=== PATIENT | male | born 1955 | race Caucasian/White ===

== ENCOUNTER 2017-05-26 16:46 | Inpatient (IN) ==
[2017-05-26] MEDS ORDERED: *HR* Morphine 2 MG/ML SYRINGE IVP PRN (21:21)
[2017-05-26] MEDS ORDERED: Naloxone 0.4 MG/ML INJ IVP PRN (21:21)
[2017-05-26] MEDS ORDERED: 0.9 % Sodium Chloride 1,000 ML IVC SCH (21:30)
--- NOTE | 2017-05-26 21:47 | Internal Med History&Physical ---
Date of Encounter: 05/26/17 Time of Encounter: 21:00 Assessment and Plan (1) Acute metabolic encephalopathy Current visit: Yes Status: Acute Will admit the pt into Tele His Acute delirium / AMS mostly due to metabolic encephalopathy with Inc BUN / Cr 82/15.[address] him on gentle IV hydration NS @ 75 cc/ Hr x 1 bag consulted and talked to Nephro Dr. Walker for possible ESRD in AM cont symptomatic and supportive care for now resumed all home meds holding diuretics for now (2) ESRD needing dialysis Current visit: Yes Status: Acute See above (3) Pneumonia Current visit: Yes Status: Acute Reviewed CXR report from [facility] - showed mild pulmonary edema, as well as bibasilar consolidations - possible pneumonia vs atelectasis his pulm edema mostly due to volume overload with ESRD however he does look intra vascular volume depleted and with his underline PNA, high risk to develop sepsis WBC- 7.8 so will give him gentle hydration his pneumonia mostly aspirational also check stat lactic acid started him on empirical abx Rocephin Qualifiers: Pneumonia type: aspiration pneumonia Laterality: bilateral Qualified Code (s): J69.0 - Pneumonitis due to inhalation of food and vomit (4) HTN (hypertension) Current visit: Yes Status: Acute stable with home medication will resume them Qualifiers: Qualified Code(s): I10 - Essential (primary) hypertension (5) Paroxysmal A-fib Current visit: Yes Status: Acute rate controlled on home med Metoprolol now in NSR cont Xarelto for anti coag (6) DM2 (diabetes mellitus, type 2) Current visit: Yes Status: Acute resume home insulin regimen Levemir + ISS + Pre meal Insulin check HbA1C in AM Qualifiers: Qualified Code(s): E11.9 - Type 2 diabetes mellitus without complications; Z79.4 - alf (current) use of insulin; Z79.4 - alf (current) use of insulin; Z79.4 - alf (current) use of insulin; Z79.4 - alf (current ) use of insulin (7) HLD (hyperlipidemia) Current visit: Yes Status: Acute on statin Qualifiers: Qualified Code(s): E78.5 - Hyperlipidemia, unspecified (8) Ileostomy care Current visit: Yes Status: Acute Cont ileostomy care by nursing staff Internal Medicine - H&P: HPI Chief complaint: AMS Admitted From: Hospital to Hospital Transfer ([facility]) Plans for Post Hospital Care: Home History of present illness: Mr. Benitez is a 61 year old male with HTN, DM2, CKD-5, Paroxysmal a fib on Xarelto for anti coag and s/p ileostomy pt was brought into [facility] ED by EMS stating that pt looks confused and lethargic, as well as pt fell off from the bed and his ileostomy bag came off. Pt also had CKD-5 and supposedly to start HD in one week. Pt was transferred to our hospital for further care. Pt is alert, awake and O x 3 now, he denied any CP / SOB. Denied any cod cough / URI symptoms. Denied any fever. He does look slightly lethargic. Past Med Surg Social Fam HX - Past Medical History Medical history: arthritis, atrial fibrillation, CHF, diabetes, hypertension, renal disease, TIA Psychiatric history: no psych history - Past Surgical History Surgical History: colostomy, coronary bypass (CABG) - Social History Smoking Status: Smoker, status unknown Drug use: none - Family History Brother Hx Family Genitourinary Disorders: Yes (ESRD) - Additional Family History Additional family history: Brother had ESRD Internal Medicine - H&P: Meds 3 Allergy/AdvReac Type Severity Reaction Status Date / Time NSAIDS (Non-Steroidal Allergy Hives Verified 05/26/17 18:49 Anti-Inflamma pravastatin Allergy Hives Verified 05/26/17 18:49 sitagliptin [From Januvia] Allergy Hives Verified 05/26/17 18:49 All Systems PM: A 10-system review of systems was performed and is negative for pertinent findings except as documented above in the HPI. Review of systems: All the systems are reviewed everything is benign except the systems and symptoms I mentioned in the history of present illness - Constitutional Vitals: Temp Pulse Resp BP Pulse Ox 97.7 F 85 16 114/65 91 05/26/17 18:29 05/26/17 18:29 05/26/17 18:29 05/26/17 18:29 05/26/17 18:29 General appearance: Present: A&O X 3 (looks lethargic and weak), no acute distress, answers questions appropriately - Head Head exam: Present: atraumatic, normal inspection - Neck Neck exam general surgery: Present: supple - Respiratory Respiratory exam: Present: decreased breath sounds, wheezes (mild). Absent: rales, respiratory distress, rhonchi - Cardiovascular Cardiovascular exam: Present: RRR, +S1, +S2. Absent: tachycardia - GI/Abdominal GI/Abdominal exam: Present: normal bowel sounds, soft. Absent: rebound, rigid, tenderness Additional comments: ileostomy - Extremities Exam Extremities exam: Present: pedal edema (1+). Absent: calf tenderness, tenderness - Back Exam Back exam: Absent: CVA tenderness (L), CVA tenderness (R) - Neurological Exam Neurological exam: Present: alert, oriented X3 - Psychiatric Psychiatric exam: Present: normal affect, normal mood - Skin Skin exam: Absent: rash
[2017-05-26] MEDS ORDERED: cefTRIAXone 1,000 MG in Water for inj. (sterile) 10 ML IVP SCH (22:00)
[2017-05-26 22:26] LABS: Albumin 2.8 g/dL (3.5-5.0); Albumin/Globulin Ratio 0.6 (1.1-2.2); Bilirubin,Total 0.3 mg/dL (0.2-1.2); Magnesium 1.6 mg/dL (1.6-2.6); Total Protein 7.8 g/dL (6.0-8.3)
[2017-05-26 22:27] LABS: Calcium 9.3 mg/dL (8.6-10.8)
[2017-05-26 22:28] LABS: Potassium 5.6 mEq/L (3.5-4.5)
[2017-05-27] MEDS ORDERED: *HR* Dextrose 50 % in Water (Syg) 50 ML SYRINGE IVP PRN (00:28)
[2017-05-27] MEDS ORDERED: D5% in Water 1,000 ML IVC PRN (00:28)
[2017-05-27] MEDS ORDERED: Dextrose Gel 15 GM/37.5 ML TUBE PO PRN ×2 (00:28)
[2017-05-27] MEDS ORDERED: Insulin LISPRO 300 UNITS/3 ML VIAL SQ SCH ×2 (00:30→07:30)
[2017-05-27 04:22] LABS: Basophils % 0.1 %; Eosinophils # 0.1 K/mcL (0.0-0.6); Eosinophils % 1.7 %; Hematocrit 27.6 % (37.5-50.1); Hemoglobin 8.7 g/dL (12.9-16.9); Immature Granulocytes % 0.7 % (0-4); Lymphocytes # 1.8 K/mcL (0.6-4.6); Lymphocytes % 22.3 %; Mean Corpuscular HGB Conc 31.5 g/dL (31.6-35.5); Mean Corpuscular Hemoglobin 28.8 pg (28.0-33.3); Mean Corpuscular Volume 91.4 fL (83.0-100.0); Mean Platelet Volume 10.2 fL (9.4-12.4); Monocytes # 0.8 K/mcL (0.0-1.3); Monocytes % 9.8 %; Neutrophils # 5.3 K/mcL (1.6-8.9); Platelet Count 117 K/mcL (140-400); Red Blood Count 3.02 M/mcL (4.19-5.50); Red Cell Distribution Width 14.1 % (11.5-14.5); Segmented Neutrophils % 65.4 %
[2017-05-27] MEDS: Insulin LISPRO 300 UNITS/3 ML VIAL SQ SCH ×5 (04:34→22:11)
[2017-05-27 04:42] LABS: Calcium 9.1 mg/dL (8.6-10.8); Chol/HDL Ratio 6.6 (0-4.9); Magnesium 1.8 mg/dL (1.6-2.6); Phosphorous 8.4 mg/dL (2.3-4.7); Potassium 5.9 mEq/L (3.5-4.5)
[2017-05-27] MEDS ORDERED: *HR* Heparin 5,000 UNIT/ML VIAL SQ SCH (06:00)
--- NOTE | 2017-05-27 08:25 | Internal Med Progress Note ---
Date of Encounter: 05/27/17 Time of Encounter: 08:23 - Assessment and plan (1) Aspiration pneumonia Current Visit: Yes Status: Acute Assessment and plan: Acute metabolic encephalopathy likely secondary to aspiration pneumonia and also uremia from acute renal failure Stop Rocephin and start Unasyn, aspiration precautions Gentle hydration Chest x-ray showed mild pulmonary edema and bibasilar consolidations possible pneumonia Qualifiers: Aspiration pneumonia type: unspecified Laterality: bilateral Lung location: lower lobe of lung Qualified Code(s): J69.0 - Pneumonitis due to inhalation of food and vomit (2) Acute metabolic encephalopathy Current Visit: Yes Status: Acute (3) ESRD needing dialysis Current Visit: Yes Status: Acute Assessment and plan: Prior history of CKD5 according to prior records Nephrology consulted, Yanez catheter, UA, will require dialysis Renal ultrasound to be ordered Hold potassium supplements Hold gabapentin, valsartan and Lasix (4) HTN (hypertension) Current Visit: Yes Status: Acute Assessment and plan: Hold valsartan and Lasix Qualifiers: Qualified Code(s): I10 - Essential (primary) hypertension (5) DM2 (diabetes mellitus, type 2) Current Visit: Yes Status: Acute Assessment and plan: Use insulin sliding scale Qualifiers: Diabetes mellitus complication status: without complication Diabetes mellitus intermediate frame tender insulin use: with intermediate frame tender use Qualified Code(s): E11.9 - Type 2 diabetes mellitus without complications; Z79.4 - custodial (current) use of insulin; Z79.4 - custodial (current) use of insulin; Z79.4 - custodial ( current) use of insulin; Z79.4 - custodial (current) use of insulin (6) HLD (hyperlipidemia) Current Visit: Yes Status: Acute Qualifiers: Qualified Code(s): E78.5 - Hyperlipidemia, unspecified (7) Paroxysmal A-fib Current Visit: Yes Status: Acute Assessment and plan: Has a history of TIAs Continue metoprolol Stop Xarelto this is not an optimal drug for patient with acute renal failure Consider using Coumadin in the long run in May start heparin drip after the dialysis catheter is placed (8) Ileostomy care Current Visit: Yes Status: Acute Assessment and plan: Unclear reason for ileostomy spirograph scheduled to be reversed in the future History of C. difficile 2 years ago - Subjective Interval history: Lethargic, oriented in person and place, unable to provide any history due to altered mental status, not able to complete review of systems - Constitutional Vitals: Temp Pulse Resp BP Pulse Ox 98.5 F 82 19 137/80 96 05/27/17 06:55 05/27/17 06:55 05/27/17 06:55 05/27/17 06:55 05/27/17 06:55 General appearance: Present: A&O X 2, no acute distress, answers questions appropriately - Head Head exam: Present: atraumatic, normocephalic - Eye Eye exam: Present: PERRL, conjuntiva pink, sclera anicteric Pupils: Present: PERRL - Neck Neck exam general surgery: Present: supple, trachea midline. Absent: lymphadenopathy - Respiratory Respiratory exam: Present: decreased breath sounds, CTAB. Absent: accessory muscle use, rales, rhonchi, wheezes - Cardiovascular Cardiovascular exam: Present: RRR, +S1, +S2. Absent: diastolic murmur, gallop, rubs, systolic murmur - GI/Abdominal GI/Abdominal exam: Present: distended (Ileostomy in place), normal bowel sounds , soft, no peritoneal signs. Absent: tenderness - Extremities Exam Extremities exam: Present: pedal edema, warm, radial pulses palpable and symmetrical. Absent: calf tenderness, cyanotic - Neurological Exam Neurological exam: Present: CN II-XII intact, no focal deficits. Absent: oriented X3, pronater drift, facial droop, speech deficit - Skin Skin exam: Present: dry, intact Internal Medicine: Result - Labs CBC & Chem 7: 05/27/17 03:50 05/27/17 03:50 Labs: Short CBC 05/27/17 Range/Units 03:50 WBC 8.1 (4.3-11.1) K/mcL Hgb 8.7 L (12.9-16.9) g/dL Hct 27.6 L (37.5-50.1) % Plt Count 117 L (140-400) K/mcL Neutrophils # 5.3 (1.6-8.9) K/mcL BMP 05/26/17 05/27/17 21:55 03:50 Sodium 133 L 133 L Potassium 5.6 H 5.9 H Chloride 106 106 Carbon Dioxide 11 L 11 L BUN 87 H 87 H Creatinine 16.13 H 16.91 H Glucose 243 H 219 H Calcium 9.3 9.1 Liver Function 05/26/17 Range/Units 21:55 Total Bilirubin 0.3 (0.2-1.2) mg/dL AST 14 (5-34) Units/L ALT 12 (0-55) Units/L Alkaline Phosphatase 95 (38-126) Units/L Albumin 2.8 L (3.5-5.0) g/dL Consult Discharge Plan - Plan Referrals: NONE,PCP [Primary Care Provider] -
[2017-05-27] MEDS ORDERED: Ampicillin/Sulbactam 1,500 MG in 0.9 % Sodium Chloride Mini Bag 100 ML IVPB SCH (09:00)
--- NOTE | 2017-05-27 09:18 | Nephrology Consult Note ---
Date of Encounter: 05/27/17 Time of Encounter: 08:15 Assessment and Plan (1) ESRD needing dialysis Current Visit: Yes Status: Acute CLAUDIA in setting of possible aspiration pneumonia, decreased oral intake, emesis superimposed on CKD 4 in setting of DM and HTN. Metabolic encephalopathy most likely due to CLAUDIA. Empiric Atb chaned to Unisyn. IR consulted for stat placement of for HD this morning. Orders given. Ordered stat Renal US to r/o obstructive uropathy, levin catheter placement and urine, urine c/s. Avoid nephrotoxins. Lasix, Losartan, K supplement on hold. Accurate I/O. Will continue to monitor. (2) Acute metabolic encephalopathy Current Visit: Yes Status: Acute (3) Pneumonia Current Visit: Yes Status: Acute Qualifiers: Pneumonia type: aspiration pneumonia Laterality: bilateral Qualified Code (s): J69.0 - Pneumonitis due to inhalation of food and vomit History of Present Illness - Reason for Consult Acute Kidney Injury - History of Present Illness Mr. Benitez is a 61 year old male known to practice with stable CKD in setting of diabetes and hypertension. Other PMH- arthritis, atrial fibrillation on xaralto, CHF, diabetes, hypertension, renal disease, TIA, iliostomy, coronary bypass (CABG). Mr. Benitez was transferred to [place] yesterday from [facility] with mental status changes and creat 16.0. K 5.9. Today at [facility], patient on BiPap. at bedside, although is not the best manager medical for patient, states patient not himself for greater than one weak. Had one episode of vomiting last weekend, has not had his usual oral intake and patient stated not urinating as usual, less amount, on diuretic. Denies NSAID use. States took patient to PCP on Monday because patient stated "he felt he needed to see doctor." patient told has depression in setting of recent of brother and started on anti depression medication. He was also seen by surgeon in [place] on Monday sherri evaluation of reversal of iliostomy. noted yesterda patient had increasing weakness and confusion, falling out of bed and had transferred via EMS to [facility]. As stated earlier creatinine noted to be elevated, CXR at [place]-mild pul edema, bibasilar consolidations-poss. PNA versus atalectasis. WBC 7.8He was placed on gentle hydration, NS @ 75cc/hr. and empirical Rocephin started. There is no documented urine output. Past Med Surg Social Fam HX - Past Medical History Medical history: arthritis, atrial fibrillation, CHF, diabetes, hypertension, renal disease, TIA Psychiatric history: no psych history - Past Surgical History Surgical History: colostomy, coronary bypass (CABG) - Social History Smoking Status: Smoker, status unknown Drug use: none - Family History Brother Hx Family Genitourinary Disorders: Yes (ESRD) Medications and Allergies Acetaminophen [Tylenol] 500 mg PO Q6HR PRN 05/27/17 [History] Bisoprolol/HCTZ 106.25 [Ziac 106.25] 1 tab PO DAILY 05/27/17 [History] Famotidine [Pepcid] 20 mg PO BID 05/27/17 [History] Flonase 50 mcg IN DAILY 05/27/17 [History] Furosemide [Lasix] 40 mg PO BID 05/27/17 [History] Gabapentin [Neurontin] 600 mg PO TID 05/27/17 [History] Hyoscyamine 0.125 mg PO Q4-6H PRN 05/27/17 [History] Insulin ASPART [Novolog Flexpen] 45 unit SQ TIDAC 05/27/17 [History] Insulin Glargine,Hum.rec.anlog [Basaglar Kwikpen U-100] 60 unit SQ BID 05/27/17 [History] Metoprolol XL (24 HR) Succ [Toprol XL] 200 mg PO DAILY 05/27/17 [History] Nitroglycerin [Nitrostat] 0.4 mg SL Q5-10MIN PRN 05/27/17 [History] Potassium Chloride [Klor-Con 10] 10 meq PO DAILY 05/27/17 [History] Rivaroxaban [Xarelto] 20 mg PO DAILY 05/27/17 [History] Simvastatin [Zocor] 40 mg PO HS 05/27/17 [History] Valsartan [Diovan] 80 mg PO DAILY 05/27/17 [History] 3 Allergy/AdvReac Type Severity Reaction Status Date / Time NSAIDS (Non-Steroidal Allergy Hives Verified 05/26/17 18:49 Anti-Inflamma pravastatin Allergy Hives Verified 05/26/17 18:49 sitagliptin [From Januvia] Allergy Hives Verified 05/26/17 18:49 Review of Systems ROS unobtainable: due to mental status All Systems: reviewed and no additional remarkable complaints except as stated Exam - Vital Signs Vital signs: Initial Vital Signs Temp Pulse Resp BP Pulse Ox 97.7 F 85 16 114/65 91 05/26/17 18:29 05/26/17 18:29 05/26/17 18:29 05/26/17 18:29 05/26/17 18:29 Vital Signs - Last 8 Hours Temp Pulse Resp BP Pulse Ox 05/27/17 06:55 98.5 F 82 19 137/80 96 05/27/17 04:01 98.4 F 94 16 151/76 90 05/27/17 04:00 20 93 Intake and Output 05/26/17 05/27/17 05/27/17 23:59 07:59 15:59 Intake Total 800 / 800 Balance 800 / 800 Intake: IV Fluids 400 / 400 0.9 % Sodium Chloride 1,000 ML 400 / 400 @ 75 mls/hr IVC .[id number] COUNTS INCLUDE 234 BEDS AT THE [facility] Rx #:[id number] Rocephin 1,000 MG In Water for inj. (sterile) 10 ML @ 300 mls/ hr IVP DAILY COUNTS INCLUDE 234 BEDS AT THE [facility] Rx#:[id number] Oral 0 / 0 400 / 400 Other: Stool Size Moderate Stool Consistency loose liquid Stool Color Brown Weight 113.398 kg 114.3 kg Blood Glucose* 194 Patient Weight 05/27/17 23:59 Weight 114.3 kg - General Appearance General appearance: well-developed, well-nourished, appears started age, obese EENT: mucous membranes moist Neck: no JVD Respiratory: clear Cardiology: edema, regular rate, regular rhythm Additional Comments: mild LE edema Gastrointestinal: hypoactive bowel sounds, no guarding Integumentary: warm and dry Results - Lab Results 05/27/17 03:50 05/27/17 03:50 Most recent lab results Calcium 9.1 mg/dL (8.6-10.8) 05/27/17 03:50 Phosphorus 8.4 mg/dL (2.3-4.7) H 05/27/17 03:50 Magnesium 1.8 mg/dL (1.6-2.6) 05/27/17 03:50 Consult Discharge Plan - Plan Referrals: NONE,PCP [Primary Care Provider] -
[2017-05-27] MEDS ORDERED: *HR* Heparin 5,000 UNIT/ML VIAL ONE (10:08)
[2017-05-27] MEDS ORDERED: *HR* Heparin 10,000 UNIT/10 ML VIAL IV PRN (10:11)
[2017-05-27] MEDS ORDERED: 0.9 % Sodium Chloride 250 ML IVC PRN (10:11)
[2017-05-27] MEDS ORDERED: 0.9 % Sodium Chloride 1,000 ML PRIME SCH (10:15)
[2017-05-27] MEDS: Metoprolol XL (24 HR) Succ 50 MG TAB.ER.24H PO SCH (10:26)
[2017-05-27] MEDS: Ampicillin/Sulbactam 1,500 MG in 0.9 % Sodium Chloride Mini Bag 100 ML IVPB SCH ×2 (10:27→18:11)
[2017-05-27 11:11] LABS: Hepatitis B Surface Antigen Nonreactive (Nonreactive)
[2017-05-27 13:31] LABS: Bilirubin,Urine Negative (Negative); Blood,Urine Large (Negative); Clarity,Urine Cloudy (Clear); Color,Urine Yellow (Yellow); Glucose,Urine (UA) 100 mg/dL (Normal); Ketones,Urine Negative (Negative); Leukocyte Esterase,Urine Negative (Negative); Nitrite,Urine Negative (Negative); Protein,Urine >=300 mg/dL (Neg-Trace); Specific Gravity,Urine 1.018 (1.010-1.025); Urobilinogen,Urine Normal (Normal)
[2017-05-27 13:34] LABS: Bacteria,Urine None Seen per hpf (None-Few); Hyaline Casts,Urine None Seen per lpf (None-Few); RBC,Urine 0-3 per hpf (0-3); Squamous Epithelial Cell,Urine Moderate per lpf (None-Few)
[2017-05-27] MEDS ORDERED: 0.9 % Sodium Chloride 2,000 ML ONE (13:51)
[2017-05-28 07:19] LABS: Hematocrit 26.3 % (37.5-50.1); Hemoglobin 8.5 g/dL (12.9-16.9); Mean Corpuscular HGB Conc 32.3 g/dL (31.6-35.5); Mean Corpuscular Hemoglobin 29.1 pg (28.0-33.3); Mean Corpuscular Volume 90.1 fL (83.0-100.0); Mean Platelet Volume 10.3 fL (9.4-12.4); Platelet Count 135 K/mcL (140-400); Red Blood Count 2.92 M/mcL (4.19-5.50); Red Cell Distribution Width 14.2 % (11.5-14.5)
[2017-05-28 07:41] LABS: Calcium 8.8 mg/dL (8.6-10.8)
[2017-05-28 07:43] LABS: Potassium 4.6 mEq/L (3.5-4.5)
[2017-05-28] MEDS ORDERED: 0.9 % Sodium Chloride 250 ML IVC PRN (08:13)
[2017-05-28] MEDS ORDERED: 0.9 % Sodium Chloride 1,000 ML PRIME SCH (08:15)
--- NOTE | 2017-05-28 08:25 | Nephrology Progress Note ---
Date of Encounter: 05/28/17 Time of Encounter: 08:10 - Assessment and Plan (1) ESRD needing dialysis Current Visit: Yes Status: Acute CLAUDIA in setting of possible aspiration pneumonia, decreased oral intake, emesis superimposed on CKD 4 in setting of DM and HTN. Metabolic encephalopathy most likely due to CLAUDIA. Empiric Atb coverage. Renal fct improving. Creat 12.19. HD again today. Orders given. Renal US no hydronephrosis, no obstructive uropathy. Documented ourine output 750cc. Avoid nephrotoxins. Lasix, Losartan, K supplement on hold. Accurate I/O. Will continue to monitor. (2) Acute metabolic encephalopathy Current Visit: Yes Status: Acute (3) Pneumonia Current Visit: Yes Status: Acute Qualifiers: Pneumonia type: aspiration pneumonia Laterality: bilateral Qualified Code (s): J69.0 - Pneumonitis due to inhalation of food and vomit Subjective Interval history: More alert, verbal. Has Cpap on. Sister in law at bedside, awaiting to feed breakfast. Objective - Vital Signs Vital signs: Vital Signs Temp Pulse Resp BP Pulse Ox 05/28/17 07:00 98.1 F 73 16 123/73 98 05/28/17 04:29 17 98 05/28/17 00:30 14 98 05/27/17 23:41 98.0 F 80 16 148/69 05/27/17 21:45 16 98 05/27/17 19:45 98.6 F 77 18 155/76 98 05/27/17 16:40 97.1 F L 15 135/72 05/27/17 16:30 124/73 05/27/17 16:15 148/83 05/27/17 16:00 145/82 05/27/17 15:45 128/90 05/27/17 15:30 150/85 05/27/17 15:15 148/85 05/27/17 15:00 153/90 05/27/17 14:45 150/88 05/27/17 14:30 145/70 05/27/17 14:15 141/86 05/27/17 14:00 97.6 F 15 130/81 05/27/17 11:45 150/88 05/27/17 11:41 98.0 F 78 15 142/47 98 Intake and Output 05/27/17 05/28/17 05/28/17 23:59 07:59 15:59 Intake Total 0 / 0 Output Total 1600 / 1600 200 / 200 Balance -1600 / -1600 -200 / -200 Intake: Oral 0 / 0 Output: Urine 0 / 0 Stool 200 / 200 Total Dialysis (HD) Output 1600 / 1600 Other: Stool Consistency liquid Stool Color Brown Blood Glucose* 203 138 Hemodialysis Net Fluid Removed 1000 (mL) - General Appearance General appearance: Present: well-developed, well-nourished, appears started age , obese EENT: Present: mucous membranes moist Neck: Present: no JVD Respiratory: Present: clear Cardiology: Present: no edema, regular rate, regular rhythm Gastrointestinal: Present: hypoactive bowel sounds, no tenderness, no guarding Integumentary: Present: warm and dry Psychiatric: Present: mood/affect appropriate, cooperative - Lab 05/28/17 06:38 05/28/17 06:38 Most recent lab results Calcium 8.8 mg/dL (8.6-10.8) 05/28/17 06:38 Phosphorus 8.4 mg/dL (2.3-4.7) H 05/27/17 03:50 Magnesium 1.8 mg/dL (1.6-2.6) 05/27/17 03:50 Consult Discharge Plan - Plan Referrals: NONE,PCP [Primary Care Provider] -
--- NOTE | 2017-05-28 08:59 | Internal Med Progress Note ---
Date of Encounter: 05/28/17 Time of Encounter: 08:57 - Assessment and plan (1) Aspiration pneumonia Current Visit: Yes Status: Acute Assessment and plan: Acute metabolic encephalopathy likely secondary to aspiration pneumonia and also uremia from acute renal failure Stopped Rocephin COntinue Unasyn day 2, aspiration precautions discontinued IVF Chest x-ray showed mild pulmonary edema and bibasilar consolidations possible pneumonia Qualifiers: Aspiration pneumonia type: unspecified Laterality: bilateral Lung location: lower lobe of lung Qualified Code(s): J69.0 - Pneumonitis due to inhalation of food and vomit (2) Acute metabolic encephalopathy Current Visit: Yes Status: Acute Assessment and plan: resolved (3) ESRD needing dialysis Current Visit: Yes Status: Acute Assessment and plan: history of CKD5 according to prior records Nephrology consulted, Yanez catheter, continue dialysis Renal ultrasound showed:1. No obstructive uropathy identified. 2. Mildly echogenic renal parenchyma compatible with medical renal disease. Hold potassium supplements Hold gabapentin, valsartan and Lasix (4) HTN (hypertension) Current Visit: Yes Status: Acute Assessment and plan: Hold valsartan and Lasix Qualifiers: Qualified Code(s): I10 - Essential (primary) hypertension (5) DM2 (diabetes mellitus, type 2) Current Visit: Yes Status: Acute Assessment and plan: Use insulin sliding scale Qualifiers: Diabetes mellitus complication status: without complication Diabetes mellitus volunteer specialist insulin use: with volunteer specialist use Qualified Code(s): E11.9 - Type 2 diabetes mellitus without complications; Z79.4 - horticultural services supervisor (current) use of insulin; Z79.4 - horticultural services supervisor (current) use of insulin; Z79.4 - horticultural services supervisor ( current) use of insulin; Z79.4 - intermediate (current) use of insulin (6) HLD (hyperlipidemia) Current Visit: Yes Status: Acute Qualifiers: Qualified Code(s): E78.5 - Hyperlipidemia, unspecified (7) Paroxysmal A-fib Current Visit: Yes Status: Acute Assessment and plan: Has a history of TIAs Continue metoprolol Stopped Xarelto, this is not an optimal drug for patients with acute renal failure/ or HD Start Coumadin . May start heparin drip until INR >2 (8) Ileostomy care Current Visit: Yes Status: Acute Assessment and plan: Unclear reason for ileostomy spirograph scheduled to be reversed in the future History of C. difficile 2 years ago - Subjective Interval history: oriented x 3 now, complains of leg pain bilaterally, and his any chest pain or shortness of breath, does not remember what happened yesterday. Denies any fevers or headaches - Constitutional Vitals: Temp Pulse Resp BP Pulse Ox 98.1 F 73 16 123/73 98 05/28/17 07:00 05/28/17 07:00 05/28/17 07:00 05/28/17 07:00 05/28/17 07:00 General appearance: Present: A&O X 3, no acute distress, answers questions appropriately - Head Head exam: Present: atraumatic, normocephalic - Eye Eye exam: Present: PERRL, conjuntiva pink, sclera anicteric Pupils: Present: PERRL - Neck Neck exam general surgery: Present: supple, trachea midline. Absent: lymphadenopathy - Respiratory Respiratory exam: Present: CTAB. Absent: accessory muscle use, rales, rhonchi, wheezes - Cardiovascular Cardiovascular exam: Present: RRR, +S1, +S2. Absent: diastolic murmur, gallop, rubs, systolic murmur - GI/Abdominal GI/Abdominal exam: Present: normal bowel sounds, soft, no peritoneal signs. Absent: distended, tenderness Additional comments: Ileostomy in place - Extremities Exam Extremities exam: Present: pedal edema, warm, radial pulses palpable and symmetrical. Absent: calf tenderness, cyanotic - Neurological Exam Neurological exam: Present: CN II-XII intact, oriented X3, no focal deficits. Absent: pronater drift, facial droop, speech deficit - Skin Skin exam: Present: dry, intact Additional comments: Yanez catheter in place Internal Medicine: Result - Labs CBC & Chem 7: 05/28/17 06:38 05/28/17 06:38 Labs: Short CBC 05/28/17 Range/Units 06:38 WBC 6.7 (4.3-11.1) K/mcL Hgb 8.5 L (12.9-16.9) g/dL Hct 26.3 L (37.5-50.1) % Plt Count 135 L (140-400) K/mcL BMP 05/28/17 06:38 Sodium 135 L Potassium 4.6 H D Chloride 102 Carbon Dioxide 17 L BUN 58 H D Creatinine 12.19 H Glucose 132 H Calcium 8.8 Urine 05/27/17 Range/Units 13:15 Urine Color Yellow (Yellow) Urine Clarity Cloudy A (Clear) Urine pH 6.0 (5.0-8.0) pH Units Ur Specific [place] 1.018 (1.010-1.025) Urine Protein >=300 H (Neg-Trace) mg/dL Urine Glucose (UA) 100 H (Normal) mg/dL - Impressions Impressions KUB X-Ray 05/27/17 10:14 IMPRESSION: Right femoral venous catheter with tip in the IVC. No bowel obstruction. D/ / Gurvinder Melton MD / Gurvinder Melton MD Interpreting Provider: Gurvinder Melton MD Retroperitoneum Ultrasound 05/27/17 13:00 IMPRESSION: 1. No obstructive uropathy identified. 2. Mildly echogenic renal parenchyma compatible with medical renal disease. D/ / David Christiansen MD / David Christiansen MD Interpreting Provider: David Christiansen MD Consult Discharge Plan - Plan Referrals: NONE,PCP [Primary Care Provider] -
[2017-05-28 09:56] LABS: INR 1.1; Prothrombin Time 11.8 Seconds (9.4-12.1)
[2017-05-28 09:59] LABS: Activated Partial Thrombo Time 23.9 Seconds (26.0-36.0)
[2017-05-28] MEDS: Insulin LISPRO 300 UNITS/3 ML VIAL SQ SCH ×4 (10:29→22:14)
[2017-05-28] MEDS: Metoprolol XL (24 HR) Succ 50 MG TAB.ER.24H PO SCH ×2 (14:25→14:55)
[2017-05-28] MEDS: Heparin 25,000 UNIT/500 ML D5W 25,000 UNIT/500 ML BAG IVC SCH (14:35)
[2017-05-28] MEDS: Ampicillin/Sulbactam 1,500 MG in 0.9 % Sodium Chloride Mini Bag 100 ML IVPB SCH (14:50)
[2017-05-28] MEDS ORDERED: *HR* Warfarin 5 MG TABLET PO SCH (18:00)
[2017-05-28] MEDS ORDERED: Warfarin perPT PO PRN (18:00)
[2017-05-28 18:34] LABS: ABG Base Excess 0 mEq/L (-2 to 3); ABG HCO3 26 mEq/L (21-27); ABG Oxygen Saturation 98 % (95-98); ABG PCO2 46 mmHg (35-45); ABG PH 7.36 pH Units (7.32-7.45); ABG PO2 110 mmHg (85-104); ABG TCO2 27 mEq/L (20-26)
[2017-05-28] MEDS: Acetaminophen 325 MG TABLET PO PRN (19:15)
[2017-05-28] MEDS: *HR* Heparin 5,000 UNIT/ML VIAL IVP PRN (22:15)
[2017-05-29 04:57] LABS: INR 1.1
[2017-05-29] MEDS: *HR* Heparin 5,000 UNIT/ML VIAL IVP PRN (05:15)
[2017-05-29] MEDS: Acetaminophen 325 MG TABLET PO PRN (05:15)
[2017-05-29 07:47] LABS: Hematocrit 23.5 % (37.5-50.1); Hemoglobin 7.6 g/dL (12.9-16.9); Mean Corpuscular HGB Conc 32.3 g/dL (31.6-35.5); Mean Corpuscular Volume 89.7 fL (83.0-100.0); Mean Platelet Volume 9.3 fL (9.4-12.4); Platelet Count 123 K/mcL (140-400); Red Blood Count 2.62 M/mcL (4.19-5.50); Red Cell Distribution Width 14.1 % (11.5-14.5)
[2017-05-29 07:59] LABS: Calcium 8.8 mg/dL (8.6-10.8); Potassium 4.2 mEq/L (3.5-4.5)
--- NOTE | 2017-05-29 08:51 | Internal Med Progress Note ---
<Darren Crowder - Last Filed: 05/29/17 09:53> Date of Encounter: 05/29/17 Time of Encounter: 08:49 - Assessment and plan (1) Acute metabolic encephalopathy Current Visit: Yes Status: Acute Assessment and plan: Resolved. AOx3 currently. (2) ESRD needing dialysis Current Visit: Yes Status: Acute Assessment and plan: Cr 10.03 < 12.19 < 16.91 BUN 45 < 58 < 87 Dialysis per nephrology recommendations Holding K supplements, gabapentin, valsartan, and lasix (3) HTN (hypertension) Current Visit: Yes Status: Chronic Assessment and plan: Elevated at 164/78 this morning Holding home medications of valsartan and lasix secondary to ESRD Continue hydralazine and metoprolol Qualifiers: Hypertension type: essential hypertension Qualified Code(s): I10 - Essential (primary) hypertension (4) DM2 (diabetes mellitus, type 2) Current Visit: Yes Status: Chronic Assessment and plan: Glucose 205 Continue sliding scale insulin Qualifiers: Diabetes mellitus complication status: without complication Diabetes mellitus correction insulin use: with correction use Qualified Code(s): E11.9 - Type 2 diabetes mellitus without complications; Z79.4 - alf (current) use of insulin; Z79.4 - alf (current) use of insulin; Z79.4 - alf ( current) use of insulin; Z79.4 - alf (current) use of insulin (5) HLD (hyperlipidemia) Current Visit: Yes Status: Chronic Assessment and plan: Continue statin Qualifiers: Hyperlipidemia type: unspecified Qualified Code(s): E78.5 - Hyperlipidemia , unspecified (6) Paroxysmal A-fib Current Visit: Yes Status: Chronic Assessment and plan: Continue metoprolol Continue coumadin. Follow INR until >2, then discontinue heparin. (7) Aspiration pneumonia Current Visit: Yes Status: Acute Assessment and plan: Continue unasyn Day 3 Aspiration precautions Qualifiers: Aspiration pneumonia type: unspecified Laterality: bilateral Lung location: lower lobe of lung Qualified Code(s): J69.0 - Pneumonitis due to inhalation of food and vomit (8) DVT prophylaxis Current Visit: Yes Status: Acute Assessment and plan: Continue heparin until coumadin is therapeutic - Subjective Interval history: Patient and complained of altered mental status yesterday after administration of morphine. This has improved and he is now back at baseline. - Constitutional Vitals: Temp Pulse Resp BP Pulse Ox 98.3 F 90 20 164/78 99 05/29/17 07:06 05/29/17 07:06 05/29/17 07:06 05/29/17 07:06 05/29/17 07:06 General appearance: Present: A&O X 3, no acute distress, obese, answers questions appropriately - Head Head exam: Present: atraumatic, normal inspection, normocephalic - ENT ENT exam: Present: mucous membranes moist - Neck Neck exam general surgery: Present: trachea midline - Respiratory Respiratory exam: Present: CTAB. Absent: accessory muscle use - Cardiovascular Cardiovascular exam: Present: RRR, +S1, +S2 - GI/Abdominal GI/Abdominal exam: Present: normal bowel sounds, soft, no peritoneal signs. Absent: tenderness - Extremities Exam Extremities exam: Present: warm. Absent: calf tenderness, pedal edema - Neurological Exam Neurological exam: Present: alert, oriented X3, no focal deficits - Psychiatric Psychiatric exam: Present: normal affect, normal mood - Skin Skin exam: Present: dry, warm Internal Medicine: Result - Labs CBC & Chem 7: 05/29/17 07:40 05/29/17 07:40 Labs: Short CBC 05/29/17 Range/Units 07:40 WBC 4.8 (4.3-11.1) K/mcL Hgb 7.6 L (12.9-16.9) g/dL Hct 23.5 L (37.5-50.1) % Plt Count 123 L (140-400) K/mcL BMP 05/29/17 07:40 Sodium 134 L Potassium 4.2 Chloride 100 Carbon Dioxide 22 BUN 45 H D Creatinine 10.03 H Glucose 205 H Calcium 8.8 - ABG Interpretation ABG results: ABG ABG pH 7.36 pH Units (7.32-7.45) 05/28/17 18:31 ABG pCO2 46 mmHg (35-45) H 05/28/17 18:31 ABG pO2 110 mmHg (85-104) H 05/28/17 18:31 ABG O2 Saturation 98 % (95-98) 05/28/17 18:31 PT/INR, D-dimer PT 12.0 Seconds (9.4-12.1) 05/29/17 04:38 Consult Discharge Plan - Plan Referrals: NONE,PCP [Primary Care Provider] - <Bin Hickman H - Last Filed: 05/29/17 10:55> Date of Encounter: 05/29/17 - Assessment and plan (1) Aspiration pneumonia Current Visit: Yes Status: Acute Qualifiers: Aspiration pneumonia type: unspecified Laterality: bilateral Lung location: lower lobe of lung Qualified Code(s): J69.0 - Pneumonitis due to inhalation of food and vomit (2) Acute metabolic encephalopathy Current Visit: Yes Status: Acute (3) ESRD needing dialysis Current Visit: Yes Status: Acute (4) HTN (hypertension) Current Visit: Yes Status: Chronic Qualifiers: Hypertension type: essential hypertension Qualified Code(s): I10 - Essential (primary) hypertension (5) DM2 (diabetes mellitus, type 2) Current Visit: Yes Status: Chronic Qualifiers: Diabetes mellitus complication status: without complication Diabetes mellitus correction insulin use: with meterman use Qualified Code(s): E11.9 - Type 2 diabetes mellitus without complications; Z79.4 - buttermaker continuous churn (current) use of insulin; Z79.4 - buttermaker continuous churn (current) use of insulin; Z79.4 - buttermaker continuous churn ( current) use of insulin; Z79.4 - buttermaker continuous churn (current) use of insulin (6) HLD (hyperlipidemia) Current Visit: Yes Status: Chronic Qualifiers: Hyperlipidemia type: unspecified Qualified Code(s): E78.5 - Hyperlipidemia , unspecified (7) Paroxysmal A-fib Current Visit: Yes Status: Chronic (8) Ileostomy care Current Visit: Yes Status: Acute - Constitutional Vitals: Temp Pulse Resp BP Pulse Ox 98.3 F 90 20 164/78 99 05/29/17 07:06 05/29/17 07:06 05/29/17 07:06 05/29/17 07:06 05/29/17 09:15 Internal Medicine: Result - Labs CBC & Chem 7: 05/29/17 07:40 05/29/17 07:40 Labs: Short CBC 05/29/17 Range/Units 07:40 WBC 4.8 (4.3-11.1) K/mcL Hgb 7.6 L (12.9-16.9) g/dL Hct 23.5 L (37.5-50.1) % Plt Count 123 L (140-400) K/mcL BMP 05/29/17 07:40 Sodium 134 L Potassium 4.2 Chloride 100 Carbon Dioxide 22 BUN 45 H D Creatinine 10.03 H Glucose 205 H Calcium 8.8 - ABG Interpretation ABG results: ABG ABG pH 7.36 pH Units (7.32-7.45) 05/28/17 18:31 ABG pCO2 46 mmHg (35-45) H 05/28/17 18:31 ABG pO2 110 mmHg (85-104) H 05/28/17 18:31 ABG O2 Saturation 98 % (95-98) 05/28/17 18:31 PT/INR, D-dimer PT 12.0 Seconds (9.4-12.1) 05/29/17 04:38 - Attending Attestation Acute metabolic encephalopathy likely secondary to aspiration pneumonia and also uremia from acute renal failure Stopped Xarelto, this is not an optimal drug for patients with acute renal failure/ or HD I examined this patient and my medical decision-making was reviewed with the Resident Physician. I agree with the documented findings, disposition and treatment plan as described except to the extent set forth below.
[2017-05-29] MEDS: Insulin LISPRO 300 UNITS/3 ML VIAL SQ SCH ×4 (09:04→21:04)
[2017-05-29] MEDS: Metoprolol XL (24 HR) Succ 50 MG TAB.ER.24H PO SCH (09:05)
[2017-05-29] MEDS ORDERED: Gabapentin 300 MG CAPSULE PO SCH (09:30)
--- NOTE | 2017-05-29 09:32 | Nephrology Progress Note ---
Date of Encounter: 05/29/17 Time of Encounter: 09:30 - Assessment and Plan (1) Type 2 diabetes mellitus with diabetic chronic kidney disease Current Visit: Yes Status: Acute Qualifiers: Diabetes mellitus termite inspector insulin use: with fci use Chronic kidney disease stage: stage 4 (severe) Qualified Code(s): E11.22 - Type 2 diabetes mellitus with diabetic chronic kidney disease; N18.4 - Chronic kidney disease, stage 4 (severe); N18.4 - Chronic kidney disease, stage 4 (severe); N18.4 - Chronic kidney disease, stage 4 (severe); N18.4 - Chronic kidney disease, stage 4 (severe); Z79.4 - [facility] (current) use of insulin; Z79.4 - regional intermodal truck driver ( current) use of insulin; Z79.4 - regional intermodal truck driver (current) use of insulin; Z79.4 - [facility] (current) use of insulin (2) Benign hypertension with CKD (chronic kidney disease) stage IV Current Visit: Yes Status: Acute (3) Anemia in CKD (chronic kidney disease) Current Visit: Yes Status: Acute Qualifiers: Chronic kidney disease stage: stage 4 (severe) Qualified Code(s): N18.4 - Chronic kidney disease, stage 4 (severe); D63.1 - Anemia in chronic kidney disease; D63.1 - Anemia in chronic kidney disease (4) Paroxysmal A-fib Current Visit: Yes Status: Chronic (5) Chronic kidney disease, stage IV (severe) Current Visit: Yes Status: Acute The patient has a clinical picture of acute kidney injury superimposed on stage IV chronic kidney disease related to diabetic nephropathy and hypertension. Patient is require dialysis over the past 2 days. Renal ultrasound was unremarkable. There is no sign of renal recovery. We will proceed with dialysis again today. If over the next several days we do not see any evidence of renal recovery we will have to have a tunnel dialysis catheter placed. I reviewed this with the patient and his . All questions were answered. He will be started on Aranesp for his anemia. We will check a phosphorus level and PTH level as well. (6) Acute kidney failure, unspecified Current Visit: Yes Status: Acute Qualifiers: Acute renal failure type: unspecified Qualified Code(s): N17.9 - Acute kidney failure, unspecified Subjective Interval history: Patient's main complaint is back pain and lower extremity pain which she blames on diabetic peripheral neuropathy. From a renal perspective he has had dialysis for the past 2 days. Urine output is not recorded for yesterday. Creatinine is 10.03. There is currently no sign of renal improvement. Back in March the patient's creatinine was 3.46 with a GFR of 17.9. Objective - Vital Signs Vital signs: Vital Signs Temp Pulse Resp BP Pulse Ox 05/29/17 07:06 98.3 F 90 20 164/78 99 05/29/17 04:18 11 99 05/29/17 03:52 98.3 F 80 18 145/70 100 05/28/17 22:59 98.6 F 86 17 118/69 96 05/28/17 20:02 98.7 F 91 17 120/75 97 05/28/17 16:42 99.5 F 88 18 148/75 100 05/28/17 13:15 99.1 F 91 18 156/74 96 05/28/17 12:20 97.7 F 16 118/67 05/28/17 12:00 106/47 05/28/17 11:45 109/68 05/28/17 11:30 110/69 05/28/17 11:15 129/69 05/28/17 11:00 125/70 05/28/17 10:45 136/69 05/28/17 10:30 124/67 05/28/17 10:15 113/67 05/28/17 10:00 115/63 05/28/17 09:45 119/70 Intake and Output 05/28/17 05/29/17 05/29/17 23:59 07:59 15:59 Intake Total 149 / 149 187 / 187 Output Total 300 / 300 150 / 150 Balance -151 / -151 37 / 37 Intake: IV Fluids 149 / 149 187 / 187 Heparin 25,000 UNIT/500 ML D5W 149 / 149 187 / 187 25,000 unit In 500 ml @ 8.7 UNIT/KG/HR 19.888 mls/hr IVC . Q24H [facility] Rx#:[id number] Output: Stool 300 / 300 150 / 150 Other: Stool Size Moderate Stool Consistency loose liquid Stool Color Brown Brown Yellow Green Weight 115.6 kg Blood Glucose* 204 218 Patient Weight 05/29/17 23:59 Weight 115.6 kg - General Appearance Exam: Patient appears alert and oriented. He is in minor distress due to his discomfort. Lungs clear to auscultation. Heart regular rate and rhythm with some ectopy. Abdomen is benign. A colostomy is present. There is no lower extremity swelling. There is a temporary dialysis catheter in the right femoral vein. - Lab 05/29/17 07:40 05/29/17 07:40 Most recent lab results ABG pH 7.36 pH Units (7.32-7.45) 05/28/17 18:31 ABG pCO2 46 mmHg (35-45) H 05/28/17 18:31 ABG pO2 110 mmHg (85-104) H 05/28/17 18:31 ABG HCO3 26 mEq/L (21-27) 05/28/17 18:31 ABG O2 Saturation 98 % (95-98) 05/28/17 18:31 Calcium 8.8 mg/dL (8.6-10.8) 05/29/17 07:40 Phosphorus 8.4 mg/dL (2.3-4.7) H 05/27/17 03:50 Magnesium 1.8 mg/dL (1.6-2.6) 05/27/17 03:50 Consult Discharge Plan - Plan Referrals: NONE,PCP [Primary Care Provider] -
[2017-05-29] MEDS ORDERED: 0.9 % Sodium Chloride 250 ML IVC PRN (09:34)
[2017-05-29] MEDS ORDERED: traMADol 50 MG TABLET PO PRN (09:41)
[2017-05-29] MEDS: Heparin 25,000 UNIT/500 ML D5W 25,000 UNIT/500 ML BAG IVC SCH (10:40)
[2017-05-29] MEDS: Darbepoetin 100 MCG/0.5 ML SYRINGE SQ SCH (10:42)
[2017-05-29 11:04] LABS: Phosphorous 7.3 mg/dL (2.3-4.7)
[2017-05-29 12:45] LABS: Hepatitis B Surface Antibody 0.45 mIU/mL
[2017-05-29] MEDS: Ampicillin/Sulbactam 1,500 MG in 0.9 % Sodium Chloride Mini Bag 100 ML IVPB SCH (13:00)
[2017-05-29] MEDS ORDERED: *HR* Heparin 10,000 UNIT/10 ML VIAL IV PRN (13:30)
[2017-05-29] MEDS ORDERED: Ampicillin/Sulbactam 3,000 MG in 0.9 % Sodium Chloride Mini Bag 100 ML IVPB SCH (14:00)
[2017-05-29] MEDS: traMADol 50 MG TABLET PO PRN ×2 (17:48→22:20)
[2017-05-29] MEDS: Ampicillin/Sulbactam 3,000 MG in 0.9 % Sodium Chloride Mini Bag 100 ML IVPB SCH (17:49)
[2017-05-29] MEDS ORDERED: *HR* Warfarin 5 MG TABLET PO SCH (18:00)
[2017-05-29] MEDS: Gabapentin 300 MG CAPSULE PO SCH (21:03)
[2017-05-30] MEDS: Heparin 25,000 UNIT/500 ML D5W 25,000 UNIT/500 ML BAG IVC SCH ×2 (00:47→16:27)
[2017-05-30 03:18] LABS: Basophils % 0.2 %; Eosinophils # 0.2 K/mcL (0.0-0.6); Eosinophils % 3.9 %; Hematocrit 22.8 % (37.5-50.1); Hemoglobin 7.3 g/dL (12.9-16.9); Immature Granulocytes % 0.9 % (0-4); Lymphocytes # 1.2 K/mcL (0.6-4.6); Lymphocytes % 21.4 %; Mean Corpuscular Volume 90.5 fL (83.0-100.0); Mean Platelet Volume 8.9 fL (9.4-12.4); Monocytes # 0.5 K/mcL (0.0-1.3); Monocytes % 7.9 %; Neutrophils # 3.7 K/mcL (1.6-8.9); Platelet Count 140 K/mcL (140-400); Red Blood Count 2.52 M/mcL (4.19-5.50); Red Cell Distribution Width 13.8 % (11.5-14.5); Segmented Neutrophils % 65.7 %
[2017-05-30 03:24] LABS: INR 1.2; Prothrombin Time 13.1 Seconds (9.4-12.1)
[2017-05-30 03:36] LABS: Albumin 2.5 g/dL (3.5-5.0); Albumin/Globulin Ratio 0.5 (1.1-2.2); Bilirubin,Total 0.3 mg/dL (0.2-1.2); Calcium 9.1 mg/dL (8.6-10.8); Globulin 4.7 g/dL (2.4-3.5); Potassium 4.2 mEq/L (3.5-4.5); Total Protein 7.2 g/dL (6.0-8.3)
--- NOTE | 2017-05-30 08:05 | Nephrology Progress Note ---
Date of Encounter: 05/30/17 Time of Encounter: 08:03 - Assessment and Plan (1) Chronic kidney disease, stage IV (severe) Current Visit: Yes Status: Acute The patient has a clinical picture of acute kidney injury superimposed on stage IV chronic kidney disease related to diabetic nephropathy and hypertension. The patient has had dialysis the past 3 days. There is no urine output recorded in the medical record although there is urine in the Yanez. There is an improvement in his creatinine following dialysis yesterday. Phosphorus is elevated so he will be started on a phosphorus binder. Iron saturation is low so he will received some parenteral iron. He may require placement of a tunnel dialysis catheter. In order to have that done his Coumadin will have to be placed on hold as well as his heparin. If it is clinically acceptable I would place his Coumadin on hold today. (2) Type 2 diabetes mellitus with diabetic chronic kidney disease Current Visit: Yes Status: Acute Qualifiers: Diabetes mellitus usp insulin use: with intermediate school teacher use Chronic kidney disease stage: stage 4 (severe) Qualified Code(s): E11.22 - Type 2 diabetes mellitus with diabetic chronic kidney disease; N18.4 - Chronic kidney disease, stage 4 (severe); N18.4 - Chronic kidney disease, stage 4 (severe); N18.4 - Chronic kidney disease, stage 4 (severe); N18.4 - Chronic kidney disease, stage 4 (severe); Z79.4 - group home (current) use of insulin; 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; Z79.4 - intermodal truck driver (current) use of insulin; Z79.4 - intermodal truck driver (current) use of insulin (3) Benign hypertension with CKD (chronic kidney disease) stage IV Current Visit: Yes Status: Acute (4) Anemia in CKD (chronic kidney disease) Current Visit: Yes Status: Acute Qualifiers: Chronic kidney disease stage: stage 4 (severe) Qualified Code(s): N18.4 - Chronic kidney disease, stage 4 (severe); D63.1 - Anemia in chronic kidney disease; D63.1 - Anemia in chronic kidney disease (5) Paroxysmal A-fib Current Visit: Yes Status: Chronic (6) Acute kidney failure, unspecified Current Visit: Yes Status: Acute Qualifiers: Acute renal failure type: unspecified Qualified Code(s): N17.9 - Acute kidney failure, unspecified Subjective Interval history: The patient continues to complain of some leg pain but overall he appears to be more comfortable. He denies any nausea vomiting shortness of breath or anorexia. He did undergo dialysis yesterday. He is having some oozing around the temporary femoral vein dialysis catheter. He is still on a heparin drip. Objective - Vital Signs Vital signs: Vital Signs Temp Pulse Resp BP Pulse Ox 05/30/17 04:07 98.7 F 80 18 130/69 97 05/30/17 00:01 99.1 F 88 20 163/72 97 05/29/17 21:05 95 05/29/17 19:57 100.1 F H 87 21 182/83 99 05/29/17 19:24 10 90 05/29/17 16:50 97.7 F 15 164/85 05/29/17 16:40 154/83 05/29/17 16:25 143/81 05/29/17 16:10 156/78 05/29/17 15:55 150/74 05/29/17 15:40 152/78 05/29/17 15:25 158/84 05/29/17 15:10 168/86 05/29/17 14:55 147/78 05/29/17 14:40 155/88 05/29/17 14:25 165/88 05/29/17 14:10 160/90 05/29/17 13:55 167/87 05/29/17 13:40 97.7 F 17 171/92 05/29/17 11:38 18 99 05/29/17 10:58 98.6 F 76 24 167/93 100 05/29/17 09:15 99 Intake and Output 05/29/17 05/30/17 05/30/17 23:59 07:59 15:59 Intake Total 150 / 150 250 / 250 Output Total 600 / 600 Balance -450 / -450 250 / 250 Intake: IV Fluids 150 / 150 250 / 250 Heparin 25,000 UNIT/500 ML D5W 150 / 150 250 / 250 25,000 unit In 500 ml @ 8.7 UNIT/KG/HR 19.888 mls/hr IVC . Q24H [facility] Rx#:[id number] Output: Urine 0 / 0 Total Dialysis (HD) Output 600 / 600 Other: Weight 116 kg Blood Glucose* 202 Hemodialysis Net Fluid Removed 0 (mL) Patient Weight 05/30/17 23:59 Weight 116 kg - General Appearance Exam: Patient is alert and oriented. He is in no acute distress. Lungs clear to auscultation. Heart regular rate and rhythm. Abdomen is benign. A colostomy is present. There is no lower extremity swelling. A femoral catheter is in place in the right femoral vein. A Yanez catheter is in place as well. - Lab 05/30/17 03:10 05/30/17 03:10 Most recent lab results ABG pH 7.36 pH Units (7.32-7.45) 05/28/17 18:31 ABG pCO2 46 mmHg (35-45) H 05/28/17 18:31 ABG pO2 110 mmHg (85-104) H 05/28/17 18:31 ABG HCO3 26 mEq/L (21-27) 05/28/17 18:31 ABG O2 Saturation 98 % (95-98) 05/28/17 18:31 Calcium 9.1 mg/dL (8.6-10.8) 05/30/17 03:10 Phosphorus 7.3 mg/dL (2.3-4.7) H 05/29/17 07:40 Magnesium 1.8 mg/dL (1.6-2.6) 05/27/17 03:50 Consult Discharge Plan - Plan Referrals: NONE,PCP [Primary Care Provider] -
[2017-05-30] MEDS ORDERED: Ferumoxytol 510 MG in 0.9 % Sodium Chloride 100 ML IVPB ONE (08:07)
[2017-05-30] MEDS: Metoprolol XL (24 HR) Succ 50 MG TAB.ER.24H PO SCH (08:36)
[2017-05-30] MEDS: traMADol 50 MG TABLET PO PRN ×2 (08:36→17:54)
[2017-05-30] MEDS: Gabapentin 300 MG CAPSULE PO SCH ×2 (08:36→20:37)
[2017-05-30] MEDS: Insulin LISPRO 300 UNITS/3 ML VIAL SQ SCH ×4 (08:36→20:37)
--- NOTE | 2017-05-30 09:49 | Internal Med Progress Note ---
<VelElizabethDarren - Last Filed: 05/30/17 15:20> Date of Encounter: 05/30/17 Time of Encounter: 08:30 - Assessment and plan (1) Acute metabolic encephalopathy Current Visit: Yes Status: Acute Assessment and plan: Resolved. AOx3 currently. Avoid narcotics. Tolerating tramadol. (2) ESRD needing dialysis Current Visit: Yes Status: Acute Assessment and plan: Slowly improving Cr 7.57 < 10.03 < 12.19 < 16.91 BUN 31 < 45 < 58 < 87 Dialysis last 3 days, holding today Holding renally excreted drugs (3) Aspiration pneumonia Current Visit: Yes Status: Acute Assessment and plan: Continue unasyn Day 4. Plan 7-10 days of therapy. Aspiration precautions. Qualifiers: Aspiration pneumonia type: unspecified Laterality: bilateral Lung location: lower lobe of lung Qualified Code(s): J69.0 - Pneumonitis due to inhalation of food and vomit (4) HTN (hypertension) Current Visit: Yes Status: Chronic Assessment and plan: 128/73 Holding home medications of valsartan and lasix secondary to ESRD Continue hydralazine and metoprolol Qualifiers: Hypertension type: essential hypertension Qualified Code(s): I10 - Essential (primary) hypertension (5) Paroxysmal A-fib Current Visit: Yes Status: Chronic Assessment and plan: Continue metoprolol. Hold coumadin for tunneled catheter placement. (6) HLD (hyperlipidemia) Current Visit: Yes Status: Chronic Assessment and plan: Continue statin. Qualifiers: Hyperlipidemia type: unspecified Qualified Code(s): E78.5 - Hyperlipidemia , unspecified (7) DM2 (diabetes mellitus, type 2) Current Visit: Yes Status: Chronic Assessment and plan: Glucose 196 Increase from low to medium dose sliding scale insulin Qualifiers: Diabetes mellitus complication status: without complication Diabetes mellitus adjunct faculty for medical terminology insulin use: with retirement use Qualified Code(s): E11.9 - Type 2 diabetes mellitus without complications; Z79.4 - terminal gauger supervisor (current) use of insulin; Z79.4 - terminal gauger supervisor (current) use of insulin; Z79.4 - terminal gauger supervisor ( current) use of insulin; Z79.4 - terminal gauger supervisor (current) use of insulin (8) DVT prophylaxis Current Visit: Yes Status: Acute Assessment and plan: Hold coumadin for placement of tunneled dialysis catheter - Subjective Interval history: Patient did well overnight. No episodes of confusion. Has been having continued bleeding from dialysis site. Denies CP, SOB, and nausea. - Constitutional Vitals: Temp Pulse Resp BP Pulse Ox 98.6 F 95 17 128/73 95 05/30/17 07:59 05/30/17 07:59 05/30/17 07:59 05/30/17 07:59 05/30/17 07:59 General appearance: Present: A&O X 3, no acute distress, obese, answers questions appropriately Exam: wearing CPAP - Head Head exam: Present: atraumatic, normal inspection, normocephalic - ENT ENT exam: Present: normal exam - Respiratory Respiratory exam: Present: CTAB. Absent: accessory muscle use, respiratory distress - Cardiovascular Cardiovascular exam: Present: RRR, +S1, +S2 - GI/Abdominal GI/Abdominal exam: Present: diminished bowel sounds, soft, no peritoneal signs. Absent: tenderness - Neurological Exam Neurological exam: Present: alert, oriented X3 - Psychiatric Psychiatric exam: Present: normal affect, normal mood - Skin Skin exam: Present: dry, warm Internal Medicine: Result - Labs CBC & Chem 7: 05/30/17 03:10 05/30/17 03:10 Labs: Short CBC 05/30/17 Range/Units 03:10 WBC 5.7 (4.3-11.1) K/mcL Hgb 7.3 L (12.9-16.9) g/dL Hct 22.8 L (37.5-50.1) % Plt Count 140 (140-400) K/mcL Neutrophils # 3.7 (1.6-8.9) K/mcL BMP 05/29/17 05/30/17 07:40 03:10 Sodium 134 L 133 L Potassium 4.2 4.2 Chloride 100 100 Carbon Dioxide 22 23 BUN 45 H D 31 H D Creatinine 10.03 H 7.57 H Glucose 205 H 196 H Calcium 8.8 9.1 Liver Function 05/30/17 Range/Units 03:10 Total Bilirubin 0.3 (0.2-1.2) mg/dL AST 15 (5-34) Units/L ALT 6 (0-55) Units/L Alkaline Phosphatase 73 (38-126) Units/L Albumin 2.5 L (3.5-5.0) g/dL - ABG Interpretation ABG results: ABG ABG pH 7.36 pH Units (7.32-7.45) 05/28/17 18:31 ABG pCO2 46 mmHg (35-45) H 05/28/17 18:31 ABG pO2 110 mmHg (85-104) H 05/28/17 18:31 ABG O2 Saturation 98 % (95-98) 05/28/17 18:31 PT/INR, D-dimer PT 13.1 Seconds (9.4-12.1) H 05/30/17 03:10 Consult Discharge Plan - Plan Referrals: NONE,PCP [Primary Care Provider] - <Eron-Willard Siu - Last Filed: 05/30/17 15:54> Date of Encounter: 05/30/17 - Constitutional Vitals: Temp Pulse Resp BP Pulse Ox 98.6 F 81 18 142/74 100 05/30/17 11:32 05/30/17 11:32 05/30/17 11:32 05/30/17 11:32 05/30/17 11:32 Internal Medicine: Result - Labs CBC & Chem 7: 05/30/17 03:10 05/30/17 03:10 Labs: Short CBC 05/30/17 Range/Units 03:10 WBC 5.7 (4.3-11.1) K/mcL Hgb 7.3 L (12.9-16.9) g/dL Hct 22.8 L (37.5-50.1) % Plt Count 140 (140-400) K/mcL Neutrophils # 3.7 (1.6-8.9) K/mcL BMP 05/30/17 03:10 Sodium 133 L Potassium 4.2 Chloride 100 Carbon Dioxide 23 BUN 31 H D Creatinine 7.57 H Glucose 196 H Calcium 9.1 Liver Function 05/30/17 Range/Units 03:10 Total Bilirubin 0.3 (0.2-1.2) mg/dL AST 15 (5-34) Units/L ALT 6 (0-55) Units/L Alkaline Phosphatase 73 (38-126) Units/L Albumin 2.5 L (3.5-5.0) g/dL - ABG Interpretation ABG results: ABG ABG pH 7.36 pH Units (7.32-7.45) 05/28/17 18:31 ABG pCO2 46 mmHg (35-45) H 05/28/17 18:31 ABG pO2 110 mmHg (85-104) H 05/28/17 18:31 ABG O2 Saturation 98 % (95-98) 05/28/17 18:31 PT/INR, D-dimer PT 13.1 Seconds (9.4-12.1) H 05/30/17 03:10 - Attending Attestation I examined this patient and my medical decision-making was reviewed with the Resident Physician. I agree with the documented findings, disposition and treatment plan as described except to the extent set forth below. I have seen and examined the patient. Patient is a 61-year-old male with past medical history of ESRD, atrial fibrillation, CHF, diabetes, hypertension and arthritis. Admitted for aspiration pneumonia and acute metabolic encephalopathy likely due to uremia. Patient will likely need long-term hemodialysis. He is currently on BiPAP and doing well. No other acute events or complaints.
[2017-05-30 17:19] LABS: Folate 10.1 ng/mL (3.0-16.0)
[2017-05-30] MEDS: Ampicillin/Sulbactam 3,000 MG in 0.9 % Sodium Chloride Mini Bag 100 ML IVPB SCH (17:48)
[2017-05-30] MEDS: *HR* Heparin 5,000 UNIT/ML VIAL IVP PRN (19:30)
[2017-05-30] MEDS: Insulin DETEMIR 100 UNIT/ML X5UNITS SQ SCH (20:37)
[2017-05-31] MEDS: traMADol 50 MG TABLET PO PRN ×3 (02:47→17:50)
[2017-05-31] MEDS: Heparin 25,000 UNIT/500 ML D5W 25,000 UNIT/500 ML BAG IVC SCH (04:11)
[2017-05-31 06:29] LABS: Basophils % 0.1 %; Eosinophils # 0.3 K/mcL (0.0-0.6); Eosinophils % 3.2 %; Hematocrit 22.1 % (37.5-50.1); Immature Granulocytes % 0.9 % (0-4); Lymphocytes # 1.4 K/mcL (0.6-4.6); Lymphocytes % 17.8 %; Mean Corpuscular HGB Conc 31.7 g/dL (31.6-35.5); Mean Corpuscular Hemoglobin 28.8 pg (28.0-33.3); Mean Corpuscular Volume 90.9 fL (83.0-100.0); Mean Platelet Volume 9.3 fL (9.4-12.4); Monocytes # 0.6 K/mcL (0.0-1.3); Monocytes % 7.5 %; Neutrophils # 5.6 K/mcL (1.6-8.9); Platelet Count 152 K/mcL (140-400); Red Blood Count 2.43 M/mcL (4.19-5.50); Red Cell Distribution Width 14.1 % (11.5-14.5); Segmented Neutrophils % 70.5 %
[2017-05-31 06:35] LABS: INR 1.3; Prothrombin Time 13.9 Seconds (9.4-12.1)
[2017-05-31 06:45] LABS: Albumin 2.9 g/dL (3.5-5.7); Albumin/Globulin Ratio 0.7 (1.1-2.2); Bilirubin,Total 0.2 mg/dL (0.3-1.0); Calcium 8.7 mg/dL (8.6-10.3); Globulin 4.1 g/dL (2.4-3.5); Potassium 4.5 mEq/L (3.5-5.1)
[2017-05-31] MEDS: Gabapentin 300 MG CAPSULE PO SCH ×2 (09:01→21:01)
[2017-05-31] MEDS: Metoprolol XL (24 HR) Succ 50 MG TAB.ER.24H PO SCH (09:01)
[2017-05-31] MEDS: Insulin DETEMIR 100 UNIT/ML X5UNITS SQ SCH ×2 (09:01→21:01)
[2017-05-31] MEDS: Insulin LISPRO 300 UNITS/3 ML VIAL SQ SCH ×6 (09:02→21:02)
--- NOTE | 2017-05-31 09:41 | Nephrology Progress Note ---
Date of Encounter: 05/31/17 Time of Encounter: 09:25 - Assessment and Plan (1) ESRD needing dialysis Current Visit: Yes Status: Acute CLAUDIA in setting of possible aspiration pneumonia, decreased oral intake, emesis superimposed on CKD 4 in setting of DM and HTN. Metabolic encephalopathy most likely due to CLAUDIA. Renal fct worse from yesterday. Creat 9.77. HD today. Hgb 7.0 , will transfuse 2 units PRBC's. Orders given. Documented urine output 550cc. Avoid nephrotoxins. Will continue to monitor. Will arrange for chronic HD outpatient. Plan to have tunneled catheter placed on Monday, Warfarin on hold. Will treat elevated PTH outpatient. (2) Acute metabolic encephalopathy Current Visit: Yes Status: Acute (3) Pneumonia Current Visit: Yes Status: Acute Qualifiers: Pneumonia type: aspiration pneumonia Laterality: bilateral Qualified Code (s): J69.0 - Pneumonitis due to inhalation of food and vomit Subjective Interval history: Arouses easily, at bedside. Discussed current need to continue chronic HD outpatient. Planned tunneled catheter placement on Monday. Objective - Vital Signs Vital signs: Vital Signs Temp Pulse Resp BP Pulse Ox 05/31/17 07:47 98.3 F 80 19 137/75 94 05/31/17 05:05 19 98 05/31/17 03:09 98.3 F 82 17 152/66 100 05/31/17 00:50 22 96 05/31/17 00:26 99.5 F 83 16 138/73 97 05/30/17 19:04 98.6 F 73 16 164/76 99 05/30/17 16:25 98.8 F 73 17 169/80 99 05/30/17 11:32 98.6 F 81 18 142/74 100 Intake and Output 05/30/17 05/31/17 05/31/17 23:59 07:59 15:59 Intake Total 220 / 220 543 / 543 300 / 300 Output Total 500 / 500 100 / 100 300 / 300 Balance -280 / -280 443 / 443 0 / 0 Intake: IV Fluids 100 / 100 543 / 543 Heparin 25,000 UNIT/500 ML D5W 100 / 100 543 / 543 25,000 unit In 500 ml @ 8.7 UNIT/KG/HR 19.888 mls/hr IVC . Q24H PEPE Rx#:[id number] Oral 120 / 120 300 / 300 Output: Urine 0 / 0 Stool 350 / 350 Catheter 150 / 150 100 / 100 300 / 300 Other: Meal Dinner Breakfast Percent of Meal Consumed 100% 100% Stool Consistency liquid liquid Stool Color Green Weight 116 kg Blood Glucose* 291 237 Patient Weight 05/31/17 23:59 Weight 116 kg - General Appearance General appearance: Present: well-developed, well-nourished, appears started age , obese EENT: Present: mucous membranes moist Neck: Present: no JVD Respiratory: Present: clear Cardiology: Present: edema, regular rate, regular rhythm Gastrointestinal: Present: normoactive bowel sounds, no tenderness Integumentary: Present: warm and dry Psychiatric: Present: mood/affect appropriate, cooperative - Lab 05/31/17 06:15 05/31/17 06:15 Most recent lab results ABG pH 7.36 pH Units (7.32-7.45) 05/28/17 18:31 ABG pCO2 46 mmHg (35-45) H 05/28/17 18:31 ABG pO2 110 mmHg (85-104) H 05/28/17 18:31 ABG HCO3 26 mEq/L (21-27) 05/28/17 18:31 ABG O2 Saturation 98 % (95-98) 05/28/17 18:31 Calcium 8.7 mg/dL (8.6-10.3) 05/31/17 06:15 Phosphorus 7.3 mg/dL (2.3-4.7) H 05/29/17 07:40 Magnesium 1.8 mg/dL (1.6-2.6) 05/27/17 03:50 Consult Discharge Plan - Plan Referrals: NONE,PCP [Primary Care Provider] -
[2017-05-31] MEDS ORDERED: *HR* Heparin 10,000 UNIT/10 ML VIAL IV PRN (10:30)
[2017-05-31] MEDS ORDERED: 0.9 % Sodium Chloride 250 ML IVC PRN (10:30)
--- NOTE | 2017-05-31 10:30 | Internal Med Progress Note ---
<VelElizabethDarren - Last Filed: 05/31/17 10:28> Date of Encounter: 05/31/17 Time of Encounter: 10:28 - Assessment and plan (1) Acute metabolic encephalopathy Current Visit: Yes Status: Acute Assessment and plan: Resolved. AOx3 currently. Avoid narcotics. Increasing tramadol for TID to QID. (2) ESRD needing dialysis Current Visit: Yes Status: Acute Assessment and plan: Uptick in labs since holding dialysis Cr 9.77 < 7.57 < 10.03 < 12.19 < 16.91 BUN 43 < 31 < 45 < 58 < 87 Dialysis today Holding renally excreted drugs Tunneled catheter to be placed monday Nephrology following (3) Aspiration pneumonia Current Visit: Yes Status: Acute Assessment and plan: Continue unasyn, Day 5. Plan 7-10 days of therapy. Aspiration precautions. Qualifiers: Aspiration pneumonia type: unspecified Laterality: bilateral Lung location: lower lobe of lung Qualified Code(s): J69.0 - Pneumonitis due to inhalation of food and vomit (4) HTN (hypertension) Current Visit: Yes Status: Chronic Assessment and plan: Holding home medications of valsartan and lasix secondary to ESRD Continue hydralazine and metoprolol Qualifiers: Hypertension type: essential hypertension Qualified Code(s): I10 - Essential (primary) hypertension (5) Paroxysmal A-fib Current Visit: Yes Status: Chronic Assessment and plan: Continue metoprolol. Hold coumadin for tunneled catheter placement. (6) HLD (hyperlipidemia) Current Visit: Yes Status: Chronic Assessment and plan: Continue statin. 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: with termite exterminator helper use Qualified Code(s): E11.9 - Type 2 diabetes mellitus without complications; Z79.4 - [facility] (current) use of insulin; Z79.4 - [facility] (current) use of insulin; 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; Z79.4 - [facility] (current) use of insulin (8) DVT prophylaxis Current Visit: Yes Status: Acute Assessment and plan: Hold coumadin for placement of tunneled dialysis catheter Continue heparin (9) Anemia in CKD (chronic kidney disease) Current Visit: Yes Status: Acute Assessment and plan: Hgb 7.0 Patient to receive 2 units RBCs with dialysis today Qualifiers: Chronic kidney disease stage: stage 4 (severe) Qualified Code(s): N18.4 - Chronic kidney disease, stage 4 (severe); D63.1 - Anemia in chronic kidney disease; D63.1 - Anemia in chronic kidney disease - Subjective Interval history: No significant changes overnight. No episodes of confusion, though more somnolent. Denies CP, SOB, and nausea. - Constitutional Vitals: Temp Pulse Resp BP Pulse Ox 98.3 F 80 19 137/75 94 05/31/17 07:47 05/31/17 07:47 05/31/17 07:47 05/31/17 07:47 05/31/17 07:47 General appearance: Present: A&O X 3, no acute distress, obese, answers questions appropriately - Head Head exam: Present: atraumatic, normal inspection, normocephalic - ENT ENT exam: Present: mucous membranes moist - Neck Neck exam general surgery: Present: trachea midline - Respiratory Respiratory exam: Present: CTAB. Absent: accessory muscle use, respiratory distress - Cardiovascular Cardiovascular exam: Present: RRR, +S1, +S2 - GI/Abdominal GI/Abdominal exam: Present: normal bowel sounds, soft, no peritoneal signs. Absent: tenderness - Neurological Exam Neurological exam: Present: alert, oriented X3 Additional comments: somnolent - Psychiatric Psychiatric exam: Present: normal affect, normal mood - Skin Skin exam: Present: dry, warm Internal Medicine: Result - Labs CBC & Chem 7: 05/31/17 06:15 05/31/17 06:15 Labs: Short CBC 05/31/17 Range/Units 06:15 WBC 7.9 (4.3-11.1) K/mcL Hgb 7.0 L (12.9-16.9) g/dL Hct 22.1 L (37.5-50.1) % Plt Count 152 (140-400) K/mcL Neutrophils # 5.6 (1.6-8.9) K/mcL BMP 05/31/17 06:15 Sodium 131 L Potassium 4.5 Chloride 96 L Carbon Dioxide 24 BUN 43 H Creatinine 9.77 H Glucose 223 H Calcium 8.7 Liver Function 05/31/17 Range/Units 06:15 Total Bilirubin 0.2 L (0.3-1.0) mg/dL AST 12 L (13-39) Units/L ALT 8 (7-52) Units/L Alkaline Phosphatase 71 (34-104) Units/L Albumin 2.9 L (3.5-5.7) g/dL - ABG Interpretation ABG results: ABG ABG pH 7.36 pH Units (7.32-7.45) 05/28/17 18:31 ABG pCO2 46 mmHg (35-45) H 05/28/17 18:31 ABG pO2 110 mmHg (85-104) H 05/28/17 18:31 ABG O2 Saturation 98 % (95-98) 05/28/17 18:31 PT/INR, D-dimer PT 13.9 Seconds (9.4-12.1) H 05/31/17 06:15 Consult Discharge Plan - Plan Referrals: NONE,PCP [Primary Care Provider] - <Willard Draper - Last Filed: 05/31/17 14:42> Date of Encounter: 05/31/17 - Constitutional Vitals: Temp Pulse Resp BP Pulse Ox 98.5 F 82 21 134/97 94 05/31/17 13:40 05/31/17 13:40 05/31/17 13:40 05/31/17 13:40 05/31/17 07:47 Internal Medicine: Result - Labs CBC & Chem 7: 05/31/17 06:15 05/31/17 06:15 Labs: Short CBC 05/31/17 Range/Units 06:15 WBC 7.9 (4.3-11.1) K/mcL Hgb 7.0 L (12.9-16.9) g/dL Hct 22.1 L (37.5-50.1) % Plt Count 152 (140-400) K/mcL Neutrophils # 5.6 (1.6-8.9) K/mcL BMP 05/31/17 06:15 Sodium 131 L Potassium 4.5 Chloride 96 L Carbon Dioxide 24 BUN 43 H Creatinine 9.77 H Glucose 223 H Calcium 8.7 Liver Function 05/31/17 Range/Units 06:15 Total Bilirubin 0.2 L (0.3-1.0) mg/dL AST 12 L (13-39) Units/L ALT 8 (7-52) Units/L Alkaline Phosphatase 71 (34-104) Units/L Albumin 2.9 L (3.5-5.7) g/dL - ABG Interpretation ABG results: ABG ABG pH 7.36 pH Units (7.32-7.45) 05/28/17 18:31 ABG pCO2 46 mmHg (35-45) H 05/28/17 18:31 ABG pO2 110 mmHg (85-104) H 05/28/17 18:31 ABG O2 Saturation 98 % (95-98) 05/28/17 18:31 PT/INR, D-dimer PT 13.9 Seconds (9.4-12.1) H 05/31/17 06:15 - Attending Attestation I examined this patient and my medical decision-making was reviewed with the Resident Physician. I agree with the documented findings, disposition and treatment plan as described except to the extent set forth below. I have seen and examined the patient. Patient is scheduled for hemodialysis today. He will receive 2 units PRBC transfusion today. Scheduled for permacath placement on Monday. He is doing well on BiPAP. Patient is currently awake and alert and oriented 3. No other acute events or complaints.
[2017-05-31] MEDS ORDERED: 0.9 % Sodium Chloride 2,000 ML ONE (12:22)
[2017-05-31] MEDS: Ampicillin/Sulbactam 3,000 MG in 0.9 % Sodium Chloride Mini Bag 100 ML IVPB SCH (17:50)
[2017-06-01] MEDS: traMADol 50 MG TABLET PO PRN ×3 (00:10→11:57)
[2017-06-01] MEDS: Heparin 25,000 UNIT/500 ML D5W 25,000 UNIT/500 ML BAG IVC SCH ×2 (05:21→18:48)
[2017-06-01 06:53] LABS: INR 1.2; Prothrombin Time 13.4 Seconds (9.4-12.1)
[2017-06-01 07:02] LABS: Calcium 8.6 mg/dL (8.6-10.3); Potassium 4.3 mEq/L (3.5-5.1)
[2017-06-01 07:43] LABS: Eosinophils % 3.5 %; Hematocrit 28.6 % (37.5-50.1); Immature Granulocytes % 0.7 % (0-4); Lymphocytes % 16.6 %; Mean Corpuscular HGB Conc 31.5 g/dL (31.6-35.5); Mean Corpuscular Hemoglobin 28.5 pg (28.0-33.3); Mean Corpuscular Volume 90.5 fL (83.0-100.0); Monocytes % 7.2 %; Platelet Count 203 K/mcL (140-400); Red Blood Count 3.16 M/mcL (4.19-5.50); Red Cell Distribution Width 14.5 % (11.5-14.5); Segmented Neutrophils % 71.8 %
[2017-06-01 07:44] LABS: Basophils % 0.2 %; Eosinophils # 0.4 K/mcL (0.0-0.6); Lymphocytes # 1.7 K/mcL (0.6-4.6); Monocytes # 0.7 K/mcL (0.0-1.3); Neutrophils # 7.2 K/mcL (1.6-8.9)
[2017-06-01] MEDS: Metoprolol XL (24 HR) Succ 50 MG TAB.ER.24H PO SCH (08:42)
[2017-06-01] MEDS: Gabapentin 300 MG CAPSULE PO SCH ×2 (08:44→21:58)
[2017-06-01] MEDS: Insulin DETEMIR 100 UNIT/ML X5UNITS SQ SCH ×2 (08:44→21:58)
[2017-06-01] MEDS: Insulin LISPRO 300 UNITS/3 ML VIAL SQ SCH ×7 (08:45→22:06)
--- NOTE | 2017-06-01 09:10 | Internal Med Progress Note ---
<VelDarren - Last Filed: 06/01/17 09:08> Date of Encounter: 06/01/17 Time of Encounter: 09:08 - Assessment and plan (1) Acute metabolic encephalopathy Current Visit: Yes Status: Acute Assessment and plan: Resolved. AOx3 currently. Tolerating tramadol 25 mg QID without confusion. (2) ESRD needing dialysis Current Visit: Yes Status: Acute Assessment and plan: Cr 7.19 < 9.77 < 7.57 < 10.03 < 12.19 < 16.91 BUN 27 < 43 < 31 < 45 < 58 < 87 Holding renally excreted drugs Tunneled catheter to be placed monday Nephrology following (3) Anemia in CKD (chronic kidney disease) Current Visit: Yes Status: Acute Assessment and plan: Transfused with dialysis yesterday Hgb 9.0, up from 7.0 Will continue to monitor Qualifiers: Chronic kidney disease stage: stage 4 (severe) Qualified Code(s): N18.4 - Chronic kidney disease, stage 4 (severe); D63.1 - Anemia in chronic kidney disease; D63.1 - Anemia in chronic kidney disease (4) Aspiration pneumonia Current Visit: Yes Status: Acute Assessment and plan: Continue unasyn, Day 6. Plan 7-10 days of therapy. Aspiration precautions. Qualifiers: Aspiration pneumonia type: unspecified Laterality: bilateral Lung location: lower lobe of lung Qualified Code(s): J69.0 - Pneumonitis due to inhalation of food and vomit (5) HTN (hypertension) Current Visit: Yes Status: Chronic Assessment and plan: Holding home medications of valsartan and lasix secondary to ESRD Continue hydralazine and metoprolol Qualifiers: Hypertension type: essential hypertension Qualified Code(s): I10 - Essential (primary) hypertension (6) Paroxysmal A-fib Current Visit: Yes Status: Chronic Assessment and plan: Continue metoprolol. Hold coumadin for tunneled catheter placement. (7) HLD (hyperlipidemia) Current Visit: Yes Status: Chronic Assessment and plan: Continue statin. 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 No episodes of confusion. Patient feeling well. Denies CP, SOB, and nausea. - Constitutional Vitals: Temp Pulse Resp BP Pulse Ox 99.2 F 79 18 173/75 93 06/01/17 07:41 06/01/17 07:41 06/01/17 07:41 06/01/17 07:41 06/01/17 07:41 General appearance: Present: A&O X 3, no acute distress, obese, answers questions appropriately - Head Head exam: Present: atraumatic, normal inspection - ENT ENT exam: Present: mucous membranes moist - Neck Neck exam general surgery: Present: trachea midline - Respiratory Respiratory exam: Present: CTAB. Absent: accessory muscle use, respiratory distress - Cardiovascular Cardiovascular exam: Present: RRR, +S1, +S2 - GI/Abdominal GI/Abdominal exam: Present: normal bowel sounds, soft, no peritoneal signs. Absent: tenderness - Neurological Exam Neurological exam: Present: alert, oriented X3 - Psychiatric Psychiatric exam: Present: normal affect, normal mood - Skin Skin exam: Present: dry, warm Internal Medicine: Result - Labs CBC & Chem 7: 06/01/17 06:30 06/01/17 06:30 Labs: Short CBC 06/01/17 Range/Units 06:30 WBC 10.0 (4.3-11.1) K/mcL Hgb 9.0 L D (12.9-16.9) g/dL Hct 28.6 L (37.5-50.1) % Plt Count 203 (140-400) K/mcL Neutrophils # 7.2 (1.6-8.9) K/mcL BMP 06/01/17 06:30 Sodium 134 L Potassium 4.3 Chloride 97 L Carbon Dioxide 24 BUN 27 H Creatinine 7.19 H Glucose 128 H Calcium 8.6 - ABG Interpretation ABG results: ABG ABG pH 7.36 pH Units (7.32-7.45) 05/28/17 18:31 ABG pCO2 46 mmHg (35-45) H 05/28/17 18:31 ABG pO2 110 mmHg (85-104) H 05/28/17 18:31 ABG O2 Saturation 98 % (95-98) 05/28/17 18:31 PT/INR, D-dimer PT 13.4 Seconds (9.4-12.1) H 06/01/17 06:30 Consult Discharge Plan - Plan Referrals: NONE,PCP [Primary Care Provider] - (Patient will follow up with renal doctors) <Wlilard Draper - Last Filed: 06/01/17 10:48> Date of Encounter: 06/01/17 - Constitutional Vitals: Temp Pulse Resp BP Pulse Ox 99.2 F 79 18 173/75 93 06/01/17 07:41 06/01/17 07:41 06/01/17 07:41 06/01/17 07:41 06/01/17 07:41 Internal Medicine: Result - Labs CBC & Chem 7: 06/01/17 06:30 06/01/17 06:30 Labs: Short CBC 06/01/17 Range/Units 06:30 WBC 10.0 (4.3-11.1) K/mcL Hgb 9.0 L D (12.9-16.9) g/dL Hct 28.6 L (37.5-50.1) % Plt Count 203 (140-400) K/mcL Neutrophils # 7.2 (1.6-8.9) K/mcL BMP 06/01/17 06:30 Sodium 134 L Potassium 4.3 Chloride 97 L Carbon Dioxide 24 BUN 27 H Creatinine 7.19 H Glucose 128 H Calcium 8.6 - ABG Interpretation ABG results: ABG ABG pH 7.36 pH Units (7.32-7.45) 05/28/17 18:31 ABG pCO2 46 mmHg (35-45) H 05/28/17 18:31 ABG pO2 110 mmHg (85-104) H 05/28/17 18:31 ABG O2 Saturation 98 % (95-98) 05/28/17 18:31 PT/INR, D-dimer PT 13.4 Seconds (9.4-12.1) H 06/01/17 06:30 - Impressions Impressions Guidance Ultrasound 05/27/17 00:00 IMPRESSION: Successful ultrasound guided non-tunneled catheter placement. D/ / Ramon Cunningham MD / Ramon Cunningham MD Interpreting Provider: Ramon Cunningham MD Insertion Non-Tunneled Catheter 05/27/17 00:00 IMPRESSION: Successful ultrasound guided non-tunneled catheter placement. D/ / Ramon Cunningham MD / Ramon Cunningham MD Interpreting Provider: Ramon Cunningham MD - Attending Attestation I examined this patient and my medical decision-making was reviewed with the Resident Physician. I agree with the documented findings, disposition and treatment plan as described except to the extent set forth below. I have seen and examined the patient. Patient is awake and alert. Not in any distress. Denies chest pain or shortness of breath. Schedule tunneled catheter placement tomorrow. Anticipate discharge over the weekend. PT/OT consult today. Ambulate out of bed. Continue BiPAP at night. No new events or complaints.
--- NOTE | 2017-06-01 10:12 | Nephrology Progress Note ---
Date of Encounter: 06/01/17 Time of Encounter: 09:50 - Assessment and Plan (1) ESRD needing dialysis Current Visit: Yes Status: Acute CLAUDIA in setting of possible aspiration pneumonia, decreased oral intake, emesis superimposed on CKD 4 in setting of DM and HTN. Metabolic encephalopathy most likely due to CLAUDIA. Creat 7.19. HD today. Hgb 9.0, following 2 units PRBC's given yesterday. Documented urine output 400cc. Will arrange for chronic HD outpatient-[facility]. Plan to have tunneled catheter placed on Monday, IR consult placed.Warfarin on hold. Will treat elevated PTH outpatient. (2) Acute metabolic encephalopathy Current Visit: Yes Status: Acute (3) Pneumonia Current Visit: Yes Status: Acute Qualifiers: Pneumonia type: aspiration pneumonia Laterality: bilateral Qualified Code (s): J69.0 - Pneumonitis due to inhalation of food and vomit Subjective Interval history: Awake, at bedside. Discussed current need to continue chronic HD outpatient. Planned tunneled catheter placement on Monday. Objective - Vital Signs Vital signs: Vital Signs Temp Pulse Resp BP Pulse Ox 06/01/17 07:41 99.2 F 79 18 173/75 93 06/01/17 04:55 98.3 F 72 19 125/75 98 06/01/17 00:09 98.5 F 80 16 141/73 90 05/31/17 20:12 98.3 F 83 17 143/70 90 05/31/17 16:28 98.2 F 72 19 161/79 95 05/31/17 14:45 98.5 F 19 148/83 05/31/17 14:30 151/94 05/31/17 14:15 150/82 05/31/17 14:00 146/85 05/31/17 13:45 155/81 05/31/17 13:40 98.5 F 82 21 134/97 05/31/17 13:33 98.5 F 75 19 155/96 05/31/17 13:30 153/89 05/31/17 13:18 98.7 F 80 20 162/91 05/31/17 13:15 171/101 05/31/17 13:10 98.7 F 80 19 159/99 05/31/17 13:00 153/78 05/31/17 12:52 98.6 F 80 19 172/99 05/31/17 12:45 141/79 05/31/17 12:37 96.9 F L 82 21 141/81 05/31/17 12:30 143/76 05/31/17 12:15 141/79 05/31/17 12:00 142/80 05/31/17 11:45 146/75 05/31/17 11:30 99.2 F 19 143/77 Intake and Output 05/31/17 06/01/17 06/01/17 23:59 07:59 15:59 Intake Total 400 / 400 83 240 / 240 Output Total 450 / 450 150 / 150 Balance -50 / -50 90 / 90 Intake: IV Fluids Heparin 25,000 UNIT/500 ML D5W 25,000 unit In 500 ml @ 8.7 UNIT/KG/HR 19.888 mls/hr IVC . Q24H [facility]PE Rx#:[id number] Oral 400 / 400 0 / 0 240 / 240 Output: Urine 0 / 0 Stool 450 / 450 150 / 150 Other: Meal Breakfast Percent of Meal Consumed 100% Stool Size Moderate Stool Consistency liquid liquid soft Stool Characteristics Seedy Stool Color Brown Brown Yellow # Bowel Movements 1 Weight 112.4 kg Blood Glucose* 233 127 Patient Weight 06/01/17 23:59 Weight 112.4 kg - General Appearance General appearance: Present: well-developed, well-nourished, appears started age , obese EENT: Present: mucous membranes moist Neck: Present: no JVD Respiratory: Present: clear Cardiology: Present: edema, regular rate, regular rhythm Gastrointestinal: Present: normoactive bowel sounds, no tenderness Integumentary: Present: warm and dry Neurologic: Present: alert and oriented x3 Psychiatric: Present: mood/affect appropriate, cooperative - Lab 06/01/17 06:30 06/01/17 06:30 Most recent lab results ABG pH 7.36 pH Units (7.32-7.45) 05/28/17 18:31 ABG pCO2 46 mmHg (35-45) H 05/28/17 18:31 ABG pO2 110 mmHg (85-104) H 05/28/17 18:31 ABG HCO3 26 mEq/L (21-27) 05/28/17 18:31 ABG O2 Saturation 98 % (95-98) 05/28/17 18:31 Calcium 8.6 mg/dL (8.6-10.3) 06/01/17 06:30 Phosphorus 7.3 mg/dL (2.3-4.7) H 05/29/17 07:40 Magnesium 1.8 mg/dL (1.6-2.6) 05/27/17 03:50 Consult Discharge Plan - Plan Referrals: NONE,PCP [Primary Care Provider] - (Patient will follow up with renal doctors)
[2017-06-01] MEDS: Ampicillin/Sulbactam 3,000 MG in 0.9 % Sodium Chloride Mini Bag 100 ML IVPB SCH (19:29)
[2017-06-02 04:29] LABS: Basophils % 0.4 %; Eosinophils # 0.4 K/mcL (0.0-0.6); Eosinophils % 3.5 %; Hematocrit 27.4 % (37.5-50.1); Hemoglobin 8.9 g/dL (12.9-16.9); Immature Granulocytes % 0.8 % (0-4); Lymphocytes # 1.8 K/mcL (0.6-4.6); Lymphocytes % 17.7 %; Mean Corpuscular HGB Conc 32.5 g/dL (31.6-35.5); Mean Corpuscular Hemoglobin 29.4 pg (28.0-33.3); Mean Corpuscular Volume 90.4 fL (83.0-100.0); Mean Platelet Volume 9.7 fL (9.4-12.4); Monocytes # 0.8 K/mcL (0.0-1.3); Monocytes % 7.9 %; Neutrophils # 7.1 K/mcL (1.6-8.9); Platelet Count 204 K/mcL (140-400); Red Blood Count 3.03 M/mcL (4.19-5.50); Red Cell Distribution Width 14.3 % (11.5-14.5); Segmented Neutrophils % 69.7 %
[2017-06-02 04:47] LABS: Calcium 8.9 mg/dL (8.6-10.3); Potassium 4.5 mEq/L (3.5-5.1)
[2017-06-02 04:48] LABS: INR 1.2; Prothrombin Time 13.4 Seconds (9.4-12.1)
[2017-06-02] MEDS: *HR* Heparin 5,000 UNIT/ML VIAL IVP PRN ×2 (06:24→20:50)
[2017-06-02] MEDS: Heparin 25,000 UNIT/500 ML D5W 25,000 UNIT/500 ML BAG IVC SCH (07:05)
[2017-06-02] MEDS: Insulin LISPRO 300 UNITS/3 ML VIAL SQ SCH ×7 (07:53→20:49)
[2017-06-02] MEDS: Gabapentin 300 MG CAPSULE PO SCH ×2 (07:59→20:50)
[2017-06-02] MEDS: Metoprolol XL (24 HR) Succ 50 MG TAB.ER.24H PO SCH (07:59)
--- NOTE | 2017-06-02 09:05 | Nephrology Progress Note ---
Date of Encounter: 06/02/17 Time of Encounter: 08:05 - Assessment and Plan (1) ESRD needing dialysis Current Visit: Yes Status: Acute CLAUDIA in setting of possible aspiration pneumonia, decreased oral intake, emesis superimposed on CKD 4 in setting of DM and HTN. Metabolic encephalopathy most likely due to CLAUDIA. HD today. Orders given. Chronic HD outpatient-[facility]. Plan to have tunneled catheter placed today, IR consult placed. Warfarin on hold. Will treat elevated PTH outpatient. (2) Acute metabolic encephalopathy Current Visit: Yes Status: Acute (3) Pneumonia Current Visit: Yes Status: Acute Qualifiers: Pneumonia type: aspiration pneumonia Laterality: bilateral Qualified Code (s): J69.0 - Pneumonitis due to inhalation of food and vomit Subjective Interval history: Awake, sister at bedside. Planned tunneled catheter placement today. Objective - Vital Signs Vital signs: Vital Signs Temp Pulse Resp BP Pulse Ox 06/02/17 07:09 99.7 F H 76 18 159/68 98 06/02/17 05:48 99.2 F 06/02/17 04:39 100.0 F H 82 18 138/72 96 06/02/17 02:02 133/70 06/02/17 00:36 99.7 F H 82 17 173/80 95 06/01/17 22:08 92 06/01/17 21:39 98.6 F 81 18 155/66 92 06/01/17 16:29 99.2 F 80 18 161/75 92 06/01/17 11:05 98.1 F 83 18 129/57 91 Intake and Output 06/01/17 06/02/17 06/02/17 23:59 07:59 15:59 Intake Total 517 / 517 1050 / 1050 30 / 30 Output Total 350 / 350 0 / 0 Balance 517 / 517 700 / 700 30 / 30 Intake: IV Fluids 517 / 517 500 / 500 Heparin 25,000 UNIT/500 ML D5W 417 / 417 500 / 500 25,000 unit In 500 ml @ 8.7 UNIT/KG/HR 19.888 mls/hr IVC . Q24H [facility]PE Rx#:[id number] Unasyn 3,000 MG In 0.9 % Sodium 100 / 100 Chloride (Mini-Bag +) 100 ML @ 200 mls/hr IVPB Q24H [facility]PE Rx#: [id number] Oral 0 / 0 550 / 550 30 / 30 Output: Urine 0 / 0 Stool 150 / 150 Catheter 200 / 200 Other: Weight 113.2 kg Blood Glucose* 157 160 Patient Weight 06/02/17 23:59 Weight 113.2 kg - General Appearance General appearance: Present: well-developed, well-nourished, appears started age , obese EENT: Present: mucous membranes moist Neck: Present: no JVD Respiratory: Present: clear Cardiology: Present: no edema, regular rate, regular rhythm Gastrointestinal: Present: normoactive bowel sounds, no tenderness Integumentary: Present: warm and dry Neurologic: Present: alert and oriented x3 Psychiatric: Present: mood/affect appropriate, cooperative - Lab 06/02/17 03:48 06/02/17 03:48 Most recent lab results ABG pH 7.36 pH Units (7.32-7.45) 05/28/17 18:31 ABG pCO2 46 mmHg (35-45) H 05/28/17 18:31 ABG pO2 110 mmHg (85-104) H 05/28/17 18:31 ABG HCO3 26 mEq/L (21-27) 05/28/17 18:31 ABG O2 Saturation 98 % (95-98) 05/28/17 18:31 Calcium 8.9 mg/dL (8.6-10.3) 06/02/17 03:48 Phosphorus 7.3 mg/dL (2.3-4.7) H 05/29/17 07:40 Magnesium 1.8 mg/dL (1.6-2.6) 05/27/17 03:50 Consult Discharge Plan - Plan Referrals: NONE,PCP [Primary Care Provider] - (Patient will follow up with renal doctors)
[2017-06-02] MEDS ORDERED: *HR* Heparin 10,000 UNIT/10 ML VIAL IV PRN (09:10)
[2017-06-02] MEDS ORDERED: 0.9 % Sodium Chloride 250 ML IVC PRN (09:10)
[2017-06-02] MEDS ORDERED: ceFAZolin 2,000 MG in Water for inj. (sterile) 20 ML IVP ONE (10:07)
[2017-06-02] MEDS ORDERED: *HR* Midazolam HCl 2 MG/2 ML VIAL IVP ONE (10:07)
[2017-06-02] MEDS ORDERED: *HR* FentaNYL (PF) 100 MCG/2 ML VIAL IVP ONE (10:08)
--- NOTE | 2017-06-02 10:38 | Internal Med Progress Note ---
<VelElizabethDarren - Last Filed: 06/02/17 10:36> Date of Encounter: 06/02/17 Time of Encounter: 09:00 - Assessment and plan (1) Acute metabolic encephalopathy Current Visit: Yes Status: Acute Assessment and plan: Resolved. AOx3 currently. Tolerating tramadol 25 mg QID without confusion. (2) ESRD needing dialysis Current Visit: Yes Status: Acute Assessment and plan: Cr 8.83 < 7.19 < 9.77 < 7.57 < 10.03 < 12.19 < 16.91 BUN 38 < 27 < 43 < 31 < 45 < 58 < 87 Holding renally excreted drugs Tunneled catheter to be placed today Nephrology following Dialysis planned for tomorrow to hold the patient through the holdiday before next dialysis on monday, then regular schedule of MWF (3) Anemia in CKD (chronic kidney disease) Current Visit: Yes Status: Acute Assessment and plan: Hgb stable, 8.9 < 9.0 Will continue to monitor Qualifiers: Chronic kidney disease stage: stage 4 (severe) Qualified Code(s): N18.4 - Chronic kidney disease, stage 4 (severe); D63.1 - Anemia in chronic kidney disease; D63.1 - Anemia in chronic kidney disease (4) Aspiration pneumonia Current Visit: Yes Status: Acute Assessment and plan: Unasyn day 7 today, transition to augmentin for last 3 days of therapy Aspiration precautions. Qualifiers: Aspiration pneumonia type: unspecified Laterality: bilateral Lung location: lower lobe of lung Qualified Code(s): J69.0 - Pneumonitis due to inhalation of food and vomit (5) HTN (hypertension) Current Visit: Yes Status: Chronic Assessment and plan: Holding home medications of valsartan and lasix secondary to ESRD Continue hydralazine and metoprolol Qualifiers: Hypertension type: essential hypertension Qualified Code(s): I10 - Essential (primary) hypertension (6) Paroxysmal A-fib Current Visit: Yes Status: Chronic Assessment and plan: Continue metoprolol. Restart coumadin after catheter placement today, bridge with heparin (7) HLD (hyperlipidemia) Current Visit: Yes Status: Chronic Assessment and plan: Continue statin. 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 No episodes of confusion. Patient complains that he feels "horrendous" but can offer no specific complaints. Denies CP, SOB, and nausea. - Constitutional Vitals: Temp Pulse Resp BP Pulse Ox 99.7 F H 76 18 159/68 98 06/02/17 07:09 06/02/17 07:09 06/02/17 07:09 06/02/17 07:09 06/02/17 07:09 General appearance: Present: A&O X 3, no acute distress, obese, answers questions appropriately - Head Head exam: Present: atraumatic, normal inspection, normocephalic - ENT ENT exam: Present: mucous membranes moist - Neck Neck exam general surgery: Present: trachea midline - Respiratory Respiratory exam: Present: CTAB. Absent: accessory muscle use, respiratory distress - Cardiovascular Cardiovascular exam: Present: RRR, +S1, +S2 - GI/Abdominal GI/Abdominal exam: Present: normal bowel sounds, soft, no peritoneal signs. Absent: tenderness - Neurological Exam Neurological exam: Present: alert, oriented X3 Additional comments: somnolent - Psychiatric Psychiatric exam: Present: normal affect, normal mood - Skin Skin exam: Present: dry, warm Internal Medicine: Result - Labs CBC & Chem 7: 06/02/17 03:48 06/02/17 03:48 Labs: Short CBC 06/02/17 Range/Units 03:48 WBC 10.1 (4.3-11.1) K/mcL Hgb 8.9 L (12.9-16.9) g/dL Hct 27.4 L (37.5-50.1) % Plt Count 204 (140-400) K/mcL Neutrophils # 7.1 (1.6-8.9) K/mcL [facility] 06/02/17 03:48 Sodium 128 L Potassium 4.5 Chloride 91 L Carbon Dioxide 24 BUN 38 H Creatinine 8.83 H Glucose 155 H Calcium 8.9 - ABG Interpretation ABG results: ABG ABG pH 7.36 pH Units (7.32-7.45) 05/28/17 18:31 ABG pCO2 46 mmHg (35-45) H 05/28/17 18:31 ABG pO2 110 mmHg (85-104) H 05/28/17 18:31 ABG O2 Saturation 98 % (95-98) 05/28/17 18:31 PT/INR, D-dimer PT 13.4 Seconds (9.4-12.1) H 06/02/17 03:48 Consult Discharge Plan - Plan Referrals: NONE,PCP [Primary Care Provider] - (Patient will follow up with renal doctors) <Willard Draper - Last Filed: 06/02/17 17:31> Date of Encounter: 06/02/17 - Constitutional Vitals: Temp Pulse Resp BP Pulse Ox 97.4 F L 76 18 106/64 95 06/02/17 17:10 06/02/17 11:00 06/02/17 17:10 06/02/17 17:10 06/02/17 11:00 Internal Medicine: Result - Labs CBC & Chem 7: 06/02/17 03:48 06/02/17 03:48 Labs: Short CBC 06/02/17 Range/Units 03:48 WBC 10.1 (4.3-11.1) K/mcL Hgb 8.9 L (12.9-16.9) g/dL Hct 27.4 L (37.5-50.1) % Plt Count 204 (140-400) K/mcL Neutrophils # 7.1 (1.6-8.9) K/mcL [facility] 06/02/17 03:48 Sodium 128 L Potassium 4.5 Chloride 91 L Carbon Dioxide 24 BUN 38 H Creatinine 8.83 H Glucose 155 H Calcium 8.9 - ABG Interpretation ABG results: ABG ABG pH 7.36 pH Units (7.32-7.45) 05/28/17 18:31 ABG pCO2 46 mmHg (35-45) H 05/28/17 18:31 ABG pO2 110 mmHg (85-104) H 05/28/17 18:31 ABG O2 Saturation 98 % (95-98) 05/28/17 18:31 PT/INR, D-dimer PT 13.4 Seconds (9.4-12.1) H 06/02/17 03:48 - Impressions Impressions Insertion Non-Tunneled Catheter 06/02/17 00:00 IMPRESSION: 1. Successful fluoroscopic guided exchange of a temporary dialysis catheter as discussed above. D/ / Leonidas Chavez MD / Leonidas Chavez MD Interpreting Provider: Leonidas Chavez MD - Attending Attestation I examined this patient and my medical decision-making was reviewed with the Resident Physician. I agree with the documented findings, disposition and treatment plan as described except to the extent set forth below. I have seen and examined the patient. Patient is awake and alert. Not in any distress. Resting comfortably. No acute complaints at this time. Patient was scheduled to get a permacath placement today, but was unable to due to fever and leukocytosis. Blood cultures are pending. Right femoral HD catheter has been replaced today by IR. Patient tolerated hemodialysis well today. Heart S1-S2 positive. Lungs bilateral good entry no wheezes or crackles. Abdomen soft nontender no masses or guarding. Extremities pulses regular, right HD catheter in place with no oozing or bleeding.
[2017-06-02] MEDS ORDERED: 0.9 % Sodium Chloride 2,000 ML ONE (12:43)
[2017-06-02] MEDS ORDERED: CeFAZolin Premix DUPLEX 2,000 MG/50 ML BAG IVPB ONE (13:30)
[2017-06-02] MEDS: Ondansetron 4 MG/2 ML VIAL IVP PRN (13:39)
--- NOTE | 2017-06-02 13:53 | IR Consult Note ---
Date of Encounter: 06/02/17 Time of Encounter: 13:20 Assessment and Plan (1) ESRD needing dialysis Current Visit: Yes Status: Acute CRF on HD via a right femoral temp dialysis catheter presents for placement tunneled dialysis catheter. Work-up show fevers and upward trending leukocytosis now at 10.1. Discussed with Ely Mcconnell who discussed with Dr Walker and plan is to exchange temp dialysis catheter and draw blood cultures. Will hold off on placing permacath until blood cultures finalize. Physicians: Bin Hickman Consult Comment: Thank you for the consult. Call [facility] with questions or concerns. Past Med Surg Social Fam HX - Past Medical History Medical history: arthritis, atrial fibrillation, CHF, diabetes, hypertension, renal disease, TIA Psychiatric history: no psych history - Past Surgical History Surgical History: colostomy, coronary bypass (CABG) - Social History Smoking Status: Smoker, status unknown Drug use: none - Family History Brother Hx Family Genitourinary Disorders: Yes (ESRD) Medications and Allergies Acetaminophen [Tylenol] 500 mg PO Q6HR PRN 05/27/17 [History] Bisoprolol/HCTZ 106.25 [Ziac 106.25] 1 tab PO DAILY 05/27/17 [History] Famotidine [Pepcid] 20 mg PO BID 05/27/17 [History] Fluticasone Propionate Nasal [Flonase] 2 spr NS DAILY 05/27/17 [History] Furosemide [Lasix] 40 mg PO BID 05/27/17 [History] Gabapentin [Neurontin] 600 mg PO TID 05/27/17 [History] Hyoscyamine SL [Levsin SL] 0.125 mg SL Q4-6H PRN 05/27/17 [History] Insulin ASPART [Novolog Flexpen] 45 unit SQ TIDAC 05/27/17 [History] Insulin Glargine,Hum.rec.anlog [Basaglar Kwikpen U-100] 60 unit SQ BID 05/27/17 [History] Metoprolol XL (24 HR) Succ [Toprol XL] 200 mg PO DAILY 05/27/17 [History] Nitroglycerin [Nitrostat] 0.4 mg SL Q5-10MIN PRN 05/27/17 [History] Potassium Chloride [Klor-Con 10] 10 meq PO DAILY 05/27/17 [History] Rivaroxaban [Xarelto] 20 mg PO DAILY 05/27/17 [History] Simvastatin [Zocor] 40 mg PO HS 05/27/17 [History] Valsartan [Diovan] 80 mg PO DAILY 05/27/17 [History] 3 Allergy/AdvReac Type Severity Reaction Status Date / Time NSAIDS (Non-Steroidal Allergy Hives Verified 05/26/17 18:49 Anti-Inflamma pravastatin Allergy Hives Verified 05/26/17 18:49 sitagliptin [From Januvia] Allergy Hives Verified 05/26/17 18:49 Exam Vital Signs, Last 4 Hours Temp Pulse Resp BP Pulse Ox 06/02/17 13:46 100.9 F H 06/02/17 11:00 98.3 F 76 18 167/69 95 Results Reviewed 06/02/17 03:48 06/02/17 03:48 Lab Results 06/02/17 06/02/17 06/02/17 05:50 03:48 03:48 WBC 10.1 RBC 3.03 L Hgb 8.9 L Hct 27.4 L MCV 90.4 MCH 29.4 MCHC 32.5 RDW 14.3 Plt Count 204 MPV 9.7 Neutrophils # 7.1 Lymphocytes # 1.8 Monocytes # 0.8 Eosinophils # 0.4 Basophils # 0.0 PT INR APTT 55.0 H Sodium 128 L Potassium 4.5 Chloride 91 L Carbon Dioxide 24 BUN 38 H Creatinine 8.83 H Est GFR ( Amer) 7 L Est GFR (Non-Af Amer) 6 L BUN/Creatinine Ratio 4 L Glucose 155 H Calcium 8.9 06/02/17 06/01/17 06/01/17 03:48 06:30 06:30 WBC RBC Hgb Hct MCV MCH MCHC RDW Plt Count MPV Neutrophils # Lymphocytes # Monocytes # Eosinophils # Basophils # PT 13.4 H INR 1.2 APTT 71.5 H Sodium 134 L Potassium 4.3 Chloride 97 L Carbon Dioxide 24 BUN 27 H Creatinine 7.19 H Est GFR ( Amer) 9 L Est GFR (Non-Af Amer) 8 L BUN/Creatinine Ratio 4 L Glucose 128 H Calcium 8.6 06/01/17 06/01/17 05/31/17 06:30 06:30 06:15 WBC 10.0 RBC 3.16 L Hgb 9.0 L D Hct 28.6 L MCV 90.5 MCH 28.5 MCHC 31.5 L RDW 14.5 Plt Count 203 MPV 10.0 Neutrophils # 7.2 Lymphocytes # 1.7 Monocytes # 0.7 Eosinophils # 0.4 Basophils # 0.0 PT 13.4 H INR 1.2 APTT 65.1 H Sodium Potassium Chloride Carbon Dioxide BUN Creatinine Est GFR ( Amer) Est GFR (Non-Af Amer) BUN/Creatinine Ratio Glucose Calcium 05/31/17 05/31/17 05/31/17 06:15 06:15 06:15 WBC 7.9 RBC 2.43 L Hgb 7.0 L Hct 22.1 L MCV 90.9 MCH 28.8 MCHC 31.7 RDW 14.1 Plt Count 152 MPV 9.3 L Neutrophils # 5.6 Lymphocytes # 1.4 Monocytes # 0.6 Eosinophils # 0.3 Basophils # 0.0 PT 13.9 H INR 1.3 APTT Sodium 131 L Potassium 4.5 Chloride 96 L Carbon Dioxide 24 BUN 43 H Creatinine 9.77 H Est GFR ( Amer) 7 L Est GFR (Non-Af Amer) 5 L BUN/Creatinine Ratio 4 L Glucose 223 H Calcium 8.7 05/31/17 05/30/17 00:15 18:04 WBC RBC Hgb Hct MCV MCH MCHC RDW Plt Count MPV Neutrophils # Lymphocytes # Monocytes # Eosinophils # Basophils # PT INR APTT 60.1 H 47.7 H Sodium Potassium Chloride Carbon Dioxide BUN Creatinine Est GFR ( Amer) Est GFR (Non-Af Amer) BUN/Creatinine Ratio Glucose Calcium Consult Discharge Plan - Plan Referrals: NONE,PCP [Primary Care Provider] - (Patient will follow up with renal doctors)
--- NOTE | 2017-06-02 13:55 | IR Procedure Note ---
Date of procedure: 06/02/17 Consent Obtained: Written consent Timeout: Correct patient and procedure verified, Correct site verified, Time out performed, Skin prep completed Local anesthetic: Lidocaine 1% Indications: CRF with leukocytosis Procedure Performed: Exchange temp dialysis catheter Results/Findings: Successful exchange right fem temp dialysis catheter Complications: None; Tolerated procedure well (Blood cultures sent, hold off on permacath until cultures finalize)
[2017-06-02] MEDS: traMADol 50 MG TABLET PO PRN ×2 (15:08→21:37)
[2017-06-02] MEDS ORDERED: Amoxicillin/Clavulanate 500 MG TABLET PO SCH (18:00)
[2017-06-02] MEDS: Insulin DETEMIR 100 UNIT/ML X5UNITS SQ SCH ×2 (18:14→20:50)
[2017-06-03] MEDS: Acetaminophen 325 MG TABLET PO PRN (00:31)
[2017-06-03] MEDS: Ondansetron 4 MG/2 ML VIAL IVP PRN (00:32)
[2017-06-03 03:47] LABS: Hematocrit 31.2 % (37.5-50.1); Hemoglobin 9.8 g/dL (12.9-16.9); Mean Corpuscular HGB Conc 31.4 g/dL (31.6-35.5); Mean Corpuscular Hemoglobin 29.2 pg (28.0-33.3); Mean Corpuscular Volume 92.9 fL (83.0-100.0); Mean Platelet Volume 9.7 fL (9.4-12.4); Platelet Count 262 K/mcL (140-400); Red Blood Count 3.36 M/mcL (4.19-5.50); Red Cell Distribution Width 14.4 % (11.5-14.5)
[2017-06-03 03:54] LABS: INR 1.2; Prothrombin Time 13.3 Seconds (9.4-12.1)
[2017-06-03 04:07] LABS: Calcium 9.1 mg/dL (8.6-10.3); Potassium 5.5 mEq/L (3.5-5.1)
[2017-06-03] MEDS: Heparin 25,000 UNIT/500 ML D5W 25,000 UNIT/500 ML BAG IVC SCH (04:23)
--- NOTE | 2017-06-03 08:23 | Nephrology Progress Note ---
Date of Encounter: 06/03/17 Time of Encounter: 08:05 - Assessment and Plan (1) ESRD needing dialysis Current Visit: Yes Status: Acute CLAUDIA in setting of possible aspiration pneumonia, decreased oral intake, emesis superimposed on CKD 4 in setting of DM and HTN. Metabolic encephalopathy most likely due to CLAUDIA. HD today. Orders given. Chronic HD outpatient-[place]. S/P catheter exchange yesterday. Tunneled cath on hold pending blood cultures, febrile event and increasing leukocytes. (2) Acute metabolic encephalopathy Current Visit: Yes Status: Acute (3) Pneumonia Current Visit: Yes Status: Acute Qualifiers: Pneumonia type: aspiration pneumonia Laterality: bilateral Qualified Code (s): J69.0 - Pneumonitis due to inhalation of food and vomit Subjective Interval history: Awake, at bedside. States patient had emesis during night. Somewhat tachpneic this morning. Admits feels a little more SOB. S/P catheter exchange yesterday. Tunneled cath on hold pending blood cultures, febrile event and increasing leukocytes.. Objective - Vital Signs Vital signs: Vital Signs Temp Pulse Resp BP Pulse Ox 06/03/17 07:40 98.0 F 94 16 147/83 91 06/03/17 04:46 97.7 F 84 17 153/92 90 06/02/17 23:28 100.8 F H 93 16 145/77 90 06/02/17 20:12 98.5 F 91 16 143/74 93 06/02/17 17:10 97.4 F L 18 106/64 06/02/17 17:05 121/59 06/02/17 16:50 103/63 06/02/17 16:35 123/64 06/02/17 16:20 133/67 06/02/17 16:05 127/60 06/02/17 15:50 126/68 06/02/17 15:35 115/55 06/02/17 15:20 110/52 06/02/17 15:05 102/59 06/02/17 14:50 100/57 06/02/17 14:35 116/65 06/02/17 14:20 133/69 06/02/17 14:05 99.0 F 20 128/64 06/02/17 13:46 100.9 F H 06/02/17 11:00 98.3 F 76 18 167/69 95 Intake and Output 06/02/17 06/03/17 06/03/17 23:59 07:59 15:59 Intake Total 194 / 194 306 / 306 Output Total 2600 / 2600 Balance -2406 / -2406 306 / 306 Intake: IV Fluids 194 / 194 306 / 306 Heparin 25,000 UNIT/500 ML D5W 194 / 194 306 / 306 25,000 unit In 500 ml @ 8.7 UNIT/KG/HR 19.888 mls/hr IVC . Q24H [facility] Rx#:[id number] Output: Urine 0 / 0 Total Dialysis (HD) Output 2600 / 2600 Other: Weight 109.134 kg Blood Glucose* 160 Hemodialysis Net Fluid Removed 2000 (mL) Patient Weight 06/03/17 23:59 Weight 109.134 kg - General Appearance General appearance: Present: well-developed, well-nourished, appears started age , obese EENT: Present: mucous membranes moist Neck: Present: no JVD Respiratory: Present: rhonchi Cardiology: Present: edema, regular rate, regular rhythm Additional Comments: mild Gastrointestinal: Present: normoactive bowel sounds, no tenderness Integumentary: Present: warm and dry Neurologic: Present: alert and oriented x3 Psychiatric: Present: mood/affect appropriate, cooperative - Lab 06/03/17 03:23 06/03/17 03:23 Most recent lab results ABG pH 7.36 pH Units (7.32-7.45) 05/28/17 18:31 ABG pCO2 46 mmHg (35-45) H 05/28/17 18:31 ABG pO2 110 mmHg (85-104) H 05/28/17 18:31 ABG HCO3 26 mEq/L (21-27) 05/28/17 18:31 ABG O2 Saturation 98 % (95-98) 05/28/17 18:31 Calcium 9.1 mg/dL (8.6-10.3) 06/03/17 03:23 Phosphorus 7.3 mg/dL (2.3-4.7) H 05/29/17 07:40 Magnesium 1.8 mg/dL (1.6-2.6) 05/27/17 03:50 Consult Discharge Plan - Plan Referrals: NONE,PCP [Primary Care Provider] - (Patient will follow up with renal doctors)
[2017-06-03] MEDS ORDERED: 0.9 % Sodium Chloride 250 ML IVC PRN (08:32)
[2017-06-03] MEDS ORDERED: 0.9 % Sodium Chloride 1,000 ML PRIME SCH (08:45)
[2017-06-03] MEDS: traMADol 50 MG TABLET PO PRN (09:07)
[2017-06-03] MEDS: Insulin DETEMIR 100 UNIT/ML X5UNITS SQ SCH (09:07)
[2017-06-03] MEDS: Insulin LISPRO 300 UNITS/3 ML VIAL SQ SCH ×4 (09:09→19:55)
[2017-06-03] MEDS: Gabapentin 300 MG CAPSULE PO SCH ×2 (09:09→20:30)
[2017-06-03] MEDS: Metoprolol XL (24 HR) Succ 50 MG TAB.ER.24H PO SCH (09:10)
[2017-06-03] MEDS ORDERED: *HR* EPINEPHrine 1 MG/10 ML SYRINGE IVP ONE (10:57)
[2017-06-03] MEDS ORDERED: Sodium Bicarbonate 50 MEQ/50 ML VIAL IVC ONE (10:57)
[2017-06-03 11:27] LABS: ABG Base Excess -5 mEq/L (-2 to 3); ABG HCO3 29 mEq/L (21-27); ABG Oxygen Saturation 70 % (95-98); ABG PCO2 120 mmHg (35-45); ABG PH 6.99 pH Units (7.32-7.45); ABG PO2 58 mmHg (85-104); ABG TCO2 33 mEq/L (20-26)
--- NOTE | 2017-06-03 11:34 | Event Note ---
Date of Encounter: 06/03/17 Time of Encounter: 10:45 Patient was in hemodialysis this morning and KENTON PERALTA was called by RN at around 10:44 AM. Patient apparently had 1 episode dark color vomiting and started to have bradycardia. He then had asystole. CPR was started immediately. Patient received 2 doses of epinephrine. Patient was intubated successfully. Patient required CPR for about 10 minutes before return of spontaneous circulation. Patient currently has good bounding pulses and heart rate is around 105. He has been transferred to the ICU and is currently mechanically ventilated. ABG and labs are pending. Patient has been on heparin drip for atrial fibrillation. Coumadin was held for permacath placement. Patient had a temperature spike last night, so permacath placement is on hold at this time. Cultures are pending at this time. Patient's has been explained about critical condition and guarded prognosis. Pulmonology and critical care has been consulted.
[2017-06-03] MEDS ORDERED: 0.9 % Sodium Chloride 1,000 ML IVC ONE (12:03)
[2017-06-03] MEDS: Norepinephrine 4 MG in D5% in Water 250 ML IVC SCH (12:07)
[2017-06-03] MEDS ORDERED: 0.9 % Sodium Chloride 500 ML ONE (12:14)
[2017-06-03] MEDS: FentaNYL (PF) 1,000 MCG in 0.9 % Sodium Chloride 80 ML IVC SCH (12:16)
[2017-06-03] MEDS: Dexmedetomidine HCl 400 MCG/100 ML MLS IVC SCH (12:32)
--- NOTE | 2017-06-03 12:37 | Procedure Note ---
Date of procedure: 06/03/17 Pre-op diagnosis: Cardiac arrest Procedure: Under strict aseptic precaution , left femoral vein was cannulated with ultrasound guidance , all three ports yuan blood , the line was sutured in place . There were no complications during the procedure. Operators: Dr.Jay Alberts and Dr.Rajinish Mcarthur I was present during the entire procedure Surgeon: Soila Mcarthur Class B Truck Driver: Junior Alberts Estimated blood loss (cc): 1 Condition: critical Disposition: ICU
--- NOTE | 2017-06-03 12:53 | Procedure Note ---
Date of procedure: 06/03/17 Pre-op diagnosis: Cardiac arrest Procedure: Under strict aseptic precaution the left femoral artery was cannulated under ultrasound guidance no complications the catheter was transduced good arterial waveform . The catheter was sutured in place . Dr.Jay Nunez did the procedure , ICU attending was present during the entire procedure. Anesthesia: IV sedation Surgeon: Soila Mcarthur Medical Accounting Clerk: Junior Alberts Estimated blood loss (cc): 1 IV fluids (cc): 1,000 Condition: critical
[2017-06-03] MEDS ORDERED: Lacri-Lube 3.5 GM TUBE BOTH EYES PRN (12:54)
--- NOTE | 2017-06-03 13:03 | Pulmonology Consult Note ---
Date of Encounter: 06/03/17 Time of Encounter: 11:20 Assessment and Plan (1) Cardiac arrest due to other underlying condition Current Visit: Yes Status: Acute Cardiac arrest during dialysis most likely electrolyte imbalance due to hyperkalemia Vs VT Vs PE . The ECHO didnt shlow any RV strain low likelihood that PE caused this hemodynamically instability and cardiac arrest . EKG didnt show any evidence of STEMI or no other acute ST-T changes . Will stop the heparin drip in anticipation of therapeutic hypothermia protocol as there is no strong suspicion for PE . Patient had a cardiac arrest like this while he was undergoing colonos copy underwent cardiac arrest was intubated in [facility] and she was shifted [facility] . In the ICU patient is sedated and ventilated therapeutic hypothermia according to protocol since patient doesnt have any purpose ful movements will monitor. (2) Coma Current Visit: Yes Status: Acute After the cardiac arrest he didnt have any purposeful movements will start on therapeutic hypothermia according to protocol . Patient doesnt have signs of increased ICP , there is no evidence of myoclonic jerks or seizures , no evidence of increased ICP .Will give 24 hrs and the rewarm him if he doesnt wakes up Neurology will be consulted tomorrow Qualifiers: Coma depth: [place] coma 3-8 Qualified Code(s): R40.2430 - Ruchi coma scale score 3-8, unspecified time (3) Acute respiratory failure with hypoxia and hypercapnia Current Visit: Yes Status: Acute Patient has CXR bibasilar infiltrates most likley due to pneumonia , will continue broad spectrum antibiotics change from narrow spectrum , sputum c/s if it cones up . Will continue the low tidal volume startegy , will monitor lung mechanics (4) Acute metabolic encephalopathy Current Visit: Yes Status: Acute This altered mentat status most likely due to uremic enecpehalopathy and pneumonia , if he spikes please reculture (5) [id number] kidney injury Current Visit: Yes Status: Acute Qualifiers: Chronic kidney disease stage: stage 5, not on chronic dialysis Qualified Code(s): N17.9 - Acute kidney failure, unspecified; N18.5 - Chronic kidney disease, stage 5; N18.5 - Chronic kidney disease, stage 5; N18.5 - Chronic kidney disease, stage 5; N18.5 - Chronic kidney disease, stage 5 (6) DVT prophylaxis Current Visit: Yes Status: Acute Patient therapeutically anticoagulated now once the aPTT is normal will put him on SCD History of Present Illness Consult date: 06/03/17 Reason for consult: other (cardiac arrest) Chief complaint: Cardiac arrest History of present illness: 61 year old male with past medical history significant for HTN , Diabetes , Atrial fibrillation of coumadin no known CAD or cardiomyopathy , but had CKD getting prepared for dialysis as outpatient developed body pain , malaise and fatigue , could not ambulate he got slowly confused the history we got is from and chart review didnt have chest pain or tightness , had some shortness of breadth for few days , denied any cough and sputum production, didnt have any flu like symptoms , had some nausea and vomitting but no hematemesis or melena . had some altered mental status with no focal neurological deficit . Patient was admitted with altered mental status with acute on chronic kidney injury showed bibasilar consolidation , patient was admitted to the floor was getting second session of dialysis in the dialysis room he code went into bradycardia and aystole had two rounds of epinephrine and the ROSC was around 8 minutes ,he was intubated by the hospitalist was transferred to the ICU around 11: 10 that is the time i assumed care and pulmonary was consulted by the hospitalist , in the ICU he did respond to painful stimuli but doesnt do any purposeful motion therapeutic hypothermia protocol was activated . Past Med Surg Social Fam HX - Past Medical History Medical history: arthritis, atrial fibrillation, CHF, diabetes, hypertension, renal disease, TIA Psychiatric history: no psych history - Past Surgical History Surgical History: colostomy, coronary bypass (CABG) - Social History Smoking Status: Smoker, status unknown Drug use: none - Family History Brother Hx Family Genitourinary Disorders: Yes (ESRD) Medications and Allergies Acetaminophen [Tylenol] 500 mg PO Q6HR PRN 05/27/17 [History] Bisoprolol/HCTZ 106.25 [Ziac 03/17.25] 1 tab PO DAILY 05/27/17 [History] Famotidine [Pepcid] 20 mg PO BID 05/27/17 [History] Fluticasone Propionate Nasal [Flonase] 2 spr NS DAILY 05/27/17 [History] Furosemide [Lasix] 40 mg PO BID 05/27/17 [History] Gabapentin [Neurontin] 600 mg PO TID 05/27/17 [History] Hyoscyamine SL [Levsin SL] 0.125 mg SL Q4-6H PRN 05/27/17 [History] Insulin ASPART [Novolog Flexpen] 45 unit SQ TIDAC 05/27/17 [History] Insulin Glargine,Hum.rec.anlog [Basaglar Kwikpen U-100] 60 unit SQ BID 05/27/17 [History] Metoprolol XL (24 HR) Succ [Toprol XL] 200 mg PO DAILY 05/27/17 [History] Nitroglycerin [Nitrostat] 0.4 mg SL Q5-10MIN PRN 05/27/17 [History] Potassium Chloride [Klor-Con 10] 10 meq PO DAILY 05/27/17 [History] Rivaroxaban [Xarelto] 20 mg PO DAILY 05/27/17 [History] Simvastatin [Zocor] 40 mg PO HS 05/27/17 [History] Valsartan [Diovan] 80 mg PO DAILY 05/27/17 [History] 3 Allergy/AdvReac Type Severity Reaction Status Date / Time NSAIDS (Non-Steroidal Allergy Hives Verified 05/26/17 18:49 Anti-Inflamma pravastatin Allergy Hives Verified 05/26/17 18:49 sitagliptin [From Januvia] Allergy Hives Verified 05/26/17 18:49 All Systems: A 10-system review of systems cannot be performed as the patient is intubated. Physical Examination Vital Signs: Vital Signs, Last 4 Hours Temp Pulse Resp BP Pulse Ox 06/03/17 11:26 98.4 F 96 26 90/53 99 General appearance: comatose (responsive to painful stimuli ) Auscultation: bilateral: diminished breath sounds, other (bilateral crackles with occasional wheezes ) unable to assess due to mental status (patient is comatose but responding to painful stimuli.), other Ventilator Settings Ventilator Settings: TV 600 RR 24 Peep of 8 FIO2 70% Results - Laboratory Findings CBC and BMP: 06/03/17 11:05 06/03/17 11:05 ABG ABG pH 6.99 pH Units (7.32-7.45) L* 06/03/17 11:08 ABG pCO2 120 mmHg (35-45) H* 06/03/17 11:08 ABG pO2 58 mmHg (85-104) L 06/03/17 11:08 ABG O2 Saturation 70 % (95-98) L 06/03/17 11:08 PT/INR, D-dimer PT 13.3 Seconds (9.4-12.1) H 06/03/17 03:23 Abnormal lab findings: Abnormal lab results WBC 11.8 K/mcL (4.3-11.1) H 06/03/17 03:23 RBC 3.36 M/mcL (4.19-5.50) L 06/03/17 03:23 Hgb 9.8 g/dL (12.9-16.9) L 06/03/17 03:23 Hct 31.2 % (37.5-50.1) L 06/03/17 03:23 MCHC 31.4 g/dL (31.6-35.5) L 06/03/17 03:23 PT 13.3 Seconds (9.4-12.1) H 06/03/17 03:23 APTT 65.7 Seconds (26.0-36.0) H 06/03/17 11:05 ABG pH 6.99 pH Units (7.32-7.45) L* 06/03/17 11:08 ABG pCO2 120 mmHg (35-45) H* 06/03/17 11:08 ABG pO2 58 mmHg (85-104) L 06/03/17 11:08 ABG HCO3 29 mEq/L (21-27) H 06/03/17 11:08 ABG Total CO2 33 mEq/L (20-26) H 06/03/17 11:08 ABG O2 Saturation 70 % (95-98) L 06/03/17 11:08 ABG Base Excess -5 mEq/L (-2 to 3) L 06/03/17 11:08 Sodium 132 mEq/L (136-145) L 06/03/17 03:23 Potassium 5.5 mEq/L (3.5-5.1) H 06/03/17 03:23 Chloride 94 mEq/L (98-107) L 06/03/17 03:23 BUN 31 mg/dL (8-23) H 06/03/17 03:23 Creatinine 7.02 mg/dL (0.70-1.30) H 06/03/17 03:23 Est GFR ( Amer) 10 (> 60) L 06/03/17 03:23 Est GFR (Non-Af Amer) 8 (> 60) L 06/03/17 03:23 BUN/Creatinine Ratio 4 (6-26) L 06/03/17 03:23 Glucose 221 mg/dL (70-105) H 06/03/17 03:23 POC Glucose 269 (58-89) H 06/03/17 11:43 Phosphorus 7.3 mg/dL (2.3-4.7) H 05/29/17 07:40 Iron 15 mcg/dL (65-175) L 05/29/17 07:40 % Saturation 6 % (20-55) L 05/29/17 07:40 Transferrin 169 mg/dL (174-364) L 05/29/17 07:40 Ferritin 517 ng/ml (22-275) H 05/29/17 07:40 Total Bilirubin 0.2 mg/dL (0.3-1.0) L 05/31/17 06:15 AST 12 Units/L (13-39) L 05/31/17 06:15 Albumin 2.9 g/dL (3.5-5.7) L 05/31/17 06:15 Globulin 4.1 g/dL (2.4-3.5) H 05/31/17 06:15 Albumin/Globulin Ratio 0.7 (1.1-2.2) L 05/31/17 06:15 Triglycerides 203 mg/dL (< 150) H 05/27/17 03:50 VLDL Cholesterol, Calc 41 mg/dL (< 31) H 05/27/17 03:50 HDL Cholesterol 16 mg/dL (40-59) L 05/27/17 03:50 Cholesterol/HDL Ratio 6.6 (0-4.9) H 05/27/17 03:50 PTH Intact 457.2 pg/ml (8.5-72.5) H 05/29/17 07:40 Urine Clarity Cloudy (Clear) A 05/27/17 13:15 Urine Protein >=300 mg/dL (Neg-Trace) H 05/27/17 13:15 Urine Glucose (UA) 100 mg/dL (Normal) H 05/27/17 13:15 Urine Blood Large (Negative) H 05/27/17 13:15 Urine Microscopic WBC 3-5 per hpf (0-3) H 05/27/17 13:15 Ur Squamous Epith Cells Moderate per lpf (None-Few) H 05/27/17 13:15 - Diagnostic Findings Additional studies: ekg showed no acute ST-T changes no STEMI , troponin are negative - Clinical Findings Intake & Output: Intake & Output 06/02/17 06/03/17 06/03/17 23:59 07:59 15:59 Intake Total 194 / 194 306 / 306 1120 / 1120 Output Total 2600 / 2600 250 / 250 Balance -2406 / -2406 306 / 306 870 / 870 Weight 109.134 kg Consult Discharge Plan - Plan Referrals: NONE,PCP [Primary Care Provider] - (Patient will follow up with renal doctors)
[2017-06-03 13:08] LABS: ABG Base Excess -2 mEq/L (-2 to 3); ABG HCO3 25 mEq/L (21-27); ABG Oxygen Saturation 92 % (95-98); ABG PCO2 53 mmHg (35-45); ABG PH 7.28 pH Units (7.32-7.45); ABG PO2 72 mmHg (85-104); ABG TCO2 27 mEq/L (20-26); Blood Gas Modality ASSIST CONTROL; Blood Gas PEEP 5 cm H2O; Blood Gas Respiration Rate 24; Blood Gas VT 600 cc
[2017-06-03 13:20] LABS: Basophils % 0.2 %; Eosinophils % 0.2 %; Hematocrit 30.7 % (37.5-50.1); Hemoglobin 9.2 g/dL (12.9-16.9); Immature Granulocytes % 1.5 % (0-4); Lymphocytes # 6.6 K/mcL (0.6-4.6); Lymphocytes % 30.5 %; Mean Corpuscular Hemoglobin 29.2 pg (28.0-33.3); Mean Corpuscular Volume 97.5 fL (83.0-100.0); Mean Platelet Volume 10.3 fL (9.4-12.4); Monocytes # 0.7 K/mcL (0.0-1.3); Monocytes % 3.2 %; Nucleated Red Blood Cells 0.1 /100 WBC (0); Platelet Count 321 K/mcL (140-400); Red Blood Count 3.15 M/mcL (4.19-5.50); Red Cell Distribution Width 14.5 % (11.5-14.5); Segmented Neutrophils % 64.4 %
[2017-06-03 13:36] LABS: Neutrophils # 13.9 K/mcL (1.6-8.9)
[2017-06-03 13:44] LABS: Calcium 8.7 mg/dL (8.6-10.3); Magnesium 2.5 mg/dL (1.6-2.6); Potassium 4.4 mEq/L (3.5-5.1)
[2017-06-03] MEDS ORDERED: Vancomycin 1,750 MG in D5% in Water 500 ML IVPB SCH (14:00)
[2017-06-03] MEDS ORDERED: Vancomycin 1,750 MG in D5% in Water 250 ML IVPB SCH (14:00)
[2017-06-03 14:08] LABS: VBG HCO3 26 mEq/L (21-27); VBG Ionized Calcium 0.98 mmol/L (1.15-1.35); VBG PCO2 65 mmHg (41-51); VBG PH 7.22 pH Units (7.32-7.42); VBG PO2 76 mmHg (25-50)
[2017-06-03] MEDS ORDERED: Perflutren Lipid Microsphere 1.3 ML in 0.9 % Sodium Chloride 8.7 ML IVP ONE (14:12)
--- NOTE | 2017-06-03 14:27 | Internal Med Progress Note ---
<Junior Alberts - Last Filed: 06/03/17 14:25> Date of Encounter: 06/03/17 Time of Encounter: 14:25 - Assessment and plan (1) Cardiac arrest Current Visit: Yes Status: Acute Assessment and plan: Had dark brown vomiting patient became bradycardic during dialysis (around 30 min after dialysis was initiated) Thereafter had asystole at 11.44AM Underwent 2 rounds of CPR recieved 2 dose epi before achieving ROSC He was intubated and sent to ICU. ABG showed pH of 6.9 and PCO2 of 120. Repeat CBC showed stable hemoglobin 9.2. Repeat CMP showed improved hyperkalemia to 4.4 (2) Acute metabolic encephalopathy Current Visit: Yes Status: Acute Assessment and plan: was alert and oriented 4 cardiac arrest. Currently intubated and sedated in the ICU. Patient was not responsive after attaining ROSC and now intubated and sedated. (3) Anemia in CKD (chronic kidney disease) Current Visit: Yes Status: Acute Assessment and plan: Patient's anemia stable. He is on heparin for atrial fibrillation. At home Patient's is on Coumadin but this was discontinued as he had his temporary hemodialysis catheter replaced yesterday. patient will start on CVVHD tomorrow. Qualifiers: Chronic kidney disease stage: stage 5, not on chronic dialysis Qualified Code(s): N18.5 - Chronic kidney disease, stage 5; D63.1 - Anemia in chronic kidney disease; D63.1 - Anemia in chronic kidney disease (4) Aspiration pneumonia Current Visit: Yes Status: Acute Assessment and plan: Patient was on Unasyn for aspiration pneumonia. after cardiac arrest on broad spectrum antibiotics Qualifiers: Aspiration pneumonia type: unspecified Laterality: bilateral Lung location: lower lobe of lung Qualified Code(s): J69.0 - Pneumonitis due to inhalation of food and vomit (5) DM2 (diabetes mellitus, type 2) Current Visit: Yes Status: Chronic Assessment and plan: Glucose 155 Continue current management Qualifiers: Diabetes mellitus complication status: without complication Diabetes mellitus intermediate frame tender insulin use: with intermediate frame tender use Qualified Code(s): E11.9 - Type 2 diabetes mellitus without complications; Z79.4 - group home (current) use of insulin; Z79.4 - ad terminal makeup operator (current) use of insulin; Z79.4 - ad terminal makeup operator ( current) use of insulin; Z79.4 - group home (current) use of insulin (6) ESRD needing dialysis Current Visit: Yes Status: Acute Assessment and plan: End-stage renal disease. Plan was to undergo dialysis today however patient had cardiac arrest. Nephrology was notified and stated they will start CVVHD tomorrow. (7) HLD (hyperlipidemia) Current Visit: Yes Status: Chronic Assessment and plan: Continue statin. Qualifiers: Hyperlipidemia type: unspecified Qualified Code(s): E78.5 - Hyperlipidemia , unspecified (8) HTN (hypertension) Current Visit: Yes Status: Chronic Assessment and plan: was stable in morning after cardiac arrest patient was started on levophed for pressor support d/c home BP meds. Qualifiers: Hypertension type: essential hypertension Qualified Code(s): I10 - Essential (primary) hypertension (9) Paroxysmal A-fib Current Visit: Yes Status: Chronic Assessment and plan: on metoprolol for rate control on heparin for anticoagulation. coumadin on hold. (10) DVT prophylaxis Current Visit: Yes Status: Acute Assessment and plan: Patient was being bridged with Coumadin for atrial fibrillation. coumadin on hold and patient on heparin gtt. - Subjective Interval history: Patient was awake and alert this morning. He answered questions appropriately. He denied chest pain, dull pain, shortness of breath. reported overnight he had nausea vomiting and difficulty with keeping has BiPAP on. Patient was undergoing dialysis when he bent bradycardic and then asystole and had cardiac arrest. CPR is initiated and after 2 rounds patient achieved ROSC. He was intubated and transferred to the ICU. Patient was given IV fluids. Patient had an arterial line and central line placed. Patient was started on Levophed for pressor support. - Constitutional Vitals: Temp Pulse Resp BP Pulse Ox 98.4 F 72 24 142/65 93 06/03/17 11:26 06/03/17 13:07 06/03/17 13:27 06/03/17 13:27 06/03/17 13:27 General appearance: Present: A&O X 3, no acute distress, obese, answers questions appropriately - Other Additional findings: Exam was done before cardiac arrest General: without distress, Heart: Regular rate and rhythm with no murmur Lungs: Clear to auscultation bilaterally Abdomen: Soft nontender, nondistended positive bowel sounds Skin: warm and dry Extremities: Absent pedal edema, right temp low dialysis catheter Neuro: Alert and Oriented 3, just questions appropriately. Vascular: Pedal and radial pulses 2 out of 4 Internal Medicine: Result - Labs CBC & Chem 7: 06/03/17 11:05 06/03/17 11:05 Labs: Short CBC 06/03/17 06/03/17 Range/Units 03:23 11:05 WBC 11.8 H 21.6 H D (4.3-11.1) K/mcL Hgb 9.8 L 9.2 L (12.9-16.9) g/dL Hct 31.2 L 30.7 L (37.5-50.1) % Plt Count 262 321 (140-400) K/mcL Neutrophils # 13.9 H (1.6-8.9) K/mcL BMP 06/03/17 06/03/17 03:23 11:05 Sodium 132 L 135 L Potassium 5.5 H 4.4 Chloride 94 L 93 L Carbon Dioxide 26 25 BUN 31 H 38 H Creatinine 7.02 H 7.14 H Glucose 221 H 300 H Calcium 9.1 8.7 Cardiac Enzymes 06/03/17 Range/Units 11:05 Troponin I < 0.03 (< 0.04) ng/mL - ABG Interpretation ABG results: ABG ABG pH 7.28 pH Units (7.32-7.45) L D 06/03/17 13:03 ABG pCO2 53 mmHg (35-45) H D 06/03/17 13:03 ABG pO2 72 mmHg (85-104) L 06/03/17 13:03 ABG O2 Saturation 92 % (95-98) L 06/03/17 13:03 PT/INR, D-dimer PT 13.3 Seconds (9.4-12.1) H 06/03/17 03:23 - Impressions Impressions Echocardiogram 06/03/17 12:05 Impressions: Technically sub-optimal due to clinical status. LV systolic function is probably normal. However, the endocardial border and multiple wall segments were not well visualized. Unable to evaluate segmental wall motion due to technical quality. Mild left ventricular diastolic dysfunction. Normal right ventricular structure and function. No significant valvular dysfunction. No pulmonary hypertension. Ascending aorta is not well visualized. Asked our Post Acute Care Nurse Practitioner to return for a Limited study with Definity. Left Ventricular Wall Motion: Rest Echo Findings The apex, apical anterior, mid anterior, basal anterior, apical septal, mid inferior septal, basal inferior septal, mid anterior septal and basal anterior septal sutherland were not visualized. All other wall segments showed normal motion. Findings: Study Quality * Technically sub-optimal due to clinical status. ECG Findings * Normal sinus rhythm. Left Ventricle * Mild left ventricular diastolic dysfunction. * Unable to evaluate segmental wall motion due to technical quality. * Normal LV size. Right Ventricle * Normal right ventricular structure and function. Left Atrium * Mildly dilated left atrium. Right Atrium * Normal right atrial size. Aortic Valve * No aortic regurgitation. * Aortic valve not well visualized. * No aortic stenosis. Mitral Valve * No mitral regurgitation. * Normal mitral valve structure. * No mitral stenosis. Tricuspid Valve * Tricuspid valve not well visualized. * No tricuspid regurgitation. * Estimated RA pressure is 3 mmHg. * Estimated RVSP is 21 mmHg. * No pulmonary hypertension. Pulmonic Valve * Pulmonic valve is not well visualized. * No pulmonic stenosis. * No pulmonic regurgitation. Pulmonary Artery * Pulmonary artery not well visualized. Aorta * Normally sized aortic root. * Ascending aorta is not well visualized. Pericardium * There is no pericardial effusion present. Interatrial Septum * No evidence of PFO by color Doppler. IVC * Normal IVC dimensions and inspiratory collapse. Chest X-Ray 06/03/17 12:09 IMPRESSION: 1. Endotracheal tube tip at the level of the clavicles, 7 cm above the mary. 2. Left basilar and right perihilar airspace opacities, which could represent atelectasis or pneumonia. D/ / Chance Clarke MD / Chance Clarke MD Interpreting Provider: Chance Clarke MD X-Ray 06/03/17 12:09 IMPRESSION: Nasogastric tube in appropriate position with tip and proximal port in the gastric body. D/ / Jimmy Polk MD / Jimmy Polk MD Interpreting Provider: Jimmy Polk MD Consult Discharge Plan - Plan Referrals: NONE,PCP [Primary Care Provider] - (Patient will follow up with renal doctors) <Willard Draper - Last Filed: 06/03/17 15:21> Date of Encounter: 06/03/17 - Constitutional Vitals: Temp Pulse Resp BP Pulse Ox 37.6 F L 79 24 126/59 92 06/03/17 15:01 06/03/17 15:01 06/03/17 15:01 06/03/17 15:01 06/03/17 15:01 Internal Medicine: Result - Labs CBC & Chem 7: 06/03/17 11:05 06/03/17 11:05 Labs: Short CBC 06/03/17 06/03/17 Range/Units 03:23 11:05 WBC 11.8 H 21.6 H D (4.3-11.1) K/mcL Hgb 9.8 L 9.2 L (12.9-16.9) g/dL Hct 31.2 L 30.7 L (37.5-50.1) % Plt Count 262 321 (140-400) K/mcL Neutrophils # 13.9 H (1.6-8.9) K/mcL BMP 06/03/17 06/03/17 03:23 11:05 Sodium 132 L 135 L Potassium 5.5 H 4.4 Chloride 94 L 93 L Carbon Dioxide 26 25 BUN 31 H 38 H Creatinine 7.02 H 7.14 H Glucose 221 H 300 H Calcium 9.1 8.7 Cardiac Enzymes 06/03/17 Range/Units 11:05 Troponin I < 0.03 (< 0.04) ng/mL - ABG Interpretation ABG results: ABG ABG pH 7.28 pH Units (7.32-7.45) L D 06/03/17 13:03 ABG pCO2 53 mmHg (35-45) H D 06/03/17 13:03 ABG pO2 72 mmHg (85-104) L 06/03/17 13:03 ABG O2 Saturation 92 % (95-98) L 06/03/17 13:03 PT/INR, D-dimer PT 13.3 Seconds (9.4-12.1) H 06/03/17 03:23 - Impressions Impressions Echocardiogram 06/03/17 12:05 Impressions: Technically sub-optimal due to clinical status. LV systolic function is probably normal. However, the endocardial border and multiple wall segments were not well visualized. Unable to evaluate segmental wall motion due to technical quality. Mild left ventricular diastolic dysfunction. Normal right ventricular structure and function. No significant valvular dysfunction. No pulmonary hypertension. Ascending aorta is not well visualized. Asked our Post Acute Care Nurse Practitioner to return for a Limited study with Definity. Left Ventricular Wall Motion: Rest Echo Findings The apex, apical anterior, mid anterior, basal anterior, apical septal, mid inferior septal, basal inferior septal, mid anterior septal and basal anterior septal sutherland were not visualized. All other wall segments showed normal motion. Findings: Study Quality * Technically sub-optimal due to clinical status. ECG Findings * Normal sinus rhythm. Left Ventricle * Mild left ventricular diastolic dysfunction. * Unable to evaluate segmental wall motion due to technical quality. * Normal LV size. Right Ventricle * Normal right ventricular structure and function. Left Atrium * Mildly dilated left atrium. Right Atrium * Normal right atrial size. Aortic Valve * No aortic regurgitation. * Aortic valve not well visualized. * No aortic stenosis. Mitral Valve * No mitral regurgitation. * Normal mitral valve structure. * No mitral stenosis. Tricuspid Valve * Tricuspid valve not well visualized. * No tricuspid regurgitation. * Estimated RA pressure is 3 mmHg. * Estimated RVSP is 21 mmHg. * No pulmonary hypertension. Pulmonic Valve * Pulmonic valve is not well visualized. * No pulmonic stenosis. * No pulmonic regurgitation. Pulmonary Artery * Pulmonary artery not well visualized. Aorta * Normally sized aortic root. * Ascending aorta is not well visualized. Pericardium * There is no pericardial effusion present. Interatrial Septum * No evidence of PFO by color Doppler. IVC * Normal IVC dimensions and inspiratory collapse. Chest X-Ray 06/03/17 12:09 IMPRESSION: 1. Endotracheal tube tip at the level of the clavicles, 7 cm above the mary. 2. Left basilar and right perihilar airspace opacities, which could represent atelectasis or pneumonia. D/ / Chance Clarke MD / Chance Clarke MD Interpreting Provider: Chance Clarke MD X-Ray 06/03/17 12:09 IMPRESSION: Nasogastric tube in appropriate position with tip and proximal port in the gastric body. D/ / Jimmy Polk MD / Jimmy Polk MD Interpreting Provider: Jimmy Polk MD - Attending Attestation I examined this patient and my medical decision-making was reviewed with the Resident Physician. I agree with the documented findings, disposition and treatment plan as described except to the extent set forth below. I have seen and examined the patient. Patient was examined the patient before he went to hemodialysis. We also responded to the CODE BLUE during dialysis. Patient was successfully intubated and we achieved return of spontaneous circulation after 2 rounds of CPR and 2 doses of epinephrine. Patient is currently intubated and mechanically ventilated in the ICU. Pulmonology/ critical care has been consulted. Patient is currently on Levaquin drip. Before patient went to dialysis he was somnolent but easily arousable. stated that the patient was on BiPAP last night, but did not sleep well. He apparently had one episode of vomiting this morning. Even at dialysis patient had one episode of vomiting and then had asystole. Patient has been started on IV cefepime and IV vancomycin. At this time will continue Levophed. Heart - S1-S2 positive. Lungs - bilateral good air entry with coarse breath sounds. Abdomen - soft and nondistended with positive bowel sounds. Extremities - bilateral mild lower leg pedal edema, right femoral HD catheter. Neurological - patient is intubated and mechanically ventilated.
--- NOTE | 2017-06-03 14:35 | Procedure Note ---
Date of procedure: 06/03/17 Pre-op diagnosis: Cardiac arrest Post-op diagnosis: same Procedure: Endotracheal intubation The patient was undergoing hemodialysis this morning and suddenly he became bradycardic followed by asystole and cardiac arrest. A CODE BLUE was called at 10:40 AM. This was an emergent endotracheal intubation after successful CPR for respiratory failure secondary to cardiac arrest and within 1 minute after ROSC. The patient was lying in a supine position, unresponsive. No sedation was administered as the patient was unresponsive. The patient was ventilated by Ambu bag. A Mac 3 blade was inserted into the oropharynx and abundant brownish gastric secretions were suctioned from the oropharynx. After suctioning there was a grade 1 view of the vocal cords. A 7.5-ethiopian endotracheal tube was inserted and visualized going through the vocal cords. The stylette was removed. Colorimetric change was visualized on the CO2 meter. Breath sounds were heard over both lung boudreaux equally. The endotracheal tube was placed at 24 cm, measured at the teeth. Endotracheal tube was secured in place. Patient achieved ROSC and was transferred to the ICU in a critical condition. A chest x-ray was ordered to assess for pneumothorax and verify endotrachealtube placement. Anesthesia: MAC (3) Surgeon: Kwesi Vela Estimated blood loss (cc): 0 Pathology: none sent Condition: critical Disposition: ICU
[2017-06-03] MEDS: Lacri-Lube 3.5 GM TUBE BOTH EYES SCH ×2 (16:14→19:55)
[2017-06-03] MEDS: Cefepime HCl 2,000 MG in Water for inj. (sterile) 20 ML IVP SCH (16:22)
[2017-06-03] MEDS ORDERED: *HR* Atropine Sulfate 1 MG/10 ML SYRINGE ONE (19:57)
[2017-06-03] MEDS: Chlorhexidine Rinse 15 ML MOUTHWASH MM SCH (20:30)
[2017-06-03] MEDS ORDERED: 0.9 % Sodium Chloride 1,000 ML ONE (20:51)
[2017-06-03 21:30] LABS: Hematocrit 26.6 % (37.5-50.1); Hemoglobin 8.4 g/dL (12.9-16.9); Mean Corpuscular HGB Conc 31.6 g/dL (31.6-35.5); Mean Corpuscular Hemoglobin 28.9 pg (28.0-33.3); Mean Platelet Volume 9.6 fL (9.4-12.4); Platelet Count 248 K/mcL (140-400); Red Blood Count 2.91 M/mcL (4.19-5.50); Red Cell Distribution Width 14.4 % (11.5-14.5)
[2017-06-03 21:31] LABS: Mean Corpuscular Volume 91.4 fL (83.0-100.0)
[2017-06-03 21:37] LABS: INR 1.2; Prothrombin Time 12.7 Seconds (9.4-12.1)
[2017-06-03 21:40] LABS: Activated Partial Thrombo Time 25.7 Seconds (26.0-36.0)
[2017-06-03] MEDS: Pantoprazole 40 MG in 0.9 % Sodium Chloride Mini Bag 100 ML IVC SCH (22:01)
[2017-06-03 23:04] LABS: ABG Base Excess 0 mEq/L (-2 to 3); ABG HCO3 25 mEq/L (21-27); ABG Oxygen Saturation 97 % (95-98); ABG PCO2 42 mmHg (35-45); ABG PH 7.38 pH Units (7.32-7.45); ABG PO2 96 mmHg (85-104); ABG TCO2 26 mEq/L (20-26); Blood Gas Modality VC; Blood Gas VT 4 cc
[2017-06-04] MEDS: Dexmedetomidine HCl 400 MCG/100 ML MLS IVC SCH ×10 (00:49→20:40)
[2017-06-04] MEDS: Lacri-Lube 3.5 GM TUBE BOTH EYES SCH ×6 (00:51→19:50)
[2017-06-04] MEDS: Insulin LISPRO 300 UNITS/3 ML VIAL SQ SCH ×6 (00:52→19:50)
[2017-06-04] MEDS: Pantoprazole 40 MG in 0.9 % Sodium Chloride Mini Bag 100 ML IVC SCH ×2 (03:21→14:13)
[2017-06-04 03:38] LABS: Basophils % 0.4 %; Eosinophils # 0.2 K/mcL (0.0-0.6); Eosinophils % 1.4 %; Hematocrit 27.6 % (37.5-50.1); Hemoglobin 8.8 g/dL (12.9-16.9); Immature Granulocytes % 0.5 % (0-4); Lymphocytes # 1.7 K/mcL (0.6-4.6); Lymphocytes % 14.5 %; Mean Corpuscular HGB Conc 31.9 g/dL (31.6-35.5); Mean Corpuscular Hemoglobin 28.9 pg (28.0-33.3); Mean Corpuscular Volume 90.8 fL (83.0-100.0); Mean Platelet Volume 9.6 fL (9.4-12.4); Monocytes # 0.9 K/mcL (0.0-1.3); Monocytes % 7.9 %; Neutrophils # 8.5 K/mcL (1.6-8.9); Platelet Count 236 K/mcL (140-400); Red Blood Count 3.04 M/mcL (4.19-5.50); Red Cell Distribution Width 14.3 % (11.5-14.5); Segmented Neutrophils % 75.3 %
[2017-06-04 04:01] LABS: Calcium 8.6 mg/dL (8.6-10.3); Potassium 4.8 mEq/L (3.5-5.1)
[2017-06-04] MEDS: FentaNYL (PF) 1,000 MCG in 0.9 % Sodium Chloride 80 ML IVC SCH (04:02)
[2017-06-04] MEDS ORDERED: Pantoprazole 40 MG VIAL IVPB SCH (09:00)
[2017-06-04] MEDS: Metoprolol XL (24 HR) Succ 50 MG TAB.ER.24H PO SCH (10:22)
[2017-06-04] MEDS: Chlorhexidine Rinse 15 ML MOUTHWASH MM SCH ×2 (10:22→19:49)
[2017-06-04] MEDS: Gabapentin 300 MG CAPSULE PO SCH ×2 (10:22→19:49)
[2017-06-04 10:24] LABS: ABG Base Excess -1 mEq/L (-2 to 3); ABG HCO3 26 mEq/L (21-27); ABG Oxygen Saturation 92 % (95-98); ABG PCO2 53 mmHg (35-45); ABG PH 7.29 pH Units (7.32-7.45); ABG PO2 73 mmHg (85-104); ABG TCO2 28 mEq/L (20-26); Blood Gas Modality ASSIST CONTROL; Blood Gas PEEP 8 cm H2O; Blood Gas Respiration Rate 24; Blood Gas VT 580 cc
[2017-06-04] MEDS ORDERED: *HR* Heparin 10,000 UNIT/10 ML VIAL IV PRN (10:52)
[2017-06-04] MEDS ORDERED: 0.9 % Sodium Chloride 250 ML IVC PRN (10:52)
--- NOTE | 2017-06-04 12:27 | Pulmonology Progress Note ---
Date of Encounter: 06/04/17 Time of Encounter: 11:00 Assessment and Plan (1) Cardiac arrest due to other underlying condition Current Visit: Yes Status: Acute Patient will be coming from hypothermic protocol in this evening , after re warming will send the patient to CT scan to rule out any intracranial pathology . Not sure what is the etiology most likely due to rapid fluid shift and electrolyte imbalance , no evidence of LA , PE unlikely . (2) Coma Current Visit: Yes Status: Acute Will consult neurology might need MRI and EEG for prognostication will wait for the recommendation . No evidence of coagulopathy after hypothermia protocol. Qualifiers: Coma depth: [place] coma 3-8 Qualified Code(s): R40.2434 - Ruchi coma scale score 3-8, 24 hours or more after hospital admission (3) GI bleed Current Visit: Yes Status: Acute To continue PPI drip for one more day then change to IV BID now the OG aspirate is clear. Qualifiers: Qualified Code(s): K92.2 - Gastrointestinal hemorrhage, unspecified (4) Acute respiratory failure with hypoxia and hypercapnia Current Visit: Yes Status: Acute To continue low tidal volume strategy plateau pressure is around 25 , lung mechanics decent to bring down FIO2 around 50% might need to increase PEEP will need to start diuresing once he became hemodynamically stable . (5) Acute metabolic encephalopathy Current Visit: Yes Status: Acute before cardiac arrest he has metabolic encephalopathy (6) [id number] kidney injury Current Visit: Yes Status: Acute Tried HD patient immediately decompensated will touch base with renal tomorrow he should be on CVVH Qualifiers: Chronic kidney disease stage: stage 5, not on chronic dialysis Qualified Code(s): N17.9 - Acute kidney failure, unspecified; N18.5 - Chronic kidney disease, stage 5; N18.5 - Chronic kidney disease, stage 5; N18.5 - Chronic kidney disease, stage 5; N18.5 - Chronic kidney disease, stage 5 (7) DVT prophylaxis Current Visit: Yes Status: Acute Will do SCD in the setting of possible GI bleed. 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 Interval history: Patient is on hypothermic protocol intubated and sedated Objective PUL Vital signs: Last Vital Signs Temp 95.9 F L 06/04/17 11:45 Pulse 83 06/04/17 11:45 Resp 24 06/04/17 11:45 BP 106/52 06/04/17 11:45 Pulse Ox 95 06/04/17 11:45 General appearance: comatose Auscultation: bilateral: diminished breath sounds unable to assess due to mental status, other (comatose , pupils 3 mm equal and reacting to light ) Ventilator Settings Ventilator Settings: Ventilator Settings, Last 8 Hours Ventilator Mode VC+ Ventilator Mode VC+ Ventilator Mode VC+ Ventilator Mode VC+ Ventilator Mode VC+ Ventilator Mode VC+ Ventilator Tidal Volume 580 Setting Ventilator Tidal Volume 580 Setting Ventilator Tidal Volume 580 Setting Ventilator Tidal Volume 580 Setting Ventilator Tidal Volume 580 Setting Ventilator Tidal Volume 580 Setting Ventilator Respiratory Rate 24 Setting Ventilator Respiratory Rate 24 Setting Ventilator Respiratory Rate 24 Setting Ventilator Respiratory Rate 24 Setting Ventilator Respiratory Rate 24 Setting Ventilator Respiratory Rate 24 Setting Actual Respiratory Rate 24 Actual Respiratory Rate 24 Actual Respiratory Rate 24 Actual Respiratory Rate 24 Actual Respiratory Rate 24 Actual Respiratory Rate 24 Positive End Expiratory 8 Pressure Positive End Expiratory 8 Pressure Positive End Expiratory 8 Pressure Positive End Expiratory 8 Pressure Positive End Expiratory 8 Pressure Positive End Expiratory 8 Pressure Peak Inspiratory Airway 33 Pressure Peak Inspiratory Airway 34 Pressure Peak Inspiratory Airway 36 Pressure Peak Inspiratory Airway 32 Pressure Peak Inspiratory Airway 34 Pressure Peak Inspiratory Airway 33 Pressure Results - Laboratory Findings CBC and BMP: 06/04/17 03:00 06/04/17 03:00 ABG ABG pH 7.29 pH Units (7.32-7.45) L 06/04/17 10:21 ABG pCO2 53 mmHg (35-45) H 06/04/17 10:21 ABG pO2 73 mmHg (85-104) L 06/04/17 10:21 ABG O2 Saturation 92 % (95-98) L 06/04/17 10:21 PT/INR, D-dimer PT 12.7 Seconds (9.4-12.1) H 06/03/17 21:15 Abnormal lab findings: Abnormal lab results WBC 11.4 K/mcL (4.3-11.1) H 06/04/17 03:00 RBC 3.04 M/mcL (4.19-5.50) L 06/04/17 03:00 Hgb 8.8 g/dL (12.9-16.9) L 06/04/17 03:00 Hct 27.6 % (37.5-50.1) L 06/04/17 03:00 Nucleated RBCs/100 WBC 0.1 /100 WBC (0) H 06/03/17 11:05 PT 12.7 Seconds (9.4-12.1) H 06/03/17 21:15 APTT 25.7 Seconds (26.0-36.0) L D 06/03/17 21:15 ABG pH 7.29 pH Units (7.32-7.45) L 06/04/17 10:21 ABG pCO2 53 mmHg (35-45) H 06/04/17 10:21 ABG pO2 73 mmHg (85-104) L 06/04/17 10:21 ABG Total CO2 28 mEq/L (20-26) H 06/04/17 10:21 ABG O2 Saturation 92 % (95-98) L 06/04/17 10:21 VBG pH 7.22 pH Units (7.32-7.42) L 06/03/17 14:03 VBG pCO2 65 mmHg (41-51) H 06/03/17 14:03 VBG pO2 76 mmHg (25-50) H 06/03/17 14:03 Sodium 133 mEq/L (136-145) L 06/04/17 03:00 Chloride 95 mEq/L (98-107) L 06/04/17 03:00 BUN 46 mg/dL (8-23) H 06/04/17 03:00 Creatinine 7.72 mg/dL (0.70-1.30) H 06/04/17 03:00 Est GFR ( Amer) 9 (> 60) L 06/04/17 03:00 Est GFR (Non-Af Amer) 7 (> 60) L 06/04/17 03:00 Glucose 157 mg/dL (70-105) H 06/04/17 03:00 POC Glucose 105 (58-89) H 06/04/17 10:24 Venous Ioniz Calcium 0.98 mmol/L (1.15-1.35) L 06/03/17 14:03 Phosphorus 7.3 mg/dL (2.3-4.7) H 05/29/17 07:40 Iron 15 mcg/dL (65-175) L 05/29/17 07:40 % Saturation 6 % (20-55) L 05/29/17 07:40 Transferrin 169 mg/dL (174-364) L 05/29/17 07:40 Ferritin 517 ng/ml (22-275) H 05/29/17 07:40 Total Bilirubin 0.2 mg/dL (0.3-1.0) L 05/31/17 06:15 AST 12 Units/L (13-39) L 05/31/17 06:15 Albumin 2.9 g/dL (3.5-5.7) L 05/31/17 06:15 Globulin 4.1 g/dL (2.4-3.5) H 05/31/17 06:15 Albumin/Globulin Ratio 0.7 (1.1-2.2) L 05/31/17 06:15 Triglycerides 203 mg/dL (< 150) H 05/27/17 03:50 VLDL Cholesterol, Calc 41 mg/dL (< 31) H 05/27/17 03:50 HDL Cholesterol 16 mg/dL (40-59) L 05/27/17 03:50 Cholesterol/HDL Ratio 6.6 (0-4.9) H 05/27/17 03:50 PTH Intact 457.2 pg/ml (8.5-72.5) H 05/29/17 07:40 Urine Clarity Cloudy (Clear) A 05/27/17 13:15 Urine Protein >=300 mg/dL (Neg-Trace) H 05/27/17 13:15 Urine Glucose (UA) 100 mg/dL (Normal) H 05/27/17 13:15 Urine Blood Large (Negative) H 05/27/17 13:15 Urine Microscopic WBC 3-5 per hpf (0-3) H 05/27/17 13:15 Ur Squamous Epith Cells Moderate per lpf (None-Few) H 05/27/17 13:15 - Microbiology Findings Microbiology Findings: Microbiology, Last 48 Hours 06/02/17 14:19 Blood Culture - Preliminary Peripheral Venipuncture No growth. 06/02/17 14:19 Blood Culture - Preliminary Peripheral Venipuncture No growth. 06/02/17 14:14 Blood Culture - Preliminary Central Venous Catheter No growth. - Clinical Findings Intake & Output: Intake & Output 06/03/17 06/04/17 06/04/17 23:59 07:59 15:59 Intake Total 733 / 733 200 / 200 Output Total 550 / 550 170 / 170 0 / 0 Balance 183 / 183 30 / 30 0 / 0 Consult Discharge Plan - Plan Referrals: NONE,PCP [Primary Care Provider] - (Patient will follow up with renal doctors)
[2017-06-04] MEDS: Cefepime HCl 2,000 MG in Water for inj. (sterile) 20 ML IVP SCH (16:36)
[2017-06-04] MEDS: Pantoprazole 80 MG in 0.9 % Sodium Chloride 250 ML IVC SCH (19:15)
[2017-06-04] MEDS: Norepinephrine 4 MG in D5% in Water 250 ML IVC SCH (20:40)
[2017-06-05] MEDS: Insulin LISPRO 300 UNITS/3 ML VIAL SQ SCH ×7 (00:09→23:44)
[2017-06-05] MEDS: Lacri-Lube 3.5 GM TUBE BOTH EYES SCH ×7 (00:09→23:44)
[2017-06-05] MEDS: FentaNYL (PF) 1,000 MCG in 0.9 % Sodium Chloride 80 ML IVC SCH ×2 (00:56→21:13)
[2017-06-05] MEDS: Dexmedetomidine HCl 400 MCG/100 ML MLS IVC SCH ×2 (01:12→18:32)
[2017-06-05 03:51] LABS: ABG Base Excess -3 mEq/L (-2 to 3); ABG HCO3 23 mEq/L (21-27); ABG Oxygen Saturation 95 % (95-98); ABG PCO2 40 mmHg (35-45); ABG PH 7.36 pH Units (7.32-7.45); ABG PO2 79 mmHg (85-104); ABG TCO2 24 mEq/L (20-26); Blood Gas Modality VC; Blood Gas PEEP 10 cm H2O; Blood Gas Respiration Rate 24; Blood Gas VT 550 cc
[2017-06-05 04:15] LABS: Basophils % 0.3 %; Eosinophils # 0.3 K/mcL (0.0-0.6); Hematocrit 22.7 % (37.5-50.1); Immature Granulocytes % 1.3 % (0-4); Lymphocytes # 1.2 K/mcL (0.6-4.6); Lymphocytes % 10.3 %; Mean Corpuscular HGB Conc 30.8 g/dL (31.6-35.5); Mean Corpuscular Hemoglobin 28.7 pg (28.0-33.3); Mean Platelet Volume 9.9 fL (9.4-12.4); Monocytes # 0.7 K/mcL (0.0-1.3); Monocytes % 6.5 %; Neutrophils # 8.8 K/mcL (1.6-8.9); Platelet Count 227 K/mcL (140-400); Red Blood Count 2.44 M/mcL (4.19-5.50); Red Cell Distribution Width 14.5 % (11.5-14.5); Segmented Neutrophils % 78.6 %
[2017-06-05 04:23] LABS: Calcium 8.6 mg/dL (8.6-10.3); Magnesium 1.9 mg/dL (1.6-2.6); Potassium 6.2 mEq/L (3.5-5.1)
[2017-06-05 04:36] LABS: VBG Ionized Calcium 0.97 mmol/L (1.15-1.35)
[2017-06-05] MEDS: Pantoprazole 80 MG in 0.9 % Sodium Chloride 250 ML IVC SCH (05:18)
[2017-06-05] MEDS: Metoprolol XL (24 HR) Succ 50 MG TAB.ER.24H PO SCH (08:42)
[2017-06-05] MEDS: Chlorhexidine Rinse 15 ML MOUTHWASH MM SCH ×2 (09:05→21:13)
[2017-06-05] MEDS: Gabapentin 300 MG CAPSULE PO SCH ×2 (09:05→21:13)
[2017-06-05] MEDS: Darbepoetin 100 MCG/0.5 ML SYRINGE SQ SCH (09:08)
--- NOTE | 2017-06-05 10:13 | Neurology - Consult Note ---
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 Patient currently of sedation and hypothermal protocol for less than 24 hours and is still unresponsive. Brain stem reflexes are preserved. Patient has intermittent rhythmic facial jerking, waxes and weans with tactile or painful stimulation, likely related anoxic brain injury usually a ominous sign. Recommend continuing sedation and continue medical care. Recommend obtaining EEG in AM after turning off sedation. Will follow in AM. Qualifiers: Coma depth: [place] coma 3-8 Coma timin hours or more after hospital admission Qualified Code(s): R40.2434 - [place] coma scale score 3-8, 24 hours or more after hospital admission History of Present Illness Chief complaint: unresponsiveness HPI: Mr. Benitez is a 61 year old male with PMH significant for ESRD, HTN, DM, atrial fibrillation who is consulted regarding unresponsiveness after cardiac arrest. Patient was initially admitted to hospital due to acute mental status changes secondary to acute worsening encephalopathy. On 06/03/2017 reportedly, per medical staff, he developed cardiac arrest, after having vomiting blood. Total cardiac down time about 6 minute per ICU staff. patient was kept on Hypothermia protocol for 24 hours up until last night. He is off sedation now. This morning at the time of this interview, he has no consciousness response to verbal and painful stimuli. When given tactile or painful stimuli, he develops rhythm jerking to his facial muscles, which weans when stopped stimulation. Brain stem reflexes are mostly preserved. No fever. CT of head showed no acute intracranial abnormality. Past Med Surg Social Fam HX - Past Medical History Medical history: arthritis, atrial fibrillation, CHF, diabetes, hypertension, renal disease, TIA Psychiatric history: no psych history - Past Surgical History Surgical History: colostomy, coronary bypass (CABG) - Social History Smoking Status: Smoker, status unknown Drug use: none - Family History Brother Hx Family Genitourinary Disorders: Yes (ESRD) Medications and Allergies Acetaminophen [Tylenol] 500 mg PO Q6HR PRN 05/27/17 [History] Bisoprolol/HCTZ 106.25 [Ziac 10/6.25] 1 tab PO DAILY 05/27/17 [History] Famotidine [Pepcid] 20 mg PO BID 05/27/17 [History] Fluticasone Propionate Nasal [Flonase] 2 spr NS DAILY 05/27/17 [History] Furosemide [Lasix] 40 mg PO BID 05/27/17 [History] Gabapentin [Neurontin] 600 mg PO TID 05/27/17 [History] Hyoscyamine SL [Levsin SL] 0.125 mg SL Q4-6H PRN 05/27/17 [History] Insulin ASPART [Novolog Flexpen] 45 unit SQ TIDAC 05/27/17 [History] Insulin Glargine,Hum.rec.anlog [Basaglar Kwikpen U-100] 60 unit SQ BID 05/27/17 [History] Metoprolol XL (24 HR) Succ [Toprol XL] 200 mg PO DAILY 05/27/17 [History] Nitroglycerin [Nitrostat] 0.4 mg SL Q5-10MIN PRN 05/27/17 [History] Potassium Chloride [Klor-Con 10] 10 meq PO DAILY 05/27/17 [History] Rivaroxaban [Xarelto] 20 mg PO DAILY 05/27/17 [History] Simvastatin [Zocor] 40 mg PO HS 05/27/17 [History] Valsartan [Diovan] 80 mg PO DAILY 05/27/17 [History] 3 Allergy/AdvReac Type Severity Reaction Status Date / Time NSAIDS (Non-Steroidal Allergy Hives Verified 05/26/17 18:49 Anti-Inflamma pravastatin Allergy Hives Verified 05/26/17 18:49 sitagliptin [From Januvia] Allergy Hives Verified 05/26/17 18:49 All Systems: A 10-system review of systems was performed and is negative for pertinent findings except as documented above in the HPI. Physical Examination - Vital Signs Vital Signs: Initial Vital Signs Temp Pulse Resp BP Pulse Ox 97.7 F 85 16 114/65 91 05/26/17 18:29 05/26/17 18:29 05/26/17 18:29 05/26/17 18:29 05/26/17 18:29 - Constitutional General appearance: chronically ill - Neurologic Sensorimotor examination: other (Unable to assess due to coma) Detailed motor examination: other (Unable to assess due to come. Mild decorticate posture noted. Arms flexed at the elbow bilaterally) Detailed sensory examination: other (Unable to assess due to coma) Reflexes: Biceps: 2+, Triceps: 2+, Brachioradialis: 2+, Patella: 2+, Achilles: 2 + Mental Status Examination: does not follow commands, no spontaneous eye opening to voice or tactile stimulation Cranial nerve examination: PERRL, EOMI (positive oculocephalic reflex), no facial asymmetry is present, gag reflex intact Results - Laboratory Findings CBC and BMP: 06/05/17 04:00 06/05/17 04:00 Abnormal lab findings: Abnormal lab results WBC 11.2 K/mcL (4.3-11.1) H 06/05/17 04:00 RBC 2.44 M/mcL (4.19-5.50) L 06/05/17 04:00 Hgb 7.0 g/dL (12.9-16.9) L D 06/05/17 04:00 Hct 22.7 % (37.5-50.1) L 06/05/17 04:00 MCHC 30.8 g/dL (31.6-35.5) L 06/05/17 04:00 Nucleated RBCs/100 WBC 0.1 /100 WBC (0) H 06/03/17 11:05 PT 12.7 Seconds (9.4-12.1) H 06/03/17 21:15 APTT 25.7 Seconds (26.0-36.0) L D 06/03/17 21:15 ABG pO2 79 mmHg (85-104) L 06/05/17 03:46 ABG Base Excess -3 mEq/L (-2 to 3) L 06/05/17 03:46 VBG pH 7.22 pH Units (7.32-7.42) L 06/03/17 14:03 VBG pCO2 65 mmHg (41-51) H 06/03/17 14:03 VBG pO2 76 mmHg (25-50) H 06/03/17 14:03 Sodium 132 mEq/L (136-145) L 06/05/17 04:00 Potassium 6.2 mEq/L (3.5-5.1) H 06/05/17 04:00 Chloride 95 mEq/L (98-107) L 06/05/17 04:00 Carbon Dioxide 21 mEq/L (23-29) L 06/05/17 04:00 BUN 54 mg/dL (8-23) H 06/05/17 04:00 Creatinine 8.51 mg/dL (0.70-1.30) H 06/05/17 04:00 Est GFR ( Amer) 8 (> 60) L 06/05/17 04:00 Est GFR (Non-Af Amer) 6 (> 60) L 06/05/17 04:00 Glucose 160 mg/dL (70-105) H 06/05/17 04:00 POC Glucose 154 (58-89) H 06/05/17 07:38 Venous Ioniz Calcium 0.97 mmol/L (1.15-1.35) L 06/05/17 04:34 Phosphorus 10.0 mg/dL (2.7-4.5) H 06/05/17 04:00 Iron 15 mcg/dL (65-175) L 05/29/17 07:40 % Saturation 6 % (20-55) L 05/29/17 07:40 Transferrin 169 mg/dL (174-364) L 05/29/17 07:40 Ferritin 517 ng/ml (22-275) H 05/29/17 07:40 Total Bilirubin 0.2 mg/dL (0.3-1.0) L 05/31/17 06:15 AST 12 Units/L (13-39) L 05/31/17 06:15 Albumin 2.9 g/dL (3.5-5.7) L 05/31/17 06:15 Globulin 4.1 g/dL (2.4-3.5) H 05/31/17 06:15 Albumin/Globulin Ratio 0.7 (1.1-2.2) L 05/31/17 06:15 Triglycerides 203 mg/dL (< 150) H 05/27/17 03:50 VLDL Cholesterol, Calc 41 mg/dL (< 31) H 05/27/17 03:50 HDL Cholesterol 16 mg/dL (40-59) L 05/27/17 03:50 Cholesterol/HDL Ratio 6.6 (0-4.9) H 05/27/17 03:50 PTH Intact 457.2 pg/ml (8.5-72.5) H 05/29/17 07:40 Urine Clarity Cloudy (Clear) A 05/27/17 13:15 Urine Protein >=300 mg/dL (Neg-Trace) H 05/27/17 13:15 Urine Glucose (UA) 100 mg/dL (Normal) H 05/27/17 13:15 Urine Blood Large (Negative) H 05/27/17 13:15 Urine Microscopic WBC 3-5 per hpf (0-3) H 05/27/17 13:15 Ur Squamous Epith Cells Moderate per lpf (None-Few) H 05/27/17 13:15 Vancomycin Trough 20.4 mcg/mL (10-20) H* 06/05/17 04:00 Consult Discharge Plan - Plan Referrals: NONE,PCP [Primary Care Provider] - (Patient will follow up with renal doctors)
--- NOTE | 2017-06-05 10:39 | Pulmonology Progress Note ---
Date of Encounter: 06/05/17 Time of Encounter: 08:25 Assessment and Plan (1) Coma Current Visit: Yes Status: Acute Clinically patient has poor prognosis and appreciate neurologist input. Discussed with the family at the bedside Sedation to be on hold to see the response Qualifiers: Coma depth: [place] coma 3-8 Coma timin hours or more after hospital admission Qualified Code(s): R40.2434 - [place] coma scale score 3-8, 24 hours or more after hospital admission (2) Acute respiratory failure with hypoxia and hypercapnia Current Visit: Yes Status: Acute Patient is still requiring vent support and gradually lower the PEEP to keep FiO2 within acceptable range and SPO2 above 90% (3) Cardiac arrest due to other underlying condition Current Visit: Yes Status: Acute Poor prognosis (4) ESRD needing dialysis Current Visit: Yes Status: Chronic Patient might need dialysis and nephrology is following Subjective 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 Interval history: No significant changes in patient remained unresponsive Objective PUL Vital signs: Last Vital Signs Temp 97.2 F L 06/05/17 07:58 Pulse 78 06/05/17 08:30 Resp 24 06/05/17 09:34 BP 123/58 06/05/17 09:34 Pulse Ox 94 06/05/17 09:34 General appearance: no acute distress Eyes: nonicteric Neck: supple Effort: normal Auscultation: bilateral: diminished breath sounds Percussion: bilateral: not dull Cardiovascular: regular rate and rhythm Gastrointestinal: normoactive bowel sounds, other (Colostomy) Extremities: no cyanosis unable to assess due to mental status, other (Patient has corneal reflex and still unresponsive) Ventilator Settings Ventilator Settings: Ventilator Settings, Last 8 Hours Ventilator Mode VC+ Ventilator Mode VC+ Ventilator Mode VC+ Ventilator Mode VC+ Ventilator Mode VC+ Ventilator Mode VC+ Ventilator Mode VC+ Ventilator Mode VC+ Ventilator Mode VC+ Ventilator Mode VC+ Ventilator Mode VC+ Ventilator Tidal Volume 550 Setting Ventilator Tidal Volume 550 Setting Ventilator Tidal Volume 550 Setting Ventilator Tidal Volume 550 Setting Ventilator Tidal Volume 550 Setting Ventilator Tidal Volume 550 Setting Ventilator Tidal Volume 550 Setting Ventilator Tidal Volume 550 Setting Ventilator Tidal Volume 550 Setting Ventilator Tidal Volume 550 Setting Ventilator Tidal Volume 550 Setting Ventilator Respiratory Rate 24 Setting Ventilator Respiratory Rate 24 Setting Ventilator Respiratory Rate 24 Setting Ventilator Respiratory Rate 24 Setting Ventilator Respiratory Rate 24 Setting Ventilator Respiratory Rate 24 Setting Ventilator Respiratory Rate 24 Setting Ventilator Respiratory Rate 24 Setting Ventilator Respiratory Rate 24 Setting Ventilator Respiratory Rate 24 Setting Ventilator Respiratory Rate 24 Setting Actual Respiratory Rate 24 Actual Respiratory Rate 24 Actual Respiratory Rate 25 Actual Respiratory Rate 24 Actual Respiratory Rate 24 Actual Respiratory Rate 24 Positive End Expiratory 8 Pressure Positive End Expiratory 8 Pressure Positive End Expiratory 10 Pressure Positive End Expiratory 10 Pressure Positive End Expiratory 10 Pressure Positive End Expiratory 10 Pressure Positive End Expiratory 10 Pressure Positive End Expiratory 10 Pressure Positive End Expiratory 10 Pressure Positive End Expiratory 10 Pressure Positive End Expiratory 10 Pressure Peak Inspiratory Airway 34 Pressure Peak Inspiratory Airway 32 Pressure Peak Inspiratory Airway 34 Pressure Peak Inspiratory Airway 34 Pressure Peak Inspiratory Airway 33 Pressure Peak Inspiratory Airway 33 Pressure Results - Laboratory Findings CBC and BMP: 06/05/17 04:00 06/05/17 04:00 ABG ABG pH 7.36 pH Units (7.32-7.45) 06/05/17 03:46 ABG pCO2 40 mmHg (35-45) 06/05/17 03:46 ABG pO2 79 mmHg (85-104) L 06/05/17 03:46 ABG O2 Saturation 95 % (95-98) 06/05/17 03:46 PT/INR, D-dimer PT 12.7 Seconds (9.4-12.1) H 06/03/17 21:15 Abnormal lab findings: Abnormal lab results WBC 11.2 K/mcL (4.3-11.1) H 06/05/17 04:00 RBC 2.44 M/mcL (4.19-5.50) L 06/05/17 04:00 Hgb 7.0 g/dL (12.9-16.9) L D 06/05/17 04:00 Hct 22.7 % (37.5-50.1) L 06/05/17 04:00 MCHC 30.8 g/dL (31.6-35.5) L 06/05/17 04:00 Nucleated RBCs/100 WBC 0.1 /100 WBC (0) H 06/03/17 11:05 PT 12.7 Seconds (9.4-12.1) H 06/03/17 21:15 APTT 25.7 Seconds (26.0-36.0) L D 06/03/17 21:15 ABG pO2 79 mmHg (85-104) L 06/05/17 03:46 ABG Base Excess -3 mEq/L (-2 to 3) L 06/05/17 03:46 VBG pH 7.22 pH Units (7.32-7.42) L 06/03/17 14:03 VBG pCO2 65 mmHg (41-51) H 06/03/17 14:03 VBG pO2 76 mmHg (25-50) H 06/03/17 14:03 Sodium 132 mEq/L (136-145) L 06/05/17 04:00 Potassium 6.2 mEq/L (3.5-5.1) H 06/05/17 04:00 Chloride 95 mEq/L (98-107) L 06/05/17 04:00 Carbon Dioxide 21 mEq/L (23-29) L 06/05/17 04:00 BUN 54 mg/dL (8-23) H 06/05/17 04:00 Creatinine 8.51 mg/dL (0.70-1.30) H 06/05/17 04:00 Est GFR ( Amer) 8 (> 60) L 06/05/17 04:00 Est GFR (Non-Af Amer) 6 (> 60) L 06/05/17 04:00 Glucose 160 mg/dL (70-105) H 06/05/17 04:00 POC Glucose 154 (58-89) H 06/05/17 07:38 Venous Ioniz Calcium 0.97 mmol/L (1.15-1.35) L 06/05/17 04:34 Phosphorus 10.0 mg/dL (2.7-4.5) H 06/05/17 04:00 Iron 15 mcg/dL (65-175) L 05/29/17 07:40 % Saturation 6 % (20-55) L 05/29/17 07:40 Transferrin 169 mg/dL (174-364) L 05/29/17 07:40 Ferritin 517 ng/ml (22-275) H 05/29/17 07:40 Total Bilirubin 0.2 mg/dL (0.3-1.0) L 05/31/17 06:15 AST 12 Units/L (13-39) L 05/31/17 06:15 Albumin 2.9 g/dL (3.5-5.7) L 05/31/17 06:15 Globulin 4.1 g/dL (2.4-3.5) H 05/31/17 06:15 Albumin/Globulin Ratio 0.7 (1.1-2.2) L 05/31/17 06:15 Triglycerides 203 mg/dL (< 150) H 05/27/17 03:50 VLDL Cholesterol, Calc 41 mg/dL (< 31) H 05/27/17 03:50 HDL Cholesterol 16 mg/dL (40-59) L 05/27/17 03:50 Cholesterol/HDL Ratio 6.6 (0-4.9) H 05/27/17 03:50 PTH Intact 457.2 pg/ml (8.5-72.5) H 05/29/17 07:40 Urine Clarity Cloudy (Clear) A 05/27/17 13:15 Urine Protein >=300 mg/dL (Neg-Trace) H 05/27/17 13:15 Urine Glucose (UA) 100 mg/dL (Normal) H 05/27/17 13:15 Urine Blood Large (Negative) H 05/27/17 13:15 Urine Microscopic WBC 3-5 per hpf (0-3) H 05/27/17 13:15 Ur Squamous Epith Cells Moderate per lpf (None-Few) H 05/27/17 13:15 Vancomycin Trough 20.4 mcg/mL (10-20) H* 06/05/17 04:00 - Microbiology Findings Microbiology Findings: Microbiology, Last 48 Hours 06/02/17 14:19 Blood Culture - Preliminary Peripheral Venipuncture No growth. 06/02/17 14:19 Blood Culture - Preliminary Peripheral Venipuncture No growth. 06/02/17 14:14 Blood Culture - Preliminary Central Venous Catheter No growth. - Clinical Findings Intake & Output: Intake & Output 06/04/17 06/05/17 06/05/17 23:59 07:59 15:59 Intake Total 202.7 / 202.7 426 / 426 96 / 96 Output Total 140 / 140 80 / 80 Balance 62.7 / 62.7 346 / 346 96 / 96 Weight 107.184 kg Consult Discharge Plan - Plan Referrals: NONE,PCP [Primary Care Provider] - (Patient will follow up with renal doctors)
[2017-06-05] MEDS: Cefepime HCl 2,000 MG in Water for inj. (sterile) 20 ML IVP SCH (16:52)
[2017-06-05] MEDS: Norepinephrine 4 MG in D5% in Water 250 ML IVC SCH (21:10)
[2017-06-06] MEDS: Dexmedetomidine HCl 400 MCG/100 ML MLS IVC SCH ×15 (02:20→23:29)
[2017-06-06] MEDS: Insulin LISPRO 300 UNITS/3 ML VIAL SQ SCH ×6 (04:39→23:28)
[2017-06-06] MEDS: Lacri-Lube 3.5 GM TUBE BOTH EYES SCH ×6 (04:40→23:22)
[2017-06-06 05:06] LABS: Hematocrit 22.8 % (37.5-50.1); Mean Corpuscular HGB Conc 30.7 g/dL (31.6-35.5); Mean Corpuscular Hemoglobin 28.6 pg (28.0-33.3); Mean Corpuscular Volume 93.1 fL (83.0-100.0); Mean Platelet Volume 9.9 fL (9.4-12.4); Platelet Count 276 K/mcL (140-400); Red Blood Count 2.45 M/mcL (4.19-5.50); Red Cell Distribution Width 14.8 % (11.5-14.5)
[2017-06-06 05:28] LABS: Calcium 8.8 mg/dL (8.6-10.3); Potassium 5.3 mEq/L (3.5-5.1)
[2017-06-06] MEDS: Chlorhexidine Rinse 15 ML MOUTHWASH MM SCH ×2 (07:28→21:00)
[2017-06-06] MEDS: Acetaminophen 325 MG TABLET PO PRN (07:29)
[2017-06-06] MEDS: Gabapentin 300 MG CAPSULE PO SCH (07:29)
[2017-06-06] MEDS: Pantoprazole 40 MG VIAL IVP SCH (07:29)
--- NOTE | 2017-06-06 07:39 | Pulmonology Progress Note ---
Date of Encounter: 06/06/17 Time of Encounter: 07:37 Assessment and Plan (1) Cardiac arrest Current Visit: Yes Status: Acute Status post cardiac arrest he has completed hypothermia protocol still remains unresponsive neurology following extremely poor prognosis neurologically EEG pending a day head CT without acute process (2) Anoxic brain damage Current Visit: Yes Status: Acute Neurology is following appreciate the recommendations overall prognosis is poor we will consult palliative care for ongoing goals of care discussion with family EEG pending today (3) ESRD needing dialysis Current Visit: Yes Status: Chronic Nephrology following plan for dialysis per schedule as tolerated by blood pressure (4) Pneumonia Current Visit: Yes Status: Acute Remains on broad-spectrum antimicrobials cultures as far negative has to be restarted on Levaquin for which is likely multifactorial but cannot exclude infectious component Qualifiers: Pneumonia type: aspiration pneumonia Laterality: bilateral Lung location : unspecified part of lung Qualified Code(s): J69.0 - Pneumonitis due to inhalation of food and vomit (5) Acute respiratory failure with hypoxia and hypercapnia Current Visit: Yes Status: Acute He is intubated on the vent he is seeing regulated with low tidal volume ventilatory strategy ABG pending from today except for oxygenation we will continue to decrease FiO2 and PEEP to keep saturation greater than 90%. Peak and plateau pressures on vent remain acceptable. 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 Had to be restarted on norepinephrine overnight because of hypotension. Objective PUL Vital signs: Last Vital Signs Temp 101.3 F H 06/06/17 07:06 Pulse 74 06/06/17 06:00 Resp 20 06/06/17 06:00 BP 106/54 06/06/17 06:00 Pulse Ox 93 06/06/17 06:00 General appearance: comatose Eyes: nonicteric Neck: supple Auscultation: bilateral: diminished breath sounds Cardiovascular: regular rate and rhythm Gastrointestinal: soft Extremities: edema pupils equal and round, other (No purposeful movements noted on exam patient does not withdraw from pain he does have corneal reflex intact) Ventilator Settings Ventilator Settings: Ventilator Settings, Last 8 Hours Ventilator Mode VC+ Ventilator Mode VC+ Ventilator Mode VC+ Ventilator Mode VC+ Ventilator Mode VC+ Ventilator Tidal Volume 550 Setting Ventilator Tidal Volume 550 Setting Ventilator Tidal Volume 550 Setting Ventilator Tidal Volume 550 Setting Ventilator Tidal Volume 550 Setting Ventilator Respiratory Rate 24 Setting Ventilator Respiratory Rate 24 Setting Ventilator Respiratory Rate 24 Setting Ventilator Respiratory Rate 24 Setting Ventilator Respiratory Rate 24 Setting Actual Respiratory Rate 25 Actual Respiratory Rate 24 Actual Respiratory Rate 24 Actual Respiratory Rate 24 Actual Respiratory Rate 24 Positive End Expiratory 8 Pressure Positive End Expiratory 8 Pressure Positive End Expiratory 8 Pressure Positive End Expiratory 8 Pressure Positive End Expiratory 8 Pressure Peak Inspiratory Airway 24 Pressure Peak Inspiratory Airway 26 Pressure Peak Inspiratory Airway 31 Pressure Peak Inspiratory Airway 30 Pressure Peak Inspiratory Airway 30 Pressure Results - Laboratory Findings CBC and BMP: 06/06/17 04:55 06/06/17 04:55 ABG ABG pH 7.36 pH Units (7.32-7.45) 06/05/17 03:46 ABG pCO2 40 mmHg (35-45) 06/05/17 03:46 ABG pO2 79 mmHg (85-104) L 06/05/17 03:46 ABG O2 Saturation 95 % (95-98) 06/05/17 03:46 PT/INR, D-dimer PT 12.7 Seconds (9.4-12.1) H 06/03/17 21:15 Abnormal lab findings: Abnormal lab results WBC 14.1 K/mcL (4.3-11.1) H 06/06/17 04:55 RBC 2.45 M/mcL (4.19-5.50) L 06/06/17 04:55 Hgb 7.0 g/dL (12.9-16.9) L 06/06/17 04:55 Hct 22.8 % (37.5-50.1) L 06/06/17 04:55 MCHC 30.7 g/dL (31.6-35.5) L 06/06/17 04:55 RDW 14.8 % (11.5-14.5) H 06/06/17 04:55 Nucleated RBCs/100 WBC 0.1 /100 WBC (0) H 06/03/17 11:05 PT 12.7 Seconds (9.4-12.1) H 06/03/17 21:15 APTT 25.7 Seconds (26.0-36.0) L D 06/03/17 21:15 ABG pO2 79 mmHg (85-104) L 06/05/17 03:46 ABG Base Excess -3 mEq/L (-2 to 3) L 06/05/17 03:46 VBG pH 7.22 pH Units (7.32-7.42) L 06/03/17 14:03 VBG pCO2 65 mmHg (41-51) H 06/03/17 14:03 VBG pO2 76 mmHg (25-50) H 06/03/17 14:03 Sodium 133 mEq/L (136-145) L 06/06/17 04:55 Potassium 5.3 mEq/L (3.5-5.1) H 06/06/17 04:55 Chloride 95 mEq/L (98-107) L 06/06/17 04:55 Carbon Dioxide 20 mEq/L (23-29) L 06/06/17 04:55 BUN 64 mg/dL (8-23) H 06/06/17 04:55 Creatinine 9.96 mg/dL (0.70-1.30) H 06/06/17 04:55 Est GFR ( Amer) 6 (> 60) L 06/06/17 04:55 Est GFR (Non-Af Amer) 5 (> 60) L 06/06/17 04:55 Glucose 163 mg/dL (70-105) H 06/06/17 04:55 POC Glucose 142 (58-89) H 06/06/17 06:57 Venous Ioniz Calcium 0.97 mmol/L (1.15-1.35) L 06/05/17 04:34 Phosphorus 10.0 mg/dL (2.7-4.5) H 06/05/17 04:00 Iron 15 mcg/dL (65-175) L 05/29/17 07:40 % Saturation 6 % (20-55) L 05/29/17 07:40 Transferrin 169 mg/dL (174-364) L 05/29/17 07:40 Ferritin 517 ng/ml (22-275) H 05/29/17 07:40 Total Bilirubin 0.2 mg/dL (0.3-1.0) L 05/31/17 06:15 AST 12 Units/L (13-39) L 05/31/17 06:15 Albumin 2.9 g/dL (3.5-5.7) L 05/31/17 06:15 Globulin 4.1 g/dL (2.4-3.5) H 05/31/17 06:15 Albumin/Globulin Ratio 0.7 (1.1-2.2) L 05/31/17 06:15 Triglycerides 203 mg/dL (< 150) H 05/27/17 03:50 VLDL Cholesterol, Calc 41 mg/dL (< 31) H 05/27/17 03:50 HDL Cholesterol 16 mg/dL (40-59) L 05/27/17 03:50 Cholesterol/HDL Ratio 6.6 (0-4.9) H 05/27/17 03:50 PTH Intact 457.2 pg/ml (8.5-72.5) H 05/29/17 07:40 Urine Clarity Cloudy (Clear) A 05/27/17 13:15 Urine Protein >=300 mg/dL (Neg-Trace) H 05/27/17 13:15 Urine Glucose (UA) 100 mg/dL (Normal) H 05/27/17 13:15 Urine Blood Large (Negative) H 05/27/17 13:15 Urine Microscopic WBC 3-5 per hpf (0-3) H 05/27/17 13:15 Ur Squamous Epith Cells Moderate per lpf (None-Few) H 05/27/17 13:15 Vancomycin Trough 20.4 mcg/mL (10-20) H* 06/06/17 04:55 - Microbiology Findings Microbiology Findings: Microbiology, Last 48 Hours 06/02/17 14:19 Blood Culture - Preliminary Peripheral Venipuncture No growth. 06/02/17 14:19 Blood Culture - Preliminary Peripheral Venipuncture No growth. 06/02/17 14:14 Blood Culture - Preliminary Central Venous Catheter No growth. - Clinical Findings Intake & Output: Intake & Output 06/05/17 06/05/17 06/06/17 15:59 23:59 07:59 Intake Total 96 / 96 124 / 124 130 / 130 Output Total 70 / 70 20 0 / 0 Balance 104 / 104 130 / 130 Consult Discharge Plan - Plan Referrals: NONE,PCP [Primary Care Provider] - (Patient will follow up with renal doctors)
[2017-06-06 07:41] LABS: ABG Base Excess -5 mEq/L (-2 to 3); ABG HCO3 21 mEq/L (21-27); ABG Oxygen Saturation 96 % (95-98); ABG PCO2 38 mmHg (35-45); ABG PH 7.34 pH Units (7.32-7.45); ABG PO2 88 mmHg (85-104); ABG TCO2 22 mEq/L (20-26); Blood Gas Modality ASSIST CONTROL; Blood Gas PEEP 8 cm H2O; Blood Gas Respiration Rate 24; Blood Gas VT 550 cc
[2017-06-06] MEDS: Metoprolol XL (24 HR) Succ 50 MG TAB.ER.24H PO SCH (07:47)
[2017-06-06] MEDS: Norepinephrine 4 MG in D5% in Water 250 ML IVC SCH (08:49)
--- NOTE | 2017-06-06 09:49 | Nephrology Progress Note ---
Date of Encounter: 06/06/17 Time of Encounter: 09:30 - Assessment and Plan (1) ESRD needing dialysis Current Visit: Yes Status: Chronic CLAUDIA in setting of possible aspiration pneumonia, decreased oral intake, emesis superimposed on CKD 4 in setting of DM and HTN. Now requiring chronic HD. HD today. Orders given. Hgb 7.0. Tunneled cath on hold pending blood cultures. 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 Non responsive. EEG just completed. Objective - Vital Signs Vital signs: Vital Signs Temp Pulse Resp BP Pulse Ox 06/06/17 09:00 81 24 90/49 91 06/06/17 08:00 85 24 88/48 92 06/06/17 07:50 70 06/06/17 07:43 24 90 06/06/17 07:06 101.3 F H 06/06/17 06:00 74 20 106/54 93 06/06/17 05:25 25 88/47 91 06/06/17 05:00 86 25 110/55 91 06/06/17 04:00 98 24 138/69 93 06/06/17 03:40 24 129/64 93 06/06/17 03:22 101.1 F H 06/06/17 03:00 82 24 138/63 92 06/06/17 02:00 68 24 104/51 92 06/06/17 01:35 24 152/68 93 06/06/17 01:00 75 24 96/50 92 06/06/17 00:00 75 24 115/60 96 06/05/17 23:10 24 103/56 96 06/05/17 23:00 75 24 115/61 97 06/05/17 22:53 100.3 F H 06/05/17 22:00 75 24 111/59 95 06/05/17 21:25 24 108/59 92 06/05/17 21:00 76 24 106/58 92 06/05/17 20:00 80 24 109/59 93 06/05/17 19:40 25 112/55 93 06/05/17 19:00 79 24 122/61 94 06/05/17 18:57 99.7 F H 06/05/17 18:30 97 24 118/58 93 06/05/17 17:30 99 24 136/64 90 06/05/17 16:30 98.8 F 92 25 135/64 90 06/05/17 15:30 93 24 136/63 90 06/05/17 15:11 27 135/64 91 06/05/17 14:30 89 25 128/58 92 06/05/17 13:52 24 110/53 91 06/05/17 13:30 83 24 134/59 91 06/05/17 12:30 72 24 110/53 92 06/05/17 12:05 98.4 F 06/05/17 11:30 74 24 105/51 91 06/05/17 11:25 24 110/53 91 06/05/17 10:30 80 24 111/54 91 Intake and Output 06/05/17 06/06/17 06/06/17 23:59 07:59 15:59 Intake Total 124 / 124 130 / 130 135 / 135 Output Total 0 / 0 Balance 104 / 104 130 / 130 135 / 135 Intake: IV Fluids 124 / 124 130 / 130 135 / 135 PRECEDEX Premix 400 mcg In 100 60 / 60 100 / 100 73 / 73 ml @ 2 MCG/KG/HR 54.567 mls/hr IVC .Q1H50M [facility] Rx#:[id number] FentaNYL (PF) 1,000 MCG In 0.9 44 / 44 30 / 30 36 / 36 % Sodium Chloride 80 ML @ 50 MCG/HR 5 mls/hr IVC CONT [facility] Rx #:[id number] Levophed 4 MG In Dextrose 5% 0 / 0 250 ML @ 2 MCG/MIN 7.62 mls/hr IVC CONT [facility] Rx#:[id number] Maxipime 2,000 MG In Water for 20 20 inj. (sterile) 20 ML @ 300 mls/ hr IVP Q24H [facility] Rx#:[id number] Oral 0 / 0 Output: Catheter 20 0 / 0 Other: Weight 1092.477 kg Blood Glucose* 136 142 Patient Weight 06/06/17 23:59 Weight 1092.477 kg - General Appearance General appearance: Present: well-developed, well-nourished, appears started age , obese EENT: Present: mucous membranes moist Neck: Present: no JVD Respiratory: Present: clear Cardiology: Present: edema, regular rate, regular rhythm Gastrointestinal: Present: hypoactive bowel sounds Integumentary: Present: warm and dry - Lab 06/06/17 04:55 06/06/17 04:55 Most recent lab results ABG pH 7.34 pH Units (7.32-7.45) 06/06/17 07:37 ABG pCO2 38 mmHg (35-45) 06/06/17 07:37 ABG pO2 88 mmHg (85-104) 06/06/17 07:37 ABG HCO3 21 mEq/L (21-27) 06/06/17 07:37 ABG O2 Saturation 96 % (95-98) 06/06/17 07:37 Calcium 8.8 mg/dL (8.6-10.3) 06/06/17 04:55 Phosphorus 10.0 mg/dL (2.7-4.5) H 06/05/17 04:00 Magnesium 1.9 mg/dL (1.6-2.6) 06/05/17 04:00 Consult Discharge Plan - Plan Referrals: NONE,PCP [Primary Care Provider] - (Patient will follow up with renal doctors)
[2017-06-06] MEDS ORDERED: 0.9 % Sodium Chloride 250 ML IVC PRN (09:59)
[2017-06-06] MEDS ORDERED: *HR* Heparin 10,000 UNIT/10 ML VIAL IV PRN (10:02)
[2017-06-06] MEDS: *HR* Heparin 5,000 UNIT/ML VIAL SQ SCH ×2 (11:30→21:00)
--- NOTE | 2017-06-06 12:58 | EEG/EMG/Oth Biometrics Report ---
EEG Procedure Report Date of procedure: 06/06/17 EEG Procedure: Routine EEG Procedure Note: Report: This EEG was acquired with standard international 10-20 electrode placement system with EKG recording. The background activity during this EEG was replaced by a diffuse delta slowing with minimal reactivity. Sleep stages were note definitively identified due to presence of disuse slowing. Presence of symmetrical high amplitude delta wave were seen intermittently. There are no electrographic seizures identified during this tracing. There are no epileptiform discharges and focal slowing noted during this recording. Photic stimulation produced no abnormalities. HV not performed during this study. EKG tracing showed no significant no significant cardiac dysarrhythimia. Impression: This is an abnormal EEG due to presence of severe diffuse background slowing with minimal reactivity. No electrographic seizure noted. No focal slowing. Clinical Correlation: This EEG is consistent with severe diffuse cerebral dysfunction that can be seen in patients with severe encephalopathy, metabolic/toxic/ischemic, electrolyte derangement, sedative medicdtions or other causes. Clinical correlation suggested.
[2017-06-06] MEDS ORDERED: 0.9 % Sodium Chloride 2,000 ML ONE (13:00)
--- NOTE | 2017-06-06 13:06 | Neurology Progress Note ---
Date of Encounter: 06/06/17 Time of Encounter: 13:04 Assessment and Plan (1) Coma Current Visit: Yes Status: Acute Patient has not waking up without sedatives and he is currently euthermic. In regards to neurological examination, his brain stem reflexes are preserved including pupillary reflexes, oculocephalic reflex, gag reflexes and limb DTRs in the upper extremities. EEG showing diffuse severe background slowing with minimal reactivity. Combining clinical picture and EEG findings it is felt that the patient has poor neurological prognosis. EEG results discussed with patient' s and medical team. 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 Patient completed EEG this AM. which showed severe diffuse background slowing, with minimal reactivity. No electrographic seizure noted. Clinically, patient has no purposeful response. No myoclonic jerking movements noted. no spontaneous limb movements seen. No witnessed seizures. He is not on any sedations. Objective - Constitutional Vitals: Temp Pulse Resp BP Pulse Ox 99.6 F 76 24 123/61 95 06/06/17 11:05 06/06/17 11:00 06/06/17 11:08 06/06/17 11:00 06/06/17 11:08 - Neurological Exam Sensorimotor examination: Present: other (Unable to assess due to coma) Motor Examination: Present: other (Flaccid paralysed. No spontaneous movements to painful stimuli. ) Sensation intact: Present: other (Unable to assess due to coma) Posture: Present: other (None) Reflex and gait examination: other (Not tested patient is in coma) Reflexes: Biceps: 2+, Triceps: 2+, Brachioradialis: 2+, Patella: 0, Achilles: 0 Mental Status Examination: Present: does not follow commands, no spontaneous eye opening to voice or tactile stimulation Cranial nerve examination: Present: PERRL, EOMI (positive oculocephalic reflex) , no facial asymmetry is present, gag reflex intact Results - Laboratory Findings CBC and BMP: 06/06/17 04:55 06/06/17 04:55 Abnormal lab findings: Abnormal lab results WBC 14.1 K/mcL (4.3-11.1) H 06/06/17 04:55 RBC 2.45 M/mcL (4.19-5.50) L 06/06/17 04:55 Hgb 7.0 g/dL (12.9-16.9) L 06/06/17 04:55 Hct 22.8 % (37.5-50.1) L 06/06/17 04:55 MCHC 30.7 g/dL (31.6-35.5) L 06/06/17 04:55 RDW 14.8 % (11.5-14.5) H 06/06/17 04:55 Nucleated RBCs/100 WBC 0.1 /100 WBC (0) H 06/03/17 11:05 PT 12.7 Seconds (9.4-12.1) H 06/03/17 21:15 APTT 25.7 Seconds (26.0-36.0) L D 06/03/17 21:15 ABG Base Excess -5 mEq/L (-2 to 3) L 06/06/17 07:37 VBG pH 7.22 pH Units (7.32-7.42) L 06/03/17 14:03 VBG pCO2 65 mmHg (41-51) H 06/03/17 14:03 VBG pO2 76 mmHg (25-50) H 06/03/17 14:03 Sodium 133 mEq/L (136-145) L 06/06/17 04:55 Potassium 5.3 mEq/L (3.5-5.1) H 06/06/17 04:55 Chloride 95 mEq/L (98-107) L 06/06/17 04:55 Carbon Dioxide 20 mEq/L (23-29) L 06/06/17 04:55 BUN 64 mg/dL (8-23) H 06/06/17 04:55 Creatinine 9.96 mg/dL (0.70-1.30) H 06/06/17 04:55 Est GFR ( Amer) 6 (> 60) L 06/06/17 04:55 Est GFR (Non-Af Amer) 5 (> 60) L 06/06/17 04:55 Glucose 163 mg/dL (70-105) H 06/06/17 04:55 POC Glucose 150 (58-89) H 06/06/17 10:56 Venous Ioniz Calcium 0.97 mmol/L (1.15-1.35) L 06/05/17 04:34 Phosphorus 10.0 mg/dL (2.7-4.5) H 06/05/17 04:00 Iron 15 mcg/dL (65-175) L 05/29/17 07:40 % Saturation 6 % (20-55) L 05/29/17 07:40 Transferrin 169 mg/dL (174-364) L 05/29/17 07:40 Ferritin 517 ng/ml (22-275) H 05/29/17 07:40 Total Bilirubin 0.2 mg/dL (0.3-1.0) L 05/31/17 06:15 AST 12 Units/L (13-39) L 05/31/17 06:15 Albumin 2.9 g/dL (3.5-5.7) L 05/31/17 06:15 Globulin 4.1 g/dL (2.4-3.5) H 05/31/17 06:15 Albumin/Globulin Ratio 0.7 (1.1-2.2) L 05/31/17 06:15 Triglycerides 203 mg/dL (< 150) H 05/27/17 03:50 VLDL Cholesterol, Calc 41 mg/dL (< 31) H 05/27/17 03:50 HDL Cholesterol 16 mg/dL (40-59) L 05/27/17 03:50 Cholesterol/HDL Ratio 6.6 (0-4.9) H 05/27/17 03:50 PTH Intact 457.2 pg/ml (8.5-72.5) H 05/29/17 07:40 Urine Clarity Cloudy (Clear) A 05/27/17 13:15 Urine Protein >=300 mg/dL (Neg-Trace) H 05/27/17 13:15 Urine Glucose (UA) 100 mg/dL (Normal) H 05/27/17 13:15 Urine Blood Large (Negative) H 05/27/17 13:15 Urine Microscopic WBC 3-5 per hpf (0-3) H 05/27/17 13:15 Ur Squamous Epith Cells Moderate per lpf (None-Few) H 05/27/17 13:15 Vancomycin Trough 20.4 mcg/mL (10-20) H* 06/06/17 04:55 Consult Discharge Plan - Plan Referrals: NONE,PCP [Primary Care Provider] - (Patient will follow up with renal doctors)
--- NOTE | 2017-06-06 13:59 | Palliative Progress Note ---
Date of Encounter: 06/06/17 Time of Encounter: 09:55 - Time Spent With Patient Total time spent is greater than 50% in coordination of care (as documented) at patient's floor/unit and/or counseling patient: - Constitutional Vitals: Abnormal lab results WBC 14.1 K/mcL (4.3-11.1) H 06/06/17 04:55 RBC 2.45 M/mcL (4.19-5.50) L 06/06/17 04:55 Hgb 7.0 g/dL (12.9-16.9) L 06/06/17 04:55 Hct 22.8 % (37.5-50.1) L 06/06/17 04:55 MCHC 30.7 g/dL (31.6-35.5) L 06/06/17 04:55 RDW 14.8 % (11.5-14.5) H 06/06/17 04:55 Nucleated RBCs/100 WBC 0.1 /100 WBC (0) H 06/03/17 11:05 PT 12.7 Seconds (9.4-12.1) H 06/03/17 21:15 APTT 25.7 Seconds (26.0-36.0) L D 06/03/17 21:15 ABG Base Excess -5 mEq/L (-2 to 3) L 06/06/17 07:37 VBG pH 7.22 pH Units (7.32-7.42) L 06/03/17 14:03 VBG pCO2 65 mmHg (41-51) H 06/03/17 14:03 VBG pO2 76 mmHg (25-50) H 06/03/17 14:03 Sodium 133 mEq/L (136-145) L 06/06/17 04:55 Potassium 5.3 mEq/L (3.5-5.1) H 06/06/17 04:55 Chloride 95 mEq/L (98-107) L 06/06/17 04:55 Carbon Dioxide 20 mEq/L (23-29) L 06/06/17 04:55 BUN 64 mg/dL (8-23) H 06/06/17 04:55 Creatinine 9.96 mg/dL (0.70-1.30) H 06/06/17 04:55 Est GFR ( Amer) 6 (> 60) L 06/06/17 04:55 Est GFR (Non-Af Amer) 5 (> 60) L 06/06/17 04:55 Glucose 163 mg/dL (70-105) H 06/06/17 04:55 POC Glucose 150 (58-89) H 06/06/17 10:56 Venous Ioniz Calcium 0.97 mmol/L (1.15-1.35) L 06/05/17 04:34 Phosphorus 10.0 mg/dL (2.7-4.5) H 06/05/17 04:00 Iron 15 mcg/dL (65-175) L 05/29/17 07:40 % Saturation 6 % (20-55) L 05/29/17 07:40 Transferrin 169 mg/dL (174-364) L 05/29/17 07:40 Ferritin 517 ng/ml (22-275) H 05/29/17 07:40 Total Bilirubin 0.2 mg/dL (0.3-1.0) L 05/31/17 06:15 AST 12 Units/L (13-39) L 05/31/17 06:15 Albumin 2.9 g/dL (3.5-5.7) L 05/31/17 06:15 Globulin 4.1 g/dL (2.4-3.5) H 05/31/17 06:15 Albumin/Globulin Ratio 0.7 (1.1-2.2) L 05/31/17 06:15 Triglycerides 203 mg/dL (< 150) H 05/27/17 03:50 VLDL Cholesterol, Calc 41 mg/dL (< 31) H 05/27/17 03:50 HDL Cholesterol 16 mg/dL (40-59) L 05/27/17 03:50 Cholesterol/HDL Ratio 6.6 (0-4.9) H 05/27/17 03:50 PTH Intact 457.2 pg/ml (8.5-72.5) H 05/29/17 07:40 Urine Clarity Cloudy (Clear) A 05/27/17 13:15 Urine Protein >=300 mg/dL (Neg-Trace) H 05/27/17 13:15 Urine Glucose (UA) 100 mg/dL (Normal) H 05/27/17 13:15 Urine Blood Large (Negative) H 05/27/17 13:15 Urine Microscopic WBC 3-5 per hpf (0-3) H 05/27/17 13:15 Ur Squamous Epith Cells Moderate per lpf (None-Few) H 05/27/17 13:15 Vancomycin Trough 20.4 mcg/mL (10-20) H* 06/06/17 04:55 Palliative Quality Code Status: 05/26/17 21:21 Resuscitation Status: Active [RES] Routine Comment: Resuscitation Status: Full Code - Labs CBC & Chem 7: 06/06/17 04:55 06/06/17 04:55 Labs: Laboratory Results - last 24 hr 06/05/17 06/05/17 06/05/17 16:49 18:39 22:48 WBC RBC Hgb Hct MCV MCH MCHC RDW Plt Count MPV Sample Site ABG pH ABG pCO2 ABG pO2 ABG HCO3 ABG Total CO2 ABG O2 Saturation ABG Base Excess Jeovany Test Respiration Rate O2 Delivery Device Blood Gas Modality Inspired O2 Tidal Volume PEEP Sodium Potassium Chloride Carbon Dioxide BUN Creatinine Est GFR ( Amer) Est GFR (Non-Af Amer) BUN/Creatinine Ratio Glucose POC Glucose 136 H 150 H 166 H Calculated Osmolality Calcium Vancomycin Trough 06/06/17 06/06/17 06/06/17 03:06 04:55 04:55 WBC 14.1 H RBC 2.45 L Hgb 7.0 L Hct 22.8 L MCV 93.1 MCH 28.6 MCHC 30.7 L RDW 14.8 H Plt Count 276 MPV 9.9 Sample Site ABG pH ABG pCO2 ABG pO2 ABG HCO3 ABG Total CO2 ABG O2 Saturation ABG Base Excess Jeovany Test Respiration Rate O2 Delivery Device Blood Gas Modality Inspired O2 Tidal Volume PEEP Sodium 133 L Potassium 5.3 H Chloride 95 L Carbon Dioxide 20 L BUN 64 H Creatinine 9.96 H Est GFR ( Amer) 6 L Est GFR (Non-Af Amer) 5 L BUN/Creatinine Ratio 6 Glucose 163 H POC Glucose 162 H Calculated Osmolality 298 Calcium 8.8 Vancomycin Trough 06/06/17 06/06/17 06/06/17 04:55 06:57 07:37 WBC RBC Hgb Hct MCV MCH MCHC RDW Plt Count MPV Sample Site Art Line ABG pH 7.34 ABG pCO2 38 ABG pO2 88 ABG HCO3 21 ABG Total CO2 22 ABG O2 Saturation 96 ABG Base Excess -5 L Jeovany Test N/A Respiration Rate 24 O2 Delivery Device Adult Vent Blood Gas Modality ASSIST CONTROL Inspired O2 60.0 Tidal Volume 550 PEEP 8 Sodium Potassium Chloride Carbon Dioxide BUN Creatinine Est GFR ( Amer) Est GFR (Non-Af Amer) BUN/Creatinine Ratio Glucose POC Glucose 142 H Calculated Osmolality Calcium Vancomycin Trough 20.4 H* 06/06/17 10:56 WBC RBC Hgb Hct MCV MCH MCHC RDW Plt Count MPV Sample Site ABG pH ABG pCO2 ABG pO2 ABG HCO3 ABG Total CO2 ABG O2 Saturation ABG Base Excess Jeovany Test Respiration Rate O2 Delivery Device Blood Gas Modality Inspired O2 Tidal Volume PEEP Sodium Potassium Chloride Carbon Dioxide BUN Creatinine Est GFR ( Amer) Est GFR (Non-Af Amer) BUN/Creatinine Ratio Glucose POC Glucose 150 H Calculated Osmolality Calcium Vancomycin Trough - ABG Interpretation ABG results: ABG ABG pH 7.34 pH Units (7.32-7.45) 06/06/17 07:37 ABG pCO2 38 mmHg (35-45) 06/06/17 07:37 ABG pO2 88 mmHg (85-104) 06/06/17 07:37 ABG O2 Saturation 96 % (95-98) 06/06/17 07:37 PT/INR, D-dimer PT 12.7 Seconds (9.4-12.1) H 06/03/17 21:15 Consult Discharge Plan - Plan Referrals: NONE,PCP [Primary Care Provider] - (Patient will follow up with renal doctors)
--- NOTE | 2017-06-06 14:13 | Palliative - Consult Note ---
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 Neurologic prognosis per neurology is extremely poor. (2) ESRD needing dialysis Current Visit: Yes Status: Chronic Assessment and plan: The patient continues to be on dialysis at this time. From oncology is following. Further discussions with family due to the patient's anoxic brain injury need to be undertaken. These are ongoing. (3) Cardiac arrest due to other underlying condition Current Visit: Yes Status: Acute Assessment and plan: Plan per hospitalist team. Discussions regarding CODE STATUS are ongoing. (4) Goals of care, counseling/discussion Current Visit: Yes Status: Acute Assessment and plan: Currently full code, however discussions are ongoing. Since overall neurologic prognosis is extremely poor. He findings are consistent with that of anoxic brain injury. Tending to discuss with patient's family. He never discussed with his his desire or lack thereof of treatment in a dire situation. Palliative-CN HPI - Data of Consult Patient: new to practice Requesting Physician: Bin Hickman Primary Care Provider: PCP NONE - Consult Narrative Palliative Care/Comfort Measures: Palliative care History of present illness: Mr. Benitez is a 61 year old male Suffered cardiac arrest on June 03. Been altered ever since. It can tinniest require dialysis for his end-stage renal disease. He appears to also have pneumonia. He has not been able to be weaned from the ventilator. She just had an EEG done which at the time of examination was not available however since then it is been found consistent with anoxic brain injury. Palliative care was consulted regarding goals of care and CODE STATUS in this very unfortunate patient. CC: Bin Hickman Status post cardiac arrest altered mental status Past Med Surg Social Fam HX - Past Medical History Medical history: arthritis, atrial fibrillation, CHF, diabetes, hypertension, renal disease, TIA Psychiatric history: no psych history - Past Surgical History Surgical History: colostomy, coronary bypass (CABG) - Social History Smoking Status: Smoker, status unknown Drug use: none - Family History Brother Hx Family Genitourinary Disorders: Yes (ESRD) Medications and Allergies Acetaminophen [Tylenol] 500 mg PO Q6HR PRN 05/27/17 [History] Bisoprolol/HCTZ 10/6.25 [Ziac 10/6.25] 1 tab PO DAILY 05/27/17 [History] Famotidine [Pepcid] 20 mg PO BID 05/27/17 [History] Fluticasone Propionate Nasal [Flonase] 2 spr NS DAILY 05/27/17 [History] Furosemide [Lasix] 40 mg PO BID 05/27/17 [History] Gabapentin [Neurontin] 600 mg PO TID 05/27/17 [History] Hyoscyamine SL [Levsin SL] 0.125 mg SL Q4-6H PRN 05/27/17 [History] Insulin ASPART [Novolog Flexpen] 45 unit SQ TIDAC 05/27/17 [History] Insulin Glargine,Hum.rec.anlog [Basaglar Kwikpen U-100] 60 unit SQ BID 05/27/17 [History] Metoprolol XL (24 HR) Succ [Toprol XL] 200 mg PO DAILY 05/27/17 [History] Nitroglycerin [Nitrostat] 0.4 mg SL Q5-10MIN PRN 05/27/17 [History] Potassium Chloride [Klor-Con 10] 10 meq PO DAILY 05/27/17 [History] Rivaroxaban [Xarelto] 20 mg PO DAILY 05/27/17 [History] Simvastatin [Zocor] 40 mg PO HS 05/27/17 [History] Valsartan [Diovan] 80 mg PO DAILY 05/27/17 [History] 3 Allergy/AdvReac Type Severity Reaction Status Date / Time NSAIDS (Non-Steroidal Allergy Hives Verified 05/26/17 18:49 Anti-Inflamma pravastatin Allergy Hives Verified 05/26/17 18:49 sitagliptin [From Januvia] Allergy Hives Verified 05/26/17 18:49 ROS unobtainable: due to mental status Palliative Care-Exam - Constitutional Vitals: Temp Pulse Resp BP Pulse Ox 99.6 F 98 24 142/71 96 06/06/17 11:05 06/06/17 13:00 06/06/17 13:00 06/06/17 13:00 06/06/17 13:00 General appearance: Present: no acute distress - Head Head Exam: Present: atraumatic, normal inspection - Eye Eye exam: Present: normal appearance - ENT ENT exam: Present: mucous membranes moist (Intubated) - Respiratory Respiratory exam: Present: decreased breath sounds (Some upper airway noise, intubated) - Cardiovascular Cardiovascular exam: Present: RRR - GI/Abdominal Exam GI/Abdominal exam: Present: soft. Absent: tenderness - Catheter Type: Urethral (Yanez) - Extremities Exam Extremities exam: Present: pedal edema. Absent: normal inspection, tenderness - Neurological Exam Neurological exam: Present: altered - Expanded Neurological Exam Coma Scale Eye Opening: None Coma Scale Motor Response: None Coma Scale Verbal Response: None Coma Scale Total: 3 - Psychiatric Psychiatric exam: Absent: agitated, anxious - Skin Skin exam: Present: dry, warm Internal Medicine - CN: Reslt - Labs CBC & Chem 7: 06/06/17 04:55 06/06/17 04:55 Labs: Short CBC 06/06/17 Range/Units 04:55 WBC 14.1 H (4.3-11.1) K/mcL Hgb 7.0 L (12.9-16.9) g/dL Hct 22.8 L (37.5-50.1) % Plt Count 276 (140-400) K/mcL BMP 06/06/17 04:55 Sodium 133 L Potassium 5.3 H Chloride 95 L Carbon Dioxide 20 L BUN 64 H Creatinine 9.96 H Glucose 163 H Calcium 8.8 - ABG Interpretation ABG results: ABG ABG pH 7.34 pH Units (7.32-7.45) 06/06/17 07:37 ABG pCO2 38 mmHg (35-45) 06/06/17 07:37 ABG pO2 88 mmHg (85-104) 06/06/17 07:37 ABG O2 Saturation 96 % (95-98) 06/06/17 07:37 PT/INR, D-dimer PT 12.7 Seconds (9.4-12.1) H 06/03/17 21:15 Consult Discharge Plan - Plan Referrals: NONE,PCP [Primary Care Provider] - (Patient will follow up with renal doctors) Palliative Quality Palliative Quality: Screen for Code Status: Yes, Screen for Goals of Care: Yes, Screen for Pain: Yes, If Pain Regimen Started, Initiate Bowel Regimen: Yes, Screen for Nausea/Vomitting: Yes Code Status: 05/26/17 21:21 Resuscitation Status: Active [RES] Routine Comment: Resuscitation Status: Full Code
--- NOTE | 2017-06-06 15:57 | Electrocardiograph Report ---
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
[2017-06-06] MEDS ORDERED: Cefepime HCl 1,000 MG in Water for inj. (sterile) 10 ML IVP SCH (18:00)
[2017-06-06] MEDS: *HR* Metoprolol 5 MG/5 ML VIAL IVP PRN (21:01)
[2017-06-07] MEDS: FentaNYL (PF) 1,000 MCG in 0.9 % Sodium Chloride 80 ML IVC SCH ×2 (01:20→21:03)
[2017-06-07] MEDS: Insulin LISPRO 300 UNITS/3 ML VIAL SQ SCH ×6 (03:25→23:36)
[2017-06-07] MEDS: Lacri-Lube 3.5 GM TUBE BOTH EYES SCH ×6 (03:26→23:36)
[2017-06-07] MEDS: Dexmedetomidine HCl 400 MCG/100 ML MLS IVC SCH ×6 (03:26→16:24)
[2017-06-07] MEDS: *HR* Heparin 5,000 UNIT/ML VIAL SQ SCH ×3 (03:33→21:02)
[2017-06-07 07:43] LABS: ABG Base Excess -4 mEq/L (-2 to 3); ABG HCO3 21 mEq/L (21-27); ABG Oxygen Saturation 91 % (95-98); ABG PCO2 39 mmHg (35-45); ABG PH 7.35 pH Units (7.32-7.45); ABG PO2 65 mmHg (85-104); ABG TCO2 23 mEq/L (20-26)
--- NOTE | 2017-06-07 08:23 | Pulmonology Progress Note ---
Date of Encounter: 06/07/17 Time of Encounter: 08:20 Assessment and Plan (1) Cardiac arrest Current Visit: Yes Status: Acute Status post cardiac arrest he has completed hypothermia protocol still remains unresponsive neurology following extremely poor prognosis neurologically EEG shows diffuse slowing which is consistent with this diagnosis neurology is following as is palliative care (2) Anoxic brain damage Current Visit: Yes Status: Acute Neurology is following appreciate the recommendations overall prognosis is poor (but patient is clearly not brain ) patient has been made DNAR/DNI after consulation with family between Critical Care team, Palliative Care and Neurology. Shows little in the way of meaningful recovery at this time (3) ESRD needing dialysis Current Visit: Yes Status: Chronic Nephrology following plan for dialysis per scheduled. Follow and replace electrolytes per protocol (4) Pneumonia Current Visit: Yes Status: Acute History and treating with broad-spectrum antibiotics for possibility of aspiration with exposure to hospital associated organisms. Cultures as far negative planned to de-escalate (stop vancomycin) Qualifiers: Pneumonia type: aspiration pneumonia Laterality: bilateral Lung location : unspecified part of lung Qualified Code(s): J69.0 - Pneumonitis due to inhalation of food and vomit (5) Acute respiratory failure with hypoxia and hypercapnia Current Visit: Yes Status: Acute He is intubated on the vent with acceptable oxygenation and ventilation although he does have a notable VQ mismatch leading to need for increased respiratory rate to correct respiratory acidosis. Continue with low tidal volume ventilatory strategy ABG pending from today except for oxygenation we will continue to decrease FiO2 today to 50% to keep saturation greater than 90% . PEEP is 8 and Peak and plateau pressures on vent remain acceptable. I suspect that a large component of this is related to cardiogenic pulmonary edema and dialysis with fluid should cont to help (will also discuss with nephrology possibility of UF). (6) Goals of care, counseling/discussion Current Visit: Yes Status: Acute Family was updated at bedside daily with ongoing neurological assessment and evaluation which remains overall very poor (7) Tachycardia Current Visit: Yes Status: Acute This is sinus tachycardia likely related to increasing pain response and possibly although felt less likely related to the sepsis (remains afebrile and is being treated with Abx) we will increase analgesia today continue beta nimesh therapy continue to monitor. Subjective Principal diagnosis: SECURITY RISK ANALYST failure s/p Cardiac arrest Interval history: Patient has extended more agitation over the last 24 hours requiring increase in sedation he does not however have any purposeful movements even when sedation is stopped. Remains tachycardic but afebrile underwent dialysis yesterday and was hemodynamically stable he has been weaned off vasopressor Objective PUL Vital signs: Last Vital Signs Temp 99.6 F 06/07/17 07:25 Pulse 134 06/07/17 08:10 Resp 25 06/07/17 08:10 BP 127/66 06/07/17 08:10 Pulse Ox 91 06/07/17 08:10 General appearance: comatose Eyes: nonicteric Neck: supple Auscultation: bilateral: diminished breath sounds, rales Cardiovascular: other (Rapid rate regular rhythm) Integumentary: normal, other (Right and left groin catheters evaluated without evidence of infection. Ostomy site has stool in it and shows no evidence of erythema or infection) Extremities: edema pupils equal and round, other (He does appear to have more response to pain today than yesterda is noted to have intermittent jerking sensations likely secondary to hypoxia but without tono seizure-like activity. ) Ventilator Settings Ventilator Settings: Ventilator Settings, Last 8 Hours Ventilator Mode A/C Ventilator Mode A/C Ventilator Mode VC+ Ventilator Mode VC+ Ventilator Mode VC+ Ventilator Mode VC+ Ventilator Mode VC+ Ventilator Mode VC+ Ventilator Mode VC+ Ventilator Tidal Volume 550 Setting Ventilator Tidal Volume 550 Setting Ventilator Tidal Volume 550 Setting Ventilator Tidal Volume 550 Setting Ventilator Tidal Volume 550 Setting Ventilator Tidal Volume 550 Setting Ventilator Tidal Volume 550 Setting Ventilator Tidal Volume 550 Setting Ventilator Tidal Volume 550 Setting Ventilator Respiratory Rate 24 Setting Ventilator Respiratory Rate 24 Setting Ventilator Respiratory Rate 24 Setting Ventilator Respiratory Rate 24 Setting Ventilator Respiratory Rate 24 Setting Ventilator Respiratory Rate 24 Setting Ventilator Respiratory Rate 24 Setting Ventilator Respiratory Rate 24 Setting Ventilator Respiratory Rate 24 Setting Actual Respiratory Rate 24 Actual Respiratory Rate 24 Actual Respiratory Rate 26 Actual Respiratory Rate 24 Actual Respiratory Rate 24 Actual Respiratory Rate 24 Actual Respiratory Rate 24 Actual Respiratory Rate 24 Actual Respiratory Rate 24 Positive End Expiratory 8 Pressure Positive End Expiratory 8 Pressure Positive End Expiratory 8 Pressure Positive End Expiratory 8 Pressure Positive End Expiratory 8 Pressure Positive End Expiratory 8 Pressure Positive End Expiratory 8 Pressure Positive End Expiratory 8 Pressure Positive End Expiratory 8 Pressure Peak Inspiratory Airway 21 Pressure Peak Inspiratory Airway 21 Pressure Peak Inspiratory Airway 24 Pressure Peak Inspiratory Airway 25 Pressure Peak Inspiratory Airway 26 Pressure Peak Inspiratory Airway 26 Pressure Peak Inspiratory Airway 27 Pressure Peak Inspiratory Airway 27 Pressure Peak Inspiratory Airway 27 Pressure Results - Laboratory Findings CBC and BMP: 06/06/17 04:55 06/06/17 04:55 ABG ABG pH 7.35 pH Units (7.32-7.45) 06/07/17 07:39 ABG pCO2 39 mmHg (35-45) 06/07/17 07:39 ABG pO2 65 mmHg (85-104) L 06/07/17 07:39 ABG O2 Saturation 91 % (95-98) L 06/07/17 07:39 PT/INR, D-dimer PT 12.7 Seconds (9.4-12.1) H 06/03/17 21:15 Abnormal lab findings: Abnormal lab results WBC 14.1 K/mcL (4.3-11.1) H 06/06/17 04:55 RBC 2.45 M/mcL (4.19-5.50) L 06/06/17 04:55 Hgb 7.0 g/dL (12.9-16.9) L 06/06/17 04:55 Hct 22.8 % (37.5-50.1) L 06/06/17 04:55 MCHC 30.7 g/dL (31.6-35.5) L 06/06/17 04:55 RDW 14.8 % (11.5-14.5) H 06/06/17 04:55 Nucleated RBCs/100 WBC 0.1 /100 WBC (0) H 06/03/17 11:05 PT 12.7 Seconds (9.4-12.1) H 06/03/17 21:15 APTT 25.7 Seconds (26.0-36.0) L D 06/03/17 21:15 ABG pO2 65 mmHg (85-104) L 06/07/17 07:39 ABG O2 Saturation 91 % (95-98) L 06/07/17 07:39 ABG Base Excess -4 mEq/L (-2 to 3) L 06/07/17 07:39 VBG pH 7.22 pH Units (7.32-7.42) L 06/03/17 14:03 VBG pCO2 65 mmHg (41-51) H 06/03/17 14:03 VBG pO2 76 mmHg (25-50) H 06/03/17 14:03 Sodium 133 mEq/L (136-145) L 06/06/17 04:55 Potassium 5.3 mEq/L (3.5-5.1) H 06/06/17 04:55 Chloride 95 mEq/L (98-107) L 06/06/17 04:55 Carbon Dioxide 20 mEq/L (23-29) L 06/06/17 04:55 BUN 64 mg/dL (8-23) H 06/06/17 04:55 Creatinine 9.96 mg/dL (0.70-1.30) H 06/06/17 04:55 Est GFR ( Amer) 6 (> 60) L 06/06/17 04:55 Est GFR (Non-Af Amer) 5 (> 60) L 06/06/17 04:55 Glucose 163 mg/dL (70-105) H 06/06/17 04:55 POC Glucose 145 (58-89) H 06/07/17 07:09 Venous Ioniz Calcium 0.97 mmol/L (1.15-1.35) L 06/05/17 04:34 Phosphorus 10.0 mg/dL (2.7-4.5) H 06/05/17 04:00 Iron 15 mcg/dL (65-175) L 05/29/17 07:40 % Saturation 6 % (20-55) L 05/29/17 07:40 Transferrin 169 mg/dL (174-364) L 05/29/17 07:40 Ferritin 517 ng/ml (22-275) H 05/29/17 07:40 Total Bilirubin 0.2 mg/dL (0.3-1.0) L 05/31/17 06:15 AST 12 Units/L (13-39) L 05/31/17 06:15 Albumin 2.9 g/dL (3.5-5.7) L 05/31/17 06:15 Globulin 4.1 g/dL (2.4-3.5) H 05/31/17 06:15 Albumin/Globulin Ratio 0.7 (1.1-2.2) L 05/31/17 06:15 Triglycerides 203 mg/dL (< 150) H 05/27/17 03:50 VLDL Cholesterol, Calc 41 mg/dL (< 31) H 05/27/17 03:50 HDL Cholesterol 16 mg/dL (40-59) L 05/27/17 03:50 Cholesterol/HDL Ratio 6.6 (0-4.9) H 05/27/17 03:50 PTH Intact 457.2 pg/ml (8.5-72.5) H 05/29/17 07:40 Urine Clarity Cloudy (Clear) A 05/27/17 13:15 Urine Protein >=300 mg/dL (Neg-Trace) H 05/27/17 13:15 Urine Glucose (UA) 100 mg/dL (Normal) H 05/27/17 13:15 Urine Blood Large (Negative) H 05/27/17 13:15 Urine Microscopic WBC 3-5 per hpf (0-3) H 05/27/17 13:15 Ur Squamous Epith Cells Moderate per lpf (None-Few) H 05/27/17 13:15 - Diagnostic Findings Chest x-ray: report reviewed, image reviewed - Clinical Findings Intake & Output: Intake & Output 06/06/17 06/07/17 06/07/17 23:59 07:59 15:59 Intake Total 0 / 0 34 / 34 Output Total 925 / 925 Balance -925 / -925 Weight 109 kg Consult Discharge Plan - Plan Referrals: NONE,PCP [Primary Care Provider] - (Patient will follow up with renal doctors)
[2017-06-07] MEDS: Chlorhexidine Rinse 15 ML MOUTHWASH MM SCH ×2 (08:43→21:02)
[2017-06-07] MEDS: Pantoprazole 40 MG VIAL IVP SCH (08:43)
[2017-06-07] MEDS: Metoprolol XL (24 HR) Succ 50 MG TAB.ER.24H PO SCH (08:44)
[2017-06-07 08:54] LABS: Basophils # 0.1 K/mcL (0.0-0.2); Basophils % 0.6 %; Eosinophils # 0.2 K/mcL (0.0-0.6); Eosinophils % 1.2 %; Hematocrit 23.3 % (37.5-50.1); Hemoglobin 7.2 g/dL (12.9-16.9); Immature Granulocytes % 2.9 % (0-4); Mean Corpuscular HGB Conc 30.9 g/dL (31.6-35.5); Mean Corpuscular Hemoglobin 28.9 pg (28.0-33.3); Mean Corpuscular Volume 93.6 fL (83.0-100.0); Mean Platelet Volume 9.7 fL (9.4-12.4); Monocytes # 1.7 K/mcL (0.0-1.3); Monocytes % 9.1 %; Neutrophils # 13.7 K/mcL (1.6-8.9); Nucleated Red Blood Cells 0.1 /100 WBC (0); Platelet Count 279 K/mcL (140-400); Red Blood Count 2.49 M/mcL (4.19-5.50); Red Cell Distribution Width 15.3 % (11.5-14.5); Segmented Neutrophils % 75.2 %
[2017-06-07 09:07] LABS: Albumin 2.6 g/dL (3.5-5.7); Calcium 8.9 mg/dL (8.6-10.3); Phosphorous 9.7 mg/dL (2.7-4.5); Potassium 5.8 mEq/L (3.5-5.1)
--- NOTE | 2017-06-07 10:56 | Palliative Progress Note ---
<SuryafabianLeonel - Last Filed: 06/07/17 10:53> Date of Encounter: 06/07/17 Time of Encounter: 10:53 - Assessment and plan (1) Goals of care, counseling/discussion Current Visit: Yes Status: Acute Assessment and plan: After discussionw ith POA () yesterday, patient's code status was changed to DNR-CCA. Findings consistent with anoxic brain injury, EEG with diffuse slowing, Neurologic progress is extremely poor. Plans to discuss with family about possible withdrawal of care later today. (2) Acute metabolic encephalopathy Current Visit: Yes Status: Acute Assessment and plan: Secondary to cardiac arrest, anoxic brain injury and confirmed on EEG with diffuse slowing. Neurologic prognosis per neurology is Extremely poor. (3) ESRD needing dialysis Current Visit: Yes Status: Chronic Assessment and plan: Nephrology on board for dialysis needs, continue per Regulator Pin Inserter plan. (4) Cardiac arrest due to other underlying condition Current Visit: Yes Status: Acute Assessment and plan: Continue per Regulator Pin Inserter plan. - Time Spent With Patient Total time spent is greater than 50% in coordination of care (as documented) at patient's floor/unit and/or counseling patient: - Subjective Interval history: Vitals stable, patient is not arousable to stimulation, intubated. Sister at bedside, (POA) not at bedside or in waiting area. Nephrology on board, continuing to follow patient for dialysis needs. Code status DNR-CCA to reflect discussions yesterday with . Plan to consider feeds today and discuss possible withdrawal of care due to extremely poor prognosis and low likelihood of meaningful recovery. - Constitutional Vitals: Abnormal lab results WBC 18.2 K/mcL (4.3-11.1) H 06/07/17 08:46 RBC 2.49 M/mcL (4.19-5.50) L 06/07/17 08:46 Hgb 7.2 g/dL (12.9-16.9) L 06/07/17 08:46 Hct 23.3 % (37.5-50.1) L 06/07/17 08:46 MCHC 30.9 g/dL (31.6-35.5) L 06/07/17 08:46 RDW 15.3 % (11.5-14.5) H 06/07/17 08:46 Neutrophils # 13.7 K/mcL (1.6-8.9) H 06/07/17 08:46 Monocytes # 1.7 K/mcL (0.0-1.3) H 06/07/17 08:46 Nucleated RBCs/100 WBC 0.1 /100 WBC (0) H 06/07/17 08:46 PT 12.7 Seconds (9.4-12.1) H 06/03/17 21:15 APTT 25.7 Seconds (26.0-36.0) L D 06/03/17 21:15 ABG pO2 65 mmHg (85-104) L 06/07/17 07:39 ABG O2 Saturation 91 % (95-98) L 06/07/17 07:39 ABG Base Excess -4 mEq/L (-2 to 3) L 06/07/17 07:39 VBG pH 7.22 pH Units (7.32-7.42) L 06/03/17 14:03 VBG pCO2 65 mmHg (41-51) H 06/03/17 14:03 VBG pO2 76 mmHg (25-50) H 06/03/17 14:03 Sodium 133 mEq/L (136-145) L 06/07/17 08:46 Potassium 5.8 mEq/L (3.5-5.1) H 06/07/17 08:46 Chloride 97 mEq/L (98-107) L 06/07/17 08:46 Carbon Dioxide 19 mEq/L (23-29) L 06/07/17 08:46 BUN 58 mg/dL (8-23) H 06/07/17 08:46 Creatinine 9.51 mg/dL (0.70-1.30) H 06/07/17 08:46 Est GFR ( Amer) 7 (> 60) L 06/07/17 08:46 Est GFR (Non-Af Amer) 6 (> 60) L 06/07/17 08:46 Glucose 155 mg/dL (70-105) H 06/07/17 08:46 POC Glucose 145 (58-89) H 06/07/17 07:09 Venous Ioniz Calcium 0.97 mmol/L (1.15-1.35) L 06/05/17 04:34 Phosphorus 9.7 mg/dL (2.7-4.5) H 06/07/17 08:46 Iron 15 mcg/dL (65-175) L 05/29/17 07:40 % Saturation 6 % (20-55) L 05/29/17 07:40 Transferrin 169 mg/dL (174-364) L 05/29/17 07:40 Ferritin 517 ng/ml (22-275) H 05/29/17 07:40 Total Bilirubin 0.2 mg/dL (0.3-1.0) L 05/31/17 06:15 AST 12 Units/L (13-39) L 05/31/17 06:15 Albumin 2.6 g/dL (3.5-5.7) L 06/07/17 08:46 Globulin 4.1 g/dL (2.4-3.5) H 05/31/17 06:15 Albumin/Globulin Ratio 0.7 (1.1-2.2) L 05/31/17 06:15 Triglycerides 203 mg/dL (< 150) H 05/27/17 03:50 VLDL Cholesterol, Calc 41 mg/dL (< 31) H 05/27/17 03:50 HDL Cholesterol 16 mg/dL (40-59) L 05/27/17 03:50 Cholesterol/HDL Ratio 6.6 (0-4.9) H 05/27/17 03:50 PTH Intact 457.2 pg/ml (8.5-72.5) H 05/29/17 07:40 Urine Clarity Cloudy (Clear) A 05/27/17 13:15 Urine Protein >=300 mg/dL (Neg-Trace) H 05/27/17 13:15 Urine Glucose (UA) 100 mg/dL (Normal) H 05/27/17 13:15 Urine Blood Large (Negative) H 05/27/17 13:15 Urine Microscopic WBC 3-5 per hpf (0-3) H 05/27/17 13:15 Ur Squamous Epith Cells Moderate per lpf (None-Few) H 05/27/17 13:15 General appearance: Present: no acute distress Exam: not arousable, intubated, vitals stable - Head Head exam: Present: atraumatic, normal inspection, normocephalic - Eye Eye exam: Present: PERRL - ENT ENT exam: Present: mucous membranes dry - Respiratory Respiratory exam: Present: CTAB. Absent: rales, rhonchi, wheezes - Cardiovascular Cardiovascular exam: Present: +S1, +S2, tachycardia - GI/Abdominal GI/Abdominal exam: Present: soft - Extremities Exam Additional comments: upper extremities 1+ pitting edema, lower extremities 2+ pitting edema, pulses diminished bilaterally, pale appearing without mottling, healing ulcers left lower extremity. Palliative Quality Palliative Quality: Screen for Code Status: Yes, Screen for Goals of Care: Yes, Screen for Pain: Yes, If Pain Regimen Started, Initiate Bowel Regimen: Yes, Screen for Nausea/Vomitting: Yes Code Status: 05/26/17 21:21 Resuscitation Status: Active [RES] Routine Comment: Resuscitation Status: Full Code Resuscitation Status: Active [RES] Routine Comment: Resuscitation Status: DNR-Comfort Care-Arrest - Labs CBC & Chem 7: 06/07/17 08:46 06/07/17 08:46 Labs: Laboratory Results - last 24 hr 06/06/17 06/06/17 06/06/17 10:56 15:08 19:38 WBC RBC Hgb Hct MCV MCH MCHC RDW Plt Count MPV Immature Gran % Seg Neutrophils % Lymphocytes % Monocytes % Eosinophils % Basophils % Neutrophils # Lymphocytes # Monocytes # Eosinophils # Basophils # Nucleated RBCs/100 WBC ABG pH ABG pCO2 ABG pO2 ABG HCO3 ABG Total CO2 ABG O2 Saturation ABG Base Excess Sodium Potassium Chloride Carbon Dioxide BUN Creatinine Est GFR ( Amer) Est GFR (Non-Af Amer) BUN/Creatinine Ratio Glucose POC Glucose 150 H 133 H 144 H Calculated Osmolality Calcium Phosphorus Magnesium Albumin Vancomycin Trough 06/07/17 06/07/17 06/07/17 03:15 04:03 07:09 WBC RBC Hgb Hct MCV MCH MCHC RDW Plt Count MPV Immature Gran % Seg Neutrophils % Lymphocytes % Monocytes % Eosinophils % Basophils % Neutrophils # Lymphocytes # Monocytes # Eosinophils # Basophils # Nucleated RBCs/100 WBC ABG pH ABG pCO2 ABG pO2 ABG HCO3 ABG Total CO2 ABG O2 Saturation ABG Base Excess Sodium Potassium Chloride Carbon Dioxide BUN Creatinine Est GFR ( Amer) Est GFR (Non-Af Amer) BUN/Creatinine Ratio Glucose POC Glucose 129 H 145 H Calculated Osmolality Calcium Phosphorus Magnesium Albumin Vancomycin Trough 15.9 06/07/17 06/07/17 06/07/17 07:39 08:46 08:46 WBC 18.2 H RBC 2.49 L Hgb 7.2 L Hct 23.3 L MCV 93.6 MCH 28.9 MCHC 30.9 L RDW 15.3 H Plt Count 279 MPV 9.7 Immature Gran % 2.9 Seg Neutrophils % 75.2 Lymphocytes % 11.0 Monocytes % 9.1 Eosinophils % 1.2 Basophils % 0.6 Neutrophils # 13.7 H Lymphocytes # 2.0 Monocytes # 1.7 H Eosinophils # 0.2 Basophils # 0.1 Nucleated RBCs/100 WBC 0.1 H ABG pH 7.35 ABG pCO2 39 ABG pO2 65 L ABG HCO3 21 ABG Total CO2 23 ABG O2 Saturation 91 L ABG Base Excess -4 L Sodium 133 L Potassium 5.8 H Chloride 97 L Carbon Dioxide 19 L BUN 58 H Creatinine 9.51 H Est GFR ( Amer) 7 L Est GFR (Non-Af Amer) 6 L BUN/Creatinine Ratio 6 Glucose 155 H POC Glucose Calculated Osmolality 295 Calcium 8.9 Phosphorus 9.7 H Magnesium Albumin 2.6 L Vancomycin Trough 06/07/17 08:46 WBC RBC Hgb Hct MCV MCH MCHC RDW Plt Count MPV Immature Gran % Seg Neutrophils % Lymphocytes % Monocytes % Eosinophils % Basophils % Neutrophils # Lymphocytes # Monocytes # Eosinophils # Basophils # Nucleated RBCs/100 WBC ABG pH ABG pCO2 ABG pO2 ABG HCO3 ABG Total CO2 ABG O2 Saturation ABG Base Excess Sodium Potassium Chloride Carbon Dioxide BUN Creatinine Est GFR ( Amer) Est GFR (Non-Af Amer) BUN/Creatinine Ratio Glucose POC Glucose Calculated Osmolality Calcium Phosphorus Magnesium 2.2 Albumin Vancomycin Trough - Impressions Impressions Chest X-Ray 06/06/17 13:42 IMPRESSION: Endotracheal tube terminating 11 cm above the mary. Advancement by 5-6 cm should be considered. Small left pleural effusion and left basilar atelectasis. Trace right pleural effusion. D/ / 06/06/2017 14:17:50 Sukhi Greenwood MD / girish Interpreting Provider: Sukhi Greenwood MD Chest X-Ray 06/06/17 16:25 IMPRESSION: Recommend advancing the endotracheal tube 5 more cm. D/ / Benson Vides MD / Benson Vides MD Interpreting Provider: Benson Vides MD - ABG Interpretation ABG results: ABG ABG pH 7.35 pH Units (7.32-7.45) 06/07/17 07:39 ABG pCO2 39 mmHg (35-45) 06/07/17 07:39 ABG pO2 65 mmHg (85-104) L 06/07/17 07:39 ABG O2 Saturation 91 % (95-98) L 06/07/17 07:39 PT/INR, D-dimer PT 12.7 Seconds (9.4-12.1) H 06/03/17 21:15 Consult Discharge Plan - Plan Referrals: NONE,PCP [Primary Care Provider] - (Patient will follow up with renal doctors) <Yousif Diop - Last Filed: 06/07/17 11:54> Date of Encounter: 06/07/17 - Assessment and plan (1) Acute metabolic encephalopathy Current Visit: Yes Status: Acute (2) ESRD needing dialysis Current Visit: Yes Status: Chronic (3) Cardiac arrest due to other underlying condition Current Visit: Yes Status: Acute (4) Goals of care, counseling/discussion Current Visit: Yes Status: Acute - Time Spent With Patient Total time spent is greater than 50% in coordination of care (as documented) at patient's floor/unit and/or counseling patient: - Constitutional Vitals: Abnormal lab results WBC 18.2 K/mcL (4.3-11.1) H 06/07/17 08:46 RBC 2.49 M/mcL (4.19-5.50) L 06/07/17 08:46 Hgb 7.2 g/dL (12.9-16.9) L 06/07/17 08:46 Hct 23.3 % (37.5-50.1) L 06/07/17 08:46 MCHC 30.9 g/dL (31.6-35.5) L 06/07/17 08:46 RDW 15.3 % (11.5-14.5) H 06/07/17 08:46 Neutrophils # 13.7 K/mcL (1.6-8.9) H 06/07/17 08:46 Monocytes # 1.7 K/mcL (0.0-1.3) H 06/07/17 08:46 Nucleated RBCs/100 WBC 0.1 /100 WBC (0) H 06/07/17 08:46 PT 12.7 Seconds (9.4-12.1) H 06/03/17 21:15 APTT 25.7 Seconds (26.0-36.0) L D 06/03/17 21:15 ABG pO2 65 mmHg (85-104) L 06/07/17 07:39 ABG O2 Saturation 91 % (95-98) L 06/07/17 07:39 ABG Base Excess -4 mEq/L (-2 to 3) L 06/07/17 07:39 VBG pH 7.22 pH Units (7.32-7.42) L 06/03/17 14:03 VBG pCO2 65 mmHg (41-51) H 06/03/17 14:03 VBG pO2 76 mmHg (25-50) H 06/03/17 14:03 Sodium 133 mEq/L (136-145) L 06/07/17 08:46 Potassium 5.8 mEq/L (3.5-5.1) H 06/07/17 08:46 Chloride 97 mEq/L (98-107) L 06/07/17 08:46 Carbon Dioxide 19 mEq/L (23-29) L 06/07/17 08:46 BUN 58 mg/dL (8-23) H 06/07/17 08:46 Creatinine 9.51 mg/dL (0.70-1.30) H 06/07/17 08:46 Est GFR ( Amer) 7 (> 60) L 06/07/17 08:46 Est GFR (Non-Af Amer) 6 (> 60) L 06/07/17 08:46 Glucose 155 mg/dL (70-105) H 06/07/17 08:46 POC Glucose 151 (58-89) H 06/07/17 11:02 Venous Ioniz Calcium 0.97 mmol/L (1.15-1.35) L 06/05/17 04:34 Phosphorus 9.7 mg/dL (2.7-4.5) H 06/07/17 08:46 Iron 15 mcg/dL (65-175) L 05/29/17 07:40 % Saturation 6 % (20-55) L 05/29/17 07:40 Transferrin 169 mg/dL (174-364) L 05/29/17 07:40 Ferritin 517 ng/ml (22-275) H 05/29/17 07:40 Total Bilirubin 0.2 mg/dL (0.3-1.0) L 05/31/17 06:15 AST 12 Units/L (13-39) L 05/31/17 06:15 Albumin 2.6 g/dL (3.5-5.7) L 06/07/17 08:46 Globulin 4.1 g/dL (2.4-3.5) H 05/31/17 06:15 Albumin/Globulin Ratio 0.7 (1.1-2.2) L 05/31/17 06:15 Triglycerides 203 mg/dL (< 150) H 05/27/17 03:50 VLDL Cholesterol, Calc 41 mg/dL (< 31) H 05/27/17 03:50 HDL Cholesterol 16 mg/dL (40-59) L 05/27/17 03:50 Cholesterol/HDL Ratio 6.6 (0-4.9) H 05/27/17 03:50 PTH Intact 457.2 pg/ml (8.5-72.5) H 05/29/17 07:40 Urine Clarity Cloudy (Clear) A 05/27/17 13:15 Urine Protein >=300 mg/dL (Neg-Trace) H 05/27/17 13:15 Urine Glucose (UA) 100 mg/dL (Normal) H 05/27/17 13:15 Urine Blood Large (Negative) H 05/27/17 13:15 Urine Microscopic WBC 3-5 per hpf (0-3) H 05/27/17 13:15 Ur Squamous Epith Cells Moderate per lpf (None-Few) H 05/27/17 13:15 - Attending Attestation I examined this patient and my medical decision-making was reviewed with the Resident Physician. I agree with the documented findings, disposition and treatment plan as described except to the extent set forth below. Palliative Quality Code Status: 05/26/17 21:21 Resuscitation Status: Active [RES] Routine Comment: Resuscitation Status: Full Code Resuscitation Status: Active [RES] Routine Comment: Resuscitation Status: DNR-Comfort Care-Arrest - Labs CBC & Chem 7: 06/07/17 08:46 06/07/17 08:46 Labs: Laboratory Results - last 24 hr 06/06/17 06/06/17 06/07/17 15:08 19:38 03:15 WBC RBC Hgb Hct MCV MCH MCHC RDW Plt Count MPV Immature Gran % Seg Neutrophils % Lymphocytes % Monocytes % Eosinophils % Basophils % Neutrophils # Lymphocytes # Monocytes # Eosinophils # Basophils # Nucleated RBCs/100 WBC ABG pH ABG pCO2 ABG pO2 ABG HCO3 ABG Total CO2 ABG O2 Saturation ABG Base Excess Sodium Potassium Chloride Carbon Dioxide BUN Creatinine Est GFR ( Amer) Est GFR (Non-Af Amer) BUN/Creatinine Ratio Glucose POC Glucose 133 H 144 H 129 H Calculated Osmolality Calcium Phosphorus Magnesium Albumin Vancomycin Trough 06/07/17 06/07/17 06/07/17 04:03 07:09 07:39 WBC RBC Hgb Hct MCV MCH MCHC RDW Plt Count MPV Immature Gran % Seg Neutrophils % Lymphocytes % Monocytes % Eosinophils % Basophils % Neutrophils # Lymphocytes # Monocytes # Eosinophils # Basophils # Nucleated RBCs/100 WBC ABG pH 7.35 ABG pCO2 39 ABG pO2 65 L ABG HCO3 21 ABG Total CO2 23 ABG O2 Saturation 91 L ABG Base Excess -4 L Sodium Potassium Chloride Carbon Dioxide BUN Creatinine Est GFR ( Amer) Est GFR (Non-Af Amer) BUN/Creatinine Ratio Glucose POC Glucose 145 H Calculated Osmolality Calcium Phosphorus Magnesium Albumin Vancomycin Trough 15.9 06/07/17 06/07/17 06/07/17 08:46 08:46 08:46 WBC 18.2 H RBC 2.49 L Hgb 7.2 L Hct 23.3 L MCV 93.6 MCH 28.9 MCHC 30.9 L RDW 15.3 H Plt Count 279 MPV 9.7 Immature Gran % 2.9 Seg Neutrophils % 75.2 Lymphocytes % 11.0 Monocytes % 9.1 Eosinophils % 1.2 Basophils % 0.6 Neutrophils # 13.7 H Lymphocytes # 2.0 Monocytes # 1.7 H Eosinophils # 0.2 Basophils # 0.1 Nucleated RBCs/100 WBC 0.1 H ABG pH ABG pCO2 ABG pO2 ABG HCO3 ABG Total CO2 ABG O2 Saturation ABG Base Excess Sodium 133 L Potassium 5.8 H Chloride 97 L Carbon Dioxide 19 L BUN 58 H Creatinine 9.51 H Est GFR ( Amer) 7 L Est GFR (Non-Af Amer) 6 L BUN/Creatinine Ratio 6 Glucose 155 H POC Glucose Calculated Osmolality 295 Calcium 8.9 Phosphorus 9.7 H Magnesium 2.2 Albumin 2.6 L Vancomycin Trough 06/07/17 11:02 WBC RBC Hgb Hct MCV MCH MCHC RDW Plt Count MPV Immature Gran % Seg Neutrophils % Lymphocytes % Monocytes % Eosinophils % Basophils % Neutrophils # Lymphocytes # Monocytes # Eosinophils # Basophils # Nucleated RBCs/100 WBC ABG pH ABG pCO2 ABG pO2 ABG HCO3 ABG Total CO2 ABG O2 Saturation ABG Base Excess Sodium Potassium Chloride Carbon Dioxide BUN Creatinine Est GFR ( Amer) Est GFR (Non-Af Amer) BUN/Creatinine Ratio Glucose POC Glucose 151 H Calculated Osmolality Calcium Phosphorus Magnesium Albumin Vancomycin Trough - Impressions Impressions Chest X-Ray 06/06/17 13:42 IMPRESSION: Endotracheal tube terminating 11 cm above the mary. Advancement by 5-6 cm should be considered. Small left pleural effusion and left basilar atelectasis. Trace right pleural effusion. D/ / 06/06/2017 14:17:50 Sukhi Greenwood MD / girish Interpreting Provider: Sukhi Greenwood MD Chest X-Ray 06/06/17 16:25
[2017-06-07] MEDS ORDERED: Piperacillin/Tazobactam 3.375 GM in D5% in Water 50 ML IVPB SCH (11:00)
--- NOTE | 2017-06-07 11:43 | Event Note ---
Date of Encounter: 06/07/17 Time of Encounter: 11:41 Endotracheal tube has been persistently high based upon chest imaging. 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 Patient tolerated this without any complication.
[2017-06-07] MEDS: Norepinephrine 4 MG in D5% in Water 250 ML IVC SCH (12:07)
[2017-06-07] MEDS: Piperacillin/Tazobactam 3.375 GM/200 ML BAG IVPB SCH ×2 (12:09→23:35)
--- NOTE | 2017-06-07 12:16 | Nephrology Progress Note ---
Date of Encounter: 06/07/17 Time of Encounter: 11:50 - Assessment and Plan (1) ESRD needing dialysis Current Visit: Yes Status: Chronic CLAUDIA in setting of possible aspiration pneumonia, decreased oral intake, emesis superimposed on CKD 4 in setting of DM and HTN. Now requiring chronic HD. HD today if wishes, awaiting her decision. (2) Acute metabolic encephalopathy Current Visit: Yes Status: Acute (3) Pneumonia Current Visit: Yes Status: Acute Qualifiers: Pneumonia type: aspiration pneumonia Laterality: bilateral Lung location : unspecified part of lung Qualified Code(s): J69.0 - Pneumonitis due to inhalation of food and vomit Subjective Principal diagnosis: ROPE MAKER failure s/p Cardiac arrest Interval history: Intubated. Sister at bedside. States to be in about 3pm. Considering withdrawal of care. Objective - Vital Signs Vital signs: Vital Signs Temp Pulse Resp BP Pulse Ox 06/07/17 12:00 86 06/07/17 11:15 100.0 F H 06/07/17 11:00 86 25 97/50 92 06/07/17 10:00 121 25 134/66 92 06/07/17 09:44 25 91 06/07/17 09:00 134 25 135/69 91 06/07/17 08:10 134 25 127/66 91 06/07/17 07:34 25 91 06/07/17 07:25 99.6 F 06/07/17 06:00 116 26 116/67 94 06/07/17 05:00 106 24 121/64 93 06/07/17 04:30 24 112/59 94 06/07/17 04:00 108 24 112/59 94 06/07/17 03:16 99.1 F 06/07/17 03:00 111 24 108/61 95 06/07/17 02:00 101 24 101/58 93 06/07/17 01:00 105 24 107/61 94 06/07/17 00:00 113 24 107/58 94 06/06/17 23:19 99.9 F H 06/06/17 23:14 24 95 06/06/17 23:00 113 24 121/65 95 06/06/17 22:00 105 24 114/63 94 06/06/17 21:00 117 25 129/68 94 06/06/17 20:05 25 91 06/06/17 20:04 134 06/06/17 20:00 99.1 F 134 25 119/86 91 06/06/17 19:00 137 25 110/63 92 06/06/17 17:59 131 26 116/66 92 06/06/17 17:00 138 28 125/67 97 06/06/17 16:20 98.2 F 25 119/61 06/06/17 16:15 127/67 06/06/17 16:00 135 26 125/66 99 06/06/17 15:45 120/64 06/06/17 15:30 123/65 06/06/17 15:19 98.2 F 06/06/17 15:15 105/58 06/06/17 15:00 124 24 146/71 96 06/06/17 14:45 128/70 06/06/17 14:30 126/71 06/06/17 14:15 98.2 F 26 123/66 06/06/17 14:00 103 24 146/70 96 06/06/17 13:50 25 93 06/06/17 13:00 98 24 142/71 96 Intake and Output 06/06/17 06/07/17 06/07/17 23:59 07:59 15:59 Intake Total 0 / 0 Output Total 925 / 925 0 / 0 Balance -925 / -925 Intake: IV Fluids 0 / 0 34 34 FentaNYL (PF) 1,000 MCG In 0.9 0 / 0 34 / 34 % Sodium Chloride 80 ML @ 50 MCG/HR 5 mls/hr IVC CONT [facility] Rx #:[id number] Maxipime 1,000 MG In Water for inj. (sterile) 10 ML @ 150 mls/ hr IVP Q24H [facility] Rx#:[id number] Oral 0 / 0 0 / 0 Output: Urine 0 / 0 Stool 200 / 200 0 / 0 Total Dialysis (HD) Output 600 / 600 Catheter 125 / 125 25 / 25 0 / 0 Other: Weight 109 kg Blood Glucose* 144 145 151 Hemodialysis Net Fluid Removed 0 (mL) - General Appearance General appearance: Present: well-developed, well-nourished, appears started age EENT: Present: mucous membranes moist Neck: Present: no JVD Respiratory: Present: rhonchi Cardiology: Present: edema, irregular rhythm Gastrointestinal: Present: hypoactive bowel sounds Integumentary: Present: warm and dry - Lab 06/07/17 08:46 06/07/17 08:46 Most recent lab results ABG pH 7.35 pH Units (7.32-7.45) 06/07/17 07:39 ABG pCO2 39 mmHg (35-45) 06/07/17 07:39 ABG pO2 65 mmHg (85-104) L 06/07/17 07:39 ABG HCO3 21 mEq/L (21-27) 06/07/17 07:39 ABG O2 Saturation 91 % (95-98) L 06/07/17 07:39 Calcium 8.9 mg/dL (8.6-10.3) 06/07/17 08:46 Phosphorus 9.7 mg/dL (2.7-4.5) H 06/07/17 08:46 Magnesium 2.2 mg/dL (1.6-2.6) 06/07/17 08:46 Consult Discharge Plan - Plan Referrals: NONE,PCP [Primary Care Provider] - (Patient will follow up with renal doctors)
[2017-06-08] MEDS: Insulin LISPRO 300 UNITS/3 ML VIAL SQ SCH ×6 (03:57→23:43)
[2017-06-08] MEDS: *HR* Heparin 5,000 UNIT/ML VIAL SQ SCH ×3 (04:09→20:19)
[2017-06-08] MEDS: Lacri-Lube 3.5 GM TUBE BOTH EYES SCH ×6 (04:09→23:43)
[2017-06-08 04:23] LABS: Basophils # 0.1 K/mcL (0.0-0.2); Basophils % 0.6 %; Eosinophils # 0.3 K/mcL (0.0-0.6); Eosinophils % 2.1 %; Hematocrit 22.8 % (37.5-50.1); Hemoglobin 6.8 g/dL (12.9-16.9); Lymphocytes # 1.5 K/mcL (0.6-4.6); Lymphocytes % 10.4 %; Mean Corpuscular HGB Conc 29.8 g/dL (31.6-35.5); Mean Corpuscular Volume 93.8 fL (83.0-100.0); Mean Platelet Volume 9.6 fL (9.4-12.4); Monocytes # 1.3 K/mcL (0.0-1.3); Monocytes % 8.9 %; Nucleated Red Blood Cells 0.1 /100 WBC (0); Platelet Count 292 K/mcL (140-400); Red Blood Count 2.43 M/mcL (4.19-5.50); Red Cell Distribution Width 15.4 % (11.5-14.5)
[2017-06-08 04:33] LABS: INR 2.5
[2017-06-08 04:36] LABS: Albumin 2.5 g/dL (3.5-5.7); Calcium 9.1 mg/dL (8.6-10.3); Neutrophils # 10.2 K/mcL (1.6-8.9); Phosphorous 10.7 mg/dL (2.7-4.5); Potassium 5.3 mEq/L (3.5-5.1)
[2017-06-08 05:35] LABS: Hypochromasia Present (Not Present); Platelet Estimate Normal (Normal)
--- NOTE | 2017-06-08 08:19 | Pulmonology Progress Note ---
Date of Encounter: 06/08/17 Time of Encounter: 08:19 Assessment and Plan (1) Cardiac arrest Current Visit: Yes Status: Acute Status post cardiac arrest he has completed hypothermia protocol still remains unresponsive neurology following extremely poor prognosis neurologically EEG shows diffuse slowing which is consistent with this diagnosis neurology is following as is palliative care (2) Anoxic brain damage Current Visit: Yes Status: Acute Neurology is following appreciate the recommendations overall prognosis is poor (but patient is clearly not brain ) patient has been made DNAR/DNI after consulation with family between Critical Care team, Palliative Care and Neurology. Shows little in the way of meaningful recovery at this time (3) ESRD needing dialysis Current Visit: Yes Status: Chronic Nephrology following plan for dialysis per scheduled. Follow and replace electrolytes per protocol (4) Pneumonia Current Visit: Yes Status: Acute Antimicrobials were switched to Zosyn yesterday for rising white count and concern about aspiration white count has trended down today we will continue to follow up cultures Qualifiers: Pneumonia type: aspiration pneumonia Laterality: bilateral Lung location : unspecified part of lung Qualified Code(s): J69.0 - Pneumonitis due to inhalation of food and vomit (5) Acute respiratory failure with hypoxia and hypercapnia Current Visit: Yes Status: Acute He is intubated on the vent with acceptable oxygenation and ventilation although he does have a notable VQ mismatch leading to need for increased respiratory rate to correct respiratory acidosis. Continue with low tidal volume ventilatory strategy ABG pending from today except for oxygenation we will continue to decrease FiO2 today to 40% to keep saturation greater than 90% . PEEP is 8 and Peak and plateau pressures on vent remain acceptable. Plan to decrease basal respiratory rate as improving lung function. (6) Goals of care, counseling/discussion Current Visit: Yes Status: Acute Family was updated at bedside daily with ongoing neurological assessment and evaluation which remains overall very poor. His clearly understands current medical situation but is unclear what direction to proceed with her to de-escalate to comfort measures or to continue care as we are currently giving the primary people in this discussion appear to be the and patient's sister at bedside both of whom I spoke with (7) Chronic anemia Current Visit: Yes Status: Acute Slightly drop in H&H overnight to less than 7 fully this is chronic in nature and related to critical illness frequent blood draws and underlying chronic anemia related to ESRD. Transfusion today 2 units. (8) Paroxysmal A-fib Current Visit: Yes Status: Chronic Patient with tachycardia yesterday to with ECG consistent with A. 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 Interval history: Stable neurological examination over last 24 hours remains hemodynamically stable overnight family at bedside Objective PUL Vital signs: Last Vital Signs Temp 98.1 F 06/08/17 07:25 Pulse 88 06/08/17 05:51 Resp 24 06/08/17 07:49 BP 73/50 06/08/17 07:49 Pulse Ox 92 06/08/17 07:49 General appearance: comatose Eyes: nonicteric Auscultation: bilateral: diminished breath sounds Cardiovascular: irregular rhythm Gastrointestinal: normoactive bowel sounds Integumentary: normal Extremities: edema pupils equal and round (He does grimace to painful stimuli blink to threat noted gag reflexes also intact is no movement of his extremities but no other purposeful movements) Ventilator Settings Ventilator Settings: Ventilator Settings, Last 8 Hours Ventilator Mode A/C Ventilator Mode A/C Ventilator Mode A/C Ventilator Mode A/C Ventilator Mode A/C Ventilator Mode A/C Ventilator Mode A/C Ventilator Mode A/C Ventilator Mode A/C Ventilator Mode A/C Ventilator Mode A/C Ventilator Tidal Volume 550 Setting Ventilator Tidal Volume 550 Setting Ventilator Tidal Volume 550 Setting Ventilator Tidal Volume 550 Setting Ventilator Tidal Volume 550 Setting Ventilator Tidal Volume 550 Setting Ventilator Tidal Volume 550 Setting Ventilator Tidal Volume 550 Setting Ventilator Tidal Volume 550 Setting Ventilator Tidal Volume 550 Setting Ventilator Tidal Volume 550 Setting Ventilator Respiratory Rate 24 Setting Ventilator Respiratory Rate 24 Setting Ventilator Respiratory Rate 24 Setting Ventilator Respiratory Rate 24 Setting Ventilator Respiratory Rate 24 Setting Ventilator Respiratory Rate 24 Setting Ventilator Respiratory Rate 24 Setting Ventilator Respiratory Rate 24 Setting Ventilator Respiratory Rate 24 Setting Ventilator Respiratory Rate 24 Setting Ventilator Respiratory Rate 24 Setting Actual Respiratory Rate 24 Actual Respiratory Rate 24 Actual Respiratory Rate 24 Actual Respiratory Rate 24 Actual Respiratory Rate 24 Actual Respiratory Rate 25 Actual Respiratory Rate 25 Actual Respiratory Rate 24 Actual Respiratory Rate 24 Actual Respiratory Rate 24 Actual Respiratory Rate 24 Positive End Expiratory 8 Pressure Positive End Expiratory 8 Pressure Positive End Expiratory 8 Pressure Positive End Expiratory 8 Pressure Positive End Expiratory 8 Pressure Positive End Expiratory 8 Pressure Positive End Expiratory 8 Pressure Positive End Expiratory 8 Pressure Positive End Expiratory 8 Pressure Positive End Expiratory 8 Pressure Positive End Expiratory 8 Pressure Peak Inspiratory Airway 26 Pressure Peak Inspiratory Airway 25 Pressure Peak Inspiratory Airway 29 Pressure Peak Inspiratory Airway 26 Pressure Peak Inspiratory Airway 26 Pressure Peak Inspiratory Airway 26 Pressure Peak Inspiratory Airway 26 Pressure Peak Inspiratory Airway 26 Pressure Peak Inspiratory Airway 26 Pressure Peak Inspiratory Airway 26 Pressure Peak Inspiratory Airway 26 Pressure Results - Laboratory Findings CBC and BMP: 06/08/17 09:10 06/08/17 04:00 ABG ABG pH 7.35 pH Units (7.32-7.45) 06/07/17 07:39 ABG pCO2 39 mmHg (35-45) 06/07/17 07:39 ABG pO2 65 mmHg (85-104) L 06/07/17 07:39 ABG O2 Saturation 91 % (95-98) L 06/07/17 07:39 PT/INR, D-dimer PT 28.0 Seconds (9.4-12.1) H D 06/08/17 04:00 Abnormal lab findings: Abnormal lab results WBC 14.1 K/mcL (4.3-11.1) H 06/08/17 04:00 RBC 2.43 M/mcL (4.19-5.50) L 06/08/17 04:00 Hgb 6.8 g/dL (12.9-16.9) L 06/08/17 04:00 Hct 22.8 % (37.5-50.1) L 06/08/17 04:00 MCHC 29.8 g/dL (31.6-35.5) L 06/08/17 04:00 RDW 15.4 % (11.5-14.5) H 06/08/17 04:00 Immature Gran % 6.0 % (0-4) H 06/08/17 04:00 Neutrophils # 10.2 K/mcL (1.6-8.9) H 06/08/17 04:00 Nucleated RBCs/100 WBC 0.1 /100 WBC (0) H 06/08/17 04:00 Hypochromasia Present (Not Present) A 06/08/17 04:00 PT 28.0 Seconds (9.4-12.1) H D 06/08/17 04:00 APTT 25.7 Seconds (26.0-36.0) L D 06/03/17 21:15 ABG pO2 65 mmHg (85-104) L 06/07/17 07:39 ABG O2 Saturation 91 % (95-98) L 06/07/17 07:39 ABG Base Excess -4 mEq/L (-2 to 3) L 06/07/17 07:39 VBG pH 7.22 pH Units (7.32-7.42) L 06/03/17 14:03 VBG pCO2 65 mmHg (41-51) H 06/03/17 14:03 VBG pO2 76 mmHg (25-50) H 06/03/17 14:03 Sodium 134 mEq/L (136-145) L 06/08/17 04:00 Potassium 5.3 mEq/L (3.5-5.1) H 06/08/17 04:00 Carbon Dioxide 20 mEq/L (23-29) L 06/08/17 04:00 BUN 69 mg/dL (8-23) H 06/08/17 04:00 Creatinine 10.59 mg/dL (0.70-1.30) H 06/08/17 04:00 Est GFR ( Amer) 6 (> 60) L 06/08/17 04:00 Est GFR (Non-Af Amer) 5 (> 60) L 06/08/17 04:00 Glucose 124 mg/dL (70-105) H 06/08/17 04:00 POC Glucose 127 (58-89) H 06/08/17 07:26 Venous Ioniz Calcium 0.97 mmol/L (1.15-1.35) L 06/05/17 04:34 Phosphorus 10.7 mg/dL (2.7-4.5) H 06/08/17 04:00 Iron 15 mcg/dL (65-175) L 05/29/17 07:40 % Saturation 6 % (20-55) L 05/29/17 07:40 Transferrin 169 mg/dL (174-364) L 05/29/17 07:40 Ferritin 517 ng/ml (22-275) H 05/29/17 07:40 Total Bilirubin 0.2 mg/dL (0.3-1.0) L 05/31/17 06:15 AST 12 Units/L (13-39) L 05/31/17 06:15 Albumin 2.5 g/dL (3.5-5.7) L 06/08/17 04:00 Globulin 4.1 g/dL (2.4-3.5) H 05/31/17 06:15 Albumin/Globulin Ratio 0.7 (1.1-2.2) L 05/31/17 06:15 Triglycerides 203 mg/dL (< 150) H 05/27/17 03:50 VLDL Cholesterol, Calc 41 mg/dL (< 31) H 05/27/17 03:50 HDL Cholesterol 16 mg/dL (40-59) L 05/27/17 03:50 Cholesterol/HDL Ratio 6.6 (0-4.9) H 05/27/17 03:50 PTH Intact 457.2 pg/ml (8.5-72.5) H 05/29/17 07:40 Urine Clarity Cloudy (Clear) A 05/27/17 13:15 Urine Protein >=300 mg/dL (Neg-Trace) H 05/27/17 13:15 Urine Glucose (UA) 100 mg/dL (Normal) H 05/27/17 13:15 Urine Blood Large (Negative) H 05/27/17 13:15 Urine Microscopic WBC 3-5 per hpf (0-3) H 05/27/17 13:15 Ur Squamous Epith Cells Moderate per lpf (None-Few) H 05/27/17 13:15 - Microbiology Findings Microbiology Findings: Microbiology, Last 48 Hours 06/02/17 14:19 Blood Culture - Final Peripheral Venipuncture No growth. 06/02/17 14:19 Blood Culture - Final Peripheral Venipuncture No growth. 06/02/17 14:14 Blood Culture - Final Central Venous Catheter No growth. - Clinical Findings Intake & Output: Intake & Output 06/07/17 06/08/17 06/08/17 23:59 07:59 15:59 Intake Total 300 / 300 200 / 200 Output Total 72 / 72 Balance 228 / 228 200 / 200 Weight 110 kg Consult Discharge Plan - Plan Referrals: NONE,PCP [Primary Care Provider] - (Patient will follow up with renal doctors)
--- NOTE | 2017-06-08 09:10 | Palliative Progress Note ---
Date of Encounter: 06/08/17 Time of Encounter: 08:50 - Assessment and plan (1) Acute metabolic encephalopathy Current Visit: Yes Status: Acute Assessment and plan: Secondary to CVA extremely poor prognosis per neurology. EG shows diffuse slowing consistent with anoxic brain injury, however per neurology the patient' s brainstem exes are intact. (2) ESRD needing dialysis Current Visit: Yes Status: Chronic Assessment and plan: Being followed by nephrology. Patient's family is deciding whether or not to continue dialysis or not. Believe that the patient is scheduled for dialysis today. This would be needed through nephrology. (3) Cardiac arrest due to other underlying condition Current Visit: Yes Status: Acute Assessment and plan: Patient is now DNR CCA and react arrest is felt to be the cause of the metabolic encephalopathy. (4) Goals of care, counseling/discussion Current Visit: Yes Status: Acute Assessment and plan: Patient is already DNR CCA. Also care family is deciding on further goals of care. Discussion with yesterday reveal that she is feeling extremely pressured rushed to move towards withdrawal of care. While this is not the least bit unreasonable in terms of a therapeutic option needs some time to weigh the options. She does realize that withdrawal of care will undoubtedly cause him to pass much quicker. Believe that she also understands that any meaningful recovery is virtually impossible. I did not discuss withdrawal of care with her this morning, as this at already been done by nephrology. I will remain on the case to be available for help. - Time Spent With Patient Total time spent is greater than 50% in coordination of care (as documented) at patient's floor/unit and/or counseling patient: - Subjective Interval history: The patient continues to be on the ventilator, there has been no significant changes overnight. I did note this point the blood pressure is much lower than it has been. - Constitutional Vitals: Abnormal lab results WBC 14.1 K/mcL (4.3-11.1) H 06/08/17 04:00 RBC 2.43 M/mcL (4.19-5.50) L 06/08/17 04:00 Hgb 6.8 g/dL (12.9-16.9) L 06/08/17 04:00 Hct 22.8 % (37.5-50.1) L 06/08/17 04:00 MCHC 29.8 g/dL (31.6-35.5) L 06/08/17 04:00 RDW 15.4 % (11.5-14.5) H 06/08/17 04:00 Immature Gran % 6.0 % (0-4) H 06/08/17 04:00 Neutrophils # 10.2 K/mcL (1.6-8.9) H 06/08/17 04:00 Nucleated RBCs/100 WBC 0.1 /100 WBC (0) H 06/08/17 04:00 Hypochromasia Present (Not Present) A 06/08/17 04:00 PT 28.0 Seconds (9.4-12.1) H D 06/08/17 04:00 APTT 25.7 Seconds (26.0-36.0) L D 06/03/17 21:15 ABG pO2 65 mmHg (85-104) L 06/07/17 07:39 ABG O2 Saturation 91 % (95-98) L 06/07/17 07:39 ABG Base Excess -4 mEq/L (-2 to 3) L 06/07/17 07:39 VBG pH 7.22 pH Units (7.32-7.42) L 06/03/17 14:03 VBG pCO2 65 mmHg (41-51) H 06/03/17 14:03 VBG pO2 76 mmHg (25-50) H 06/03/17 14:03 Sodium 134 mEq/L (136-145) L 06/08/17 04:00 Potassium 5.3 mEq/L (3.5-5.1) H 06/08/17 04:00 Carbon Dioxide 20 mEq/L (23-29) L 06/08/17 04:00 BUN 69 mg/dL (8-23) H 06/08/17 04:00 Creatinine 10.59 mg/dL (0.70-1.30) H 06/08/17 04:00 Est GFR ( Amer) 6 (> 60) L 06/08/17 04:00 Est GFR (Non-Af Amer) 5 (> 60) L 06/08/17 04:00 Glucose 124 mg/dL (70-105) H 06/08/17 04:00 POC Glucose 127 (58-89) H 06/08/17 07:26 Venous Ioniz Calcium 0.97 mmol/L (1.15-1.35) L 06/05/17 04:34 Phosphorus 10.7 mg/dL (2.7-4.5) H 06/08/17 04:00 Iron 15 mcg/dL (65-175) L 05/29/17 07:40 % Saturation 6 % (20-55) L 05/29/17 07:40 Transferrin 169 mg/dL (174-364) L 05/29/17 07:40 Ferritin 517 ng/ml (22-275) H 05/29/17 07:40 Total Bilirubin 0.2 mg/dL (0.3-1.0) L 05/31/17 06:15 AST 12 Units/L (13-39) L 05/31/17 06:15 Albumin 2.5 g/dL (3.5-5.7) L 06/08/17 04:00 Globulin 4.1 g/dL (2.4-3.5) H 05/31/17 06:15 Albumin/Globulin Ratio 0.7 (1.1-2.2) L 05/31/17 06:15 Triglycerides 203 mg/dL (< 150) H 05/27/17 03:50 VLDL Cholesterol, Calc 41 mg/dL (< 31) H 05/27/17 03:50 HDL Cholesterol 16 mg/dL (40-59) L 05/27/17 03:50 Cholesterol/HDL Ratio 6.6 (0-4.9) H 05/27/17 03:50 PTH Intact 457.2 pg/ml (8.5-72.5) H 05/29/17 07:40 Urine Clarity Cloudy (Clear) A 05/27/17 13:15 Urine Protein >=300 mg/dL (Neg-Trace) H 05/27/17 13:15 Urine Glucose (UA) 100 mg/dL (Normal) H 05/27/17 13:15 Urine Blood Large (Negative) H 05/27/17 13:15 Urine Microscopic WBC 3-5 per hpf (0-3) H 05/27/17 13:15 Ur Squamous Epith Cells Moderate per lpf (None-Few) H 05/27/17 13:15 General appearance: Present: no acute distress - Head Head exam: Present: atraumatic, normal inspection - Eye Eye exam: Present: normal appearance - ENT ENT exam: Present: mucous membranes moist (Intubated) - Respiratory Respiratory exam: Present: decreased breath sounds (Upper airway noise, patient is intubated) - Cardiovascular Cardiovascular exam: Present: irregular rhythm - GI/Abdominal GI/Abdominal exam: Present: hypoactive bowel sounds, soft. Absent: tenderness - Extremities Exam Extremities exam: Present: pedal edema (Mild). Absent: tenderness - Neurological Exam Neurological exam: Present: altered (Profoundly altered), motor sensory deficit (No responses at all noted). Absent: no focal deficits - Psychiatric Psychiatric exam: Absent: agitated, anxious - Skin Skin exam: Present: dry, warm Palliative Quality Palliative Quality: Screen for Code Status: Yes, Screen for Goals of Care: Yes, Screen for Pain: Yes, If Pain Regimen Started, Initiate Bowel Regimen: Yes, Screen for Nausea/Vomitting: Yes Code Status: 05/26/17 21:21 Resuscitation Status: Active [RES] Routine Comment: Resuscitation Status: Full Code Resuscitation Status: Active [RES] Routine Comment: Resuscitation Status: DNR-Comfort Care-Arrest - Labs CBC & Chem 7: 06/08/17 04:00 06/08/17 04:00 Labs: Laboratory Results - last 24 hr 06/06/17 06/07/17 06/07/17 23:26 11:02 15:42 WBC RBC Hgb Hct MCV MCH MCHC RDW Plt Count MPV Immature Gran % Seg Neutrophils % Lymphocytes % Monocytes % Eosinophils % Basophils % Neutrophils # Lymphocytes # Monocytes # Eosinophils # Basophils # Nucleated RBCs/100 WBC Platelet Estimate Hypochromasia PT INR Sodium Potassium Chloride Carbon Dioxide BUN Creatinine Est GFR ( Amer) Est GFR (Non-Af Amer) BUN/Creatinine Ratio Glucose POC Glucose 152 H 151 H 174 H Calculated Osmolality Calcium Phosphorus Albumin 06/07/17 06/07/17 06/08/17 19:42 23:24 03:54 WBC RBC Hgb Hct MCV MCH MCHC RDW Plt Count MPV Immature Gran % Seg Neutrophils % Lymphocytes % Monocytes % Eosinophils % Basophils % Neutrophils # Lymphocytes # Monocytes # Eosinophils # Basophils # Nucleated RBCs/100 WBC Platelet Estimate Hypochromasia PT INR Sodium Potassium Chloride Carbon Dioxide BUN Creatinine Est GFR ( Amer) Est GFR (Non-Af Amer) BUN/Creatinine Ratio Glucose POC Glucose 180 H 142 H 114 H Calculated Osmolality Calcium Phosphorus Albumin 06/08/17 06/08/17 06/08/17 04:00 04:00 04:00 WBC 14.1 H RBC 2.43 L Hgb 6.8 L Hct 22.8 L MCV 93.8 MCH 28.0 MCHC 29.8 L RDW 15.4 H Plt Count 292 MPV 9.6 Immature Gran % 6.0 H Seg Neutrophils % 72.0 Lymphocytes % 10.4 Monocytes % 8.9 Eosinophils % 2.1 Basophils % 0.6 Neutrophils # 10.2 H Lymphocytes # 1.5 Monocytes # 1.3 Eosinophils # 0.3 Basophils # 0.1 Nucleated RBCs/100 WBC 0.1 H Platelet Estimate Normal Hypochromasia Present A PT 28.0 H D INR 2.5 D Sodium 134 L Potassium 5.3 H Chloride 98 Carbon Dioxide 20 L BUN 69 H Creatinine 10.59 H Est GFR ( Amer) 6 L Est GFR (Non-Af Amer) 5 L BUN/Creatinine Ratio 7 Glucose 124 H POC Glucose Calculated Osmolality 300 Calcium 9.1 Phosphorus 10.7 H Albumin 2.5 L 06/08/17 07:26 WBC RBC Hgb Hct MCV MCH MCHC RDW Plt Count MPV Immature Gran % Seg Neutrophils % Lymphocytes % Monocytes % Eosinophils % Basophils % Neutrophils # Lymphocytes # Monocytes # Eosinophils # Basophils # Nucleated RBCs/100 WBC Platelet Estimate Hypochromasia PT INR Sodium Potassium Chloride Carbon Dioxide BUN Creatinine Est GFR ( Amer) Est GFR (Non-Af Amer) BUN/Creatinine Ratio Glucose POC Glucose 127 H Calculated Osmolality Calcium Phosphorus Albumin - ABG Interpretation ABG results: ABG ABG pH 7.35 pH Units (7.32-7.45) 06/07/17 07:39 ABG pCO2 39 mmHg (35-45) 06/07/17 07:39 ABG pO2 65 mmHg (85-104) L 06/07/17 07:39 ABG O2 Saturation 91 % (95-98) L 06/07/17 07:39 PT/INR, D-dimer PT 28.0 Seconds (9.4-12.1) H D 06/08/17 04:00 Consult Discharge Plan - Plan Referrals: NONE,PCP [Primary Care Provider] - (Patient will follow up with renal doctors)
[2017-06-08 09:29] LABS: Hemoglobin 6.6 g/dL (12.9-16.9)
[2017-06-08] MEDS: Pantoprazole 40 MG VIAL IVP SCH (09:38)
[2017-06-08] MEDS: Chlorhexidine Rinse 15 ML MOUTHWASH MM SCH ×2 (09:38→20:19)
--- NOTE | 2017-06-08 09:40 | Nephrology Progress Note ---
Date of Encounter: 06/08/17 Time of Encounter: 08:10 - Assessment and Plan (1) ESRD needing dialysis Current Visit: Yes Status: Chronic CLAUDIA in setting of possible aspiration pneumonia, decreased oral intake, emesis superimposed on CKD 4 in setting of DM and HTN. Now requiring chronic HD. HD today transfusion PRBC's if wishes, awaiting her decision. (2) Acute metabolic encephalopathy Current Visit: Yes Status: Acute (3) Pneumonia Current Visit: Yes Status: Acute Qualifiers: Pneumonia type: aspiration pneumonia Laterality: bilateral Lung location : unspecified part of lung Qualified Code(s): J69.0 - Pneumonitis due to inhalation of food and vomit Subjective Principal diagnosis: [employer] failure s/p Cardiac arrest Interval history: Intubated. and Sister at bedside. Lengthy discussion with about DNR, options of withdrawal of care/comfort care. Continuing HD/blood transfusion and possibilty of becoming unstable, and noting current low BP in setting of poor prognosis. states currently overwhelmed with decision making issues. states will talk with children and get back with nephrology early afternoon as to whether to proceed with HD today. Objective - Vital Signs Vital signs: Vital Signs Temp Pulse Resp BP Pulse Ox 06/08/17 09:17 91 06/08/17 08:00 89 24 140/69 93 06/08/17 07:49 24 73/50 92 06/08/17 07:25 98.1 F 06/08/17 06:10 24 149/74 92 06/08/17 05:51 88 24 150/76 94 06/08/17 05:01 24 135/69 92 06/08/17 05:00 93 24 139/69 88 06/08/17 04:00 94 06/08/17 03:58 98.3 F 81 25 134/66 88 06/08/17 03:00 93 25 130/68 95 06/08/17 02:25 24 95/46 95 06/08/17 02:00 93 24 131/67 90 06/08/17 01:00 68 24 124/60 95 06/08/17 00:23 24 122/54 96 06/08/17 00:00 69 24 119/56 96 06/07/17 23:29 98.2 F 06/07/17 23:18 67 06/07/17 23:00 66 24 124/57 97 06/07/17 22:28 24 122/61 97 06/07/17 22:00 67 24 121/59 100 06/07/17 21:00 73 24 136/69 99 06/07/17 20:00 88 27 139/68 95 06/07/17 19:59 27 73/50 95 06/07/17 19:34 98.0 F 06/07/17 18:00 101 26 132/67 92 06/07/17 17:41 26 92 06/07/17 17:00 103 24 148/67 92 06/07/17 16:12 100.8 F H 06/07/17 16:00 96 24 113/65 92 06/07/17 15:41 24 92 06/07/17 15:00 90 24 107/56 92 06/07/17 14:00 103 25 118/63 94 06/07/17 13:00 100 25 114/60 94 06/07/17 12:30 25 94 06/07/17 12:00 86 06/07/17 11:15 100.0 F H 06/07/17 11:00 86 25 97/50 92 06/07/17 10:00 121 25 134/66 92 06/07/17 09:44 25 91 Intake and Output 06/07/17 06/08/17 06/08/17 23:59 07:59 15:59 Intake Total 300 / 300 200 / 200 Output Total 72 / 72 Balance 228 / 228 200 / 200 Intake: IV Fluids 300 / 300 200 / 200 FentaNYL (PF) 1,000 MCG In 0.9 100 / 100 % Sodium Chloride 80 ML @ 50 MCG/HR 5 mls/hr IVC CONT [facility]PE Rx #:[id number] Zosyn Premix 3.375 GM/200 ML 3. 200 / 200 200 / 200 375 gm In 200 ml @ 50 mls/hr IVPB Q12H [facility]PE Rx#:[id number] Oral 0 / 0 0 / 0 Output: Catheter Gastric Drainage 50 / 50 Other: Weight 110 kg Blood Glucose* 142 127 Patient Weight 06/08/17 23:59 Weight 110 kg - General Appearance General appearance: Present: well-developed, well-nourished, appears started age EENT: Present: mucous membranes moist Neck: Present: no JVD Cardiology: Present: irregular rhythm Additional Comments: mild LE edema Gastrointestinal: Present: hypoactive bowel sounds Integumentary: Present: warm and dry - Lab 06/08/17 09:10 06/08/17 04:00 Most recent lab results ABG pH 7.35 pH Units (7.32-7.45) 06/07/17 07:39 ABG pCO2 39 mmHg (35-45) 06/07/17 07:39 ABG pO2 65 mmHg (85-104) L 06/07/17 07:39 ABG HCO3 21 mEq/L (21-27) 06/07/17 07:39 ABG O2 Saturation 91 % (95-98) L 06/07/17 07:39 Calcium 9.1 mg/dL (8.6-10.3) 06/08/17 04:00 Phosphorus 10.7 mg/dL (2.7-4.5) H 06/08/17 04:00 Magnesium 2.2 mg/dL (1.6-2.6) 06/07/17 08:46 Consult Discharge Plan - Plan Referrals: NONE,PCP [Primary Care Provider] - (Patient will follow up with renal doctors)
[2017-06-08 09:48] LABS: ABG Base Excess -4 mEq/L (-2 to 3); ABG HCO3 21 mEq/L (21-27); ABG Oxygen Saturation 95 % (95-98); ABG PCO2 37 mmHg (35-45); ABG PH 7.37 pH Units (7.32-7.45); ABG PO2 77 mmHg (85-104); ABG TCO2 23 mEq/L (20-26); Blood Gas Modality ASSIST CONTROL; Blood Gas PEEP 8 cm H2O; Blood Gas Respiration Rate 24; Blood Gas VT 550 cc
[2017-06-08] MEDS: *HR* Phytonadione 10 MG/ML AMPUL SQ SCH (12:24)
[2017-06-08] MEDS: Piperacillin/Tazobactam 3.375 GM/200 ML BAG IVPB SCH ×2 (12:25→23:43)
[2017-06-08] MEDS: Norepinephrine 4 MG in D5% in Water 250 ML IVC SCH (13:47)
[2017-06-08 16:06] LABS: Albumin/Globulin Ratio 0.5 (1.1-2.2); Bilirubin,Direct 0.6 mg/dL (0.0-0.2); Bilirubin,Indirect 0.4 mg/dL (0.0-1.2); Globulin 4.6 g/dL (2.4-3.5); Total Protein 7.1 g/dL (6.4-8.9)
[2017-06-09] MEDS: *HR* Heparin 5,000 UNIT/ML VIAL SQ SCH ×3 (03:46→20:50)
[2017-06-09] MEDS: Lacri-Lube 3.5 GM TUBE BOTH EYES SCH ×5 (03:46→20:51)
[2017-06-09] MEDS: Insulin LISPRO 300 UNITS/3 ML VIAL SQ SCH ×5 (03:47→20:51)
--- NOTE | 2017-06-09 07:25 | Electrocardiograph Report ---
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
[2017-06-09 07:41] LABS: Hematocrit 22.1 % (37.5-50.1); Hemoglobin 6.7 g/dL (12.9-16.9); Mean Corpuscular HGB Conc 30.3 g/dL (31.6-35.5); Mean Corpuscular Hemoglobin 28.5 pg (28.0-33.3); Mean Platelet Volume 9.6 fL (9.4-12.4); Platelet Count 268 K/mcL (140-400); Red Blood Count 2.35 M/mcL (4.19-5.50); Red Cell Distribution Width 15.8 % (11.5-14.5)
[2017-06-09 08:02] LABS: Calcium 8.8 mg/dL (8.6-10.3)
--- NOTE | 2017-06-09 08:39 | Pulmonology Progress Note ---
Date of Encounter: 06/09/17 Time of Encounter: 08:39 Assessment and Plan (1) Cardiac arrest Current Visit: Yes Status: Acute Status post cardiac arrest he has completed hypothermia protocol still remains unresponsive neurology following extremely poor prognosis neurologically EEG shows diffuse slowing which is consistent with this diagnosis neurology is following as is palliative care (2) Anoxic brain damage Current Visit: Yes Status: Acute Neurology is following appreciate the recommendations overall prognosis is poor (but patient is clearly not brain ) patient has been made DNAR/DNI after consulation with family between Critical Care team, Palliative Care and Neurology. Shows little in the way of meaningful recovery at this time (3) ESRD needing dialysis Current Visit: Yes Status: Chronic Nephrology family deciding if they want to continue to puruse dialysis or transition to comfort measures l (4) Pneumonia Current Visit: Yes Status: Acute Patient is receiving antimicrobials Qualifiers: Pneumonia type: aspiration pneumonia Laterality: bilateral Lung location : unspecified part of lung Qualified Code(s): J69.0 - Pneumonitis due to inhalation of food and vomit (5) Acute respiratory failure with hypoxia and hypercapnia Current Visit: Yes Status: Acute He is still remained requiring significant ventilator support which is likely secondary to pneumonia and cardiogenic edema acceptable oxygenation today (6) Goals of care, counseling/discussion Current Visit: Yes Status: Acute Family was updated at bedside daily with ongoing neurological assessment and evaluation which remains overall very poor. His clearly understands current medical situation but is unclear what direction to proceed with her to de-escalate to comfort measures or to continue care as we are currently giving. (7) Chronic anemia Current Visit: Yes Status: Acute Slightly drop in H&H overnight to less than 7 fully this is chronic in nature and related to critical illness frequent blood draws and underlying chronic anemia related to ESRD. Family currently declining red blood cell transfusion (8) Paroxysmal A-fib Current Visit: Yes Status: Chronic ECG consistent with A. 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 No further neurological change. Family members declined red blood cell transfusion yesterday and dialysis they are considering whether they want to continue this at all or just transition to complete comfort measures Objective PUL Vital signs: Last Vital Signs Temp 101.1 F H 06/09/17 07:57 Pulse 116 06/09/17 08:00 Resp 20 06/09/17 08:00 BP 102/64 06/09/17 08:00 Pulse Ox 95 06/09/17 08:00 General appearance: comatose Auscultation: bilateral: diminished breath sounds Cardiovascular: regular rate and rhythm Gastrointestinal: soft, non-tender Extremities: no edema pupils equal and round, other (No purposeful movements grimacing to pain gag reflex intact) Ventilator Settings Ventilator Settings: Ventilator Settings, Last 8 Hours Ventilator Mode VC+ Ventilator Mode VC+ Ventilator Mode VC+ Ventilator Mode VC+ Ventilator Mode VC+ Ventilator Mode VC+ Ventilator Mode VC+ Ventilator Mode VC+ Ventilator Mode VC+ Ventilator Mode VC+ Ventilator Mode VC+ Ventilator Mode VC+ Ventilator Tidal Volume 550 Setting Ventilator Tidal Volume 550 Setting Ventilator Tidal Volume 550 Setting Ventilator Tidal Volume 550 Setting Ventilator Tidal Volume 550 Setting Ventilator Tidal Volume 550 Setting Ventilator Tidal Volume 550 Setting Ventilator Tidal Volume 550 Setting Ventilator Tidal Volume 550 Setting Ventilator Tidal Volume 550 Setting Ventilator Tidal Volume 550 Setting Ventilator Tidal Volume 550 Setting Ventilator Respiratory Rate 20 Setting Ventilator Respiratory Rate 20 Setting Ventilator Respiratory Rate 20 Setting Ventilator Respiratory Rate 20 Setting Ventilator Respiratory Rate 20 Setting Ventilator Respiratory Rate 20 Setting Ventilator Respiratory Rate 20 Setting Ventilator Respiratory Rate 20 Setting Ventilator Respiratory Rate 20 Setting Ventilator Respiratory Rate 20 Setting Ventilator Respiratory Rate 20 Setting Ventilator Respiratory Rate 20 Setting Actual Respiratory Rate 20 Actual Respiratory Rate 20 Actual Respiratory Rate 24 Actual Respiratory Rate 23 Actual Respiratory Rate 24 Actual Respiratory Rate 24 Actual Respiratory Rate 24 Actual Respiratory Rate 23 Actual Respiratory Rate 22 Actual Respiratory Rate 24 Actual Respiratory Rate 23 Actual Respiratory Rate 22 Positive End Expiratory 8 Pressure Positive End Expiratory 8 Pressure Positive End Expiratory 8 Pressure Positive End Expiratory 8 Pressure Positive End Expiratory 8 Pressure Positive End Expiratory 8 Pressure Positive End Expiratory 8 Pressure Positive End Expiratory 8 Pressure Positive End Expiratory 8 Pressure Positive End Expiratory 8 Pressure Positive End Expiratory 8 Pressure Positive End Expiratory 8 Pressure Peak Inspiratory Airway 34 Pressure Peak Inspiratory Airway 28 Pressure Peak Inspiratory Airway 28 Pressure Peak Inspiratory Airway 30 Pressure Peak Inspiratory Airway 27 Pressure Peak Inspiratory Airway 29 Pressure Peak Inspiratory Airway 27 Pressure Peak Inspiratory Airway 29 Pressure Peak Inspiratory Airway 24 Pressure Peak Inspiratory Airway 22 Pressure Peak Inspiratory Airway 27 Pressure Peak Inspiratory Airway 25 Pressure Results - Laboratory Findings CBC and BMP: 06/09/17 07:30 06/09/17 07:30 ABG ABG pH 7.37 pH Units (7.32-7.45) 06/08/17 09:38 ABG pCO2 37 mmHg (35-45) 06/08/17 09:38 ABG pO2 77 mmHg (85-104) L 06/08/17 09:38 ABG O2 Saturation 95 % (95-98) 06/08/17 09:38 PT/INR, D-dimer PT 28.0 Seconds (9.4-12.1) H D 06/08/17 04:00 Abnormal lab findings: Abnormal lab results WBC 13.0 K/mcL (4.3-11.1) H 06/09/17 07:30 RBC 2.35 M/mcL (4.19-5.50) L 06/09/17 07:30 Hgb 6.7 g/dL (12.9-16.9) L 06/09/17 07:30 Hct 22.1 % (37.5-50.1) L 06/09/17 07:30 MCHC 30.3 g/dL (31.6-35.5) L 06/09/17 07:30 RDW 15.8 % (11.5-14.5) H 06/09/17 07:30 Immature Gran % 6.0 % (0-4) H 06/08/17 04:00 Neutrophils # 10.2 K/mcL (1.6-8.9) H 06/08/17 04:00 Nucleated RBCs/100 WBC 0.1 /100 WBC (0) H 06/08/17 04:00 Hypochromasia Present (Not Present) A 06/08/17 04:00 PT 28.0 Seconds (9.4-12.1) H D 06/08/17 04:00 APTT 25.7 Seconds (26.0-36.0) L D 06/03/17 21:15 ABG pO2 77 mmHg (85-104) L 06/08/17 09:38 ABG Base Excess -4 mEq/L (-2 to 3) L 06/08/17 09:38 VBG pH 7.22 pH Units (7.32-7.42) L 06/03/17 14:03 VBG pCO2 65 mmHg (41-51) H 06/03/17 14:03 VBG pO2 76 mmHg (25-50) H 06/03/17 14:03 Potassium 6.0 mEq/L (3.5-5.1) H 06/09/17 07:30 Carbon Dioxide 21 mEq/L (23-29) L 06/09/17 07:30 BUN 82 mg/dL (8-23) H 06/09/17 07:30 Creatinine 12.52 mg/dL (0.70-1.30) H 06/09/17 07:30 Est GFR ( Amer) 5 (> 60) L 06/09/17 07:30 Est GFR (Non-Af Amer) 4 (> 60) L 06/09/17 07:30 Glucose 127 mg/dL (70-105) H 06/09/17 07:30 POC Glucose 126 (58-89) H 06/09/17 07:39 Calculated Osmolality 308 (280-300) H 06/09/17 07:30 Venous Ioniz Calcium 0.97 mmol/L (1.15-1.35) L 06/05/17 04:34 Phosphorus 10.7 mg/dL (2.7-4.5) H 06/08/17 04:00 Iron 15 mcg/dL (65-175) L 05/29/17 07:40 % Saturation 6 % (20-55) L 05/29/17 07:40 Transferrin 169 mg/dL (174-364) L 05/29/17 07:40 Ferritin 517 ng/ml (22-275) H 05/29/17 07:40 Direct Bilirubin 0.6 mg/dL (0.0-0.2) H 06/08/17 04:00 AST 43 Units/L (13-39) H 06/08/17 04:00 Albumin 2.5 g/dL (3.5-5.7) L 06/08/17 04:00 Globulin 4.6 g/dL (2.4-3.5) H 06/08/17 04:00 Albumin/Globulin Ratio 0.5 (1.1-2.2) L 06/08/17 04:00 Triglycerides 203 mg/dL (< 150) H 05/27/17 03:50 VLDL Cholesterol, Calc 41 mg/dL (< 31) H 05/27/17 03:50 HDL Cholesterol 16 mg/dL (40-59) L 05/27/17 03:50 Cholesterol/HDL Ratio 6.6 (0-4.9) H 05/27/17 03:50 PTH Intact 457.2 pg/ml (8.5-72.5) H 05/29/17 07:40 Urine Clarity Cloudy (Clear) A 05/27/17 13:15 Urine Protein >=300 mg/dL (Neg-Trace) H 05/27/17 13:15 Urine Glucose (UA) 100 mg/dL (Normal) H 05/27/17 13:15 Urine Blood Large (Negative) H 05/27/17 13:15 Urine Microscopic WBC 3-5 per hpf (0-3) H 05/27/17 13:15 Ur Squamous Epith Cells Moderate per lpf (None-Few) H 05/27/17 13:15 - Microbiology Findings Microbiology Findings: Microbiology, Last 48 Hours 06/02/17 14:19 Blood Culture - Final Peripheral Venipuncture No growth. 06/02/17 14:19 Blood Culture - Final Peripheral Venipuncture No growth. 06/02/17 14:14 Blood Culture - Final Central Venous Catheter No growth. - Clinical Findings Intake & Output: Intake & Output 06/08/17 06/09/17 06/09/17 23:59 07:59 15:59 Intake Total 200 / 200 Output Total 76 / 76 55 / 55 Balance 124 / 124 -55 / -55 Weight 109.9 kg Consult Discharge Plan - Plan Referrals: NONE,PCP [Primary Care Provider] - (Patient will follow up with renal doctors)
--- NOTE | 2017-06-09 09:00 | Palliative Progress Note ---
Date of Encounter: 06/09/17 Time of Encounter: 07:15 - Assessment and plan (1) Acute metabolic encephalopathy Current Visit: Yes Status: Acute Assessment and plan: Secondary to CVA extremely poor prognosis per neurology. EG shows diffuse slowing consistent with anoxic brain injury, however per neurology the patient' s brainstem exes are intact. No changes today. (2) ESRD needing dialysis Current Visit: Yes Status: Chronic Assessment and plan: Being followed by nephrology. Patient's family is deciding whether or not to continue dialysis or not. Believe that the patient is scheduled for dialysis today. This would be needed through nephrology. Per family day before yesterday plans for dialysis were depended upon nephrology. The decision for for that was for no dialysis yesterday I am unclear as to whether we are going to proceed with dialysis or not. And is still per nephrology from [facility] standpoint as I understand it. Family has been feeling very pressured and pushed. I therefore believe that this discussion should take place with nephrology, and we can be there to be supportive. (3) Cardiac arrest due to other underlying condition Current Visit: Yes Status: Acute Assessment and plan: Patient is now DNR CCA and react arrest is felt to be the cause of the metabolic encephalopathy. No changes [place] is [place] do not expect any recovery at all. (4) Goals of care, counseling/discussion Current Visit: Yes Status: Acute Assessment and plan: Patient is already DNR CCA. Also care family is deciding on further goals of care. Discussion with yesterday reveal that she is feeling extremely pressured rushed to move towards withdrawal of care. While this is not the least bit unreasonable in terms of a therapeutic option needs some time to weigh the options. She does realize that withdrawal of care will undoubtedly cause him to pass much quicker. Believe that she also understands that any meaningful recovery is virtually impossible. I did not discuss withdrawal of care with her this morning, as this at already been done by nephrology. I will remain on the case to be available for help. As above. The family is feeling very pressured at this point in time. I did not discuss withdrawal of care this morning. - Time Spent With Patient Total time spent is greater than 50% in coordination of care (as documented) at patient's floor/unit and/or counseling patient: - Subjective Interval history: The patient continues to be on the ventilator, there has been no significant changes overnight. As above no changes last night either. Family had no questions this morning. - Constitutional Vitals: Abnormal lab results WBC 13.0 K/mcL (4.3-11.1) H 06/09/17 07:30 RBC 2.35 M/mcL (4.19-5.50) L 06/09/17 07:30 Hgb 6.7 g/dL (12.9-16.9) L 06/09/17 07:30 Hct 22.1 % (37.5-50.1) L 06/09/17 07:30 MCHC 30.3 g/dL (31.6-35.5) L 06/09/17 07:30 RDW 15.8 % (11.5-14.5) H 06/09/17 07:30 Immature Gran % 6.0 % (0-4) H 06/08/17 04:00 Neutrophils # 10.2 K/mcL (1.6-8.9) H 06/08/17 04:00 Nucleated RBCs/100 WBC 0.1 /100 WBC (0) H 06/08/17 04:00 Hypochromasia Present (Not Present) A 06/08/17 04:00 PT 28.0 Seconds (9.4-12.1) H D 06/08/17 04:00 APTT 25.7 Seconds (26.0-36.0) L D 06/03/17 21:15 ABG pO2 77 mmHg (85-104) L 06/08/17 09:38 ABG Base Excess -4 mEq/L (-2 to 3) L 06/08/17 09:38 VBG pH 7.22 pH Units (7.32-7.42) L 06/03/17 14:03 VBG pCO2 65 mmHg (41-51) H 06/03/17 14:03 VBG pO2 76 mmHg (25-50) H 06/03/17 14:03 Potassium 6.0 mEq/L (3.5-5.1) H 06/09/17 07:30 Carbon Dioxide 21 mEq/L (23-29) L 06/09/17 07:30 BUN 82 mg/dL (8-23) H 06/09/17 07:30 Creatinine 12.52 mg/dL (0.70-1.30) H 06/09/17 07:30 Est GFR ( Amer) 5 (> 60) L 06/09/17 07:30 Est GFR (Non-Af Amer) 4 (> 60) L 06/09/17 07:30 Glucose 127 mg/dL (70-105) H 06/09/17 07:30 POC Glucose 126 (58-89) H 06/09/17 07:39 Calculated Osmolality 308 (280-300) H 06/09/17 07:30 Venous Ioniz Calcium 0.97 mmol/L (1.15-1.35) L 06/05/17 04:34 Phosphorus 10.7 mg/dL (2.7-4.5) H 06/08/17 04:00 Iron 15 mcg/dL (65-175) L 05/29/17 07:40 % Saturation 6 % (20-55) L 05/29/17 07:40 Transferrin 169 mg/dL (174-364) L 05/29/17 07:40 Ferritin 517 ng/ml (22-275) H 05/29/17 07:40 Direct Bilirubin 0.6 mg/dL (0.0-0.2) H 06/08/17 04:00 AST 43 Units/L (13-39) H 06/08/17 04:00 Albumin 2.5 g/dL (3.5-5.7) L 06/08/17 04:00 Globulin 4.6 g/dL (2.4-3.5) H 06/08/17 04:00 Albumin/Globulin Ratio 0.5 (1.1-2.2) L 06/08/17 04:00 Triglycerides 203 mg/dL (< 150) H 05/27/17 03:50 VLDL Cholesterol, Calc 41 mg/dL (< 31) H 05/27/17 03:50 HDL Cholesterol 16 mg/dL (40-59) L 05/27/17 03:50 Cholesterol/HDL Ratio 6.6 (0-4.9) H 05/27/17 03:50 PTH Intact 457.2 pg/ml (8.5-72.5) H 05/29/17 07:40 Urine Clarity Cloudy (Clear) A 05/27/17 13:15 Urine Protein >=300 mg/dL (Neg-Trace) H 05/27/17 13:15 Urine Glucose (UA) 100 mg/dL (Normal) H 05/27/17 13:15 Urine Blood Large (Negative) H 05/27/17 13:15 Urine Microscopic WBC 3-5 per hpf (0-3) H 05/27/17 13:15 Ur Squamous Epith Cells Moderate per lpf (None-Few) H 05/27/17 13:15 General appearance: Present: no acute distress - Head Head exam: Present: atraumatic, normal inspection - Eye Eye exam: Present: normal appearance - ENT ENT exam: Present: mucous membranes moist (Intubated) - Respiratory Respiratory exam: Present: decreased breath sounds (Upper airway noise) - Cardiovascular Cardiovascular exam: Present: irregular rhythm, tachycardia - GI/Abdominal GI/Abdominal exam: Present: hypoactive bowel sounds, soft. Absent: tenderness - Extremities Exam Extremities exam: Present: pedal edema. Absent: tenderness - Neurological Exam Neurological exam: Present: altered, motor sensory deficit. Absent: no focal deficits - Psychiatric Psychiatric exam: Absent: agitated, anxious - Skin Skin exam: Present: dry, warm Palliative Quality Palliative Quality: Screen for Code Status: Yes, Screen for Goals of Care: Yes, Screen for Pain: Yes, If Pain Regimen Started, Initiate Bowel Regimen: Yes, Screen for Nausea/Vomitting: Yes Code Status: 05/26/17 21:21 Resuscitation Status: Active [RES] Routine Comment: Resuscitation Status: Full Code Resuscitation Status: Active [RES] Routine Comment: Resuscitation Status: DNR-Comfort Care-Arrest - Labs CBC & Chem 7: 06/09/17 07:30 06/09/17 07:30 Labs: Laboratory Results - last 24 hr 06/08/17 06/08/17 06/08/17 04:00 09:10 09:31 WBC RBC Hgb 6.6 L Hct 22.0 L MCV MCH MCHC RDW Plt Count MPV ABG pH ABG pCO2 ABG pO2 ABG HCO3 ABG Total CO2 ABG O2 Saturation ABG Base Excess Respiration Rate Blood Gas Modality Inspired O2 Tidal Volume PEEP Sodium 134 L Potassium 5.3 H Chloride 98 Carbon Dioxide 20 L BUN 69 H Creatinine 10.59 H Est GFR ( Amer) 6 L Est GFR (Non-Af Amer) 5 L BUN/Creatinine Ratio 7 Glucose 124 H POC Glucose Calculated Osmolality 300 Calcium 9.1 Phosphorus 10.7 H Total Bilirubin 1.0 Direct Bilirubin 0.6 H Indirect Bilirubin 0.4 AST 43 H ALT 19 Alkaline Phosphatase 100 Serum Total Protein 7.1 Albumin 2.5 L Globulin 4.6 H Albumin/Globulin Ratio 0.5 L Blood Type O POSITIVE Antibody Screen NEGATIVE Crossmatch See Detail 06/08/17 06/08/17 06/08/17 09:38 11:19 16:24 WBC RBC Hgb Hct MCV MCH MCHC RDW Plt Count MPV ABG pH 7.37 ABG pCO2 37 ABG pO2 77 L ABG HCO3 21 ABG Total CO2 23 ABG O2 Saturation 95 ABG Base Excess -4 L Respiration Rate 24 Blood Gas Modality ASSIST CONTROL Inspired O2 60.0 Tidal Volume 550 PEEP 8 Sodium Potassium Chloride Carbon Dioxide BUN Creatinine Est GFR ( Amer) Est GFR (Non-Af Amer) BUN/Creatinine Ratio Glucose POC Glucose 141 H 148 H Calculated Osmolality Calcium Phosphorus Total Bilirubin Direct Bilirubin Indirect Bilirubin AST ALT Alkaline Phosphatase Serum Total Protein Albumin Globulin Albumin/Globulin Ratio Blood Type Antibody Screen Crossmatch 06/08/17 06/08/17 06/09/17 19:20 23:27 03:32 WBC RBC Hgb Hct MCV MCH MCHC RDW Plt Count MPV ABG pH ABG pCO2 ABG pO2 ABG HCO3 ABG Total CO2 ABG O2 Saturation ABG Base Excess Respiration Rate Blood Gas Modality Inspired O2 Tidal Volume PEEP Sodium Potassium Chloride Carbon Dioxide BUN Creatinine Est GFR ( Amer) Est GFR (Non-Af Amer) BUN/Creatinine Ratio Glucose POC Glucose 155 H 131 H 152 H Calculated Osmolality Calcium Phosphorus Total Bilirubin Direct Bilirubin Indirect Bilirubin AST ALT Alkaline Phosphatase Serum Total Protein Albumin Globulin Albumin/Globulin Ratio Blood Type Antibody Screen Crossmatch 06/09/17 06/09/17 06/09/17 07:30 07:30 07:39 WBC 13.0 H RBC 2.35 L Hgb 6.7 L Hct 22.1 L MCV 94.0 MCH 28.5 MCHC 30.3 L RDW 15.8 H Plt Count 268 MPV 9.6 ABG pH ABG pCO2 ABG pO2 ABG HCO3 ABG Total CO2 ABG O2 Saturation ABG Base Excess Respiration Rate Blood Gas Modality Inspired O2 Tidal Volume PEEP Sodium 136 Potassium 6.0 H Chloride 100 Carbon Dioxide 21 L BUN 82 H Creatinine 12.52 H Est GFR ( Amer) 5 L Est GFR (Non-Af Amer) 4 L BUN/Creatinine Ratio 7 Glucose 127 H POC Glucose 126 H Calculated Osmolality 308 H Calcium 8.8 Phosphorus Total Bilirubin Direct Bilirubin Indirect Bilirubin AST ALT Alkaline Phosphatase Serum Total Protein Albumin Globulin Albumin/Globulin Ratio Blood Type Antibody Screen Crossmatch - ABG Interpretation ABG results: ABG ABG pH 7.37 pH Units (7.32-7.45) 06/08/17 09:38 ABG pCO2 37 mmHg (35-45) 06/08/17 09:38 ABG pO2 77 mmHg (85-104) L 06/08/17 09:38 ABG O2 Saturation 95 % (95-98) 06/08/17 09:38 PT/INR, D-dimer PT 28.0 Seconds (9.4-12.1) H D 06/08/17 04:00 Consult Discharge Plan - Plan Referrals: NONE,PCP [Primary Care Provider] - (Patient will follow up with renal doctors)
--- NOTE | 2017-06-09 09:25 | Nephrology Progress Note ---
Date of Encounter: 06/09/17 Time of Encounter: 08:55 - Assessment and Plan (1) ESRD needing dialysis Current Visit: Yes Status: Chronic CLAUDIA in setting of possible aspiration pneumonia, decreased oral intake, emesis superimposed on CKD 4 in setting of DM and HTN. Now requiring chronic HD. HD today with transfusion 2 units PRBC's. Orders given. 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 and Sister at bedside. Lengthy discussion with reviewing DNR, chronic HD. Per Dr. Walker we are to be on board for chronic HD and not be held to a day to day decision per . Unless code status changes. informed of this. verbally angry that not being given absolute answers as to whether patient will be stable through dialysis. Stating "we" (staff) think she should know all of this information. Explained renal fct, hemodynamics, poor prognosis, EEG. Allowed unlimited time to ask questions. kept going in circles with same questions even though answered in basic format. Sister remained quiet. Objective - Vital Signs Vital signs: Vital Signs Temp Pulse Resp BP Pulse Ox 06/09/17 08:00 116 20 102/64 95 06/09/17 07:57 101.1 F H 06/09/17 07:32 23 102/64 91 06/09/17 07:00 105 20 126/60 94 06/09/17 06:00 105 24 125/61 92 06/09/17 05:44 23 124/60 93 06/09/17 05:00 108 24 129/63 92 06/09/17 04:35 24 135/62 92 06/09/17 04:00 106 24 128/61 92 06/09/17 03:50 106 06/09/17 03:29 100.6 F H 06/09/17 03:00 106 21 132/65 93 06/09/17 02:49 22 109/52 90 06/09/17 02:00 103 24 111/54 91 06/09/17 01:00 98 23 118/56 91 06/09/17 00:42 22 126/58 92 06/09/17 00:00 89 24 124/58 92 06/08/17 23:45 86 06/08/17 23:34 24 73/50 92 06/08/17 23:25 100.9 F H 06/08/17 23:00 90 22 114/58 91 06/08/17 22:00 66 22 114/54 94 06/08/17 21:33 21 114/54 94 06/08/17 21:00 76 21 122/57 93 06/08/17 20:00 106 21 127/62 94 06/08/17 19:37 22 135/70 94 06/08/17 19:17 99.8 F H 06/08/17 19:00 106 21 139/71 94 06/08/17 18:00 99 224 135/69 94 06/08/17 17:00 101 24 141/68 94 06/08/17 16:57 94 06/08/17 16:00 105 22 141/70 93 06/08/17 15:50 22 146/72 93 06/08/17 15:00 98.7 F 98 22 156/78 94 06/08/17 14:00 97 22 144/71 93 06/08/17 13:10 22 141/73 93 06/08/17 13:00 102 22 149/73 93 06/08/17 12:00 106 22 140/68 91 06/08/17 11:42 98.3 F 06/08/17 11:30 20 133/65 90 06/08/17 11:00 104 22 140/68 91 06/08/17 10:00 91 24 132/65 93 Intake and Output 06/08/17 06/09/17 06/09/17 23:59 07:59 15:59 Intake Total 200 / 200 Output Total 76 / 76 55 / 55 Balance 124 / 124 -55 / -55 Intake: IV Fluids 200 / 200 Zosyn Premix 3.375 GM/200 ML 3. 200 / 200 375 gm In 200 ml @ 50 mls/hr IVPB Q12H [facility] Rx#:[id number] Output: Stool 50 / 50 50 / 50 Catheter 26 / 26 5 / 5 Gastric Drainage 0 / 0 Other: Stool Consistency loose loose Stool Color Brown Brown Weight 109.9 kg Blood Glucose* 131 126 Patient Weight 06/09/17 23:59 Weight 109.9 kg - General Appearance General appearance: Present: well-developed, well-nourished, appears started age EENT: Present: mucous membranes moist Neck: Present: no JVD Respiratory: Present: rhonchi Cardiology: Present: edema, irregular rhythm Additional Comments: mild Gastrointestinal: Present: hypoactive bowel sounds Integumentary: Present: warm and dry - Lab 06/09/17 07:30 06/09/17 07:30 Most recent lab results ABG pH 7.37 pH Units (7.32-7.45) 06/08/17 09:38 ABG pCO2 37 mmHg (35-45) 06/08/17 09:38 ABG pO2 77 mmHg (85-104) L 06/08/17 09:38 ABG HCO3 21 mEq/L (21-27) 06/08/17 09:38 ABG O2 Saturation 95 % (95-98) 06/08/17 09:38 Calcium 8.8 mg/dL (8.6-10.3) 06/09/17 07:30 Phosphorus 10.7 mg/dL (2.7-4.5) H 06/08/17 04:00 Magnesium 2.2 mg/dL (1.6-2.6) 06/07/17 08:46 Consult Discharge Plan - Plan Referrals: NONE,PCP [Primary Care Provider] - (Patient will follow up with renal doctors)
[2017-06-09] MEDS: Chlorhexidine Rinse 15 ML MOUTHWASH MM SCH ×2 (09:31→20:50)
[2017-06-09] MEDS: Pantoprazole 40 MG VIAL IVP SCH (09:31)
[2017-06-09] MEDS ORDERED: *HR* Heparin 10,000 UNIT/10 ML VIAL IV PRN (09:32)
[2017-06-09] MEDS ORDERED: 0.9 % Sodium Chloride 250 ML IVC PRN (09:32)
[2017-06-09] MEDS ORDERED: 0.9 % Sodium Chloride 1,000 ML IVC ONE (10:48)
[2017-06-09] MEDS ORDERED: 0.9 % Sodium Chloride 1,000 ML ONE (10:49)
[2017-06-09] MEDS: Piperacillin/Tazobactam 3.375 GM/200 ML BAG IVPB SCH ×2 (10:56→22:47)
[2017-06-09] MEDS ORDERED: Vancomycin 1,750 MG in D5% in Water 250 ML IVPB SCH (11:00)
[2017-06-09] MEDS: *HR* Phytonadione 10 MG/ML AMPUL SQ SCH (11:08)
[2017-06-09] MEDS ORDERED: Vancomycin 500 MG in D5% in Water (Mini-Bag+) 100 ML IVPB ONE (17:00)
[2017-06-09] MEDS ORDERED: Vancomycin 500 MG in D5% in Water 100 ML IVPB ONE (17:00)
[2017-06-09] MEDS: Norepinephrine 4 MG in D5% in Water 250 ML IVC SCH (19:43)
[2017-06-09] MEDS: FentaNYL (PF) 1,000 MCG in 0.9 % Sodium Chloride 80 ML IVC SCH (19:43)
[2017-06-10] MEDS: Insulin LISPRO 300 UNITS/3 ML VIAL SQ SCH ×6 (00:05→21:05)
[2017-06-10] MEDS: Lacri-Lube 3.5 GM TUBE BOTH EYES SCH ×6 (00:05→21:05)
[2017-06-10] MEDS ORDERED: 0.9 % Sodium Chloride 500 ML ONE (02:01)
[2017-06-10 04:18] LABS: Basophils # 0.1 K/mcL (0.0-0.2); Basophils % 0.6 %; Eosinophils # 0.3 K/mcL (0.0-0.6); Eosinophils % 2.1 %; Hematocrit 27.3 % (37.5-50.1); Lymphocytes # 1.3 K/mcL (0.6-4.6); Lymphocytes % 9.5 %; Mean Corpuscular HGB Conc 30.4 g/dL (31.6-35.5); Mean Corpuscular Hemoglobin 28.2 pg (28.0-33.3); Mean Corpuscular Volume 92.9 fL (83.0-100.0); Mean Platelet Volume 9.8 fL (9.4-12.4); Monocytes % 6.9 %; Neutrophils # 10.7 K/mcL (1.6-8.9); Nucleated Red Blood Cells 0.1 /100 WBC (0); Platelet Count 274 K/mcL (140-400); Red Blood Count 2.94 M/mcL (4.19-5.50); Red Cell Distribution Width 17.1 % (11.5-14.5); Segmented Neutrophils % 76.9 %
[2017-06-10 04:22] LABS: INR 1.5
[2017-06-10 04:28] LABS: Hemoglobin 8.3 g/dL (12.9-16.9)
[2017-06-10 04:35] LABS: Potassium 5.3 mEq/L (3.5-5.1)
[2017-06-10] MEDS: *HR* Heparin 5,000 UNIT/ML VIAL SQ SCH ×3 (04:37→21:05)
[2017-06-10 05:06] LABS: Calcium 8.8 mg/dL (8.6-10.3)
--- NOTE | 2017-06-10 07:08 | Pulmonology Progress Note ---
Date of Encounter: 06/10/17 Time of Encounter: 07:08 Assessment and Plan (1) Cardiac arrest Current Visit: Yes Status: Acute Status post cardiac arrest he has completed hypothermia protocol still remains unresponsive neurology following extremely poor prognosis neurologically EEG shows diffuse slowing which is consistent with this diagnosis neurology is following as is palliative care (2) Anoxic brain damage Current Visit: Yes Status: Acute Neurology is following appreciate the recommendations overall prognosis is poor (but patient is clearly not brain ) patient has been made DNAR/DNI after consulation with family between Critical Care team, Palliative Care and Neurology. Shows little in the way of meaningful recovery at this time (3) ESRD needing dialysis Current Visit: Yes Status: Chronic Nephrology following. Dialysis per schedule. Follow electrolytes l (4) Pneumonia Current Visit: Yes Status: Acute Patient has persistent leukocytosis with fever antimicrobials have been broadened out ventilatory requirements have been stable Qualifiers: Pneumonia type: aspiration pneumonia Laterality: bilateral Lung location : unspecified part of lung Qualified Code(s): J69.0 - Pneumonitis due to inhalation of food and vomit (5) Acute respiratory failure with hypoxia and hypercapnia Current Visit: Yes Status: Acute He is still remained requiring significant ventilator support which is likely secondary to pneumonia and cardiogenic edema acceptable gas exchange today (6) Goals of care, counseling/discussion Current Visit: Yes Status: Acute and sister updated in the intensive care unit regarding persistent/ worsening infectious symptoms (7) Chronic anemia Current Visit: Yes Status: Acute Status post transfusion yesterday of 2 units with appropriate increment transfusion goal is less than 7 (8) Paroxysmal A-fib Current Visit: Yes Status: Chronic ECG consistent with A. fib with RVR (now controlled) continue metoprolol for rate control (9) On enteral nutrition Current Visit: Yes Status: Acute Appreciate nutrition following enteral nutrition has been started advanced to goal (10) Coagulopathy Current Visit: Yes Status: Acute This is likely secondary to nutritional deficit vitamin K has been given for 3 days INR has improved (11) Sepsis Current Visit: Yes Status: Acute Persistent leukocytosis and fever repeat cultures have been obtained from yesterday no growth to date he is at risk for induced ESBL resistance because of use of cephalosporin earlier and treatment I have stopped Zosyn and escalated to meropenem for this reason. Do not think that it is necessary to add antifungal coverage at this time but will continue to monitor closely. He is at risk for C. difficile infection however no clear evidence of increased output from ostomy we will continue to follow this as well. 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 O2 sats stable. One episode of transient hypotension yesterday that resolved with IV fluids. Underwent Dialysis with PRBC transfusion without issue later in day. Objective PUL Vital signs: Last Vital Signs Temp 101.2 F H 06/10/17 04:55 Pulse 99 06/10/17 06:00 Resp 21 06/10/17 06:10 BP 106/62 06/10/17 06:10 Pulse Ox 96 06/10/17 06:10 General appearance: comatose Eyes: nonicteric Auscultation: bilateral: diminished breath sounds (but appreaciably better air entry than yesterday's exam ) Cardiovascular: irregular rhythm Gastrointestinal: soft, non-tender, other (ostomy site noted with stool in collection bag) Integumentary: normal Extremities: edema pupils equal and round (He does respond to noxious stimuli and no purposeful movements today. Gag reflex inact) Ventilator Settings Ventilator Settings: Ventilator Settings, Last 8 Hours Ventilator Mode VC+ Ventilator Mode VC+ Ventilator Mode VC+ Ventilator Mode VC+ Ventilator Mode VC+ Ventilator Mode VC+ Ventilator Mode VC+ Ventilator Mode VC+ Ventilator Mode VC+ Ventilator Mode VC+ Ventilator Mode VC+ Ventilator Tidal Volume 550 Setting Ventilator Tidal Volume 550 Setting Ventilator Tidal Volume 550 Setting Ventilator Tidal Volume 550 Setting Ventilator Tidal Volume 550 Setting Ventilator Tidal Volume 550 Setting Ventilator Tidal Volume 550 Setting Ventilator Tidal Volume 550 Setting Ventilator Tidal Volume 550 Setting Ventilator Tidal Volume 550 Setting Ventilator Tidal Volume 550 Setting Ventilator Respiratory Rate 20 Setting Ventilator Respiratory Rate 20 Setting Ventilator Respiratory Rate 20 Setting Ventilator Respiratory Rate 20 Setting Ventilator Respiratory Rate 20 Setting Ventilator Respiratory Rate 20 Setting Ventilator Respiratory Rate 20 Setting Ventilator Respiratory Rate 20 Setting Ventilator Respiratory Rate 20 Setting Ventilator Respiratory Rate 20 Setting Ventilator Respiratory Rate 20 Setting Actual Respiratory Rate 21 Actual Respiratory Rate 21 Actual Respiratory Rate 22 Actual Respiratory Rate 21 Actual Respiratory Rate 22 Actual Respiratory Rate 21 Actual Respiratory Rate 21 Actual Respiratory Rate 21 Actual Respiratory Rate 21 Actual Respiratory Rate 22 Actual Respiratory Rate 20 Positive End Expiratory 8 Pressure Positive End Expiratory 8 Pressure Positive End Expiratory 8 Pressure Positive End Expiratory 8 Pressure Positive End Expiratory 8 Pressure Positive End Expiratory 8 Pressure Positive End Expiratory 8 Pressure Positive End Expiratory 8 Pressure Positive End Expiratory 8 Pressure Positive End Expiratory 8 Pressure Positive End Expiratory 8 Pressure Peak Inspiratory Airway 28 Pressure Peak Inspiratory Airway 29 Pressure Peak Inspiratory Airway 26 Pressure Peak Inspiratory Airway 28 Pressure Peak Inspiratory Airway 26 Pressure Peak Inspiratory Airway 27 Pressure Peak Inspiratory Airway 26 Pressure Peak Inspiratory Airway 27 Pressure Peak Inspiratory Airway 26 Pressure Peak Inspiratory Airway 26 Pressure Peak Inspiratory Airway 28 Pressure Results - Laboratory Findings CBC and BMP: 06/10/17 03:50 06/10/17 03:50 ABG ABG pH 7.37 pH Units (7.32-7.45) 06/08/17 09:38 ABG pCO2 37 mmHg (35-45) 06/08/17 09:38 ABG pO2 77 mmHg (85-104) L 06/08/17 09:38 ABG O2 Saturation 95 % (95-98) 06/08/17 09:38 PT/INR, D-dimer PT 16.0 Seconds (9.4-12.1) H 06/10/17 03:50 Abnormal lab findings: Abnormal lab results WBC 13.9 K/mcL (4.3-11.1) H 06/10/17 03:50 RBC 2.94 M/mcL (4.19-5.50) L 06/10/17 03:50 Hgb 8.3 g/dL (12.9-16.9) L D 06/10/17 03:50 Hct 27.3 % (37.5-50.1) L 06/10/17 03:50 MCHC 30.4 g/dL (31.6-35.5) L 06/10/17 03:50 RDW 17.1 % (11.5-14.5) H 06/10/17 03:50 Neutrophils # 10.7 K/mcL (1.6-8.9) H 06/10/17 03:50 Nucleated RBCs/100 WBC 0.1 /100 WBC (0) H 06/10/17 03:50 Hypochromasia Present (Not Present) A 06/08/17 04:00 PT 16.0 Seconds (9.4-12.1) H 06/10/17 03:50 APTT 25.7 Seconds (26.0-36.0) L D 06/03/17 21:15 ABG pO2 77 mmHg (85-104) L 06/08/17 09:38 ABG Base Excess -4 mEq/L (-2 to 3) L 06/08/17 09:38 VBG pH 7.22 pH Units (7.32-7.42) L 06/03/17 14:03 VBG pCO2 65 mmHg (41-51) H 06/03/17 14:03 VBG pO2 76 mmHg (25-50) H 06/03/17 14:03 Potassium 5.3 mEq/L (3.5-5.1) H 06/10/17 03:50 Carbon Dioxide 20 mEq/L (23-29) L 06/10/17 03:50 BUN 64 mg/dL (8-23) H 06/10/17 03:50 Creatinine 10.12 mg/dL (0.70-1.30) H 06/10/17 03:50 Est GFR ( Amer) 6 (> 60) L 06/10/17 03:50 Est GFR (Non-Af Amer) 5 (> 60) L 06/10/17 03:50 Glucose 151 mg/dL (70-105) H 06/10/17 03:50 POC Glucose 151 (58-89) H 06/10/17 04:40 Calculated Osmolality 303 (280-300) H 06/10/17 03:50 Venous Ioniz Calcium 0.97 mmol/L (1.15-1.35) L 06/05/17 04:34 Phosphorus 10.7 mg/dL (2.7-4.5) H 06/08/17 04:00 Iron 15 mcg/dL (65-175) L 05/29/17 07:40 % Saturation 6 % (20-55) L 05/29/17 07:40 Transferrin 169 mg/dL (174-364) L 05/29/17 07:40 Ferritin 517 ng/ml (22-275) H 05/29/17 07:40 Direct Bilirubin 0.6 mg/dL (0.0-0.2) H 06/08/17 04:00 AST 43 Units/L (13-39) H 06/08/17 04:00 Albumin 2.5 g/dL (3.5-5.7) L 06/08/17 04:00 Globulin 4.6 g/dL (2.4-3.5) H 06/08/17 04:00 Albumin/Globulin Ratio 0.5 (1.1-2.2) L 06/08/17 04:00 Triglycerides 203 mg/dL (< 150) H 05/27/17 03:50 VLDL Cholesterol, Calc 41 mg/dL (< 31) H 05/27/17 03:50 HDL Cholesterol 16 mg/dL (40-59) L 05/27/17 03:50 Cholesterol/HDL Ratio 6.6 (0-4.9) H 05/27/17 03:50 PTH Intact 457.2 pg/ml (8.5-72.5) H 05/29/17 07:40 Urine Clarity Cloudy (Clear) A 05/27/17 13:15 Urine Protein >=300 mg/dL (Neg-Trace) H 05/27/17 13:15 Urine Glucose (UA) 100 mg/dL (Normal) H 05/27/17 13:15 Urine Blood Large (Negative) H 05/27/17 13:15 Urine Microscopic WBC 3-5 per hpf (0-3) H 05/27/17 13:15 Ur Squamous Epith Cells Moderate per lpf (None-Few) H 05/27/17 13:15 - Microbiology Findings Microbiology Findings: Microbiology, Last 48 Hours 06/10/17 04:00 Sputum Culture - Preliminary Sputum 06/02/17 14:19 Blood Culture - Final Peripheral Venipuncture No growth. 06/02/17 14:19 Blood Culture - Final Peripheral Venipuncture No growth. 06/02/17 14:14 Blood Culture - Final Central Venous Catheter No growth. - Diagnostic Findings Chest x-ray: report reviewed, image reviewed - Clinical Findings Intake & Output: Intake & Output 06/09/17 06/09/17 06/10/17 15:59 23:59 07:59 Intake Total 1999 232 / 232 128 / 128 Output Total 1950 / 1950 1935 / 1935 Balance 1999 -1718 / -1718 -1807 / -1807 Weight 105 kg Consult Discharge Plan - Plan Referrals: NONE,PCP [Primary Care Provider] - (Patient will follow up with renal doctors)
[2017-06-10] MEDS ORDERED: Meropenem 1,000 MG in 0.9 % Sodium Chloride Mini Bag 100 ML IVPB SCH (08:00)
[2017-06-10] MEDS: Chlorhexidine Rinse 15 ML MOUTHWASH MM SCH ×2 (08:25→21:05)
[2017-06-10] MEDS: Pantoprazole 40 MG VIAL IVP SCH (08:25)
[2017-06-10] MEDS ORDERED: Meropenem 1,000 MG in Water for inj. (sterile) 20 ML 10 ML IVPB SCH (09:00)
--- NOTE | 2017-06-10 09:04 | Nephrology Progress Note ---
Date of Encounter: 06/10/17 Time of Encounter: 08:40 - Assessment and Plan (1) ESRD needing dialysis Current Visit: Yes Status: Chronic No HD today. Hgb 8.3 following transfusion yesterday. 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 at bedside. Per nursing, no change in neuro status. Stable through night hemodynamically. Objective - Vital Signs Vital signs: Vital Signs Temp Pulse Resp BP Pulse Ox 06/10/17 08:00 100 20 133/61 94 06/10/17 07:26 98 06/10/17 07:00 96 20 116/64 97 06/10/17 06:10 21 106/62 96 06/10/17 06:00 99 21 112/62 95 06/10/17 05:00 106 22 122/68 97 06/10/17 04:55 101.2 F H 06/10/17 04:00 98 21 106/60 98 06/10/17 03:40 22 111/60 96 06/10/17 03:00 76 21 110/59 91 06/10/17 02:00 71 21 109/55 92 06/10/17 01:41 21 117/67 94 06/10/17 01:00 72 21 116/61 95 06/10/17 00:32 99.6 F 06/10/17 00:00 70 22 130/37 92 06/09/17 23:47 20 119/62 93 06/09/17 23:00 72 21 119/61 94 06/09/17 22:00 72 21 112/59 94 06/09/17 21:45 21 125/64 94 06/09/17 21:00 98 21 155/81 95 06/09/17 20:23 99.6 F 06/09/17 20:00 85 22 149/71 94 06/09/17 19:50 20 158/76 94 06/09/17 19:00 89 20 151/72 94 06/09/17 18:00 93 20 126/63 92 06/09/17 17:08 21 132/69 93 06/09/17 17:00 104 20 132/65 93 06/09/17 16:42 99.2 F 18 132/69 06/09/17 16:15 128/63 06/09/17 16:04 100.2 F H 06/09/17 16:00 105 20 121/64 93 06/09/17 15:45 137/72 06/09/17 15:35 22 132/69 95 06/09/17 15:30 99.0 F 96 18 133/66 95 06/09/17 15:15 100.1 F H 99 139/69 97 06/09/17 15:00 100.2 F H 98 20 132/65 96 06/09/17 14:59 100.2 F H 100 16 119/60 06/09/17 14:45 110/54 06/09/17 14:35 100.3 F H 94 16 116/58 06/09/17 14:30 108/54 06/09/17 14:20 100.2 F H 89 16 114/55 06/09/17 14:15 100.2 F H 16 114/55 06/09/17 14:00 98 20 109/53 93 06/09/17 13:52 21 132/69 93 06/09/17 13:00 92 20 114/55 94 06/09/17 12:00 77 20 104/51 95 06/09/17 11:30 101.1 F H 06/09/17 11:06 20 104/51 95 06/09/17 11:00 78 20 94/44 94 06/09/17 10:00 79 20 106/52 94 06/09/17 09:10 22 102/64 97 Intake and Output 06/09/17 06/10/17 06/10/17 23:59 07:59 15:59 Intake Total 232 / 232 Output Total 1950 / 1950 2135 / 2135 Balance -1718 / -1718 -1930 / -1930 Intake: IV Fluids 200 / 200 Zosyn Premix 3.375 GM/200 ML 3. 200 / 200 375 gm In 200 ml @ 50 mls/hr IVPB Q12H [facility] Rx#:[id number] Tube Feeding Output: Urine 0 / 0 Stool 150 / 150 550 / 550 Total Dialysis (HD) Output 1800 / 1800 Catheter 10 / 10 Gastric Drainage 1575 / 1575 Other: Stool Consistency liquid Stool Characteristics Normal for Patient Stool Color Brown Weight 105 kg Blood Glucose* 141 151 Hemodialysis Net Fluid Removed 500 (mL) Patient Weight 06/10/17 23:59 Weight 105 kg - General Appearance General appearance: Present: well-developed, well-nourished, appears started age EENT: Present: mucous membranes moist Neck: Present: no JVD Respiratory: Present: rhonchi Cardiology: Present: edema, irregular rhythm Additional Comments: ankle/pedal edema Gastrointestinal: Present: hypoactive bowel sounds Integumentary: Present: warm and dry - Lab 06/10/17 03:50 06/10/17 03:50 Most recent lab results ABG pH 7.37 pH Units (7.32-7.45) 06/08/17 09:38 ABG pCO2 37 mmHg (35-45) 06/08/17 09:38 ABG pO2 77 mmHg (85-104) L 06/08/17 09:38 ABG HCO3 21 mEq/L (21-27) 06/08/17 09:38 ABG O2 Saturation 95 % (95-98) 06/08/17 09:38 Calcium 8.8 mg/dL (8.6-10.3) 06/10/17 03:50 Phosphorus 10.7 mg/dL (2.7-4.5) H 06/08/17 04:00 Magnesium 2.2 mg/dL (1.6-2.6) 06/07/17 08:46 Consult Discharge Plan - Plan Referrals: NONE,PCP [Primary Care Provider] - (Patient will follow up with renal doctors)
[2017-06-10] MEDS: *HR* Phytonadione 10 MG/ML AMPUL SQ SCH (11:11)
[2017-06-10] MEDS: Acetaminophen 325 MG TABLET PO PRN (12:10)
[2017-06-10] MEDS: FentaNYL (PF) 1,000 MCG in 0.9 % Sodium Chloride 80 ML IVC SCH (18:52)
[2017-06-10] MEDS: Norepinephrine 4 MG in D5% in Water 250 ML IVC SCH (18:52)
[2017-06-10] MEDS: Meropenem 500 MG in Water for inj. (sterile) 20 ML 10 ML IVP SCH (18:54)
[2017-06-11] MEDS: Insulin LISPRO 300 UNITS/3 ML VIAL SQ SCH ×6 (00:18→20:22)
[2017-06-11] MEDS: Lacri-Lube 3.5 GM TUBE BOTH EYES SCH ×6 (00:18→20:22)
[2017-06-11] MEDS ORDERED: 0.9 % Sodium Chloride 500 ML IVC ONE (07:33)
[2017-06-11 08:01] LABS: Basophils # 0.1 K/mcL (0.0-0.2); Basophils % 0.4 %; Eosinophils # 0.4 K/mcL (0.0-0.6); Eosinophils % 1.7 %; Hematocrit 29.2 % (37.5-50.1); Hemoglobin 8.6 g/dL (12.9-16.9); Immature Granulocytes % 2.6 % (0-4); Lymphocytes # 2.2 K/mcL (0.6-4.6); Mean Corpuscular HGB Conc 29.5 g/dL (31.6-35.5); Mean Corpuscular Hemoglobin 28.1 pg (28.0-33.3); Mean Corpuscular Volume 95.4 fL (83.0-100.0); Mean Platelet Volume 10.1 fL (9.4-12.4); Monocytes % 4.1 %; Neutrophils # 20.2 K/mcL (1.6-8.9); Platelet Count 256 K/mcL (140-400); Red Blood Count 3.06 M/mcL (4.19-5.50); Red Cell Distribution Width 16.9 % (11.5-14.5); Segmented Neutrophils % 82.2 %
[2017-06-11] MEDS: Meropenem 500 MG in Water for inj. (sterile) 20 ML 10 ML IVP SCH ×2 (08:02→18:38)
[2017-06-11] MEDS: Pantoprazole 40 MG VIAL IVP SCH (08:03)
[2017-06-11] MEDS: Chlorhexidine Rinse 15 ML MOUTHWASH MM SCH ×2 (08:03→20:23)
[2017-06-11] MEDS: *HR* Heparin 5,000 UNIT/ML VIAL SQ SCH ×3 (08:13→20:23)
[2017-06-11 08:16] LABS: Calcium 9.1 mg/dL (8.6-10.3); Potassium 5.9 mEq/L (3.5-5.1)
--- NOTE | 2017-06-11 08:37 | Nephrology Progress Note ---
Date of Encounter: 06/11/17 Time of Encounter: 08:10 - Assessment and Plan (1) ESRD needing dialysis Current Visit: Yes Status: Chronic HD on Monday, keeping MWF schedule. 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 at bedside. Per nursing, no change in neuro status. told will do HD on Monday. Objective - Vital Signs Vital signs: Vital Signs Temp Pulse Resp BP Pulse Ox 06/11/17 07:33 98.7 F 06/11/17 07:25 24 91 06/11/17 07:00 110 21 117/62 91 06/11/17 06:00 93 22 90/59 93 06/11/17 05:30 22 114/60 93 06/11/17 05:00 93 24 94/60 93 06/11/17 04:51 98.5 F 06/11/17 04:00 92 06/11/17 03:51 23 92/49 93 06/11/17 03:00 71 24 88/51 92 06/11/17 02:00 71 24 97/56 93 06/11/17 01:20 26 99/53 92 06/11/17 01:00 73 24 99/53 92 06/11/17 00:30 77 06/11/17 00:00 87 23 98/62 90 06/10/17 23:51 24 89/52 91 06/10/17 23:00 96 23 99/69 91 06/10/17 22:46 98.4 F 06/10/17 22:00 96 25 106/64 94 06/10/17 21:00 71 24 89/63 93 06/10/17 20:00 75 24 102/56 93 06/10/17 19:47 23 91 06/10/17 19:29 98.4 F 06/10/17 19:00 93 25 101/59 94 06/10/17 18:00 93 24 111/76 91 06/10/17 17:12 93 06/10/17 17:00 100.5 F H 93 99/59 93 06/10/17 16:00 90 21 100/70 93 06/10/17 15:35 20 107/61 93 06/10/17 15:00 100.5 F H 70 22 104/65 93 06/10/17 14:00 76 20 98/62 95 06/10/17 13:30 20 100/58 94 06/10/17 13:00 100.6 F H 84 20 94/56 96 06/10/17 12:00 101.7 F H 97 21 110/67 93 06/10/17 11:17 25 95/57 94 06/10/17 11:00 85 23 98/66 94 06/10/17 10:00 73 20 103/44 95 06/10/17 09:24 20 97/59 95 06/10/17 09:00 79 21 91/53 94 Intake and Output 06/10/17 06/11/17 06/11/17 23:59 07:59 15:59 Intake Total 171 / 171 222 / 222 Output Total 575 / 575 250 / 250 Balance -404 / -404 - Intake: IV Fluids Merrem 500 MG In Water for inj. (sterile) 10 ML @ 200 mls/hr IVP Q12HR [facility] Rx#:[id number] Tube Feeding 161 / 161 222 / 222 Output: Urine 0 / 0 0 / 0 Stool 575 / 575 250 / 250 Other: Stool Consistency liquid liquid Stool Characteristics Foamy Stool Color Brown Brown Weight 103.9 kg Blood Glucose* 185 160 Patient Weight 06/11/17 23:59 Weight 103.9 kg - General Appearance General appearance: Present: well-developed, well-nourished, appears started age EENT: Present: mucous membranes moist Neck: Present: no JVD Respiratory: Present: clear Cardiology: Present: no edema, irregular rhythm Gastrointestinal: Present: normoactive bowel sounds Integumentary: Present: warm and dry - Lab 06/11/17 07:42 06/11/17 07:42 Most recent lab results ABG pH 7.37 pH Units (7.32-7.45) 06/08/17 09:38 ABG pCO2 37 mmHg (35-45) 06/08/17 09:38 ABG pO2 77 mmHg (85-104) L 06/08/17 09:38 ABG HCO3 21 mEq/L (21-27) 06/08/17 09:38 ABG O2 Saturation 95 % (95-98) 06/08/17 09:38 Calcium 9.1 mg/dL (8.6-10.3) 06/11/17 07:42 Phosphorus 10.7 mg/dL (2.7-4.5) H 06/08/17 04:00 Magnesium 2.2 mg/dL (1.6-2.6) 06/07/17 08:46 Consult Discharge Plan - Plan Referrals: NONE,PCP [Primary Care Provider] - (Patient will follow up with renal doctors)
[2017-06-11] MEDS ORDERED: Vancomycin Oral Soln 250 MG/5 ML UDC PO SCH (13:00)
--- NOTE | 2017-06-11 13:08 | Pulmonology Progress Note ---
Date of Encounter: 06/11/17 Time of Encounter: 13:05 Assessment and Plan (1) Sepsis Current Visit: Yes Status: Acute Persistent leukocytosis but fever has decreased repeat cultures have been obtained sputum positive with yeast to date felt that this is likely a contaminant .he is at risk for induced ESBL and treatment escalated to meropenem for this reason. Do not think that it is necessary to add antifungal coverage at this time but will continue to monitor closely. He is at risk for C. difficile infection and a panel has been sent to evaluate this empiric oral vancomycin has been started. Qualifiers: Sepsis type: sepsis due to unspecified organism Qualified Code(s): A41.9 - Sepsis, unspecified organism (2) Cardiac arrest Current Visit: Yes Status: Acute Status post cardiac arrest he has completed hypothermia protocol still remains unresponsive neurology following extremely poor prognosis neurologically EEG shows diffuse slowing which is consistent with this diagnosis neurology is following as is palliative care (3) Anoxic brain damage Current Visit: Yes Status: Acute Neurology is following appreciate the recommendations overall prognosis is poor (but patient is clearly not brain ) patient has been made DNAR/DNI after consulation with family between Critical Care team, Palliative Care and Neurology. (4) ESRD needing dialysis Current Visit: Yes Status: Chronic Nephrology following. Dialysis per schedule. Follow electrolytes mild hyperkalemia today (5) Pneumonia Current Visit: Yes Status: Acute Patient has persistent leukocytosis with fever antimicrobials have been broadened out ventilatory requirements have been stable Qualifiers: Pneumonia type: aspiration pneumonia Laterality: bilateral Lung location : unspecified part of lung Qualified Code(s): J69.0 - Pneumonitis due to inhalation of food and vomit (6) Acute respiratory failure with hypoxia and hypercapnia Current Visit: Yes Status: Acute He is still remained requiring significant ventilator support which is likely secondary to pneumonia and cardiogenic edema acceptable gas exchange today (7) Goals of care, counseling/discussion Current Visit: Yes Status: Acute updated at bedside today (8) Chronic anemia Current Visit: Yes Status: Acute Status post transfusion yesterday of 2 units with appropriate increment transfusion goal is less than 7 (9) Paroxysmal A-fib Current Visit: Yes Status: Chronic ECG consistent with A. 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 Did have an episode where he raised his right arm spontaneously but no purposeful movements otherwise. Continues to have high output from the ostomy over the last 24 hours. Objective PUL Vital signs: Last Vital Signs Temp 97.9 F 06/11/17 11:45 Pulse 88 06/11/17 11:30 Resp 21 06/11/17 11:30 BP 104/65 06/11/17 11:30 Pulse Ox 93 06/11/17 11:30 General appearance: comatose Auscultation: bilateral: diminished breath sounds, rales Cardiovascular: irregular rhythm Gastrointestinal: normoactive bowel sounds, soft, non-tender Extremities: edema pupils equal and round (No purposeful movements noted on exam right arm was raised earlier he could not do this to command however) Ventilator Settings Ventilator Settings: Ventilator Settings, Last 8 Hours Ventilator Mode VC+ Ventilator Mode VC+ Ventilator Mode VC+ Ventilator Mode VC+ Ventilator Mode VC+ Ventilator Mode VC+ Ventilator Mode VC+ Ventilator Mode VC+ Ventilator Mode VC+ Ventilator Tidal Volume 550 Setting Ventilator Tidal Volume 550 Setting Ventilator Tidal Volume 550 Setting Ventilator Tidal Volume 550 Setting Ventilator Tidal Volume 550 Setting Ventilator Tidal Volume 550 Setting Ventilator Tidal Volume 550 Setting Ventilator Tidal Volume 550 Setting Ventilator Tidal Volume 550 Setting Ventilator Respiratory Rate 20 Setting Ventilator Respiratory Rate 20 Setting Ventilator Respiratory Rate 20 Setting Ventilator Respiratory Rate 20 Setting Ventilator Respiratory Rate 20 Setting Ventilator Respiratory Rate 20 Setting Ventilator Respiratory Rate 20 Setting Ventilator Respiratory Rate 20 Setting Ventilator Respiratory Rate 20 Setting Actual Respiratory Rate 21 Actual Respiratory Rate 20 Actual Respiratory Rate 22 Actual Respiratory Rate 20 Actual Respiratory Rate 20 Actual Respiratory Rate 21 Actual Respiratory Rate 23 Actual Respiratory Rate 21 Actual Respiratory Rate 21 Positive End Expiratory 8 Pressure Positive End Expiratory 8 Pressure Positive End Expiratory 8 Pressure Positive End Expiratory 8 Pressure Positive End Expiratory 8 Pressure Positive End Expiratory 8 Pressure Positive End Expiratory 8 Pressure Positive End Expiratory 8 Pressure Positive End Expiratory 8 Pressure Peak Inspiratory Airway 30 Pressure Peak Inspiratory Airway 28 Pressure Peak Inspiratory Airway 26 Pressure Peak Inspiratory Airway 26 Pressure Peak Inspiratory Airway 25 Pressure Peak Inspiratory Airway 24 Pressure Peak Inspiratory Airway 21 Pressure Peak Inspiratory Airway 23 Pressure Peak Inspiratory Airway 27 Pressure Results - Laboratory Findings CBC and BMP: 06/11/17 07:42 06/11/17 07:42 ABG ABG pH 7.37 pH Units (7.32-7.45) 06/08/17 09:38 ABG pCO2 37 mmHg (35-45) 06/08/17 09:38 ABG pO2 77 mmHg (85-104) L 06/08/17 09:38 ABG O2 Saturation 95 % (95-98) 06/08/17 09:38 PT/INR, D-dimer PT 16.0 Seconds (9.4-12.1) H 06/10/17 03:50 Abnormal lab findings: Abnormal lab results WBC 24.6 K/mcL (4.3-11.1) H D 06/11/17 07:42 RBC 3.06 M/mcL (4.19-5.50) L 06/11/17 07:42 Hgb 8.6 g/dL (12.9-16.9) L 06/11/17 07:42 Hct 29.2 % (37.5-50.1) L 06/11/17 07:42 MCHC 29.5 g/dL (31.6-35.5) L 06/11/17 07:42 RDW 16.9 % (11.5-14.5) H 06/11/17 07:42 Neutrophils # 20.2 K/mcL (1.6-8.9) H 06/11/17 07:42 Nucleated RBCs/100 WBC 0.1 /100 WBC (0) H 06/10/17 03:50 Hypochromasia Present (Not Present) A 06/08/17 04:00 PT 16.0 Seconds (9.4-12.1) H 06/10/17 03:50 APTT 25.7 Seconds (26.0-36.0) L D 06/03/17 21:15 ABG pO2 77 mmHg (85-104) L 06/08/17 09:38 ABG Base Excess -4 mEq/L (-2 to 3) L 06/08/17 09:38 VBG pH 7.22 pH Units (7.32-7.42) L 06/03/17 14:03 VBG pCO2 65 mmHg (41-51) H 06/03/17 14:03 VBG pO2 76 mmHg (25-50) H 06/03/17 14:03 Sodium 135 mEq/L (136-145) L 06/11/17 07:42 Potassium 5.9 mEq/L (3.5-5.1) H 06/11/17 07:42 Carbon Dioxide 19 mEq/L (23-29) L 06/11/17 07:42 BUN 81 mg/dL (8-23) H 06/11/17 07:42 Creatinine 11.26 mg/dL (0.70-1.30) H 06/11/17 07:42 Est GFR ( Amer) 6 (> 60) L 06/11/17 07:42 Est GFR (Non-Af Amer) 5 (> 60) L 06/11/17 07:42 Glucose 185 mg/dL (70-105) H 06/11/17 07:42 POC Glucose 201 (58-89) H 06/11/17 11:25 Calculated Osmolality 309 (280-300) H 06/11/17 07:42 Venous Ioniz Calcium 0.97 mmol/L (1.15-1.35) L 06/05/17 04:34 Phosphorus 10.7 mg/dL (2.7-4.5) H 06/08/17 04:00 Iron 15 mcg/dL (65-175) L 05/29/17 07:40 % Saturation 6 % (20-55) L 05/29/17 07:40 Transferrin 169 mg/dL (174-364) L 05/29/17 07:40 Ferritin 517 ng/ml (22-275) H 05/29/17 07:40 Direct Bilirubin 0.6 mg/dL (0.0-0.2) H 06/08/17 04:00 AST 43 Units/L (13-39) H 06/08/17 04:00 Albumin 2.5 g/dL (3.5-5.7) L 06/08/17 04:00 Globulin 4.6 g/dL (2.4-3.5) H 06/08/17 04:00 Albumin/Globulin Ratio 0.5 (1.1-2.2) L 06/08/17 04:00 Triglycerides 203 mg/dL (< 150) H 05/27/17 03:50 VLDL Cholesterol, Calc 41 mg/dL (< 31) H 05/27/17 03:50 HDL Cholesterol 16 mg/dL (40-59) L 05/27/17 03:50 Cholesterol/HDL Ratio 6.6 (0-4.9) H 05/27/17 03:50 PTH Intact 457.2 pg/ml (8.5-72.5) H 05/29/17 07:40 Urine Clarity Cloudy (Clear) A 05/27/17 13:15 Urine Protein >=300 mg/dL (Neg-Trace) H 05/27/17 13:15 Urine Glucose (UA) 100 mg/dL (Normal) H 05/27/17 13:15 Urine Blood Large (Negative) H 05/27/17 13:15 Urine Microscopic WBC 3-5 per hpf (0-3) H 05/27/17 13:15 Ur Squamous Epith Cells Moderate per lpf (None-Few) H 05/27/17 13:15 - Microbiology Findings Microbiology Findings: Microbiology, Last 48 Hours 06/09/17 11:33 Blood Culture - Preliminary Peripheral Venipuncture No growth. 06/09/17 11:28 Blood Culture - Preliminary Peripheral Venipuncture No growth. 06/10/17 04:00 Sputum Culture - Preliminary Sputum Yeast Species - Clinical Findings Intake & Output: Intake & Output 06/10/17 06/11/17 06/11/17 23:59 07:59 15:59 Intake Total 171 / 171 222 / 222 740 / 740 Output Total 575 / 575 250 / 250 250 / 250 Balance -404 / -404 -28 / -28 490 / 490 Weight 103.9 kg Consult Discharge Plan - Plan Referrals: NONE,PCP [Primary Care Provider] - (Patient will follow up with renal doctors)
[2017-06-11] MEDS: FentaNYL (PF) 1,000 MCG in 0.9 % Sodium Chloride 80 ML IVC SCH (13:27)
[2017-06-11] MEDS: Norepinephrine 4 MG in D5% in Water 250 ML IVC SCH (13:27)
[2017-06-11 14:08] LABS: INR 1.4; Prothrombin Time 14.7 Seconds (9.4-12.1)
[2017-06-11 14:11] LABS: Albumin 2.4 g/dL (3.5-5.7); Albumin/Globulin Ratio 0.5 (1.1-2.2); Bilirubin,Direct 0.5 mg/dL (0.0-0.2); Bilirubin,Indirect 0.6 mg/dL (0.0-1.2); Bilirubin,Total 1.1 mg/dL (0.3-1.0); Globulin 5.2 g/dL (2.4-3.5); Total Protein 7.6 g/dL (6.4-8.9)
[2017-06-12] MEDS: Insulin LISPRO 300 UNITS/3 ML VIAL SQ SCH ×7 (00:17→23:40)
[2017-06-12] MEDS: Lacri-Lube 3.5 GM TUBE BOTH EYES SCH ×7 (00:18→23:40)
[2017-06-12 03:45] LABS: Basophils # 0.1 K/mcL (0.0-0.2); Basophils % 0.4 %; Eosinophils # 0.5 K/mcL (0.0-0.6); Eosinophils % 2.9 %; Hematocrit 26.8 % (37.5-50.1); Hemoglobin 7.9 g/dL (12.9-16.9); Immature Granulocytes % 2.8 % (0-4); Immature Platelets 3.3 % (1.1-6.1); Lymphocytes # 1.8 K/mcL (0.6-4.6); Lymphocytes % 10.3 %; Mean Corpuscular HGB Conc 29.5 g/dL (31.6-35.5); Mean Corpuscular Hemoglobin 28.3 pg (28.0-33.3); Mean Corpuscular Volume 96.1 fL (83.0-100.0); Monocytes # 0.9 K/mcL (0.0-1.3); Monocytes % 5.1 %; Neutrophils # 13.4 K/mcL (1.6-8.9); Nucleated Red Blood Cells 0.2 /100 WBC (0); Platelet Count 265 K/mcL (140-400); Red Blood Count 2.79 M/mcL (4.19-5.50); Red Cell Distribution Width 16.9 % (11.5-14.5); Segmented Neutrophils % 78.5 %
[2017-06-12 04:14] LABS: Albumin 2.4 g/dL (3.5-5.7); Albumin/Globulin Ratio 0.5 (1.1-2.2); Bilirubin,Direct 0.5 mg/dL (0.0-0.2); Bilirubin,Indirect 0.5 mg/dL (0.0-1.2); Calcium 9.1 mg/dL (8.6-10.3); Globulin 5.2 g/dL (2.4-3.5); Magnesium 2.7 mg/dL (1.6-2.6); Potassium 5.7 mEq/L (3.5-5.1); Total Protein 7.6 g/dL (6.4-8.9)
[2017-06-12] MEDS: *HR* Heparin 5,000 UNIT/ML VIAL SQ SCH ×3 (04:31→20:45)
[2017-06-12] MEDS: Meropenem 500 MG in Water for inj. (sterile) 20 ML 10 ML IVP SCH (04:59)
--- NOTE | 2017-06-12 07:01 | Pulmonology Progress Note ---
Date of Encounter: 06/12/17 Time of Encounter: 07:01 Assessment and Plan (1) Sepsis Current Visit: Yes Status: Acute Persistent leukocytosis but fever has decreased repeat cultures have been obtained sputum positive with yeast to date felt that this is likely a contaminant .he is at risk for induced ESBL and treatment escalated to meropenem for this reason. C. difficile negative. cont to f/u cultures. Qualifiers: Sepsis type: sepsis due to unspecified organism Qualified Code(s): A41.9 - Sepsis, unspecified organism (2) Cardiac arrest Current Visit: Yes Status: Acute Status post cardiac arrest he has completed hypothermia protocol still remains unresponsive neurology following extremely poor prognosis neurologically EEG shows diffuse slowing which is consistent with this diagnosis neurology is following as is palliative care (3) Anoxic brain damage Current Visit: Yes Status: Acute Neurology is following appreciate the recommendations overall prognosis is poor (but patient is clearly not brain ) patient has been made DNAR/DNI after consulation with family between Critical Care team, Palliative Care and Neurology. (4) ESRD needing dialysis Current Visit: Yes Status: Chronic Nephrology following. Dialysis per schedule. Follow electrolytes mild hyperkalemia today (5) Pneumonia Current Visit: Yes Status: Acute Patient has persistent leukocytosis with fever antimicrobials have been broadened out ventilatory requirements have been stable Qualifiers: Pneumonia type: aspiration pneumonia Laterality: bilateral Lung location : unspecified part of lung Qualified Code(s): J69.0 - Pneumonitis due to inhalation of food and vomit (6) Acute respiratory failure with hypoxia and hypercapnia Current Visit: Yes Status: Acute He is still remained requiring significant ventilator support which is likely secondary to pneumonia and cardiogenic edema. cont to wean Fio2 today. Dialysis should help for volume removal as well. (7) Goals of care, counseling/discussion Current Visit: Yes Status: Acute Sister updated at bedside today. No change in plan of care at present (8) Chronic anemia Current Visit: Yes Status: Acute transfusion goal is less than 7 (9) Paroxysmal A-fib Current Visit: Yes Status: Chronic ECG consistent with A. fib with RVR (now controlled) continue metoprolol for rate control (10) On enteral nutrition Current Visit: Yes Status: Acute Appreciate nutrition following enteral nutrition has been started advanced to goal (11) Coagulopathy Current Visit: Yes Status: Acute This is likely secondary to nutritional deficit vitamin K has been given for 3 days INR has improved (12) Elevated LFTs Current Visit: Yes Status: Acute This is in a cholestatic pattern he is at risk for acalculous cholecystitis right upper quadrant ultrasound was performed yesterday without acute findings we will proceed with CT scan of the abdomen today may need GI/surgery consultation depending on clinical course I have stopped the statin although he has not received an several days Subjective 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 C. difficile negative and empiric antimicrobial for C. difficile stopped. Liver enzymes continue to rise and a cholestatic pattern Objective PUL Vital signs: Last Vital Signs Temp 98.0 F 06/12/17 03:53 Pulse 96 06/12/17 06:00 Resp 24 06/12/17 06:00 BP 96/62 06/12/17 06:00 Pulse Ox 92 06/12/17 06:00 General appearance: comatose Auscultation: bilateral: diminished breath sounds Cardiovascular: irregular rhythm Gastrointestinal: normoactive bowel sounds, soft, non-tender Extremities: edema pupils equal and round (He does have spontaneous movement of right arm occasionally and intermittently no purposeful movements noted he does grimace to pain gag reflex intact) Ventilator Settings Ventilator Settings: Ventilator Settings, Last 8 Hours Ventilator Mode VC+ Ventilator Mode VC+ Ventilator Mode VC+ Ventilator Mode VC+ Ventilator Mode VC+ Ventilator Mode VC+ Ventilator Mode VC+ Ventilator Mode VC+ Ventilator Mode VC+ Ventilator Mode VC+ Ventilator Mode VC+ Ventilator Tidal Volume 550 Setting Ventilator Tidal Volume 550 Setting Ventilator Tidal Volume 550 Setting Ventilator Tidal Volume 550 Setting Ventilator Tidal Volume 550 Setting Ventilator Tidal Volume 550 Setting Ventilator Tidal Volume 550 Setting Ventilator Tidal Volume 550 Setting Ventilator Tidal Volume 550 Setting Ventilator Tidal Volume 550 Setting Ventilator Tidal Volume 550 Setting Ventilator Respiratory Rate 20 Setting Ventilator Respiratory Rate 20 Setting Ventilator Respiratory Rate 20 Setting Ventilator Respiratory Rate 20 Setting Ventilator Respiratory Rate 20 Setting Ventilator Respiratory Rate 20 Setting Ventilator Respiratory Rate 20 Setting Ventilator Respiratory Rate 20 Setting Ventilator Respiratory Rate 20 Setting Ventilator Respiratory Rate 20 Setting Ventilator Respiratory Rate 20 Setting Actual Respiratory Rate 24 Actual Respiratory Rate 23 Actual Respiratory Rate 24 Actual Respiratory Rate 22 Actual Respiratory Rate 22 Actual Respiratory Rate 24 Actual Respiratory Rate 24 Actual Respiratory Rate 20 Actual Respiratory Rate 24 Actual Respiratory Rate 22 Actual Respiratory Rate 20 Positive End Expiratory 8 Pressure Positive End Expiratory 8 Pressure Positive End Expiratory 8 Pressure Positive End Expiratory 8 Pressure Positive End Expiratory 8 Pressure Positive End Expiratory 8 Pressure Positive End Expiratory 8 Pressure Positive End Expiratory 8 Pressure Positive End Expiratory 8 Pressure Positive End Expiratory 8 Pressure Positive End Expiratory 8 Pressure Peak Inspiratory Airway 25 Pressure Peak Inspiratory Airway 21 Pressure Peak Inspiratory Airway 23 Pressure Peak Inspiratory Airway 21 Pressure Peak Inspiratory Airway 21 Pressure Peak Inspiratory Airway 20 Pressure Peak Inspiratory Airway 26 Pressure Peak Inspiratory Airway 26 Pressure Peak Inspiratory Airway 22 Pressure Peak Inspiratory Airway 25 Pressure Peak Inspiratory Airway 29 Pressure Results - Laboratory Findings CBC and BMP: 06/12/17 03:33 06/12/17 03:33 ABG ABG pH 7.37 pH Units (7.32-7.45) 06/08/17 09:38 ABG pCO2 37 mmHg (35-45) 06/08/17 09:38 ABG pO2 77 mmHg (85-104) L 06/08/17 09:38 ABG O2 Saturation 95 % (95-98) 06/08/17 09:38 PT/INR, D-dimer PT 14.7 Seconds (9.4-12.1) H 06/11/17 13:50 Abnormal lab findings: Abnormal lab results WBC 17.1 K/mcL (4.3-11.1) H 06/12/17 03:33 RBC 2.79 M/mcL (4.19-5.50) L 06/12/17 03:33 Hgb 7.9 g/dL (12.9-16.9) L 06/12/17 03:33 Hct 26.8 % (37.5-50.1) L 06/12/17 03:33 MCHC 29.5 g/dL (31.6-35.5) L 06/12/17 03:33 RDW 16.9 % (11.5-14.5) H 06/12/17 03:33 Neutrophils # 13.4 K/mcL (1.6-8.9) H 06/12/17 03:33 Nucleated RBCs/100 WBC 0.2 /100 WBC (0) H 06/12/17 03:33 Hypochromasia Present (Not Present) A 06/08/17 04:00 PT 14.7 Seconds (9.4-12.1) H 06/11/17 13:50 APTT 25.7 Seconds (26.0-36.0) L D 06/03/17 21:15 ABG pO2 77 mmHg (85-104) L 06/08/17 09:38 ABG Base Excess -4 mEq/L (-2 to 3) L 06/08/17 09:38 VBG pH 7.22 pH Units (7.32-7.42) L 06/03/17 14:03 VBG pCO2 65 mmHg (41-51) H 06/03/17 14:03 VBG pO2 76 mmHg (25-50) H 06/03/17 14:03 Potassium 5.7 mEq/L (3.5-5.1) H 06/12/17 03:33 Carbon Dioxide 19 mEq/L (23-29) L 06/12/17 03:33 BUN 98 mg/dL (8-23) H 06/12/17 03:33 Creatinine 12.55 mg/dL (0.70-1.30) H 06/12/17 03:33 Est GFR ( Amer) 5 (> 60) L 06/12/17 03:33 Est GFR (Non-Af Amer) 4 (> 60) L 06/12/17 03:33 Glucose 165 mg/dL (70-105) H 06/12/17 03:33 POC Glucose 161 (58-89) H 06/12/17 03:58 Calculated Osmolality 316 (280-300) H 06/12/17 03:33 Venous Ioniz Calcium 0.97 mmol/L (1.15-1.35) L 06/05/17 04:34 Phosphorus 10.7 mg/dL (2.7-4.5) H 06/08/17 04:00 Magnesium 2.7 mg/dL (1.6-2.6) H 06/12/17 03:33 Iron 15 mcg/dL (65-175) L 05/29/17 07:40 % Saturation 6 % (20-55) L 05/29/17 07:40 Transferrin 169 mg/dL (174-364) L 05/29/17 07:40 Ferritin 517 ng/ml (22-275) H 05/29/17 07:40 Direct Bilirubin 0.5 mg/dL (0.0-0.2) H 06/12/17 03:33 AST 149 Units/L (13-39) H 06/12/17 03:33 ALT 66 Units/L (7-52) H 06/12/17 03:33 Alkaline Phosphatase 431 Units/L (34-104) H 06/12/17 03:33 Albumin 2.4 g/dL (3.5-5.7) L 06/12/17 03:33 Globulin 5.2 g/dL (2.4-3.5) H 06/12/17 03:33 Albumin/Globulin Ratio 0.5 (1.1-2.2) L 06/12/17 03:33 Triglycerides 203 mg/dL (< 150) H 05/27/17 03:50 VLDL Cholesterol, Calc 41 mg/dL (< 31) H 05/27/17 03:50 HDL Cholesterol 16 mg/dL (40-59) L 05/27/17 03:50 Cholesterol/HDL Ratio 6.6 (0-4.9) H 05/27/17 03:50 PTH Intact 457.2 pg/ml (8.5-72.5) H 05/29/17 07:40 Urine Clarity Cloudy (Clear) A 05/27/17 13:15 Urine Protein >=300 mg/dL (Neg-Trace) H 05/27/17 13:15 Urine Glucose (UA) 100 mg/dL (Normal) H 05/27/17 13:15 Urine Blood Large (Negative) H 05/27/17 13:15 Urine Microscopic WBC 3-5 per hpf (0-3) H 05/27/17 13:15 Ur Squamous Epith Cells Moderate per lpf (None-Few) H 05/27/17 13:15 - Microbiology Findings Microbiology Findings: Microbiology, Last 48 Hours 06/09/17 11:33 Blood Culture - Preliminary Peripheral Venipuncture No growth. 06/09/17 11:28 Blood Culture - Preliminary Peripheral Venipuncture No growth. 06/10/17 04:00 Sputum Culture - Preliminary Sputum Yeast Species - Clinical Findings Intake & Output: Intake & Output 06/11/17 06/11/17 06/12/17 15:59 23:59 07:59 Intake Total 740 / 740 323 / 323 121 / 121 Output Total 250 / 250 450 / 450 150 / 150 Balance 490 / 490 -127 / -127 - Weight 102.81 kg Consult Discharge Plan - Plan Referrals: NONE,PCP [Primary Care Provider] - (Patient will follow up with renal doctors)
[2017-06-12] MEDS ORDERED: 0.9 % Sodium Chloride 250 ML IVC PRN (07:46)
--- NOTE | 2017-06-12 07:46 | Nephrology Progress Note ---
Date of Encounter: 06/12/17 Time of Encounter: 07:44 - Assessment and Plan (1) Chronic kidney disease, stage IV (severe) Current Visit: Yes Status: Acute The patient has acute kidney injury superimposed on stage IV chronic kidney disease. He has exhibited no improvement in renal function and now is dialysis dependent. I suspect he will be end stage renal disease. He will undergo dialysis today. (2) Type 2 diabetes mellitus with diabetic chronic kidney disease Current Visit: Yes Status: Acute Qualifiers: Diabetes mellitus residential insulin use: with long term care phlebotomist use Chronic kidney disease stage: stage 4 (severe) Qualified Code(s): E11.22 - Type 2 diabetes mellitus with diabetic chronic kidney disease; N18.4 - Chronic kidney disease, stage 4 (severe); N18.4 - Chronic kidney disease, stage 4 (severe); N18.4 - Chronic kidney disease, stage 4 (severe); N18.4 - Chronic kidney disease, stage 4 (severe); Z79.4 - long term care phlebotomist (current) use of insulin; Z79.4 - detention ( current) use of insulin; Z79.4 - detention (current) use of insulin; Z79.4 - detention (current) use of insulin (3) Benign hypertension with CKD (chronic kidney disease) stage IV Current Visit: Yes Status: Acute (4) Anemia in CKD (chronic kidney disease) Current Visit: Yes Status: Acute Qualifiers: Chronic kidney disease stage: stage 5, not on chronic dialysis Qualified Code(s): N18.5 - Chronic kidney disease, stage 5; D63.1 - Anemia in chronic kidney disease; D63.1 - Anemia in chronic kidney disease (5) Paroxysmal A-fib Current Visit: Yes Status: Chronic (6) Acute kidney failure, unspecified Current Visit: Yes Status: Acute Qualifiers: Acute renal failure type: unspecified Qualified Code(s): N17.9 - Acute kidney failure, unspecified 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 The patient's nurse reports no new developments overnight. Blood pressure is running in the 90s over 60s. Urine output is minimal. Patient will undergo dialysis later today. White count is slowly improving. Objective - Vital Signs Vital signs: Vital Signs Temp Pulse Resp BP Pulse Ox 06/12/17 06:00 96 24 96/62 92 06/12/17 05:45 23 97/50 93 06/12/17 05:00 101 24 100/58 92 06/12/17 04:00 92 22 104/54 93 06/12/17 03:53 98.0 F 06/12/17 03:50 22 111/76 93 06/12/17 03:41 90 06/12/17 03:00 79 24 92/53 94 06/12/17 02:00 105 24 94/59 92 06/12/17 01:40 20 102/62 93 06/12/17 01:00 101 24 111/71 93 06/12/17 00:00 89 22 110/61 95 06/11/17 23:48 90 06/11/17 23:40 98.4 F 06/11/17 23:35 20 68/37 90 06/11/17 23:00 90 22 85/47 91 06/11/17 22:00 91 24 106/62 93 06/11/17 21:35 22 84/52 93 06/11/17 21:00 96 20 84/52 92 06/11/17 20:00 99.2 F 106 24 109/70 92 06/11/17 19:55 24 101/64 91 06/11/17 19:47 103 06/11/17 19:00 106 24 90/63 91 06/11/17 18:15 24 93 06/11/17 18:00 99.6 F 110 25 114/64 91 06/11/17 17:00 97 24 93/51 93 06/11/17 16:00 100.2 F H 111 20 117/77 90 06/11/17 15:39 23 93 06/11/17 15:26 100.2 F H 06/11/17 15:00 117 24 108/73 92 06/11/17 14:51 21 93 06/11/17 14:00 85 21 108/53 97 06/11/17 13:00 102 21 109/68 92 06/11/17 12:00 90 20 116/61 93 06/11/17 11:45 97.9 F 06/11/17 11:30 88 21 104/65 93 06/11/17 11:00 22 93 06/11/17 10:00 102 22 115/81 92 06/11/17 09:41 21 92 06/11/17 09:00 97 20 102/57 90 06/11/17 08:00 116 21 95/71 91 Intake and Output 06/11/17 06/11/17 06/12/17 15:59 23:59 07:59 Intake Total 740 / 740 323 / 323 121 / 121 Output Total 250 / 250 450 / 450 150 / 150 Balance 490 / 490 -127 / -127 -29 / -29 Intake: IV Fluids 510 / 510 0.9 % Sodium Chloride 500 ML @ 500 / 500 1875 mls/hr IVC .Q16M ONE Rx#: [id number] Merrem 500 MG In Water for inj. (sterile) 10 ML @ 200 mls/hr IVP Q12HR [facility] Rx#:[id number] Oral 103 / 103 Tube Feeding 230 / 230 210 / 210 121 / 121 Output: Urine 0 / 0 0 / 0 Stool 250 / 250 450 / 450 150 / 150 Other: Stool Consistency liquid liquid liquid Stool Color Brown Brown Brown Weight 102.81 kg Blood Glucose* 220 193 161 Patient Weight 06/12/17 23:59 Weight 102.81 kg - General Appearance Exam: Patient appears to be in no acute distress. Lungs coarse breath sounds. Heart regular rate and rhythm with a 2/6 systolic ejection murmur. Abdomen is soft. Colostomy is present. There is minimal lower extremity swelling. There is a temporary dialysis catheter in the right femoral vein. - Lab 06/12/17 03:33 06/12/17 03:33 Most recent lab results ABG pH 7.37 pH Units (7.32-7.45) 06/08/17 09:38 ABG pCO2 37 mmHg (35-45) 06/08/17 09:38 ABG pO2 77 mmHg (85-104) L 06/08/17 09:38 ABG HCO3 21 mEq/L (21-27) 06/08/17 09:38 ABG O2 Saturation 95 % (95-98) 06/08/17 09:38 Calcium 9.1 mg/dL (8.6-10.3) 06/12/17 03:33 Phosphorus 10.7 mg/dL (2.7-4.5) H 06/08/17 04:00 Magnesium 2.7 mg/dL (1.6-2.6) H 06/12/17 03:33 Consult Discharge Plan - Plan Referrals: NONE,PCP [Primary Care Provider] - (Patient will follow up with renal doctors)
[2017-06-12] MEDS ORDERED: Aminoglycoside Consult 1 EACH MC ONE (08:56)
[2017-06-12] MEDS: Pantoprazole 40 MG VIAL IVP SCH (09:28)
[2017-06-12] MEDS: Chlorhexidine Rinse 15 ML MOUTHWASH MM SCH ×2 (09:28→20:45)
[2017-06-12] MEDS: Darbepoetin 100 MCG/0.5 ML SYRINGE SQ SCH (09:30)
[2017-06-12] MEDS: Acetaminophen 325 MG TABLET PO PRN (12:05)
[2017-06-12] MEDS ORDERED: *HR* Heparin 5,000 UNIT/ML VIAL ONE (17:03)
--- NOTE | 2017-06-12 17:18 | IR Procedure Note ---
Date of procedure: 06/12/17 Timeout: Correct patient and procedure verified, Correct site verified, Time out performed, Skin prep completed Local anesthetic: Lidocaine 1% Indications: Renal insufficiency, poorly functioning HD catheter Procedure Performed: Temp HD catheter exchange Was there an assistant account executive present: No Site/Technique: RCFV original access. 32cm cath in placed. Changed to 55cm catheter. Results/Findings: The cuff left outside skin to function as temp. Xray ordered. Estimated blood loss (cc): 1 Complications: None; Tolerated procedure well Post Procedure Treatment Plan: Monitoring in the unit. Specimen: N/a
[2017-06-12] MEDS ORDERED: Vancomycin 500 MG in D5% in Water (Mini-Bag+) 100 ML IVPB ONE (18:00)
[2017-06-12] MEDS: FentaNYL (PF) 1,000 MCG in 0.9 % Sodium Chloride 80 ML IVC SCH (19:23)
[2017-06-13] MEDS: Acetaminophen 325 MG TABLET PO PRN (03:22)
[2017-06-13] MEDS: Lacri-Lube 3.5 GM TUBE BOTH EYES SCH ×5 (03:31→21:09)
[2017-06-13] MEDS: Insulin LISPRO 300 UNITS/3 ML VIAL SQ SCH ×5 (03:31→21:09)
[2017-06-13] MEDS: *HR* Heparin 5,000 UNIT/ML VIAL SQ SCH ×3 (03:31→21:08)
[2017-06-13] MEDS ORDERED: Meropenem 500 MG in Water for inj. (sterile) 20 ML 10 ML IVP SCH (06:00)
--- NOTE | 2017-06-13 07:44 | Nephrology Progress Note ---
Date of Encounter: 06/13/17 Time of Encounter: 07:43 - Assessment and Plan (1) Chronic kidney disease, stage IV (severe) Current Visit: Yes Status: Acute The patient has acute kidney injury superimposed on stage IV chronic kidney disease. He has exhibited no improvement in renal function and now is dialysis dependent. He is essentially end-stage renal disease. He will continue to be supported with dialysis every Monday as tolerated. 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: with snf use Chronic kidney disease stage: stage 4 (severe) Qualified Code(s): E11.22 - Type 2 diabetes mellitus with diabetic chronic kidney disease; N18.4 - Chronic kidney disease, stage 4 (severe); N18.4 - Chronic kidney disease, stage 4 (severe); N18.4 - Chronic kidney disease, stage 4 (severe); N18.4 - Chronic kidney disease, stage 4 (severe); Z79.4 - shelter (current) use of insulin; Z79.4 - shelter ( current) use of insulin; Z79.4 - dedicated intermodal truck driver (current) use of insulin; Z79.4 - dedicated intermodal truck driver (current) use of insulin (3) Benign hypertension with CKD (chronic kidney disease) stage IV Current Visit: Yes Status: Acute (4) Anemia in CKD (chronic kidney disease) Current Visit: Yes Status: Acute Qualifiers: Chronic kidney disease stage: stage 5, not on chronic dialysis Qualified Code(s): N18.5 - Chronic kidney disease, stage 5; D63.1 - Anemia in chronic kidney disease; D63.1 - Anemia in chronic kidney disease (5) Paroxysmal A-fib Current Visit: Yes Status: Chronic (6) Acute kidney failure, unspecified Current Visit: Yes Status: Acute Qualifiers: Acute renal failure type: unspecified Qualified Code(s): N17.9 - Acute kidney failure, unspecified Subjective 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 The patient is poorly responsive. He remains febrile. He did have the temporary femoral dialysis catheter exchanged yesterday. He underwent dialysis yesterday but had difficulty with tachycardia during the procedure. The procedure was terminated early. Laboratory studies today are pending. Objective - Vital Signs Vital signs: Vital Signs Temp Pulse Resp BP Pulse Ox 06/13/17 07:00 100.5 F H 92 21 147/69 100 06/13/17 06:00 98 23 92/60 95 06/13/17 05:47 24 112/57 95 06/13/17 05:00 108 27 120/77 95 06/13/17 04:25 100 F H 06/13/17 04:00 106 26 111/64 94 06/13/17 03:52 24 115/73 94 06/13/17 03:00 102.4 F H 107 26 128/78 97 06/13/17 02:03 25 115/63 93 06/13/17 02:00 83 28 115/63 91 06/13/17 01:01 25 111/70 92 06/13/17 01:00 96 28 111/70 92 06/13/17 00:00 101.1 F H 98 26 115/63 92 06/12/17 23:00 89 28 117/51 97 06/12/17 22:22 30 97 06/12/17 22:00 144 29 88/67 94 06/12/17 21:55 98.1 F 18 104/70 06/12/17 21:45 95/74 06/12/17 21:35 105/90 06/12/17 21:20 101/63 06/12/17 21:05 99/63 06/12/17 21:00 126 25 108/71 96 06/12/17 20:50 106/62 06/12/17 20:35 103/59 06/12/17 20:31 26 93/65 97 06/12/17 20:20 110/69 06/12/17 20:05 110/53 06/12/17 20:00 98.5 F 126 25 110/69 96 06/12/17 19:50 113/54 06/12/17 19:35 100/60 06/12/17 19:20 109/71 06/12/17 19:05 146/73 06/12/17 19:00 103 24 131/74 95 06/12/17 18:50 98.1 F 16 131/74 06/12/17 18:00 110 23 117/62 94 06/12/17 17:50 23 103/73 93 06/12/17 17:00 108 20 93/53 94 06/12/17 16:00 98.2 F 111 20 103/73 94 06/12/17 15:30 21 89/53 94 06/12/17 15:00 105 20 89/53 94 06/12/17 14:00 84 22 101/48 93 06/12/17 13:33 23 107/53 93 06/12/17 13:00 97 22 107/53 93 06/12/17 12:00 99 24 117/65 93 06/12/17 11:34 22 107/53 94 06/12/17 11:00 72 22 98/58 95 06/12/17 10:00 80 20 107/49 93 06/12/17 09:30 104/89 06/12/17 09:16 25 104/89 93 06/12/17 09:00 109 26 104/59 93 06/12/17 08:00 105 22 111/58 93 06/12/17 07:46 21 111/58 95 06/12/17 07:45 99.6 F Intake and Output 06/12/17 06/12/17 06/13/17 15:59 23:59 07:59 Intake Total 219 / 219 833 / 833 196 / 196 Output Total 150 / 150 1999 / 1999 200 / 200 Balance 69 / 69 -1167 / -1167 -4 / -4 Intake: Oral 113 / 113 Tube Feeding 219 / 219 120 / 120 196 / 196 Intake, Rinseback and Flushes 600 / 600 Output: Urine 0 / 0 0 / 0 0 / 0 Stool 150 / 150 50 / 50 200 / 200 Total Dialysis (HD) Output 1950 / 1950 Other: Stool Consistency liquid Stool Color Brown Weight 103 kg Blood Glucose* 179 107 238 Hemodialysis Net Fluid Removed 1350 (mL) Patient Weight 06/13/17 23:59 Weight 103 kg - General Appearance Exam: Patient is intubated and on the ventilator. Blood pressure 92/60. Temperature 100 degrees with a maximum temperature of 102.4. Heart irregular rate and rhythm. Lungs coarse breath sounds. Abdomen is soft. Colostomy is present. There is no significant lower extremity swelling. There is a temporary dialysis catheter in the right femoral vein. - Lab 06/12/17 03:33 06/12/17 03:33 Most recent lab results ABG pH 7.37 pH Units (7.32-7.45) 06/08/17 09:38 ABG pCO2 37 mmHg (35-45) 06/08/17 09:38 ABG pO2 77 mmHg (85-104) L 06/08/17 09:38 ABG HCO3 21 mEq/L (21-27) 06/08/17 09:38 ABG O2 Saturation 95 % (95-98) 06/08/17 09:38 Calcium 9.1 mg/dL (8.6-10.3) 06/12/17 03:33 Phosphorus 10.7 mg/dL (2.7-4.5) H 06/08/17 04:00 Magnesium 2.7 mg/dL (1.6-2.6) H 06/12/17 03:33 Consult Discharge Plan - Plan Referrals: NONE,PCP [Primary Care Provider] - (Patient will follow up with renal doctors)
[2017-06-13] MEDS: Chlorhexidine Rinse 15 ML MOUTHWASH MM SCH ×2 (09:12→21:08)
[2017-06-13] MEDS: Pantoprazole 40 MG VIAL IVP SCH (09:12)
[2017-06-13] MEDS: FentaNYL (PF) 1,000 MCG in 0.9 % Sodium Chloride 80 ML IVC SCH (11:36)
[2017-06-13] MEDS: Insulin DETEMIR 100 UNIT/ML X5UNITS SQ SCH (11:37)
[2017-06-13 12:50] LABS: Basophils # 0.1 K/mcL (0.0-0.2); Basophils % 0.6 %; Eosinophils # 0.3 K/mcL (0.0-0.6); Eosinophils % 2.4 %; Hematocrit 26.5 % (37.5-50.1); Immature Granulocytes % 2.3 % (0-4); Lymphocytes % 17.5 %; Mean Corpuscular HGB Conc 30.2 g/dL (31.6-35.5); Mean Corpuscular Hemoglobin 28.3 pg (28.0-33.3); Mean Corpuscular Volume 93.6 fL (83.0-100.0); Mean Platelet Volume 10.2 fL (9.4-12.4); Monocytes # 0.9 K/mcL (0.0-1.3); Monocytes % 7.3 %; Neutrophils # 8.1 K/mcL (1.6-8.9); Platelet Count 212 K/mcL (140-400); Red Blood Count 2.83 M/mcL (4.19-5.50); Red Cell Distribution Width 16.6 % (11.5-14.5); Segmented Neutrophils % 69.9 %
[2017-06-13 13:21] LABS: Albumin 2.5 g/dL (3.5-5.7); Albumin/Globulin Ratio 0.4 (1.1-2.2); Bilirubin,Total 0.8 mg/dL (0.3-1.0); Calcium 9.1 mg/dL (8.6-10.3); Globulin 5.8 g/dL (2.4-3.5); Potassium 5.1 mEq/L (3.5-5.1); Total Protein 8.3 g/dL (6.4-8.9)
--- NOTE | 2017-06-13 14:08 | Pulmonology Progress Note ---
<Johnnie Bradford - Last Filed: 06/13/17 14:05> Date of Encounter: 06/13/17 Time of Encounter: 07:00 Assessment and Plan (1) Sepsis Current Visit: Yes Status: Acute She was placed on meropenem for persistent leukocytosis with fever. Sputum culture was positive for yeast but this was suspected to be a contaminant. He was put on meropenem for the risk of ESBL but without any positive cultures. C. difficile culture was negative, blood cultures were negative. Fever has improved after patient was started on meropenem which was changed from several days of Zosyn. Plan: - Continue meropenem - Patient hemodynamically stable - Continue ICU care. Qualifiers: Sepsis type: sepsis due to unspecified organism Qualified Code(s): A41.9 - Sepsis, unspecified organism (2) ESRD needing dialysis Current Visit: Yes Status: Chronic Nephrology following. Dialysis per schedule. Follow electrolytes daily. (3) DM2 (diabetes mellitus, type 2) Current Visit: Yes Status: Chronic Patient is a known type II diabetic, currently receiving tube feedings. Patient has been hyperglycemic with glucoses around 250. Plan: - Levemir 15 mg daily - Medium dose sliding scale every 4 hours - Every 4 hourly glucose checks. 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 Mental status is poor. Continue to wean FiO2 as tolerated. Continue dialysis for volume overload. (5) Cardiac arrest Current Visit: Yes Status: Acute Patient remains unresponsive neurology following extremely poor prognosis neurologically EEG shows diffuse slowing which is consistent with this diagnosis neurology is following as is palliative care. Plan: - Discuss goals of care with family. (6) Anoxic brain damage Current Visit: Yes Status: Acute Anoxic brain injury status post cardiac arrest. EEG and clinical prognosis is poor. The patient is DNR comfort care arrest. Continue to monitor for neurologic status improvement. (7) Goals of care, counseling/discussion Current Visit: Yes Status: Acute The patient's prognosis has been discussed with the patient's family. At this time he is DNR CCA, family wishes to discuss goals of care regarding trach and PEG versus comfort care. (8) On enteral nutrition Current Visit: Yes Status: Acute Patient receiving enteral nutrition via OG tube. Hyperglycemia is monitored during this process. (9) DVT prophylaxis Current Visit: Yes Status: Acute Heparin subcutaneously. 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 Benitez 61-year-old male is intubated, not on sedation and poorly responsive to neurologic stimuli. Family at bedside and had a discussion regarding his current state and poor prognosis. They would like to consider trach and PEG versus comfort care and what would be in the patient's best interest. Objective PUL Vital signs: Last Vital Signs Temp 99.9 F H 06/13/17 11:00 Pulse 77 06/13/17 13:00 Resp 20 06/13/17 13:00 BP 114/69 06/13/17 13:00 Pulse Ox 93 06/13/17 13:00 General appearance: other (Intubated, no sedation, poor neurologic response.) Eyes: nonicteric ENT: oropharynx moist Neck: supple Effort: other (Correlating with mechanical ventilation) Auscultation: bilateral: rhonchi Cardiovascular: regular rate and rhythm Gastrointestinal: normoactive bowel sounds Integumentary: normal Extremities: no cyanosis Musculoskeletal: no deformities Ventilator Settings Ventilator Settings: Ventilator Settings, Last 8 Hours Ventilator Mode VC+ Ventilator Mode VC+ Ventilator Mode VC+ Ventilator Tidal Volume 600 Setting Ventilator Tidal Volume 600 Setting Ventilator Tidal Volume 550 Setting Ventilator Respiratory Rate 14 Setting Ventilator Respiratory Rate 14 Setting Ventilator Respiratory Rate 20 Setting Actual Respiratory Rate 19 Actual Respiratory Rate 21 Actual Respiratory Rate 21 Positive End Expiratory 8 Pressure Positive End Expiratory 8 Pressure Positive End Expiratory 8 Pressure Peak Inspiratory Airway 25 Pressure Peak Inspiratory Airway 28 Pressure Peak Inspiratory Airway 27 Pressure Results - Laboratory Findings CBC and BMP: 06/13/17 12:43 06/13/17 12:43 ABG ABG pH 7.37 pH Units (7.32-7.45) 06/08/17 09:38 ABG pCO2 37 mmHg (35-45) 06/08/17 09:38 ABG pO2 77 mmHg (85-104) L 06/08/17 09:38 ABG O2 Saturation 95 % (95-98) 06/08/17 09:38 PT/INR, D-dimer PT 14.7 Seconds (9.4-12.1) H 06/11/17 13:50 Abnormal lab findings: Abnormal lab results WBC 11.6 K/mcL (4.3-11.1) H 06/13/17 12:43 RBC 2.83 M/mcL (4.19-5.50) L 06/13/17 12:43 Hgb 8.0 g/dL (12.9-16.9) L 06/13/17 12:43 Hct 26.5 % (37.5-50.1) L 06/13/17 12:43 MCHC 30.2 g/dL (31.6-35.5) L 06/13/17 12:43 RDW 16.6 % (11.5-14.5) H 06/13/17 12:43 Nucleated RBCs/100 WBC 0.2 /100 WBC (0) H 06/12/17 03:33 Hypochromasia Present (Not Present) A 06/08/17 04:00 PT 14.7 Seconds (9.4-12.1) H 06/11/17 13:50 APTT 25.7 Seconds (26.0-36.0) L D 06/03/17 21:15 ABG pO2 77 mmHg (85-104) L 06/08/17 09:38 ABG Base Excess -4 mEq/L (-2 to 3) L 06/08/17 09:38 VBG pH 7.22 pH Units (7.32-7.42) L 06/03/17 14:03 VBG pCO2 65 mmHg (41-51) H 06/03/17 14:03 VBG pO2 76 mmHg (25-50) H 06/03/17 14:03 Sodium 133 mEq/L (136-145) L 06/13/17 12:43 Chloride 97 mEq/L (98-107) L 06/13/17 12:43 BUN 75 mg/dL (8-23) H 06/13/17 12:43 Creatinine 9.37 mg/dL (0.70-1.30) H 06/13/17 12:43 Est GFR ( Amer) 7 (> 60) L 06/13/17 12:43 Est GFR (Non-Af Amer) 6 (> 60) L 06/13/17 12:43 Glucose 235 mg/dL (70-105) H 06/13/17 12:43 POC Glucose 249 (58-89) H 06/13/17 11:18 Calculated Osmolality 306 (280-300) H 06/13/17 12:43 Venous Ioniz Calcium 0.97 mmol/L (1.15-1.35) L 06/05/17 04:34 Phosphorus 10.7 mg/dL (2.7-4.5) H 06/08/17 04:00 Magnesium 2.7 mg/dL (1.6-2.6) H 06/12/17 03:33 Iron 15 mcg/dL (65-175) L 05/29/17 07:40 % Saturation 6 % (20-55) L 05/29/17 07:40 Transferrin 169 mg/dL (174-364) L 05/29/17 07:40 Ferritin 517 ng/ml (22-275) H 05/29/17 07:40 Direct Bilirubin 0.5 mg/dL (0.0-0.2) H 06/12/17 03:33 AST 169 Units/L (13-39) H 06/13/17 12:43 ALT 62 Units/L (7-52) H 06/13/17 12:43 Alkaline Phosphatase 544 Units/L (34-104) H 06/13/17 12:43 Albumin 2.5 g/dL (3.5-5.7) L 06/13/17 12:43 Globulin 5.8 g/dL (2.4-3.5) H 06/13/17 12:43 Albumin/Globulin Ratio 0.4 (1.1-2.2) L 06/13/17 12:43 Triglycerides 203 mg/dL (< 150) H 05/27/17 03:50 VLDL Cholesterol, Calc 41 mg/dL (< 31) H 05/27/17 03:50 HDL Cholesterol 16 mg/dL (40-59) L 05/27/17 03:50 Cholesterol/HDL Ratio 6.6 (0-4.9) H 05/27/17 03:50 PTH Intact 457.2 pg/ml (8.5-72.5) H 05/29/17 07:40 Urine Clarity Cloudy (Clear) A 05/27/17 13:15 Urine Protein >=300 mg/dL (Neg-Trace) H 05/27/17 13:15 Urine Glucose (UA) 100 mg/dL (Normal) H 05/27/17 13:15 Urine Blood Large (Negative) H 05/27/17 13:15 Urine Microscopic WBC 3-5 per hpf (0-3) H 05/27/17 13:15 Ur Squamous Epith Cells Moderate per lpf (None-Few) H 05/27/17 13:15 - Microbiology Findings Microbiology Findings: Microbiology, Last 48 Hours 06/10/17 04:00 Sputum Culture - Preliminary Sputum Yeast Species 06/09/17 11:33 Blood Culture - Preliminary Peripheral Venipuncture No growth. 06/09/17 11:28 Blood Culture - Preliminary Peripheral Venipuncture No growth. - Clinical Findings Intake & Output: Intake & Output 06/12/17 06/13/17 06/13/17 23:59 07:59 15:59 Intake Total 833 / 833 206 / 206 260 / 260 Output Total 1999 200 / 200 0 / 0 Balance -1167 / -1167 / 260 / 260 Weight 103 kg Consult Discharge Plan - Plan Referrals: NONE,PCP [Primary Care Provider] - (Patient will follow up with renal doctors) <Francheska Haile - Last Filed: 06/13/17 20:15> Date of Encounter: 06/13/17 Assessment and Plan (1) Coma Current Visit: Yes Status: Acute Qualifiers: Coma depth: Ruchi coma 3-8 Coma timin hours or more after hospital admission Qualified Code(s): R40.2434 - Ruchi coma scale score 3-8, 24 hours or more after hospital admission (2) Acute respiratory failure with hypoxia and hypercapnia Current Visit: Yes Status: Acute (3) Cardiac arrest due to other underlying condition Current Visit: Yes Status: Acute (4) ESRD needing dialysis Current Visit: Yes Status: Chronic Objective PUL Vital signs: Last Vital Signs Temp 100.0 F H 06/13/17 15:00 Pulse 86 06/13/17 16:00 Resp 19 06/13/17 16:40 BP 137/69 06/13/17 16:00 Pulse Ox 92 06/13/17 16:40 Ventilator Settings Ventilator Settings: Ventilator Settings, Last 8 Hours Ventilator Mode VC+ Ventilator Mode VC+ Ventilator Mode VC+ Ventilator Mode VC+ Ventilator Mode VC+ Ventilator Tidal Volume 600 Setting Ventilator Tidal Volume 600 Setting Ventilator Tidal Volume 600 Setting Ventilator Tidal Volume 600 Setting Ventilator Tidal Volume 600 Setting Ventilator Respiratory Rate 14 Setting Ventilator Respiratory Rate 14 Setting Ventilator Respiratory Rate 14 Setting Ventilator Respiratory Rate 14 Setting Ventilator Respiratory Rate 14 Setting Actual Respiratory Rate 19 Actual Respiratory Rate 17 Actual Respiratory Rate 20 Actual Respiratory Rate 19 Actual Respiratory Rate 21 Positive End Expiratory 8 Pressure Positive End Expiratory 8 Pressure Positive End Expiratory 8 Pressure Positive End Expiratory 8 Pressure Positive End Expiratory 8 Pressure Peak Inspiratory Airway 26 Pressure Peak Inspiratory Airway 24 Pressure Peak Inspiratory Airway 26 Pressure Peak Inspiratory Airway 25 Pressure Peak Inspiratory Airway 28 Pressure Results - Laboratory Findings CBC and BMP: 06/13/17 12:43 06/13/17 12:43 ABG ABG pH 7.39 pH Units (7.32-7.45) 06/13/17 15:40 ABG pCO2 40 mmHg (35-45) 06/13/17 15:40 ABG pO2 68 mmHg (85-104) L 06/13/17 15:40 ABG O2 Saturation 93 % (95-98) L 06/13/17 15:40 PT/INR, D-dimer PT 14.7 Seconds (9.4-12.1) H 06/11/17 13:50 Abnormal lab findings: Abnormal lab results WBC 11.6 K/mcL (4.3-11.1) H 06/13/17 12:43 RBC 2.83 M/mcL (4.19-5.50) L 06/13/17 12:43 Hgb 8.0 g/dL (12.9-16.9) L 06/13/17 12:43 Hct 26.5 % (37.5-50.1) L 06/13/17 12:43 MCHC 30.2 g/dL (31.6-35.5) L 06/13/17 12:43 RDW 16.6 % (11.5-14.5) H 06/13/17 12:43 Nucleated RBCs/100 WBC 0.2 /100 WBC (0) H 06/12/17 03:33 Hypochromasia Present (Not Present) A 06/08/17 04:00 PT 14.7 Seconds (9.4-12.1) H 06/11/17 13:50 APTT 25.7 Seconds (26.0-36.0) L D 06/03/17 21:15 ABG pO2 68 mmHg (85-104) L 06/13/17 15:40 ABG O2 Saturation 93 % (95-98) L 06/13/17 15:40 VBG pH 7.22 pH Units (7.32-7.42) L 06/03/17 14:03 VBG pCO2 65 mmHg (41-51) H 06/03/17 14:03 VBG pO2 76 mmHg (25-50) H 06/03/17 14:03 Sodium 133 mEq/L (136-145) L 06/13/17 12:43 Chloride 97 mEq/L (98-107) L 06/13/17 12:43 BUN 75 mg/dL (8-23) H 06/13/17 12:43 Creatinine 9.37 mg/dL (0.70-1.30) H 06/13/17 12:43 Est GFR ( Amer) 7 (> 60) L 06/13/17 12:43 Est GFR (Non-Af Amer) 6 (> 60) L 06/13/17 12:43 Glucose 235 mg/dL (70-105) H 06/13/17 12:43 POC Glucose 232 (58-89) H 06/13/17 15:21 Calculated Osmolality 306 (280-300) H 06/13/17 12:43 Venous Ioniz Calcium 0.97 mmol/L (1.15-1.35) L 06/05/17 04:34 Phosphorus 10.7 mg/dL (2.7-4.5) H 06/08/17 04:00 Magnesium 2.7 mg/dL (1.6-2.6) H 06/12/17 03:33 Iron 15 mcg/dL (65-175) L 05/29/17 07:40 % Saturation 6 % (20-55) L 05/29/17 07:40 Transferrin 169 mg/dL (174-364) L 05/29/17 07:40 Ferritin 517 ng/ml (22-275) H 05/29/17 07:40 Direct Bilirubin 0.5 mg/dL (0.0-0.2) H 06/12/17 03:33 AST 169 Units/L (13-39) H 06/13/17 12:43 ALT 62 Units/L (7-52) H 06/13/17 12:43 Alkaline Phosphatase 544 Units/L (34-104) H 06/13/17 12:43 Albumin 2.5 g/dL (3.5-5.7) L 06/13/17 12:43 Globulin 5.8 g/dL (2.4-3.5) H 06/13/17 12:43 Albumin/Globulin Ratio 0.4 (1.1-2.2) L 06/13/17 12:43 Triglycerides 203 mg/dL (< 150) H 05/27/17 03:50 VLDL Cholesterol, Calc 41 mg/dL (< 31) H 05/27/17 03:50 HDL Cholesterol 16 mg/dL (40-59) L 05/27/17 03:50 Cholesterol/HDL Ratio 6.6 (0-4.9) H 05/27/17 03:50 PTH Intact 457.2 pg/ml (8.5-72.5) H 05/29/17 07:40 Urine Clarity Cloudy (Clear) A 05/27/17 13:15 Urine Protein >=300 mg/dL (Neg-Trace) H 05/27/17 13:15 Urine Glucose (UA) 100 mg/dL (Normal) H 05/27/17 13:15 Urine Blood Large (Negative) H 05/27/17 13:15 Urine Microscopic WBC 3-5 per hpf (0-3) H 05/27/17 13:15 Ur Squamous Epith Cells Moderate per lpf (None-Few) H 05/27/17 13:15 - Microbiology Findings Microbiology Findings: Microbiology, Last 48 Hours 06/10/17 04:00 Sputum Culture - Final Sputum Yeast Species - Clinical Findings Intake & Output: Intake & Output 06/13/17 06/13/17 06/13/17 07:59 15:59 23:59 Intake Total 206 / 206 408 / 408 Output Total 200 / 200 0 / 0 Balance 6 / 6 408 / 408 Weight 103 kg - Attending Attestation I examined this patient and my medical decision-making was reviewed with the Resident Physician. I agree with the documented findings, disposition and treatment plan as described except to the extent set forth below. Patient seen and examined. Labs, radiology, chart personally reviewed. 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 Pulmonary: Acceptable oxygenation and ventilation. Changed vent setting to minimize any autoPEEP which can affect his hemodynamics. I have talked to his and told her about poor prognosis and need to make a decision regarding his care. Patient could have trach/PEG (I ddin't not recommend this option because of no quality of life) versus comfort care only. wants to wait until Monday. Cardiovascular: stable GI: Nutrition per dietary and GI prophylaxis per routine Heme: DVT prophylaxis per routine ID: Continue antibiotics and plan to de-escalation Renal; urine out put and renal funtion reviewed Endorcine: blood glucose is monitored Lines: all lines checked and no evidence of infections Skin: skin care to prevent pressure ulcers per nursing routine care I spent 32 min of Critical Care time with this patient. It involved decision making of high complexity to assess, manipulate, and support vital organ system failure and/or to prevent further life threatening deterioration of the patient' s condition. The time involved in the performance of separately reportable procedures was not counted toward critical care time.
--- NOTE | 2017-06-13 15:26 | Palliative Progress Note ---
Date of Encounter: 06/13/17 Time of Encounter: 10:45 - Assessment and plan (1) Acute metabolic encephalopathy Current Visit: Yes Status: Acute Assessment and plan: Secondary to CVA extremely poor prognosis per neurology. EG shows diffuse slowing consistent with anoxic brain injury, however per neurology the patient' s brainstem exes are intact. No changes today. Still no changes. (2) ESRD needing dialysis Current Visit: Yes Status: Chronic Assessment and plan: Being followed by nephrology. Patient's family is deciding whether or not to continue dialysis or not. Believe that the patient is scheduled for dialysis today. This would be needed through nephrology. Per family day before yesterday plans for dialysis were depended upon nephrology. The decision for for that was for no dialysis yesterday I am unclear as to whether we are going to proceed with dialysis or not. And is still per nephrology from Nusrat standpoint as I understand it. Family has been feeling very pressured and pushed. I therefore believe that this discussion should take place with nephrology, and we can be there to be supportive. Getting dialysis currently. (3) Cardiac arrest due to other underlying condition Current Visit: Yes Status: Acute Assessment and plan: Patient is now DNR CCA and react arrest is felt to be the cause of the metabolic encephalopathy. No changes [place] is [place] do not expect any recovery at all. As above there is still no expectation of any meaningful recovery. Dr. Méndez from the bell spinner service speak to the family this morning about what point withdrawal of care needs to be considered versus trach and PEG. As he discussed that with the family this morning I did not have a discussion with them. The decision was made today. (4) Goals of care, counseling/discussion Current Visit: Yes Status: Acute Assessment and plan: Patient is already DNR CCA. Also care family is deciding on further goals of care. Discussion with yesterday reveal that she is feeling extremely pressured rushed to move towards withdrawal of care. While this is not the least bit unreasonable in terms of a therapeutic option needs some time to weigh the options. She does realize that withdrawal of care will undoubtedly cause him to pass much quicker. Believe that she also understands that any meaningful recovery is virtually impossible. I did not discuss withdrawal of care with her this morning, as this at already been done by nephrology. I will remain on the case to be available for help. As above. The family is feeling very pressured at this point in time. I did not discuss withdrawal of care this morning. She continues to be DNR CCA. Already noted doctor saw the the welder machine operator did meet with the family this morning and discussed lamming of trach and PEG versus withdrawal of care. Visions were made this morning and since he already spoke to them I opted not to. Nusrat has had no Questions, and the nurses stated the family had no questions of me. - Time Spent With Patient Total time spent is greater than 50% in coordination of care (as documented) at patient's floor/unit and/or counseling patient: - Subjective Interval history: The patient continues to be on the ventilator, there has been no significant changes overnight. The patient is unchanged from last week. As a conversation with the bell spinner this morning. Please see the assessment and plan. - Constitutional Vitals: Abnormal lab results WBC 11.6 K/mcL (4.3-11.1) H 06/13/17 12:43 RBC 2.83 M/mcL (4.19-5.50) L 06/13/17 12:43 Hgb 8.0 g/dL (12.9-16.9) L 06/13/17 12:43 Hct 26.5 % (37.5-50.1) L 06/13/17 12:43 MCHC 30.2 g/dL (31.6-35.5) L 06/13/17 12:43 RDW 16.6 % (11.5-14.5) H 06/13/17 12:43 Nucleated RBCs/100 WBC 0.2 /100 WBC (0) H 06/12/17 03:33 Hypochromasia Present (Not Present) A 06/08/17 04:00 PT 14.7 Seconds (9.4-12.1) H 06/11/17 13:50 APTT 25.7 Seconds (26.0-36.0) L D 06/03/17 21:15 ABG pO2 77 mmHg (85-104) L 06/08/17 09:38 ABG Base Excess -4 mEq/L (-2 to 3) L 06/08/17 09:38 VBG pH 7.22 pH Units (7.32-7.42) L 06/03/17 14:03 VBG pCO2 65 mmHg (41-51) H 06/03/17 14:03 VBG pO2 76 mmHg (25-50) H 06/03/17 14:03 Sodium 133 mEq/L (136-145) L 06/13/17 12:43 Chloride 97 mEq/L (98-107) L 06/13/17 12:43 BUN 75 mg/dL (8-23) H 06/13/17 12:43 Creatinine 9.37 mg/dL (0.70-1.30) H 06/13/17 12:43 Est GFR ( Amer) 7 (> 60) L 06/13/17 12:43 Est GFR (Non-Af Amer) 6 (> 60) L 06/13/17 12:43 Glucose 235 mg/dL (70-105) H 06/13/17 12:43 POC Glucose 249 (58-89) H 06/13/17 11:18 Calculated Osmolality 306 (280-300) H 06/13/17 12:43 Venous Ioniz Calcium 0.97 mmol/L (1.15-1.35) L 06/05/17 04:34 Phosphorus 10.7 mg/dL (2.7-4.5) H 06/08/17 04:00 Magnesium 2.7 mg/dL (1.6-2.6) H 06/12/17 03:33 Iron 15 mcg/dL (65-175) L 05/29/17 07:40 % Saturation 6 % (20-55) L 05/29/17 07:40 Transferrin 169 mg/dL (174-364) L 05/29/17 07:40 Ferritin 517 ng/ml (22-275) H 05/29/17 07:40 Direct Bilirubin 0.5 mg/dL (0.0-0.2) H 06/12/17 03:33 AST 169 Units/L (13-39) H 06/13/17 12:43 ALT 62 Units/L (7-52) H 06/13/17 12:43 Alkaline Phosphatase 544 Units/L (34-104) H 06/13/17 12:43 Albumin 2.5 g/dL (3.5-5.7) L 06/13/17 12:43 Globulin 5.8 g/dL (2.4-3.5) H 06/13/17 12:43 Albumin/Globulin Ratio 0.4 (1.1-2.2) L 06/13/17 12:43 Triglycerides 203 mg/dL (< 150) H 05/27/17 03:50 VLDL Cholesterol, Calc 41 mg/dL (< 31) H 05/27/17 03:50 HDL Cholesterol 16 mg/dL (40-59) L 05/27/17 03:50 Cholesterol/HDL Ratio 6.6 (0-4.9) H 05/27/17 03:50 PTH Intact 457.2 pg/ml (8.5-72.5) H 05/29/17 07:40 Urine Clarity Cloudy (Clear) A 05/27/17 13:15 Urine Protein >=300 mg/dL (Neg-Trace) H 05/27/17 13:15 Urine Glucose (UA) 100 mg/dL (Normal) H 05/27/17 13:15 Urine Blood Large (Negative) H 05/27/17 13:15 Urine Microscopic WBC 3-5 per hpf (0-3) H 05/27/17 13:15 Ur Squamous Epith Cells Moderate per lpf (None-Few) H 05/27/17 13:15 - Head Head exam: Present: atraumatic, normal inspection - Eye Eye exam: Present: normal appearance - ENT ENT exam: Present: mucous membranes moist (Intubated on vent) - Respiratory Respiratory exam: Present: decreased breath sounds (Intubated on vent) - Cardiovascular Cardiovascular exam: Present: RRR - GI/Abdominal GI/Abdominal exam: Present: hypoactive bowel sounds, soft. Absent: tenderness - Extremities Exam Extremities exam: Present: pedal edema - Neurological Exam Neurological exam: Present: altered - Psychiatric Psychiatric exam: Absent: agitated, anxious - Skin Skin exam: Present: dry, warm Palliative Quality Palliative Quality: Screen for Code Status: Yes, Screen for Goals of Care: Yes, Screen for Pain: Yes, If Pain Regimen Started, Initiate Bowel Regimen: Yes, Screen for Nausea/Vomitting: Yes Code Status: 05/26/17 21:21 Resuscitation Status: Active [RES] Routine Comment: Resuscitation Status: Full Code Resuscitation Status: Active [RES] Routine Comment: Resuscitation Status: DNR-Comfort Care-Arrest - Labs CBC & Chem 7: 06/13/17 12:43 06/13/17 12:43 Labs: Laboratory Results - last 24 hr 06/12/17 06/12/17 06/13/17 20:18 23:35 03:29 WBC RBC Hgb Hct MCV MCH MCHC RDW Plt Count MPV Immature Gran % Seg Neutrophils % Lymphocytes % Monocytes % Eosinophils % Basophils % Neutrophils # Lymphocytes # Monocytes # Eosinophils # Basophils # Sodium Potassium Chloride Carbon Dioxide BUN Creatinine Est GFR ( Amer) Est GFR (Non-Af Amer) BUN/Creatinine Ratio Glucose POC Glucose 107 H 238 H 222 H Calculated Osmolality Calcium Total Bilirubin AST ALT Alkaline Phosphatase Serum Total Protein Albumin Globulin Albumin/Globulin Ratio 06/13/17 06/13/17 06/13/17 07:28 11:18 12:43 WBC 11.6 H RBC 2.83 L Hgb 8.0 L Hct 26.5 L MCV 93.6 MCH 28.3 MCHC 30.2 L RDW 16.6 H Plt Count 212 MPV 10.2 Immature Gran % 2.3 Seg Neutrophils % 69.9 Lymphocytes % 17.5 Monocytes % 7.3 Eosinophils % 2.4 Basophils % 0.6 Neutrophils # 8.1 Lymphocytes # 2.0 Monocytes # 0.9 Eosinophils # 0.3 Basophils # 0.1 Sodium Potassium Chloride Carbon Dioxide BUN Creatinine Est GFR ( Amer) Est GFR (Non-Af Amer) BUN/Creatinine Ratio Glucose POC Glucose 204 H 249 H Calculated Osmolality Calcium Total Bilirubin AST ALT Alkaline Phosphatase Serum Total Protein Albumin Globulin Albumin/Globulin Ratio 06/13/17 12:43 WBC RBC Hgb Hct MCV MCH MCHC RDW Plt Count MPV Immature Gran % Seg Neutrophils % Lymphocytes % Monocytes % Eosinophils % Basophils % Neutrophils # Lymphocytes # Monocytes # Eosinophils # Basophils # Sodium 133 L Potassium 5.1 Chloride 97 L Carbon Dioxide 25 BUN 75 H Creatinine 9.37 H Est GFR ( Amer) 7 L Est GFR (Non-Af Amer) 6 L BUN/Creatinine Ratio 8 Glucose 235 H POC Glucose Calculated Osmolality 306 H Calcium 9.1 Total Bilirubin 0.8 AST 169 H ALT 62 H Alkaline Phosphatase 544 H Serum Total Protein 8.3 Albumin 2.5 L Globulin 5.8 H Albumin/Globulin Ratio 0.4 L - Impressions Impressions [facility] X-Ray 06/12/17 17:30 IMPRESSION: Dialysis catheter tip overlies the right atrium. Small left pleural effusion with basilar atelectasis and/or consolidation. D/ / Chance Clarke MD / Chance Clarke MD Interpreting Provider: Chance Clarke MD - ABG Interpretation ABG results: ABG ABG pH 7.37 pH Units (7.32-7.45) 06/08/17 09:38 ABG pCO2 37 mmHg (35-45) 06/08/17 09:38 ABG pO2 77 mmHg (85-104) L 06/08/17 09:38 ABG O2 Saturation 95 % (95-98) 06/08/17 09:38 PT/INR, D-dimer PT 14.7 Seconds (9.4-12.1) H 06/11/17 13:50 Consult Discharge Plan - Plan Referrals: NONE,PCP [Primary Care Provider] - (Patient will follow up with renal doctors)
[2017-06-13 15:44] LABS: ABG Base Excess -1 mEq/L (-2 to 3); ABG HCO3 25 mEq/L (21-27); ABG Oxygen Saturation 93 % (95-98); ABG PCO2 40 mmHg (35-45); ABG PH 7.39 pH Units (7.32-7.45); ABG PO2 68 mmHg (85-104); ABG TCO2 26 mEq/L (20-26); Blood Gas Modality ASSIST CONTROL; Blood Gas PEEP 8 cm H2O; Blood Gas Respiration Rate 14; Blood Gas VT 600 cc
[2017-06-14] MEDS: Lacri-Lube 3.5 GM TUBE BOTH EYES SCH ×6 (00:28→21:32)
[2017-06-14] MEDS: Insulin LISPRO 300 UNITS/3 ML VIAL SQ SCH ×6 (00:30→21:32)
[2017-06-14] MEDS: *HR* Heparin 5,000 UNIT/ML VIAL SQ SCH ×3 (05:15→21:31)
[2017-06-14 05:16] LABS: ABG Base Excess -2 mEq/L (-2 to 3); ABG HCO3 24 mEq/L (21-27); ABG Oxygen Saturation 88 % (95-98); ABG PCO2 41 mmHg (35-45); ABG PH 7.36 pH Units (7.32-7.45); ABG PO2 58 mmHg (85-104); ABG TCO2 25 mEq/L (20-26); Blood Gas Modality VC; Blood Gas PEEP 8 cm H2O; Blood Gas Respiration Rate 14; Blood Gas VT 600 cc
[2017-06-14 05:30] LABS: Basophils # 0.1 K/mcL (0.0-0.2); Basophils % 0.6 %; Eosinophils # 0.4 K/mcL (0.0-0.6); Eosinophils % 2.8 %; Hematocrit 26.7 % (37.5-50.1); Hemoglobin 7.9 g/dL (12.9-16.9); Immature Granulocytes % 1.8 % (0-4); Lymphocytes % 15.7 %; Mean Corpuscular HGB Conc 29.6 g/dL (31.6-35.5); Mean Corpuscular Hemoglobin 28.1 pg (28.0-33.3); Mean Platelet Volume 11.2 fL (9.4-12.4); Monocytes % 8.3 %; Platelet Count 216 K/mcL (140-400); Red Blood Count 2.81 M/mcL (4.19-5.50); Red Cell Distribution Width 16.6 % (11.5-14.5); Segmented Neutrophils % 70.8 %
[2017-06-14 05:42] LABS: Albumin 2.6 g/dL (3.5-5.7); Albumin/Globulin Ratio 0.4 (1.1-2.2); Bilirubin,Total 0.8 mg/dL (0.3-1.0); Calcium 9.5 mg/dL (8.6-10.3); Globulin 6.3 g/dL (2.4-3.5); Potassium 5.2 mEq/L (3.5-5.1); Total Protein 8.9 g/dL (6.4-8.9)
[2017-06-14 06:09] LABS: Neutrophils # 8.9 K/mcL (1.6-8.9)
[2017-06-14 06:10] LABS: Platelet Estimate Normal (Normal); Polychromasia 1+ (Not Present)
--- NOTE | 2017-06-14 07:48 | Palliative Progress Note ---
<Leonel Grimaldo - Last Filed: 06/14/17 07:54> Date of Encounter: 06/14/17 Time of Encounter: 07:44 - Assessment and plan (1) Goals of care, counseling/discussion Current Visit: Yes Status: Acute Assessment and plan: Code status: DNR-CCA. Family and (POA) not at bedside or waiting area this morning during visit. Consistent with anoxic brain injury, EEG with diffuse slowing, neurologic progress is extremely poor, appears to be no meaningful recovery. Will continue with dialysis and plan per industrial safety and health manager including feeds at this time. Plan per industrial safety and health manager to likely discuss withdrawal of care vs trach/peg later this week. (2) Acute metabolic encephalopathy Current Visit: Yes Status: Acute Assessment and plan: Secondary to cardiac arrest, anoxic brain injury, CVA with extremely poor neurologic prognosis, but brainstem reflexes continue to be intact. Some changes overnight in terms of motion, but questionable if purposeful. (3) ESRD needing dialysis Current Visit: Yes Status: Chronic Assessment and plan: Nephrology on board for dialysis needs, continue per [employer] Director plan. (4) Cardiac arrest due to other underlying condition Current Visit: Yes Status: Acute Assessment and plan: Continue per [employer] Director plan. - Time Spent With Patient Total time spent is greater than 50% in coordination of care (as documented) at patient's floor/unit and/or counseling patient: - Subjective Interval history: Vitals stable, patient is noticeably more motion than previous examination, but questionable if purposeful movements. More movement with sternal rub, will open eyes partially when asked by name inconsistently and will not squeeze hands on prompting. Sister and (POA) not at bedside or waiting room this morning. Continues to be intubated and nephrology on board for dialysis. Code status DNR-CCA. Continue per plan on industrial safety and health manager, will likely revisit discussion of possible withdrawal of care later this week (monday) vs trach/ peg. Continues to be a very low likelihood of meaningful recovery. - Constitutional Vitals: Abnormal lab results WBC 12.5 K/mcL (4.3-11.1) H 06/14/17 04:53 RBC 2.81 M/mcL (4.19-5.50) L 06/14/17 04:53 Hgb 7.9 g/dL (12.9-16.9) L 06/14/17 04:53 Hct 26.7 % (37.5-50.1) L 06/14/17 04:53 MCHC 29.6 g/dL (31.6-35.5) L 06/14/17 04:53 RDW 16.6 % (11.5-14.5) H 06/14/17 04:53 Nucleated RBCs/100 WBC 0.2 /100 WBC (0) H 06/12/17 03:33 Polychromasia 1+ (Not Present) A 06/14/17 04:53 Hypochromasia Present (Not Present) A 06/08/17 04:00 PT 14.7 Seconds (9.4-12.1) H 06/11/17 13:50 APTT 25.7 Seconds (26.0-36.0) L D 06/03/17 21:15 ABG pO2 58 mmHg (85-104) L 06/14/17 05:13 ABG O2 Saturation 88 % (95-98) L 06/14/17 05:13 VBG pH 7.22 pH Units (7.32-7.42) L 06/03/17 14:03 VBG pCO2 65 mmHg (41-51) H 06/03/17 14:03 VBG pO2 76 mmHg (25-50) H 06/03/17 14:03 Sodium 133 mEq/L (136-145) L 06/14/17 04:53 Potassium 5.2 mEq/L (3.5-5.1) H 06/14/17 04:53 Chloride 96 mEq/L (98-107) L 06/14/17 04:53 Carbon Dioxide 21 mEq/L (23-29) L 06/14/17 04:53 BUN 90 mg/dL (8-23) H 06/14/17 04:53 Creatinine 10.83 mg/dL (0.70-1.30) H 06/14/17 04:53 Est GFR ( Amer) 6 (> 60) L 06/14/17 04:53 Est GFR (Non-Af Amer) 5 (> 60) L 06/14/17 04:53 Glucose 213 mg/dL (70-105) H 06/14/17 04:53 POC Glucose 238 (58-89) H 06/14/17 07:07 Calculated Osmolality 310 (280-300) H 06/14/17 04:53 Venous Ioniz Calcium 0.97 mmol/L (1.15-1.35) L 06/05/17 04:34 Phosphorus 10.7 mg/dL (2.7-4.5) H 06/08/17 04:00 Magnesium 2.7 mg/dL (1.6-2.6) H 06/12/17 03:33 Iron 15 mcg/dL (65-175) L 05/29/17 07:40 % Saturation 6 % (20-55) L 05/29/17 07:40 Transferrin 169 mg/dL (174-364) L 05/29/17 07:40 Ferritin 517 ng/ml (22-275) H 05/29/17 07:40 Direct Bilirubin 0.5 mg/dL (0.0-0.2) H 06/12/17 03:33 AST 187 Units/L (13-39) H 06/14/17 04:53 ALT 58 Units/L (7-52) H 06/14/17 04:53 Alkaline Phosphatase 594 Units/L (34-104) H 06/14/17 04:53 Albumin 2.6 g/dL (3.5-5.7) L 06/14/17 04:53 Globulin 6.3 g/dL (2.4-3.5) H 06/14/17 04:53 Albumin/Globulin Ratio 0.4 (1.1-2.2) L 06/14/17 04:53 Triglycerides 203 mg/dL (< 150) H 05/27/17 03:50 VLDL Cholesterol, Calc 41 mg/dL (< 31) H 05/27/17 03:50 HDL Cholesterol 16 mg/dL (40-59) L 05/27/17 03:50 Cholesterol/HDL Ratio 6.6 (0-4.9) H 05/27/17 03:50 PTH Intact 457.2 pg/ml (8.5-72.5) H 05/29/17 07:40 Urine Clarity Cloudy (Clear) A 05/27/17 13:15 Urine Protein >=300 mg/dL (Neg-Trace) H 05/27/17 13:15 Urine Glucose (UA) 100 mg/dL (Normal) H 05/27/17 13:15 Urine Blood Large (Negative) H 05/27/17 13:15 Urine Microscopic WBC 3-5 per hpf (0-3) H 05/27/17 13:15 Ur Squamous Epith Cells Moderate per lpf (None-Few) H 05/27/17 13:15 General appearance: Present: no acute distress Exam: inconsistently opens eyes to sternal rub and name, does not squeeze hands when prompted, pupils responsive to light with right eye rightward gaze (medial rectus palsy) - Head Head exam: Present: atraumatic, normal inspection, normocephalic - Eye Eye exam: Present: PERRL - ENT ENT exam: Present: mucous membranes moist - Respiratory Additional comments: harsh breath sounds, intubated on vent - Cardiovascular Cardiovascular exam: Present: RRR, +S1, +S2 - GI/Abdominal GI/Abdominal exam: Present: hypoactive bowel sounds, soft. Absent: distended - Extremities Exam Additional comments: 2+ pitting edema bilateral lower extremities with 1/4 pulses, upper extremities bilateral minimal pitting edema with 2/4 pulses. - Skin Skin exam: Present: dry, intact, warm Additional comments: continued healing ulcers over left lower extremity. Palliative Quality Palliative Quality: Screen for Code Status: Yes, Screen for Goals of Care: Yes, Screen for Pain: Yes, If Pain Regimen Started, Initiate Bowel Regimen: Yes, Screen for Nausea/Vomitting: Yes Code Status: 05/26/17 21:21 Resuscitation Status: Active [RES] Routine Comment: Resuscitation Status: Full Code Resuscitation Status: Active [RES] Routine Comment: Resuscitation Status: DNR-Comfort Care-Arrest - Labs CBC & Chem 7: 06/14/17 04:53 06/14/17 04:53 Labs: Laboratory Results - last 24 hr 06/13/17 06/13/17 06/13/17 11:18 12:43 12:43 WBC 11.6 H RBC 2.83 L Hgb 8.0 L Hct 26.5 L MCV 93.6 MCH 28.3 MCHC 30.2 L RDW 16.6 H Plt Count 212 MPV 10.2 Immature Gran % 2.3 Seg Neutrophils % 69.9 Lymphocytes % 17.5 Monocytes % 7.3 Eosinophils % 2.4 Basophils % 0.6 Neutrophils # 8.1 Lymphocytes # 2.0 Monocytes # 0.9 Eosinophils # 0.3 Basophils # 0.1 Platelet Estimate Polychromasia Sample Site ABG pH ABG pCO2 ABG pO2 ABG HCO3 ABG Total CO2 ABG O2 Saturation ABG Base Excess Jeovany Test Respiration Rate O2 Delivery Device Blood Gas Modality Inspired O2 Tidal Volume PEEP Sodium 133 L Potassium 5.1 Chloride 97 L Carbon Dioxide 25 BUN 75 H Creatinine 9.37 H Est GFR ( Amer) 7 L Est GFR (Non-Af Amer) 6 L BUN/Creatinine Ratio 8 Glucose 235 H POC Glucose 249 H Calculated Osmolality 306 H Calcium 9.1 Total Bilirubin 0.8 AST 169 H ALT 62 H Alkaline Phosphatase 544 H Serum Total Protein 8.3 Albumin 2.5 L Globulin 5.8 H Albumin/Globulin Ratio 0.4 L 06/13/17 06/13/17 06/13/17 15:21 15:40 20:01 WBC RBC Hgb Hct MCV MCH MCHC RDW Plt Count MPV Immature Gran % Seg Neutrophils % Lymphocytes % Monocytes % Eosinophils % Basophils % Neutrophils # Lymphocytes # Monocytes # Eosinophils # Basophils # Platelet Estimate Polychromasia Sample Site R Radial ABG pH 7.39 ABG pCO2 40 ABG pO2 68 L ABG HCO3 25 ABG Total CO2 26 ABG O2 Saturation 93 L ABG Base Excess -1 Jeovany Test N/A Respiration Rate 14 O2 Delivery Device Adult Vent Blood Gas Modality ASSIST CONTROL Inspired O2 50.0 Tidal Volume 600 PEEP 8 Sodium Potassium Chloride Carbon Dioxide BUN Creatinine Est GFR ( Amer) Est GFR (Non-Af Amer) BUN/Creatinine Ratio Glucose POC Glucose 232 H 311 H Calculated Osmolality Calcium Total Bilirubin AST ALT Alkaline Phosphatase Serum Total Protein Albumin Globulin Albumin/Globulin Ratio 06/13/17 06/14/17 06/14/17 23:37 04:27 04:53 WBC 12.5 H RBC 2.81 L Hgb 7.9 L Hct 26.7 L MCV 95.0 MCH 28.1 MCHC 29.6 L RDW 16.6 H Plt Count 216 MPV 11.2 Immature Gran % 1.8 Seg Neutrophils % 70.8 Lymphocytes % 15.7 Monocytes % 8.3 Eosinophils % 2.8 Basophils % 0.6 Neutrophils # 8.9 Lymphocytes # 2.0 Monocytes # 1.0 Eosinophils # 0.4 Basophils # 0.1 Platelet Estimate Normal Polychromasia 1+ A Sample Site ABG pH ABG pCO2 ABG pO2 ABG HCO3 ABG Total CO2 ABG O2 Saturation ABG Base Excess Jeovany Test Respiration Rate O2 Delivery Device Blood Gas Modality Inspired O2 Tidal Volume PEEP Sodium Potassium Chloride Carbon Dioxide BUN Creatinine Est GFR ( Amer) Est GFR (Non-Af Amer) BUN/Creatinine Ratio Glucose POC Glucose 300 H 220 H Calculated Osmolality Calcium Total Bilirubin AST ALT Alkaline Phosphatase Serum Total Protein Albumin Globulin Albumin/Globulin Ratio 06/14/17 06/14/17 06/14/17 04:53 05:13 07:07 WBC RBC Hgb Hct MCV MCH MCHC RDW Plt Count MPV Immature Gran % Seg Neutrophils % Lymphocytes % Monocytes % Eosinophils % Basophils % Neutrophils # Lymphocytes # Monocytes # Eosinophils # Basophils # Platelet Estimate Polychromasia Sample Site R Radial ABG pH 7.36 ABG pCO2 41 ABG pO2 58 L ABG HCO3 24 ABG Total CO2 25 ABG O2 Saturation 88 L ABG Base Excess -2 Jeovany Test N/A Respiration Rate 14 O2 Delivery Device Adult Vent Blood Gas Modality VC Inspired O2 50.0 Tidal Volume 600 PEEP 8 Sodium 133 L Potassium 5.2 H Chloride 96 L Carbon Dioxide 21 L BUN 90 H Creatinine 10.83 H Est GFR ( Amer) 6 L Est GFR (Non-Af Amer) 5 L BUN/Creatinine Ratio 8 Glucose 213 H POC Glucose 238 H Calculated Osmolality 310 H Calcium 9.5 Total Bilirubin 0.8 AST 187 H ALT 58 H Alkaline Phosphatase 594 H Serum Total Protein 8.9 Albumin 2.6 L Globulin 6.3 H Albumin/Globulin Ratio 0.4 L - Impressions Impressions Catheter Change 06/12/17 00:00 IMPRESSION: Successful exchange of a temporary hemodialysis catheter, with removal of a 32 cm catheter and placement of a 55 cm catheter. Please note, as this is being used as a temporary catheter, the cuff was left chest outside of the tunnel site. D/ / Jimmy Rubalcava MD / Jimmy Rubalcava MD Interpreting Provider: Jimmy Rubalcava MD Chest X-Ray 06/14/17 04:00 IMPRESSION: CHF with stable perihilar airspace opacities suggesting edema or ARDS. Bilateral pleural effusions, improved on the left since prior imaging. D/ / Ronald Bradshaw MD / Ronald Bradshaw MD Interpreting Provider: Ronlad Bradshaw MD - ABG Interpretation ABG results: ABG ABG pH 7.36 pH Units (7.32-7.45) 06/14/17 05:13 ABG pCO2 41 mmHg (35-45) 06/14/17 05:13 ABG pO2 58 mmHg (85-104) L 06/14/17 05:13 ABG O2 Saturation 88 % (95-98) L 06/14/17 05:13 PT/INR, D-dimer PT 14.7 Seconds (9.4-12.1) H 06/11/17 13:50 Consult Discharge Plan - Plan Referrals: NONE,PCP [Primary Care Provider] - (Patient will follow up with renal doctors) <Yousif Diop - Last Filed: 06/14/17 11:34> Date of Encounter: 06/14/17 - Assessment and plan (1) Acute metabolic encephalopathy Current Visit: Yes Status: Acute (2) ESRD needing dialysis Current Visit: Yes Status: Chronic (3) Cardiac arrest due to other underlying condition Current Visit: Yes Status: Acute (4) Goals of care, counseling/discussion Current Visit: Yes Status: Acute - Time Spent With Patient Total time spent is greater than 50% in coordination of care (as documented) at patient's floor/unit and/or counseling patient: - Constitutional Vitals: Abnormal lab results WBC 12.5 K/mcL (4.3-11.1) H 06/14/17 04:53 RBC 2.81 M/mcL (4.19-5.50) L 06/14/17 04:53 Hgb 7.9 g/dL (12.9-16.9) L 06/14/17 04:53 Hct 26.7 % (37.5-50.1) L 06/14/17 04:53 MCHC 29.6 g/dL (31.6-35.5) L 06/14/17 04:53 RDW 16.6 % (11.5-14.5) H 06/14/17 04:53 Nucleated RBCs/100 WBC 0.2 /100 WBC (0) H 06/12/17 03:33 Polychromasia 1+ (Not Present) A 06/14/17 04:53 Hypochromasia Present (Not Present) A 06/08/17 04:00 PT 14.7 Seconds (9.4-12.1) H 06/11/17 13:50 APTT 25.7 Seconds (26.0-36.0) L D 06/03/17 21:15 ABG pO2 58 mmHg (85-104) L 06/14/17 05:13 ABG O2 Saturation 88 % (95-98) L 06/14/17 05:13 VBG pH 7.22 pH Units (7.32-7.42) L 06/03/17 14:03 VBG pCO2 65 mmHg (41-51) H 06/03/17 14:03 VBG pO2 76 mmHg (25-50) H 06/03/17 14:03 Sodium 133 mEq/L (136-145) L 06/14/17 04:53 Potassium 5.2 mEq/L (3.5-5.1) H 06/14/17 04:53 Chloride 96 mEq/L (98-107) L 06/14/17 04:53 Carbon Dioxide 21 mEq/L (23-29) L 06/14/17 04:53 BUN 90 mg/dL (8-23) H 06/14/17 04:53 Creatinine 10.83 mg/dL (0.70-1.30) H 06/14/17 04:53 Est GFR ( Amer) 6 (> 60) L 06/14/17 04:53 Est GFR (Non-Af Amer) 5 (> 60) L 06/14/17 04:53 Glucose 213 mg/dL (70-105) H 06/14/17 04:53 POC Glucose 193 (58-89) H 06/14/17 11:02 Calculated Osmolality 310 (280-300) H 06/14/17 04:53 Venous Ioniz Calcium 0.97 mmol/L (1.15-1.35) L 06/05/17 04:34 Phosphorus 10.7 mg/dL (2.7-4.5) H 06/08/17 04:00 Magnesium 2.7 mg/dL (1.6-2.6) H 06/12/17 03:33 Iron 15 mcg/dL (65-175) L 05/29/17 07:40 % Saturation 6 % (20-55) L 05/29/17 07:40 Transferrin 169 mg/dL (174-364) L 05/29/17 07:40 Ferritin 517 ng/ml (22-275) H 05/29/17 07:40 Direct Bilirubin 0.5 mg/dL (0.0-0.2) H 06/12/17 03:33 AST 187 Units/L (13-39) H 06/14/17 04:53 ALT 58 Units/L (7-52) H 06/14/17 04:53 Alkaline Phosphatase 594 Units/L (34-104) H 06/14/17 04:53 Albumin 2.6 g/dL (3.5-5.7) L 06/14/17 04:53 Globulin 6.3 g/dL (2.4-3.5) H 06/14/17 04:53 Albumin/Globulin Ratio 0.4 (1.1-2.2) L 06/14/17 04:53 Triglycerides 203 mg/dL (< 150) H 05/27/17 03:50 VLDL Cholesterol, Calc 41 mg/dL (< 31) H 05/27/17 03:50 HDL Cholesterol 16 mg/dL (40-59) L 05/27/17 03:50 Cholesterol/HDL Ratio 6.6 (0-4.9) H 05/27/17 03:50 PTH Intact 457.2 pg/ml (8.5-72.5) H 05/29/17 07:40 Urine Clarity Cloudy (Clear) A 05/27/17 13:15 Urine Protein >=300 mg/dL (Neg-Trace) H 05/27/17 13:15 Urine Glucose (UA) 100 mg/dL (Normal) H 05/27/17 13:15 Urine Blood Large (Negative) H 05/27/17 13:15 Urine Microscopic WBC 3-5 per hpf (0-3) H 05/27/17 13:15 Ur Squamous Epith Cells Moderate per lpf (None-Few) H 05/27/17 13:15 - Attending Attestation I examined this patient and my medical decision-making was reviewed with the Resident Physician. I agree with the documented findings, disposition and treatment plan as described except to the extent set forth below. Palliative Quality Code Status: 05/26/17 21:21 Resuscitation Status: Active [RES] Routine Comment: Resuscitation Status: Full Code Resuscitation Status: Active [RES] Routine Comment: Resuscitation Status: DNR-Comfort Care-Arrest - Labs CBC & Chem 7: 06/14/17 04:53 06/14/17 04:53 Labs: Laboratory Results - last 24 hr 06/13/17 06/13/17 06/13/17 12:43 12:43 15:21 WBC 11.6 H RBC 2.83 L Hgb 8.0 L Hct 26.5 L MCV 93.6 MCH 28.3 MCHC 30.2 L RDW 16.6 H Plt Count 212 MPV 10.2 Immature Gran % 2.3 Seg Neutrophils % 69.9 Lymphocytes % 17.5 Monocytes % 7.3 Eosinophils % 2.4 Basophils % 0.6 Neutrophils # 8.1 Lymphocytes # 2.0 Monocytes # 0.9 Eosinophils # 0.3 Basophils # 0.1 Platelet Estimate Polychromasia Sample Site ABG pH ABG pCO2 ABG pO2 ABG HCO3 ABG Total CO2 ABG O2 Saturation ABG Base Excess Jeovany Test Respiration Rate O2 Delivery Device Blood Gas Modality Inspired O2 Tidal Volume PEEP Sodium 133 L Potassium 5.1 Chloride 97 L Carbon Dioxide 25 BUN 75 H Creatinine 9.37 H Est GFR ( Amer) 7 L Est GFR (Non-Af Amer) 6 L BUN/Creatinine Ratio 8 Glucose 235 H POC Glucose 232 H Calculated Osmolality 306 H Calcium 9.1 Total Bilirubin 0.8 AST 169 H ALT 62 H Alkaline Phosphatase 544 H Serum Total Protein 8.3 Albumin 2.5 L Globulin 5.8 H Albumin/Globulin Ratio 0.4 L 06/13/17 06/13/17 06/13/17 15:40 20:01 23:37 WBC RBC Hgb Hct MCV MCH MCHC RDW Plt Count MPV Immature Gran % Seg Neutrophils % Lymphocytes % Monocytes % Eosinophils % Basophils % Neutrophils # Lymphocytes # Monocytes # Eosinophils # Basophils # Platelet Estimate Polychromasia Sample Site R Radial ABG pH 7.39 ABG pCO2 40 ABG pO2 68 L ABG HCO3 25 ABG Total CO2 26 ABG O2 Saturation 93 L ABG Base Excess -1 Jeovany Test N/A Respiration Rate 14 O2 Delivery Device Adult Vent Blood Gas Modality ASSIST CONTROL Inspired O2 50.0 Tidal Volume 600 PEEP 8 Sodium Potassium Chloride Carbon Dioxide BUN Creatinine Est GFR ( Amer) Est GFR (Non-Af Amer) BUN/Creatinine Ratio Glucose POC Glucose 311 H 300 H Calculated Osmolality Calcium Total Bilirubin AST ALT Alkaline Phosphatase Serum Total Protein Albumin Globulin Albumin/Globulin Ratio 06/14/17 06/14/17 06/14/17 04:27 04:53 04:53 WBC 12.5 H RBC 2.81 L Hgb 7.9 L Hct 26.7 L MCV 95.0 MCH 28.1 MCHC 29.6 L RDW 16.6 H Plt Count 216 MPV 11.2 Immature Gran % 1.8 Seg Neutrophils % 70.8 Lymphocytes % 15.7 Monocytes % 8.3 Eosinophils % 2.8 Basophils % 0.6 Neutrophils # 8.9 Lymphocytes # 2.0 Monocytes # 1.0 Eosinophils # 0.4 Basophils # 0.1 Platelet Estimate Normal Polychromasia 1+ A Sample Site ABG pH ABG pCO2 ABG pO2 ABG HCO3 ABG Total CO2 ABG O2 Saturation ABG Base Excess Jeovany Test Respiration Rate O2 Delivery Device Blood Gas Modality Inspired O2 Tidal Volume PEEP Sodium 133 L Potassium 5.2 H Chloride 96 L Carbon Dioxide 21 L BUN 90 H Creatinine 10.83 H Est GFR ( Amer) 6 L Est GFR (Non-Af Amer) 5 L BUN/Creatinine Ratio 8 Glucose 213 H POC Glucose 220 H Calculated Osmolality 310 H Calcium 9.5 Total Bilirubin 0.8 AST 187 H ALT 58 H Alkaline Phosphatase 594 H Serum Total Protein 8.9 Albumin 2.6 L Globulin 6.3 H Albumin/Globulin Ratio 0.4 L 06/14/17 06/14/17 06/14/17 05:13 07:07 11:02 WBC RBC Hgb Hct MCV MCH MCHC RDW Plt Count MPV Immature Gran % Seg Neutrophils % Lymphocytes % Monocytes % Eosinophils % Basophils % Neutrophils # Lymphocytes # Monocytes # Eosinophils # Basophils # Platelet Estimate Polychromasia Sample Site R Radial ABG pH 7.36 ABG pCO2 41 ABG pO2 58 L ABG HCO3 24 ABG Total CO2 25 ABG O2 Saturation 88 L ABG Base Excess -2 Jeovany Test N/A Respiration Rate 14 O2 Delivery Device Adult Vent Blood Gas Modality VC Inspired O2 50.0 Tidal Volume 600 PEEP 8 Sodium Potassium Chloride Carbon Dioxide BUN Creatinine Est GFR ( Amer) Est GFR (Non-Af Amer) BUN/Creatinine Ratio Glucose POC Glucose 238 H 193 H Calculated Osmolality Calcium Total Bilirubin AST ALT Alkaline Phosphatase Serum Total Protein Albumin Globulin Albumin/Globulin Ratio - Impressions Impressions Catheter Change 06/12/17 00:00 IMPRESSION: Successful exchange of a temporary hemodialysis catheter, with removal of a 32 cm catheter and placement of a 55 cm catheter. Please note, as this is being used as a temporary catheter, the cuff was left chest outside of the tunnel site. D/ / Jimmy Rubalcava MD / Jimmy Rubalcava MD Interpreting Provider: Jimmy Rubalcava MD Chest X-Ray 06/14/17 04:00 IMPRESSION: CHF with stable perihilar airspace opacities suggesting edema or ARDS. Bilateral pleural effusions, improved on the left since prior imaging. D/ / Ronald Bradshaw MD / Ronald Bradshaw MD Interpreting Provider: Ronald Bradshaw MD - ABG Interpretation ABG results: ABG ABG pH 7.36 pH Units (7.32-7.45) 06/14/17 05:13 ABG pCO2 41 mmHg (35-45) 06/14/17 05:13 ABG pO2 58 mmHg (85-104) L 06/14/17 05:13 ABG O2 Saturation 88 % (95-98) L 06/14/17 05:13 PT/INR, D-dimer PT 14.7 Seconds (9.4-12.1) H 06/11/17 13:50
[2017-06-14] MEDS ORDERED: 0.9 % Sodium Chloride 250 ML IVC PRN (08:23)
--- NOTE | 2017-06-14 08:23 | Nephrology Progress Note ---
Date of Encounter: 06/14/17 Time of Encounter: 08:21 - Assessment and Plan (1) Chronic kidney disease, stage IV (severe) Current Visit: Yes Status: Acute The patient has acute kidney injury superimposed on stage IV chronic kidney disease. He has exhibited no improvement in renal function and now is dialysis dependent. The patient will continue to be supported with dialysis regularly until if and when the family decides to de-escalate his level of care. Following removal is difficult because of reflex tachycardia on dialysis. (2) Type 2 diabetes mellitus with diabetic chronic kidney disease Current Visit: Yes Status: Acute Qualifiers: Diabetes mellitus strategic insights lead insulin use: with detention use Chronic kidney disease stage: stage 4 (severe) Qualified Code(s): E11.22 - Type 2 diabetes mellitus with diabetic chronic kidney disease; N18.4 - Chronic kidney disease, stage 4 (severe); N18.4 - Chronic kidney disease, stage 4 (severe); N18.4 - Chronic kidney disease, stage 4 (severe); N18.4 - Chronic kidney disease, stage 4 (severe); Z79.4 - assisted (current) use of insulin; Z79.4 - assisted ( current) use of insulin; Z79.4 - assisted (current) use of insulin; Z79.4 - butt maker (current) use of insulin (3) Benign hypertension with CKD (chronic kidney disease) stage IV Current Visit: Yes Status: Acute (4) Anemia in CKD (chronic kidney disease) Current Visit: Yes Status: Acute Qualifiers: Chronic kidney disease stage: stage 5, not on chronic dialysis Qualified Code(s): N18.5 - Chronic kidney disease, stage 5; D63.1 - Anemia in chronic kidney disease; D63.1 - Anemia in chronic kidney disease (5) Paroxysmal A-fib Current Visit: Yes Status: Chronic (6) Acute kidney failure, unspecified Current Visit: Yes Status: Acute Qualifiers: Acute renal failure type: unspecified Qualified Code(s): N17.9 - Acute kidney failure, unspecified Subjective Principal diagnosis: [employer] [employer] [facility] [employer] [employer] failure s/p Cardiac arrest Interval history: The patient remains intubated and on the ventilator. The patient is poorly responsive. The patient's oxygen requirements are slightly less. The patient' s nurse reports some spontaneous movement along the right side. It is unclear if this is purposeful or not. No spontaneous movement is noted on the patient' s left side. Patient is scheduled to undergo dialysis today. Objective - Vital Signs Vital signs: Vital Signs Temp Pulse Resp BP Pulse Ox 06/14/17 08:12 69 06/14/17 07:34 98.9 F 06/14/17 06:00 71 26 98/84 95 06/14/17 05:52 18 06/14/17 05:50 18 95 06/14/17 05:00 70 19 115/64 97 06/14/17 04:47 99.2 F 06/14/17 04:00 70 16 114/76 90 06/14/17 03:59 18 95 06/14/17 03:00 73 20 94/59 91 06/14/17 02:00 71 19 132/67 95 06/14/17 01:23 18 95 06/14/17 01:00 70 20 123/68 97 06/14/17 00:00 70 17 131/69 97 06/13/17 23:51 99.9 F H 06/13/17 23:26 21 96 06/13/17 23:00 70 17 109/61 96 06/13/17 22:00 69 17 127/64 96 06/13/17 21:56 17 95 06/13/17 20:58 79 06/13/17 20:36 100.7 F H 06/13/17 20:00 89 17 127/65 94 06/13/17 19:49 20 93 06/13/17 19:00 91 21 120/72 92 06/13/17 18:00 96 18 121/71 93 06/13/17 17:00 95 19 120/70 93 06/13/17 16:40 19 92 06/13/17 16:00 86 18 137/69 93 06/13/17 15:13 75 06/13/17 15:00 100.0 F H 75 17 122/61 94 06/13/17 14:00 72 18 133/57 93 06/13/17 13:47 20 93 06/13/17 13:00 77 20 114/69 93 06/13/17 12:00 70 20 115/57 92 06/13/17 11:59 19 114/59 91 06/13/17 11:30 79 06/13/17 11:00 99.9 F H 79 21 110/66 92 06/13/17 10:00 69 18 114/57 93 06/13/17 09:00 97 18 124/66 93 06/13/17 08:48 18 93 Intake and Output 06/13/17 06/14/17 06/14/17 23:59 07:59 15:59 Intake Total 264 / 264 Output Total 550 / 550 150 / 150 Balance -550 / -550 114 / 114 Intake: Tube Feeding 264 / 264 Output: Urine 0 / 0 Stool 550 / 550 150 / 150 Other: Weight 105.7 kg Blood Glucose* 300 238 - General Appearance Exam: Patient is on the ventilator. He is poorly responsive. Heart irregular rate and rhythm. Lungs coarse breath sounds. Abdomen is soft. Colostomy is present. There is minimal lower extremity swelling. There is a temporary dialysis catheter in the right femoral vein. - Lab 06/14/17 04:53 06/14/17 04:53 Most recent lab results ABG pH 7.36 pH Units (7.32-7.45) 06/14/17 05:13 ABG pCO2 41 mmHg (35-45) 06/14/17 05:13 ABG pO2 58 mmHg (85-104) L 06/14/17 05:13 ABG HCO3 24 mEq/L (21-27) 06/14/17 05:13 ABG O2 Saturation 88 % (95-98) L 06/14/17 05:13 Calcium 9.5 mg/dL (8.6-10.3) 06/14/17 04:53 Phosphorus 10.7 mg/dL (2.7-4.5) H 06/08/17 04:00 Magnesium 2.7 mg/dL (1.6-2.6) H 06/12/17 03:33 Consult Discharge Plan - Plan Referrals: NONE,PCP [Primary Care Provider] - (Patient will follow up with renal doctors)
[2017-06-14] MEDS: Pantoprazole 40 MG VIAL IVP SCH (08:43)
[2017-06-14] MEDS: Chlorhexidine Rinse 15 ML MOUTHWASH MM SCH ×2 (08:43→21:31)
--- NOTE | 2017-06-14 08:43 | Pulmonology Progress Note ---
<Johnnie Bradford - Last Filed: 06/14/17 11:39> Date of Encounter: 06/14/17 Time of Encounter: 08:43 Assessment and Plan (1) Sepsis Current Visit: Yes Status: Acute Resolved. Plan: - Patient hemodynamically stable - Continue ICU care. Qualifiers: Sepsis type: sepsis due to unspecified organism Qualified Code(s): A41.9 - Sepsis, unspecified organism (2) ESRD needing dialysis Current Visit: Yes Status: Chronic Nephrology following. Dialysis per schedule. Follow electrolytes daily. (3) DM2 (diabetes mellitus, type 2) Current Visit: Yes Status: Chronic Patient is a known type II diabetic, currently receiving tube feedings. Patient has been hyperglycemic with glucoses around 250. Plan: - Levemir 15 mg daily - High dose sliding scale every 4 hours - Every 4 hourly glucose checks. 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 Mental status is poor. Continue to wean FiO2 as tolerated. Continue dialysis for volume overload. - Family wishing to wait until Monday to make a decision on mechanical ventilation. (5) Cardiac arrest Current Visit: Yes Status: Acute Patient remains unresponsive neurology following extremely poor prognosis neurologically EEG shows diffuse slowing which is consistent with this diagnosis neurology is following as is palliative care. Plan: - Discuss goals of care with family. (6) Anoxic brain damage Current Visit: Yes Status: Acute Anoxic brain injury status post cardiac arrest. EEG and clinical prognosis is poor. The patient is DNR comfort care arrest. Continue to monitor for neurologic status improvement. (7) Goals of care, counseling/discussion Current Visit: Yes Status: Acute The patient's prognosis has been discussed with the patient's family. At this time he is DNR CCA, family wishes to discuss goals of care regarding trach and PEG versus comfort care. (8) On enteral nutrition Current Visit: Yes Status: Acute Patient receiving enteral nutrition via OG tube. Hyperglycemia is monitored during this process. (9) DVT prophylaxis Current Visit: Yes Status: Acute Heparin subcutaneously. Subjective Principal diagnosis: TROUBLE SHOOTER failure s/p Cardiac arrest Interval history: Mr. Benitez 61-year-old male is intubated, not on sedation and poorly responsive to neurologic stimuli. Little improvement over night. No new events over night. Objective PUL Vital signs: Last Vital Signs Temp 98.9 F 06/14/17 07:34 Pulse 69 06/14/17 08:12 Resp 28 06/14/17 08:00 BP 109/57 06/14/17 08:00 Pulse Ox 93 06/14/17 08:00 General appearance: no acute distress, comatose, other (intubated) Eyes: nonicteric ENT: oropharynx moist Neck: supple Effort: normal Auscultation: bilateral: rhonchi Cardiovascular: regular rate and rhythm Gastrointestinal: normoactive bowel sounds Integumentary: normal Extremities: no cyanosis, no clubbing, pink and warm Musculoskeletal: no deformities unable to assess due to mental status Ventilator Settings Ventilator Settings: Ventilator Settings, Last 8 Hours Ventilator Mode CPAP Ventilator Mode CPAP Ventilator Mode VC+ Ventilator Mode VC+ Ventilator Mode VC+ Ventilator Mode VC+ Ventilator Mode VC+ Ventilator Tidal Volume 600 Setting Ventilator Tidal Volume 600 Setting Ventilator Tidal Volume 600 Setting Ventilator Tidal Volume 600 Setting Ventilator Tidal Volume 600 Setting Ventilator Tidal Volume 600 Setting Ventilator Tidal Volume 600 Setting Ventilator Respiratory Rate 14 Setting Ventilator Respiratory Rate 14 Setting Ventilator Respiratory Rate 14 Setting Ventilator Respiratory Rate 14 Setting Ventilator Respiratory Rate 14 Setting Actual Respiratory Rate 26 Actual Respiratory Rate 25 Actual Respiratory Rate 19 Actual Respiratory Rate 16 Actual Respiratory Rate 19 Actual Respiratory Rate 18 Positive End Expiratory 8 Pressure Positive End Expiratory 8 Pressure Positive End Expiratory 5 Pressure Positive End Expiratory 5 Pressure Positive End Expiratory 5 Pressure Peak Inspiratory Airway 14 Pressure Peak Inspiratory Airway 18 Pressure Peak Inspiratory Airway 25 Pressure Peak Inspiratory Airway 30 Pressure Peak Inspiratory Airway 21 Pressure Peak Inspiratory Airway 26 Pressure Results - Laboratory Findings CBC and BMP: 06/14/17 04:53 06/14/17 04:53 ABG ABG pH 7.36 pH Units (7.32-7.45) 06/14/17 05:13 ABG pCO2 41 mmHg (35-45) 06/14/17 05:13 ABG pO2 58 mmHg (85-104) L 06/14/17 05:13 ABG O2 Saturation 88 % (95-98) L 06/14/17 05:13 PT/INR, D-dimer PT 14.7 Seconds (9.4-12.1) H 06/11/17 13:50 Abnormal lab findings: Abnormal lab results WBC 12.5 K/mcL (4.3-11.1) H 06/14/17 04:53 RBC 2.81 M/mcL (4.19-5.50) L 06/14/17 04:53 Hgb 7.9 g/dL (12.9-16.9) L 06/14/17 04:53 Hct 26.7 % (37.5-50.1) L 06/14/17 04:53 MCHC 29.6 g/dL (31.6-35.5) L 06/14/17 04:53 RDW 16.6 % (11.5-14.5) H 06/14/17 04:53 Nucleated RBCs/100 WBC 0.2 /100 WBC (0) H 06/12/17 03:33 Polychromasia 1+ (Not Present) A 06/14/17 04:53 Hypochromasia Present (Not Present) A 06/08/17 04:00 PT 14.7 Seconds (9.4-12.1) H 06/11/17 13:50 APTT 25.7 Seconds (26.0-36.0) L D 06/03/17 21:15 ABG pO2 58 mmHg (85-104) L 06/14/17 05:13 ABG O2 Saturation 88 % (95-98) L 06/14/17 05:13 VBG pH 7.22 pH Units (7.32-7.42) L 06/03/17 14:03 VBG pCO2 65 mmHg (41-51) H 06/03/17 14:03 VBG pO2 76 mmHg (25-50) H 06/03/17 14:03 Sodium 133 mEq/L (136-145) L 06/14/17 04:53 Potassium 5.2 mEq/L (3.5-5.1) H 06/14/17 04:53 Chloride 96 mEq/L (98-107) L 06/14/17 04:53 Carbon Dioxide 21 mEq/L (23-29) L 06/14/17 04:53 BUN 90 mg/dL (8-23) H 06/14/17 04:53 Creatinine 10.83 mg/dL (0.70-1.30) H 06/14/17 04:53 Est GFR ( Amer) 6 (> 60) L 06/14/17 04:53 Est GFR (Non-Af Amer) 5 (> 60) L 06/14/17 04:53 Glucose 213 mg/dL (70-105) H 06/14/17 04:53 POC Glucose 238 (58-89) H 06/14/17 07:07 Calculated Osmolality 310 (280-300) H 06/14/17 04:53 Venous Ioniz Calcium 0.97 mmol/L (1.15-1.35) L 06/05/17 04:34 Phosphorus 10.7 mg/dL (2.7-4.5) H 06/08/17 04:00 Magnesium 2.7 mg/dL (1.6-2.6) H 06/12/17 03:33 Iron 15 mcg/dL (65-175) L 05/29/17 07:40 % Saturation 6 % (20-55) L 05/29/17 07:40 Transferrin 169 mg/dL (174-364) L 05/29/17 07:40 Ferritin 517 ng/ml (22-275) H 05/29/17 07:40 Direct Bilirubin 0.5 mg/dL (0.0-0.2) H 06/12/17 03:33 AST 187 Units/L (13-39) H 06/14/17 04:53 ALT 58 Units/L (7-52) H 06/14/17 04:53 Alkaline Phosphatase 594 Units/L (34-104) H 06/14/17 04:53 Albumin 2.6 g/dL (3.5-5.7) L 06/14/17 04:53 Globulin 6.3 g/dL (2.4-3.5) H 06/14/17 04:53 Albumin/Globulin Ratio 0.4 (1.1-2.2) L 06/14/17 04:53 Triglycerides 203 mg/dL (< 150) H 05/27/17 03:50 VLDL Cholesterol, Calc 41 mg/dL (< 31) H 05/27/17 03:50 HDL Cholesterol 16 mg/dL (40-59) L 05/27/17 03:50 Cholesterol/HDL Ratio 6.6 (0-4.9) H 05/27/17 03:50 PTH Intact 457.2 pg/ml (8.5-72.5) H 05/29/17 07:40 Urine Clarity Cloudy (Clear) A 05/27/17 13:15 Urine Protein >=300 mg/dL (Neg-Trace) H 05/27/17 13:15 Urine Glucose (UA) 100 mg/dL (Normal) H 05/27/17 13:15 Urine Blood Large (Negative) H 05/27/17 13:15 Urine Microscopic WBC 3-5 per hpf (0-3) H 05/27/17 13:15 Ur Squamous Epith Cells Moderate per lpf (None-Few) H 05/27/17 13:15 - Microbiology Findings Microbiology Findings: Microbiology, Last 48 Hours 06/10/17 04:00 Sputum Culture - Final Sputum Yeast Species - Clinical Findings Intake & Output: Intake & Output 06/13/17 06/14/17 06/14/17 23:59 07:59 15:59 Intake Total 264 / 264 78 / 78 Output Total 550 / 550 150 / 150 Balance -550 / -550 114 / 114 78 / 78 Weight 105.7 kg Consult Discharge Plan - Plan Referrals: NONE,PCP [Primary Care Provider] - (Patient will follow up with renal doctors) <Francheska Haile - Last Filed: 06/14/17 16:09> Date of Encounter: 06/14/17 Assessment and Plan (1) Coma Current Visit: Yes Status: Acute Qualifiers: Coma depth: [place] coma 3-8 Coma timin hours or more after hospital admission Qualified Code(s): R40.2434 - [place] coma scale score 3-8, 24 hours or more after hospital admission (2) Acute respiratory failure with hypoxia and hypercapnia Current Visit: Yes Status: Acute (3) Cardiac arrest due to other underlying condition Current Visit: Yes Status: Acute (4) ESRD needing dialysis Current Visit: Yes Status: Chronic Objective PUL Vital signs: Last Vital Signs Temp 98.6 F 06/14/17 15:21 Pulse 68 06/14/17 15:03 Resp 17 06/14/17 15:00 BP 92/50 06/14/17 15:00 Pulse Ox 92 06/14/17 15:00 Ventilator Settings Ventilator Settings: Ventilator Settings, Last 8 Hours Ventilator Mode VC+ Ventilator Mode VC+ Ventilator Mode VC+ Ventilator Mode VC+ Ventilator Mode VC+ Ventilator Mode VC+ Ventilator Mode CPAP Ventilator Tidal Volume 600 Setting Ventilator Tidal Volume 600 Setting Ventilator Tidal Volume 600 Setting Ventilator Tidal Volume 600 Setting Ventilator Tidal Volume 600 Setting Ventilator Tidal Volume 600 Setting Ventilator Respiratory Rate 14 Setting Ventilator Respiratory Rate 14 Setting Ventilator Respiratory Rate 14 Setting Ventilator Respiratory Rate 14 Setting Ventilator Respiratory Rate 14 Setting Ventilator Respiratory Rate 14 Setting Actual Respiratory Rate 18 Actual Respiratory Rate 19 Actual Respiratory Rate 22 Actual Respiratory Rate 16 Actual Respiratory Rate 19 Actual Respiratory Rate 19 Actual Respiratory Rate 28 Positive End Expiratory 5 Pressure Positive End Expiratory 5 Pressure Positive End Expiratory 5 Pressure Positive End Expiratory 5 Pressure Positive End Expiratory 5 Pressure Positive End Expiratory 5 Pressure Positive End Expiratory 5 Pressure Peak Inspiratory Airway 24 Pressure Peak Inspiratory Airway 26 Pressure Peak Inspiratory Airway 27 Pressure Peak Inspiratory Airway 27 Pressure Peak Inspiratory Airway 27 Pressure Peak Inspiratory Airway 29 Pressure Peak Inspiratory Airway 14 Pressure Results - Laboratory Findings CBC and BMP: 06/14/17 04:53 06/14/17 04:53 ABG ABG pH 7.36 pH Units (7.32-7.45) 06/14/17 05:13 ABG pCO2 41 mmHg (35-45) 06/14/17 05:13 ABG pO2 58 mmHg (85-104) L 06/14/17 05:13 ABG O2 Saturation 88 % (95-98) L 06/14/17 05:13 PT/INR, D-dimer PT 14.7 Seconds (9.4-12.1) H 06/11/17 13:50 Abnormal lab findings: Abnormal lab results WBC 12.5 K/mcL (4.3-11.1) H 06/14/17 04:53 RBC 2.81 M/mcL (4.19-5.50) L 06/14/17 04:53 Hgb 7.9 g/dL (12.9-16.9) L 06/14/17 04:53 Hct 26.7 % (37.5-50.1) L 06/14/17 04:53 MCHC 29.6 g/dL (31.6-35.5) L 06/14/17 04:53 RDW 16.6 % (11.5-14.5) H 06/14/17 04:53 Nucleated RBCs/100 WBC 0.2 /100 WBC (0) H 06/12/17 03:33 Polychromasia 1+ (Not Present) A 06/14/17 04:53 Hypochromasia Present (Not Present) A 06/08/17 04:00 PT 14.7 Seconds (9.4-12.1) H 06/11/17 13:50 APTT 25.7 Seconds (26.0-36.0) L D 06/03/17 21:15 ABG pO2 58 mmHg (85-104) L 06/14/17 05:13 ABG O2 Saturation 88 % (95-98) L 06/14/17 05:13 VBG pH 7.22 pH Units (7.32-7.42) L 06/03/17 14:03 VBG pCO2 65 mmHg (41-51) H 06/03/17 14:03 VBG pO2 76 mmHg (25-50) H 06/03/17 14:03 Sodium 133 mEq/L (136-145) L 06/14/17 04:53 Potassium 5.2 mEq/L (3.5-5.1) H 06/14/17 04:53 Chloride 96 mEq/L (98-107) L 06/14/17 04:53 Carbon Dioxide 21 mEq/L (23-29) L 06/14/17 04:53 BUN 90 mg/dL (8-23) H 06/14/17 04:53 Creatinine 10.83 mg/dL (0.70-1.30) H 06/14/17 04:53 Est GFR ( Amer) 6 (> 60) L 06/14/17 04:53 Est GFR (Non-Af Amer) 5 (> 60) L 06/14/17 04:53 Glucose 213 mg/dL (70-105) H 06/14/17 04:53 POC Glucose 183 (58-89) H 06/14/17 15:04 Calculated Osmolality 310 (280-300) H 06/14/17 04:53 Venous Ioniz Calcium 0.97 mmol/L (1.15-1.35) L 06/05/17 04:34 Phosphorus 10.7 mg/dL (2.7-4.5) H 06/08/17 04:00 Magnesium 2.7 mg/dL (1.6-2.6) H 06/12/17 03:33 Iron 15 mcg/dL (65-175) L 05/29/17 07:40 % Saturation 6 % (20-55) L 05/29/17 07:40 Transferrin 169 mg/dL (174-364) L 05/29/17 07:40 Ferritin 517 ng/ml (22-275) H 05/29/17 07:40 Direct Bilirubin 0.5 mg/dL (0.0-0.2) H 06/12/17 03:33 AST 187 Units/L (13-39) H 06/14/17 04:53 ALT 58 Units/L (7-52) H 06/14/17 04:53 Alkaline Phosphatase 594 Units/L (34-104) H 06/14/17 04:53 Albumin 2.6 g/dL (3.5-5.7) L 06/14/17 04:53 Globulin 6.3 g/dL (2.4-3.5) H 06/14/17 04:53 Albumin/Globulin Ratio 0.4 (1.1-2.2) L 06/14/17 04:53 Triglycerides 203 mg/dL (< 150) H 05/27/17 03:50 VLDL Cholesterol, Calc 41 mg/dL (< 31) H 05/27/17 03:50 HDL Cholesterol 16 mg/dL (40-59) L 05/27/17 03:50 Cholesterol/HDL Ratio 6.6 (0-4.9) H 05/27/17 03:50 PTH Intact 457.2 pg/ml (8.5-72.5) H 05/29/17 07:40 Urine Clarity Cloudy (Clear) A 05/27/17 13:15 Urine Protein >=300 mg/dL (Neg-Trace) H 05/27/17 13:15 Urine Glucose (UA) 100 mg/dL (Normal) H 05/27/17 13:15 Urine Blood Large (Negative) H 05/27/17 13:15 Urine Microscopic WBC 3-5 per hpf (0-3) H 05/27/17 13:15 Ur Squamous Epith Cells Moderate per lpf (None-Few) H 05/27/17 13:15 - Microbiology Findings Microbiology Findings: Microbiology, Last 48 Hours 06/09/17 11:33 Blood Culture - Final Peripheral Venipuncture No growth. 06/09/17 11:28 Blood Culture - Final Peripheral Venipuncture No growth. 06/10/17 04:00 Sputum Culture - Final Sputum Yeast Species - Clinical Findings Intake & Output: Intake & Output 06/14/17 06/14/17 06/14/17 07:59 15:59 23:59 Intake Total 264 / 264 334 / 334 Output Total 150 / 150 0 / 0 Balance 114 / 114 334 / 334 - Attending Attestation I examined this patient and my medical decision-making was reviewed with the Resident Physician. I agree with the documented findings, disposition and treatment plan as described except to the extent set forth below. Patient seen and examined. Labs, radiology, chart personally reviewed. Agree with resident's history and physical, assessment, plan with following comments: TROUBLE SHOOTER: Patient is not follows commands, patient has more nonpurposeful movement and I explained this to his family at the bedside. Neurology input is appreciated. Pulmonary: Acceptable oxygenation and ventilation. The patient did reasonably well on spontaneous breathing trial. Plan to wait until Monday per family's request. Cardiovascular: stable GI: Nutrition per dietary and GI prophylaxis per routine Heme: DVT prophylaxis per routine Renal; patient is on dialysis Endorcine: blood glucose is monitored Lines: all lines checked and no evidence of infections Skin: skin care to prevent pressure ulcers per nursing routine care Prognosis remained poor
[2017-06-14] MEDS: Insulin DETEMIR 100 UNIT/ML X5UNITS SQ SCH (08:48)
[2017-06-14] MEDS: FentaNYL (PF) 1,000 MCG in 0.9 % Sodium Chloride 80 ML IVC SCH (11:25)
--- NOTE | 2017-06-14 15:19 | Neurology Progress Note ---
<Debbie Quintana - Last Filed: 06/14/17 15:17> Date of Encounter: 06/14/17 Time of Encounter: 15:17 Assessment and Plan (1) Coma Status: Acute anoxic brain injury secondary to cardiac arrest. prior EEG showed diffuse severe background slowing with mnimal reactivity dimished brachioradialis and achilles reflexex, along with pupillary reflexes noted. Plan: neuro evaluation done at request of family. Overall prognosis continues to be poor. Patient's is requesting another EEG. At this time, this test would not be beneficial for the patient, nor would it change the management. This was explained to patient's . continue goals of care discussions, appreciate palliative input. 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 He remains intubated and sedated on ventilator. Objective - Constitutional Vitals: Temp Pulse Resp BP Pulse Ox 98.6 F 68 17 92/50 92 06/14/17 11:33 06/14/17 15:03 06/14/17 15:00 06/14/17 15:00 06/14/17 15:00 General appearance: Present: no acute distress Exam: intubated, sedated, unresponsive - Head Head exam: Present: atraumatic, normocephalic - Eye Eye exam: Present: PERRL, sclera anicteric Pupils: Present: PERRL Additional comments: vestibulo-ocular reflex intact - Neurological Exam Sensorimotor examination: Present: other (Unable to assess due to coma. diminished achilles and brachioradialis reflexes. ) Motor Examination: Present: other (Flaccid paralysed. No spontaneous movements to painful stimuli. ) Sensation intact: Present: other (Unable to assess due to coma) Posture: Present: other (None) Reflex and gait examination: other (Not tested patient is in coma) Mental Status Examination: Present: does not follow commands, no spontaneous eye opening to voice or tactile stimulation Cranial nerve examination: Present: PERRL, EOMI (positive oculocephalic reflex) , no facial asymmetry is present, gag reflex intact Results - Laboratory Findings CBC and BMP: 06/14/17 04:53 06/14/17 04:53 Abnormal lab findings: Abnormal lab results WBC 12.5 K/mcL (4.3-11.1) H 06/14/17 04:53 RBC 2.81 M/mcL (4.19-5.50) L 06/14/17 04:53 Hgb 7.9 g/dL (12.9-16.9) L 06/14/17 04:53 Hct 26.7 % (37.5-50.1) L 06/14/17 04:53 MCHC 29.6 g/dL (31.6-35.5) L 06/14/17 04:53 RDW 16.6 % (11.5-14.5) H 06/14/17 04:53 Nucleated RBCs/100 WBC 0.2 /100 WBC (0) H 06/12/17 03:33 Polychromasia 1+ (Not Present) A 06/14/17 04:53 Hypochromasia Present (Not Present) A 06/08/17 04:00 PT 14.7 Seconds (9.4-12.1) H 06/11/17 13:50 APTT 25.7 Seconds (26.0-36.0) L D 06/03/17 21:15 ABG pO2 58 mmHg (85-104) L 06/14/17 05:13 ABG O2 Saturation 88 % (95-98) L 06/14/17 05:13 VBG pH 7.22 pH Units (7.32-7.42) L 06/03/17 14:03 VBG pCO2 65 mmHg (41-51) H 06/03/17 14:03 VBG pO2 76 mmHg (25-50) H 06/03/17 14:03 Sodium 133 mEq/L (136-145) L 06/14/17 04:53 Potassium 5.2 mEq/L (3.5-5.1) H 06/14/17 04:53 Chloride 96 mEq/L (98-107) L 06/14/17 04:53 Carbon Dioxide 21 mEq/L (23-29) L 06/14/17 04:53 BUN 90 mg/dL (8-23) H 06/14/17 04:53 Creatinine 10.83 mg/dL (0.70-1.30) H 06/14/17 04:53 Est GFR ( Amer) 6 (> 60) L 06/14/17 04:53 Est GFR (Non-Af Amer) 5 (> 60) L 06/14/17 04:53 Glucose 213 mg/dL (70-105) H 06/14/17 04:53 POC Glucose 183 (58-89) H 06/14/17 15:04 Calculated Osmolality 310 (280-300) H 06/14/17 04:53 Venous Ioniz Calcium 0.97 mmol/L (1.15-1.35) L 06/05/17 04:34 Phosphorus 10.7 mg/dL (2.7-4.5) H 06/08/17 04:00 Magnesium 2.7 mg/dL (1.6-2.6) H 06/12/17 03:33 Iron 15 mcg/dL (65-175) L 05/29/17 07:40 % Saturation 6 % (20-55) L 05/29/17 07:40 Transferrin 169 mg/dL (174-364) L 05/29/17 07:40 Ferritin 517 ng/ml (22-275) H 05/29/17 07:40 Direct Bilirubin 0.5 mg/dL (0.0-0.2) H 06/12/17 03:33 AST 187 Units/L (13-39) H 06/14/17 04:53 ALT 58 Units/L (7-52) H 06/14/17 04:53 Alkaline Phosphatase 594 Units/L (34-104) H 06/14/17 04:53 Albumin 2.6 g/dL (3.5-5.7) L 06/14/17 04:53 Globulin 6.3 g/dL (2.4-3.5) H 06/14/17 04:53 Albumin/Globulin Ratio 0.4 (1.1-2.2) L 06/14/17 04:53 Triglycerides 203 mg/dL (< 150) H 05/27/17 03:50 VLDL Cholesterol, Calc 41 mg/dL (< 31) H 05/27/17 03:50 HDL Cholesterol 16 mg/dL (40-59) L 05/27/17 03:50 Cholesterol/HDL Ratio 6.6 (0-4.9) H 05/27/17 03:50 PTH Intact 457.2 pg/ml (8.5-72.5) H 05/29/17 07:40 Urine Clarity Cloudy (Clear) A 05/27/17 13:15 Urine Protein >=300 mg/dL (Neg-Trace) H 05/27/17 13:15 Urine Glucose (UA) 100 mg/dL (Normal) H 05/27/17 13:15 Urine Blood Large (Negative) H 05/27/17 13:15 Urine Microscopic WBC 3-5 per hpf (0-3) H 05/27/17 13:15 Ur Squamous Epith Cells Moderate per lpf (None-Few) H 05/27/17 13:15 Consult Discharge Plan - Plan Referrals: NONE,PCP [Primary Care Provider] - (Patient will follow up with renal doctors) <Alexsandra Nichole I - Last Filed: 06/18/17 20:31> Date of Encounter: 06/14/17 Assessment and Plan (1) Anoxic brain damage Status: Acute Subjective Interval history: NEUROLOGY SERVICE RECONSULTED: Pt was seen and examined agree with the Resident documentation. Mr. Benitez is a 61 year old male with PMH significant for ESRD, HTN, DM, atrial fibrillation who is consulted regarding unresponsiveness after cardiac arrest. Patient was initially admitted to hospital due to acute mental status changes secondary to acute worsening encephalopathy. On 06/03/2017 reportedly, per medical staff, he developed cardiac arrest, after having vomiting blood. Total cardiac down time about 6 minute per ICU staff. patient was kept on Hypothermia protocol for 24 hours up until last night. He is off sedation now. This morning at the time of this interview, he has no consciousness response to verbal and painful stimuli. When given tactile or painful stimuli, he develops rhythm jerking to his facial muscles, which weans when stopped stimulation. Brain stem reflexes are mostly preserved. No fever. CT of head showed no acute intracranial abnormality done several days ago. Recommendations: considering over all pt history and exam findings though seem like he still has positive brain stem reflexes but no spontaneous or any purposeful movements, and in the last 2 weeks no significant change in overall neurological status. it seem like patient may have suffered significant Anoxic hypoxic damage to his brain during cardiac arrest, in the current clinical context he seem to be in VEGETATIVE STATE , thats likely going to be persistent. thogh he has brain stem reflexes but no awareness of surroundings. EEG likley not going to be helpful in this case may repeat imaging studies , preferably MRI of brain to see if there is any new findings, though in this clinical picture like going to be negative I have long discussion with patient at bed side, all questions were answered, she would like to wait one more day and will make final decision about withdrawal of care. will follow the patient with you thank you Alexsandra Nichole MD Objective - Constitutional Vitals: Temp Pulse Resp BP Pulse Ox 99.1 F 89 25 99/63 96 06/15/17 15:45 06/15/17 15:00 06/15/17 15:39 06/15/17 15:00 06/15/17 15:39 Results - Laboratory Findings CBC and BMP: 06/16/17 09:13 06/15/17 05:05 Abnormal lab findings: Abnormal lab results RBC 3.02 M/mcL (4.19-5.50) L 06/15/17 05:05 Hgb 8.6 g/dL (12.9-16.9) L 06/15/17 05:05 Hct 27.4 % (37.5-50.1) L 06/15/17 05:05 MCHC 31.4 g/dL (31.6-35.5) L 06/15/17 05:05 RDW 16.3 % (11.5-14.5) H 06/15/17 05:05 Nucleated RBCs/100 WBC 0.2 /100 WBC (0) H 06/12/17 03:33 Polychromasia 1+ (Not Present) A 06/14/17 04:53 Hypochromasia Present (Not Present) A 06/08/17 04:00 PT 14.1 Seconds (9.4-12.1) H 06/15/17 05:05 APTT 25.7 Seconds (26.0-36.0) L D 06/03/17 21:15 ABG pO2 58 mmHg (85-104) L 06/14/17 05:13 ABG O2 Saturation 88 % (95-98) L 06/14/17 05:13 VBG pH 7.22 pH Units (7.32-7.42) L 06/03/17 14:03 VBG pCO2 65 mmHg (41-51) H 06/03/17 14:03 VBG pO2 76 mmHg (25-50) H 06/03/17 14:03 Sodium 129 mEq/L (136-145) L 06/15/17 05:05 Chloride 91 mEq/L (98-107) L 06/15/17 05:05 BUN 55 mg/dL (8-23) H 06/15/17 05:05 Creatinine 6.75 mg/dL (0.70-1.30) H 06/15/17 05:05 Est GFR ( Amer) 10 (> 60) L 06/15/17 05:05 Est GFR (Non-Af Amer) 8 (> 60) L 06/15/17 05:05 Glucose 283 mg/dL (70-105) H 06/15/17 05:05 POC Glucose 259 (58-89) H 06/15/17 15:15 Venous Ioniz Calcium 0.97 mmol/L (1.15-1.35) L 06/05/17 04:34 Phosphorus 10.7 mg/dL (2.7-4.5) H 06/08/17 04:00 Magnesium 2.7 mg/dL (1.6-2.6) H 06/12/17 03:33 Iron 15 mcg/dL (65-175) L 05/29/17 07:40 % Saturation 6 % (20-55) L 05/29/17 07:40 Transferrin 169 mg/dL (174-364) L 05/29/17 07:40 Ferritin 517 ng/ml (22-275) H 05/29/17 07:40 Direct Bilirubin 0.5 mg/dL (0.0-0.2) H 06/12/17 03:33 AST 158 Units/L (13-39) H 06/15/17 05:05 Alkaline Phosphatase 557 Units/L (34-104) H 06/15/17 05:05 Albumin 2.4 g/dL (3.5-5.7) L 06/15/17 05:05 Globulin 5.1 g/dL (2.4-3.5) H 06/15/17 05:05 Albumin/Globulin Ratio 0.5 (1.1-2.2) L 06/15/17 05:05 Triglycerides 203 mg/dL (< 150) H 05/27/17 03:50 VLDL Cholesterol, Calc 41 mg/dL (< 31) H 05/27/17 03:50 HDL Cholesterol 16 mg/dL (40-59) L 05/27/17 03:50 Cholesterol/HDL Ratio 6.6 (0-4.9) H 05/27/17 03:50 PTH Intact 457.2 pg/ml (8.5-72.5) H 05/29/17 07:40 Urine Clarity Cloudy (Clear) A 05/27/17 13:15 Urine Protein >=300 mg/dL (Neg-Trace) H 05/27/17 13:15 Urine Glucose (UA) 100 mg/dL (Normal) H 05/27/17 13:15 Urine Blood Large (Negative) H 05/27/17 13:15 Urine Microscopic WBC 3-5 per hpf (0-3) H 05/27/17 13:15 Ur Squamous Epith Cells Moderate per lpf (None-Few) H 05/27/17 13:15
[2017-06-15] MEDS: Lacri-Lube 3.5 GM TUBE BOTH EYES SCH ×7 (00:13→23:59)
[2017-06-15] MEDS: Insulin LISPRO 300 UNITS/3 ML VIAL SQ SCH ×7 (00:13→23:59)
[2017-06-15] MEDS: *HR* Metoprolol 5 MG/5 ML VIAL IVP PRN (00:15)
[2017-06-15] MEDS: *HR* Heparin 5,000 UNIT/ML VIAL SQ SCH ×3 (04:23→20:20)
[2017-06-15 05:13] LABS: Basophils # 0.1 K/mcL (0.0-0.2); Basophils % 0.7 %; Eosinophils # 0.4 K/mcL (0.0-0.6); Eosinophils % 3.6 %; Hematocrit 27.4 % (37.5-50.1); Hemoglobin 8.6 g/dL (12.9-16.9); Lymphocytes # 1.6 K/mcL (0.6-4.6); Lymphocytes % 16.8 %; Mean Corpuscular HGB Conc 31.4 g/dL (31.6-35.5); Mean Corpuscular Hemoglobin 28.5 pg (28.0-33.3); Mean Corpuscular Volume 90.7 fL (83.0-100.0); Mean Platelet Volume 10.4 fL (9.4-12.4); Monocytes # 0.8 K/mcL (0.0-1.3); Monocytes % 8.1 %; Neutrophils # 6.7 K/mcL (1.6-8.9); Platelet Count 213 K/mcL (140-400); Red Blood Count 3.02 M/mcL (4.19-5.50); Red Cell Distribution Width 16.3 % (11.5-14.5); Segmented Neutrophils % 69.8 %
[2017-06-15 05:18] LABS: INR 1.3; Prothrombin Time 14.1 Seconds (9.4-12.1)
[2017-06-15] MEDS: Acetaminophen 325 MG TABLET PO PRN (05:26)
[2017-06-15 05:30] LABS: Albumin 2.4 g/dL (3.5-5.7); Albumin/Globulin Ratio 0.5 (1.1-2.2); Bilirubin,Total 0.7 mg/dL (0.3-1.0); Calcium 8.6 mg/dL (8.6-10.3); Globulin 5.1 g/dL (2.4-3.5); Potassium 4.8 mEq/L (3.5-5.1); Total Protein 7.5 g/dL (6.4-8.9)
[2017-06-15] MEDS: FentaNYL (PF) 1,000 MCG in 0.9 % Sodium Chloride 80 ML IVC SCH ×2 (06:07→22:24)
[2017-06-15] MEDS: Chlorhexidine Rinse 15 ML MOUTHWASH MM SCH ×2 (08:54→20:20)
[2017-06-15] MEDS: Pantoprazole 40 MG VIAL IVP SCH (08:54)
--- NOTE | 2017-06-15 08:54 | Pulmonology Progress Note ---
<Johnnie Bradford - Last Filed: 06/15/17 08:48> Date of Encounter: 06/15/17 Time of Encounter: 07:10 Assessment and Plan (1) Sepsis Current Visit: Yes Status: Acute Resolved. Plan: - Patient hemodynamically stable - Continue ICU care. Qualifiers: Sepsis type: sepsis due to unspecified organism Qualified Code(s): A41.9 - Sepsis, unspecified organism (2) ESRD needing dialysis Current Visit: Yes Status: Chronic Nephrology following. Dialysis per schedule. Follow electrolytes daily. (3) DM2 (diabetes mellitus, type 2) Current Visit: Yes Status: Chronic Patient is a known type II diabetic, currently receiving tube feedings. Patient has been hyperglycemic. Will adjust Levemir to 15 mg twice a day Plan: - Levemir 15 mg BID - High dose sliding scale every 4 hours - Every 4 hourly glucose checks. Qualifiers: Diabetes mellitus complication status: without complication Diabetes mellitus congressional representative insulin use: with congressional representative use Qualified Code(s): E11.9 - Type 2 diabetes mellitus without complications; Z79.4 - penitentiary (current) use of insulin; Z79.4 - penitentiary (current) use of insulin; Z79.4 - penitentiary ( current) use of insulin; Z79.4 - administrative services director (current) use of insulin (4) Acute respiratory failure with hypoxia and hypercapnia Current Visit: Yes Status: Acute Patient still continues to require mechanical ventilation. Mental status is poor. Continue to wean FiO2 as tolerated. Continue dialysis for volume overload. - Family wishing to wait until Monday to make a decision on mechanical ventilation. (5) Cardiac arrest Current Visit: Yes Status: Acute Patient remains unresponsive neurology following extremely poor prognosis neurologically EEG shows diffuse slowing which is consistent with this diagnosis neurology is following as is palliative care. Plan: - Discuss goals of care with family. (6) Anoxic brain damage Current Visit: Yes Status: Acute Anoxic brain injury status post cardiac arrest. EEG and clinical prognosis is poor. The patient is DNR comfort care arrest. Continue to monitor for neurologic status improvement. 06/15: No purposeful neurologic function, neurology following, plan for brain MRI today. (7) Goals of care, counseling/discussion Current Visit: Yes Status: Acute The patient's prognosis has been discussed with the patient's family. At this time he is DNR CCA, family wishes to discuss goals of care regarding trach and PEG versus comfort care. (8) On enteral nutrition Current Visit: Yes Status: Acute Patient receiving enteral nutrition via OG tube. Hyperglycemia is monitored during this process. (9) DVT prophylaxis Current Visit: Yes Status: Acute Heparin subcutaneously. Subjective Principal diagnosis: DRILL PRESSER failure s/p Cardiac arrest Interval history: Mr. Benitez 61-year-old male is intubated, not on sedation and poorly responsive to neurologic stimuli. No improvement overnight. Patient was seen by neurology yesterday and no further testing as patient is showing any improvement clinically. Objective PUL Vital signs: Last Vital Signs Temp 98.3 F 06/15/17 08:24 Pulse 95 06/15/17 06:00 Resp 18 06/15/17 06:19 BP 96/61 06/15/17 06:19 Pulse Ox 94 06/15/17 06:19 General appearance: no acute distress, other (Intubated, poor neurologic responses.) Eyes: nonicteric ENT: oropharynx moist Neck: supple Auscultation: bilateral: clear Cardiovascular: regular rate and rhythm Gastrointestinal: normoactive bowel sounds Integumentary: normal Extremities: no cyanosis, no clubbing, pink and warm Musculoskeletal: no deformities other (No purposeful movements.) Ventilator Settings Ventilator Settings: Ventilator Settings, Last 8 Hours Ventilator Mode VC+ Ventilator Mode VC+ Ventilator Mode VC+ Ventilator Mode VC+ Ventilator Mode VC+ Ventilator Mode VC+ Ventilator Mode VC+ Ventilator Mode VC+ Ventilator Tidal Volume 600 Setting Ventilator Tidal Volume 600 Setting Ventilator Tidal Volume 600 Setting Ventilator Tidal Volume 600 Setting Ventilator Tidal Volume 600 Setting Ventilator Tidal Volume 600 Setting Ventilator Tidal Volume 600 Setting Ventilator Tidal Volume 600 Setting Ventilator Respiratory Rate 14 Setting Ventilator Respiratory Rate 14 Setting Ventilator Respiratory Rate 14 Setting Ventilator Respiratory Rate 14 Setting Ventilator Respiratory Rate 14 Setting Ventilator Respiratory Rate 14 Setting Ventilator Respiratory Rate 14 Setting Ventilator Respiratory Rate 14 Setting Actual Respiratory Rate 18 Actual Respiratory Rate 17 Actual Respiratory Rate 19 Actual Respiratory Rate 17 Actual Respiratory Rate 19 Actual Respiratory Rate 17 Actual Respiratory Rate 17 Actual Respiratory Rate 25 Positive End Expiratory 5 Pressure Positive End Expiratory 5 Pressure Positive End Expiratory 5 Pressure Positive End Expiratory 5 Pressure Positive End Expiratory 5 Pressure Positive End Expiratory 5 Pressure Positive End Expiratory 5 Pressure Positive End Expiratory 5 Pressure Peak Inspiratory Airway 24 Pressure Peak Inspiratory Airway 18 Pressure Peak Inspiratory Airway 20 Pressure Peak Inspiratory Airway 18 Pressure Peak Inspiratory Airway 24 Pressure Peak Inspiratory Airway 18 Pressure Peak Inspiratory Airway 18 Pressure Peak Inspiratory Airway 27 Pressure Results - Laboratory Findings CBC and BMP: 06/15/17 05:05 06/15/17 05:05 ABG ABG pH 7.36 pH Units (7.32-7.45) 06/14/17 05:13 ABG pCO2 41 mmHg (35-45) 06/14/17 05:13 ABG pO2 58 mmHg (85-104) L 06/14/17 05:13 ABG O2 Saturation 88 % (95-98) L 06/14/17 05:13 PT/INR, D-dimer PT 14.1 Seconds (9.4-12.1) H 06/15/17 05:05 Abnormal lab findings: Abnormal lab results RBC 3.02 M/mcL (4.19-5.50) L 06/15/17 05:05 Hgb 8.6 g/dL (12.9-16.9) L 06/15/17 05:05 Hct 27.4 % (37.5-50.1) L 06/15/17 05:05 MCHC 31.4 g/dL (31.6-35.5) L 06/15/17 05:05 RDW 16.3 % (11.5-14.5) H 06/15/17 05:05 Nucleated RBCs/100 WBC 0.2 /100 WBC (0) H 06/12/17 03:33 Polychromasia 1+ (Not Present) A 06/14/17 04:53 Hypochromasia Present (Not Present) A 06/08/17 04:00 PT 14.1 Seconds (9.4-12.1) H 06/15/17 05:05 APTT 25.7 Seconds (26.0-36.0) L D 06/03/17 21:15 ABG pO2 58 mmHg (85-104) L 06/14/17 05:13 ABG O2 Saturation 88 % (95-98) L 06/14/17 05:13 VBG pH 7.22 pH Units (7.32-7.42) L 06/03/17 14:03 VBG pCO2 65 mmHg (41-51) H 06/03/17 14:03 VBG pO2 76 mmHg (25-50) H 06/03/17 14:03 Sodium 129 mEq/L (136-145) L 06/15/17 05:05 Chloride 91 mEq/L (98-107) L 06/15/17 05:05 BUN 55 mg/dL (8-23) H 06/15/17 05:05 Creatinine 6.75 mg/dL (0.70-1.30) H 06/15/17 05:05 Est GFR ( Amer) 10 (> 60) L 06/15/17 05:05 Est GFR (Non-Af Amer) 8 (> 60) L 06/15/17 05:05 Glucose 283 mg/dL (70-105) H 06/15/17 05:05 POC Glucose 255 (58-89) H 06/15/17 08:10 Venous Ioniz Calcium 0.97 mmol/L (1.15-1.35) L 06/05/17 04:34 Phosphorus 10.7 mg/dL (2.7-4.5) H 06/08/17 04:00 Magnesium 2.7 mg/dL (1.6-2.6) H 06/12/17 03:33 Iron 15 mcg/dL (65-175) L 05/29/17 07:40 % Saturation 6 % (20-55) L 05/29/17 07:40 Transferrin 169 mg/dL (174-364) L 05/29/17 07:40 Ferritin 517 ng/ml (22-275) H 05/29/17 07:40 Direct Bilirubin 0.5 mg/dL (0.0-0.2) H 06/12/17 03:33 AST 158 Units/L (13-39) H 06/15/17 05:05 Alkaline Phosphatase 557 Units/L (34-104) H 06/15/17 05:05 Albumin 2.4 g/dL (3.5-5.7) L 06/15/17 05:05 Globulin 5.1 g/dL (2.4-3.5) H 06/15/17 05:05 Albumin/Globulin Ratio 0.5 (1.1-2.2) L 06/15/17 05:05 Triglycerides 203 mg/dL (< 150) H 05/27/17 03:50 VLDL Cholesterol, Calc 41 mg/dL (< 31) H 05/27/17 03:50 HDL Cholesterol 16 mg/dL (40-59) L 05/27/17 03:50 Cholesterol/HDL Ratio 6.6 (0-4.9) H 05/27/17 03:50 PTH Intact 457.2 pg/ml (8.5-72.5) H 05/29/17 07:40 Urine Clarity Cloudy (Clear) A 05/27/17 13:15 Urine Protein >=300 mg/dL (Neg-Trace) H 05/27/17 13:15 Urine Glucose (UA) 100 mg/dL (Normal) H 05/27/17 13:15 Urine Blood Large (Negative) H 05/27/17 13:15 Urine Microscopic WBC 3-5 per hpf (0-3) H 05/27/17 13:15 Ur Squamous Epith Cells Moderate per lpf (None-Few) H 05/27/17 13:15 - Microbiology Findings Microbiology Findings: Microbiology, Last 48 Hours 06/09/17 11:33 Blood Culture - Final Peripheral Venipuncture No growth. 06/09/17 11:28 Blood Culture - Final Peripheral Venipuncture No growth. 06/10/17 04:00 Sputum Culture - Final Sputum Yeast Species - Clinical Findings Intake & Output: Intake & Output 06/14/17 06/15/17 06/15/17 23:59 07:59 15:59 Intake Total 912 / 912 381 / 381 Output Total 1025 / 1025 175 / 175 Balance -113 / -113 206 / 206 Weight 98.1 kg Consult Discharge Plan - Plan Referrals: NONE,PCP [Primary Care Provider] - (Patient will follow up with renal doctors) <Francheska Haile - Last Filed: 06/15/17 17:17> Date of Encounter: 06/15/17 Assessment and Plan (1) Coma Current Visit: Yes Status: Acute Qualifiers: Coma depth: [place] coma 3-8 Coma timin hours or more after hospital admission Qualified Code(s): R40.2434 - Ruchi coma scale score 3-8, 24 hours or more after hospital admission (2) Acute respiratory failure with hypoxia and hypercapnia Current Visit: Yes Status: Acute (3) Cardiac arrest due to other underlying condition Current Visit: Yes Status: Acute (4) ESRD needing dialysis Current Visit: Yes Status: Chronic Objective PUL Vital signs: Last Vital Signs Temp 99.1 F 06/15/17 15:45 Pulse 93 06/15/17 16:00 Resp 18 06/15/17 16:00 BP 104/60 06/15/17 16:00 Pulse Ox 98 06/15/17 16:00 Ventilator Settings Ventilator Settings: Ventilator Settings, Last 8 Hours Ventilator Mode CPAP Ventilator Mode CPAP Ventilator Mode CPAP Ventilator Mode CPAP Ventilator Mode CPAP Ventilator Mode CPAP Ventilator Mode CPAP Ventilator Mode CPAP Ventilator Mode CPAP Ventilator Mode CPAP Ventilator Mode CPAP Ventilator Tidal Volume 600 Setting Ventilator Tidal Volume 600 Setting Ventilator Tidal Volume 600 Setting Ventilator Tidal Volume 600 Setting Ventilator Tidal Volume 600 Setting Ventilator Tidal Volume 600 Setting Ventilator Tidal Volume 600 Setting Ventilator Respiratory Rate 14 Setting Ventilator Respiratory Rate 14 Setting Ventilator Respiratory Rate 14 Setting Ventilator Respiratory Rate 14 Setting Ventilator Respiratory Rate 14 Setting Ventilator Respiratory Rate 14 Setting Ventilator Respiratory Rate 14 Setting Actual Respiratory Rate 22 Actual Respiratory Rate 25 Actual Respiratory Rate 26 Actual Respiratory Rate 25 Actual Respiratory Rate 25 Actual Respiratory Rate 24 Actual Respiratory Rate 26 Actual Respiratory Rate 24 Actual Respiratory Rate 24 Actual Respiratory Rate 30 Actual Respiratory Rate 23 Positive End Expiratory 5 Pressure Positive End Expiratory 5 Pressure Positive End Expiratory 5 Pressure Positive End Expiratory 5 Pressure Positive End Expiratory 5 Pressure Positive End Expiratory 5 Pressure Positive End Expiratory 5 Pressure Positive End Expiratory 5 Pressure Positive End Expiratory 5 Pressure Positive End Expiratory 5 Pressure Positive End Expiratory 5 Pressure Peak Inspiratory Airway 11 Pressure Peak Inspiratory Airway 11 Pressure Peak Inspiratory Airway 11 Pressure Peak Inspiratory Airway 11 Pressure Peak Inspiratory Airway 12 Pressure Peak Inspiratory Airway 12 Pressure Peak Inspiratory Airway 11 Pressure Peak Inspiratory Airway 12 Pressure Peak Inspiratory Airway 11 Pressure Peak Inspiratory Airway 11 Pressure Results - Laboratory Findings CBC and BMP: 06/15/17 05:05 06/15/17 05:05 ABG ABG pH 7.36 pH Units (7.32-7.45) 06/14/17 05:13 ABG pCO2 41 mmHg (35-45) 06/14/17 05:13 ABG pO2 58 mmHg (85-104) L 06/14/17 05:13 ABG O2 Saturation 88 % (95-98) L 06/14/17 05:13 PT/INR, D-dimer PT 14.1 Seconds (9.4-12.1) H 06/15/17 05:05 Abnormal lab findings: Abnormal lab results RBC 3.02 M/mcL (4.19-5.50) L 06/15/17 05:05 Hgb 8.6 g/dL (12.9-16.9) L 06/15/17 05:05 Hct 27.4 % (37.5-50.1) L 06/15/17 05:05 MCHC 31.4 g/dL (31.6-35.5) L 06/15/17 05:05 RDW 16.3 % (11.5-14.5) H 06/15/17 05:05 Nucleated RBCs/100 WBC 0.2 /100 WBC (0) H 06/12/17 03:33 Polychromasia 1+ (Not Present) A 06/14/17 04:53 Hypochromasia Present (Not Present) A 06/08/17 04:00 PT 14.1 Seconds (9.4-12.1) H 06/15/17 05:05 APTT 25.7 Seconds (26.0-36.0) L D 06/03/17 21:15 ABG pO2 58 mmHg (85-104) L 06/14/17 05:13 ABG O2 Saturation 88 % (95-98) L 06/14/17 05:13 VBG pH 7.22 pH Units (7.32-7.42) L 06/03/17 14:03 VBG pCO2 65 mmHg (41-51) H 06/03/17 14:03 VBG pO2 76 mmHg (25-50) H 06/03/17 14:03 Sodium 129 mEq/L (136-145) L 06/15/17 05:05 Chloride 91 mEq/L (98-107) L 06/15/17 05:05 BUN 55 mg/dL (8-23) H 06/15/17 05:05 Creatinine 6.75 mg/dL (0.70-1.30) H 06/15/17 05:05 Est GFR ( Amer) 10 (> 60) L 06/15/17 05:05 Est GFR (Non-Af Amer) 8 (> 60) L 06/15/17 05:05 Glucose 283 mg/dL (70-105) H 06/15/17 05:05 POC Glucose 259 (58-89) H 06/15/17 15:15 Venous Ioniz Calcium 0.97 mmol/L (1.15-1.35) L 06/05/17 04:34 Phosphorus 10.7 mg/dL (2.7-4.5) H 06/08/17 04:00 Magnesium 2.7 mg/dL (1.6-2.6) H 06/12/17 03:33 Iron 15 mcg/dL (65-175) L 05/29/17 07:40 % Saturation 6 % (20-55) L 05/29/17 07:40 Transferrin 169 mg/dL (174-364) L 05/29/17 07:40 Ferritin 517 ng/ml (22-275) H 05/29/17 07:40 Direct Bilirubin 0.5 mg/dL (0.0-0.2) H 06/12/17 03:33 AST 158 Units/L (13-39) H 06/15/17 05:05 Alkaline Phosphatase 557 Units/L (34-104) H 06/15/17 05:05 Albumin 2.4 g/dL (3.5-5.7) L 06/15/17 05:05 Globulin 5.1 g/dL (2.4-3.5) H 06/15/17 05:05 Albumin/Globulin Ratio 0.5 (1.1-2.2) L 06/15/17 05:05 Triglycerides 203 mg/dL (< 150) H 05/27/17 03:50 VLDL Cholesterol, Calc 41 mg/dL (< 31) H 05/27/17 03:50 HDL Cholesterol 16 mg/dL (40-59) L 05/27/17 03:50 Cholesterol/HDL Ratio 6.6 (0-4.9) H 05/27/17 03:50 PTH Intact 457.2 pg/ml (8.5-72.5) H 05/29/17 07:40 Urine Clarity Cloudy (Clear) A 05/27/17 13:15 Urine Protein >=300 mg/dL (Neg-Trace) H 05/27/17 13:15 Urine Glucose (UA) 100 mg/dL (Normal) H 05/27/17 13:15 Urine Blood Large (Negative) H 05/27/17 13:15 Urine Microscopic WBC 3-5 per hpf (0-3) H 05/27/17 13:15 Ur Squamous Epith Cells Moderate per lpf (None-Few) H 05/27/17 13:15 - Microbiology Findings Microbiology Findings: Microbiology, Last 48 Hours 06/09/17 11:33 Blood Culture - Final Peripheral Venipuncture No growth. 06/09/17 11:28 Blood Culture - Final Peripheral Venipuncture No growth. 06/10/17 04:00 Sputum Culture - Final Sputum Yeast Species - Clinical Findings Intake & Output: Intake & Output 06/15/17 06/15/17 06/15/17 07:59 15:59 23:59 Intake Total 381 / 381 252 / 252 Output Total 175 / 175 175 / 175 Balance 206 / 206 77 / 77 Weight 98.1 kg - Attending Attestation I examined this patient and my medical decision-making was reviewed with the Resident Physician. I agree with the documented findings, disposition and treatment plan as described except to the extent set forth below. Patient seen and examined. Labs, radiology, chart personally reviewed. Agree with resident's history and physical, assessment, plan with following comments: DRILL PRESSER: Patient does not follows commands, discussed with the neurology team and MRI was ordered. Pulmonary: Acceptable oxygenation and ventilation. Patient doing reasonably well on a spontaneous breathing trial. Cardiovascular: stable GI: Nutrition per dietary and GI prophylaxis per routine Heme: DVT prophylaxis per routine Renal; urine out put and renal funtion reviewed Endorcine: blood glucose is monitored Lines: all lines checked and no evidence of infections Skin: skin care to prevent pressure ulcers per nursing routine care I have discussed with the family at the bedside and our plan tomorrow to decide about comfort care versus supportive.
--- NOTE | 2017-06-15 09:06 | Neurology Progress Note ---
Addendum entered and electronically signed by Debbie Quintana DO 06/15/17 13:13 : Addendum: This is a neurology CONSULT note, not a progress note, as this was a re-consult. Original Note: <Debbie Quintana - Last Filed: 06/15/17 09:14> Date of Encounter: 06/15/17 Time of Encounter: 09:04 Assessment and Plan (1) Coma Current Visit: Yes Status: Acute anoxic brain injury secondary to cardiac arrest. prior EEG showed diffuse severe background slowing with mnimal reactivity Plan: Overall prognosis continues to be poor. Had planned for MRI brain today, but could not be done due to metallic hardware. CT will be done instead.. continue goals of care discussions, appreciate palliative input. 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 He remains intubated and on ventilator. Objective - Constitutional Vitals: Temp Pulse Resp BP Pulse Ox 98.3 F 95 18 96/61 94 06/15/17 08:24 06/15/17 06:00 06/15/17 06:19 06/15/17 06:19 06/15/17 06:19 General appearance: Present: no acute distress. Absent: A&O X 3, answers questions appropriately - Head Head exam: Present: atraumatic, normocephalic - Eye Eye exam: Present: PERRL Pupils: Present: PERRL Additional comments: blink reflex present, PERRL, vestibulo-ocular reflex present. - Extremities Exam Extremities exam: Present: pedal edema (mild lower extermity edema. ). Absent: cyanotic - Neurological Exam Sensorimotor examination: Present: other (Unable to assess due to coma. ) Motor Examination: Present: other (Flaccid paralysed. No movements to painful or verbal stimuli. Does have occasional spontaneous movements of head and limbs without stimuli. ) Sensation intact: Present: other (Unable to assess due to coma) Posture: Present: other (None) Reflex and gait examination: other (Not tested patient is in coma) Mental Status Examination: Present: does not follow commands, no spontaneous eye opening to voice or tactile stimulation Cranial nerve examination: Present: PERRL, EOMI (positive oculocephalic reflex) , no facial asymmetry is present Results - Laboratory Findings CBC and BMP: 06/15/17 05:05 06/15/17 05:05 Abnormal lab findings: Abnormal lab results RBC 3.02 M/mcL (4.19-5.50) L 06/15/17 05:05 Hgb 8.6 g/dL (12.9-16.9) L 06/15/17 05:05 Hct 27.4 % (37.5-50.1) L 06/15/17 05:05 MCHC 31.4 g/dL (31.6-35.5) L 06/15/17 05:05 RDW 16.3 % (11.5-14.5) H 06/15/17 05:05 Nucleated RBCs/100 WBC 0.2 /100 WBC (0) H 06/12/17 03:33 Polychromasia 1+ (Not Present) A 06/14/17 04:53 Hypochromasia Present (Not Present) A 06/08/17 04:00 PT 14.1 Seconds (9.4-12.1) H 06/15/17 05:05 APTT 25.7 Seconds (26.0-36.0) L D 06/03/17 21:15 ABG pO2 58 mmHg (85-104) L 06/14/17 05:13 ABG O2 Saturation 88 % (95-98) L 06/14/17 05:13 VBG pH 7.22 pH Units (7.32-7.42) L 06/03/17 14:03 VBG pCO2 65 mmHg (41-51) H 06/03/17 14:03 VBG pO2 76 mmHg (25-50) H 06/03/17 14:03 Sodium 129 mEq/L (136-145) L 06/15/17 05:05 Chloride 91 mEq/L (98-107) L 06/15/17 05:05 BUN 55 mg/dL (8-23) H 06/15/17 05:05 Creatinine 6.75 mg/dL (0.70-1.30) H 06/15/17 05:05 Est GFR ( Amer) 10 (> 60) L 06/15/17 05:05 Est GFR (Non-Af Amer) 8 (> 60) L 06/15/17 05:05 Glucose 283 mg/dL (70-105) H 06/15/17 05:05 POC Glucose 255 (58-89) H 06/15/17 08:10 Venous Ioniz Calcium 0.97 mmol/L (1.15-1.35) L 06/05/17 04:34 Phosphorus 10.7 mg/dL (2.7-4.5) H 06/08/17 04:00 Magnesium 2.7 mg/dL (1.6-2.6) H 06/12/17 03:33 Iron 15 mcg/dL (65-175) L 05/29/17 07:40 % Saturation 6 % (20-55) L 05/29/17 07:40 Transferrin 169 mg/dL (174-364) L 05/29/17 07:40 Ferritin 517 ng/ml (22-275) H 05/29/17 07:40 Direct Bilirubin 0.5 mg/dL (0.0-0.2) H 06/12/17 03:33 AST 158 Units/L (13-39) H 06/15/17 05:05 Alkaline Phosphatase 557 Units/L (34-104) H 06/15/17 05:05 Albumin 2.4 g/dL (3.5-5.7) L 06/15/17 05:05 Globulin 5.1 g/dL (2.4-3.5) H 06/15/17 05:05 Albumin/Globulin Ratio 0.5 (1.1-2.2) L 06/15/17 05:05 Triglycerides 203 mg/dL (< 150) H 05/27/17 03:50 VLDL Cholesterol, Calc 41 mg/dL (< 31) H 05/27/17 03:50 HDL Cholesterol 16 mg/dL (40-59) L 05/27/17 03:50 Cholesterol/HDL Ratio 6.6 (0-4.9) H 05/27/17 03:50 PTH Intact 457.2 pg/ml (8.5-72.5) H 05/29/17 07:40 Urine Clarity Cloudy (Clear) A 05/27/17 13:15 Urine Protein >=300 mg/dL (Neg-Trace) H 05/27/17 13:15 Urine Glucose (UA) 100 mg/dL (Normal) H 05/27/17 13:15 Urine Blood Large (Negative) H 05/27/17 13:15 Urine Microscopic WBC 3-5 per hpf (0-3) H 05/27/17 13:15 Ur Squamous Epith Cells Moderate per lpf (None-Few) H 05/27/17 13:15 Consult Discharge Plan - Plan Referrals: NONE,PCP [Primary Care Provider] - (Patient will follow up with renal doctors) <Alexsandra Nichole I - Last Filed: 06/15/17 13:43> Date of Encounter: 06/15/17 Assessment and Plan (1) Anoxic brain damage Current Visit: Yes Status: Acute Attending note: Patient was seen and examined none noted to have any significant changes in his overall neurological status has compared to yesterday though he did have a brainstem reflexes positive and has some minimal spontaneous nonlocalizing movements but no other changes were noted as compared to the previous neurological examination by Dr. Sanchez at the time of admission. On my examination today he is intubated he is off any sedation. His pupils are sluggish but reactive, corneals are positive, gag is positive, minimal withdrawal to deep pain in the right upper extremity though he does grimace is sometimes on the left no purposeful localized movement. Motor control to the deep pain in lower extremities. Toes were mute. No spontaneous movement were noted. Considering his history symptoms and exam findings seems like patient is persistent vegetative state. After long discussion with the patient's regarding his prognosis. Explained to her that at the moment he did have a brainstem reflexes but certainly he is not aware of surroundings as he did not have any significant changes in the last 2 weeks likelihood of any reasonable neurological recovery is very less. Most likely he will stay in the current situation and even after withdrawal of supportive care he may continue more or less the same way until the nature take its on course. She does understand and acknowledges. I have also discussed with the ICU team. Recommend repeat imaging studies preferably MRI of the brain as initial CT was about 2 weeks ago and did not show any acute abnormality, continue the supportive care We will follow the MRI results. Alexsandra Nichole MD Subjective Interval history: Patient was seen and examined none noted to have any significant changes in his overall neurological status has compared to yesterday though he did have a brainstem reflexes positive and has some minimal spontaneous nonlocalizing movements but no other changes were noted as compared to the previous neurological examination by Dr. Sanchez at the time of admission. Objective - Constitutional Vitals: Temp Pulse Resp BP Pulse Ox 98.0 F 79 24 92/55 97 06/15/17 12:00 06/15/17 13:00 06/15/17 13:00 06/15/17 13:00 06/15/17 13:00 Results - Laboratory Findings CBC and BMP: 06/15/17 05:05 06/15/17 05:05 Abnormal lab findings: Abnormal lab results RBC 3.02 M/mcL (4.19-5.50) L 06/15/17 05:05 Hgb 8.6 g/dL (12.9-16.9) L 06/15/17 05:05 Hct 27.4 % (37.5-50.1) L 06/15/17 05:05 MCHC 31.4 g/dL (31.6-35.5) L 06/15/17 05:05 RDW 16.3 % (11.5-14.5) H 06/15/17 05:05 Nucleated RBCs/100 WBC 0.2 /100 WBC (0) H 06/12/17 03:33 Polychromasia 1+ (Not Present) A 06/14/17 04:53 Hypochromasia Present (Not Present) A 06/08/17 04:00 PT 14.1 Seconds (9.4-12.1) H 06/15/17 05:05 APTT 25.7 Seconds (26.0-36.0) L D 06/03/17 21:15 ABG pO2 58 mmHg (85-104) L 06/14/17 05:13 ABG O2 Saturation 88 % (95-98) L 06/14/17 05:13 VBG pH 7.22 pH Units (7.32-7.42) L 06/03/17 14:03 VBG pCO2 65 mmHg (41-51) H 06/03/17 14:03 VBG pO2 76 mmHg (25-50) H 06/03/17 14:03 Sodium 129 mEq/L (136-145) L 06/15/17 05:05 Chloride 91 mEq/L (98-107) L 06/15/17 05:05 BUN 55 mg/dL (8-23) H 06/15/17 05:05 Creatinine 6.75 mg/dL (0.70-1.30) H 06/15/17 05:05 Est GFR ( Amer) 10 (> 60) L 06/15/17 05:05 Est GFR (Non-Af Amer) 8 (> 60) L 06/15/17 05:05 Glucose 283 mg/dL (70-105) H 06/15/17 05:05 POC Glucose 276 (58-89) H 06/15/17 11:39 Venous Ioniz Calcium 0.97 mmol/L (1.15-1.35) L 06/05/17 04:34 Phosphorus 10.7 mg/dL (2.7-4.5) H 06/08/17 04:00 Magnesium 2.7 mg/dL (1.6-2.6) H 06/12/17 03:33 Iron 15 mcg/dL (65-175) L 05/29/17 07:40 % Saturation 6 % (20-55) L 05/29/17 07:40 Transferrin 169 mg/dL (174-364) L 05/29/17 07:40 Ferritin 517 ng/ml (22-275) H 05/29/17 07:40 Direct Bilirubin 0.5 mg/dL (0.0-0.2) H 06/12/17 03:33 AST 158 Units/L (13-39) H 06/15/17 05:05 Alkaline Phosphatase 557 Units/L (34-104) H 06/15/17 05:05 Albumin 2.4 g/dL (3.5-5.7) L 06/15/17 05:05 Globulin 5.1 g/dL (2.4-3.5) H 06/15/17 05:05 Albumin/Globulin Ratio 0.5 (1.1-2.2) L 06/15/17 05:05 Triglycerides 203 mg/dL (< 150) H 05/27/17 03:50 VLDL Cholesterol, Calc 41 mg/dL (< 31) H 05/27/17 03:50 HDL Cholesterol 16 mg/dL (40-59) L 05/27/17 03:50 Cholesterol/HDL Ratio 6.6 (0-4.9) H 05/27/17 03:50 PTH Intact 457.2 pg/ml (8.5-72.5) H 05/29/17 07:40 Urine Clarity Cloudy (Clear) A 05/27/17 13:15 Urine Protein >=300 mg/dL (Neg-Trace) H 05/27/17 13:15 Urine Glucose (UA) 100 mg/dL (Normal) H 05/27/17 13:15 Urine Blood Large (Negative) H 05/27/17 13:15 Urine Microscopic WBC 3-5 per hpf (0-3) H 05/27/17 13:15 Ur Squamous Epith Cells Moderate per lpf (None-Few) H 05/27/17 13:15
--- NOTE | 2017-06-15 10:10 | Nephrology Progress Note ---
Date of Encounter: 06/15/17 Time of Encounter: 09:05 - Assessment and Plan (1) ESRD needing dialysis Current Visit: Yes Status: Chronic No HD today, keeping MWF schedule. 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 No pressors. No change in neuro status. Objective - Vital Signs Vital signs: Vital Signs Temp Pulse Resp BP Pulse Ox 06/15/17 09:00 90 27 93/63 93 06/15/17 08:24 98.3 F 06/15/17 08:00 90 20 89/52 93 06/15/17 07:00 89 18 98/59 93 06/15/17 06:19 18 96/61 94 06/15/17 06:00 95 17 96/61 93 06/15/17 05:00 111 19 122/70 92 06/15/17 04:00 101 F H 101 17 101/81 93 06/15/17 03:50 19 96/59 95 06/15/17 03:00 107 21 86/47 92 06/15/17 02:00 101 17 81/49 93 06/15/17 01:00 101 23 83/49 96 06/15/17 00:15 29 94/64 96 06/15/17 00:11 98 F 06/15/17 00:00 138 25 94/64 97 06/14/17 23:00 141 25 95/63 95 06/14/17 22:00 138 25 88/33 97 06/14/17 21:40 23 84/44 92 06/14/17 21:25 98.7 F 16 97/70 06/14/17 21:15 89/64 06/14/17 21:00 99.1 F 122 22 84/44 90 06/14/17 20:45 100/64 06/14/17 20:30 100/58 06/14/17 20:15 100/78 06/14/17 20:00 123 19 90/61 93 06/14/17 19:52 21 110/68 94 06/14/17 19:45 101/69 06/14/17 19:30 105/65 06/14/17 19:15 116/71 06/14/17 19:00 122 19 101/73 93 01/03/18 18:45 99/64 06/14/17 18:30 98/62 06/14/17 18:15 97/55 06/14/17 18:00 102 19 91/61 91 06/14/17 17:45 89/50 06/14/17 17:30 101/51 06/14/17 17:15 99.6 F 16 101/60 06/14/17 17:09 17 109/59 93 06/14/17 17:00 106 20 98/57 94 06/14/17 16:00 98.6 F 89 19 92/56 94 06/14/17 15:30 18 90/48 92 06/14/17 15:21 98.6 F 06/14/17 15:03 68 06/14/17 15:00 68 17 92/50 92 06/14/17 14:00 70 19 107/60 90 06/14/17 13:25 19 101/56 89 06/14/17 13:00 70 20 101/60 88 06/14/17 12:00 68 18 105/58 94 06/14/17 11:33 98.6 F 06/14/17 11:20 67 06/14/17 11:15 22 105/58 89 06/14/17 11:00 67 16 95/49 95 Intake and Output 06/14/17 06/15/17 06/15/17 23:59 07:59 15:59 Intake Total 912 / 912 381 / 381 252 / 252 Output Total 1025 / 1025 175 / 175 Balance -113 / -113 206 / 206 252 / 252 Intake: IV Fluids 60 / 60 0 / 0 FentaNYL (PF) 1,000 MCG In 0.9 60 / 60 0 / 0 % Sodium Chloride 80 ML @ 50 MCG/HR 5 mls/hr IVC CONT PEPE Rx #:[id number] Oral 0 / 0 Tube Feeding 252 / 252 381 / 381 252 / 252 Intake, Rinseback and Flushes 600 / 600 Output: Stool 425 / 425 175 / 175 Total Dialysis (HD) Output 600 / 600 Other: Weight 98.1 kg Blood Glucose* 149 279 255 Hemodialysis Net Fluid Removed 0 (mL) Patient Weight 06/15/17 23:59 Weight 98.1 kg - General Appearance General appearance: Present: well-developed, well-nourished, appears started age EENT: Present: mucous membranes moist Neck: Present: no JVD Respiratory: Present: clear Cardiology: Present: edema, irregular rhythm Additional Comments: mild ankle edema Gastrointestinal: Present: normoactive bowel sounds Integumentary: Present: warm and dry - Lab 06/15/17 05:05 06/15/17 05:05 Most recent lab results ABG pH 7.36 pH Units (7.32-7.45) 06/14/17 05:13 ABG pCO2 41 mmHg (35-45) 06/14/17 05:13 ABG pO2 58 mmHg (85-104) L 06/14/17 05:13 ABG HCO3 24 mEq/L (21-27) 06/14/17 05:13 ABG O2 Saturation 88 % (95-98) L 06/14/17 05:13 Calcium 8.6 mg/dL (8.6-10.3) 06/15/17 05:05 Phosphorus 10.7 mg/dL (2.7-4.5) H 06/08/17 04:00 Magnesium 2.7 mg/dL (1.6-2.6) H 06/12/17 03:33 Consult Discharge Plan - Plan Referrals: NONE,PCP [Primary Care Provider] - (Patient will follow up with renal doctors)
[2017-06-15] MEDS ORDERED: Insulin DETEMIR 100 UNIT/ML X5UNITS SQ ONE (13:35)
[2017-06-15] MEDS: Insulin DETEMIR 100 UNIT/ML X5UNITS SQ SCH (22:24)
[2017-06-16] MEDS: *HR* Heparin 5,000 UNIT/ML VIAL SQ SCH (04:44)
[2017-06-16] MEDS: Insulin LISPRO 300 UNITS/3 ML VIAL SQ SCH ×2 (04:45→08:00)
[2017-06-16] MEDS: Lacri-Lube 3.5 GM TUBE BOTH EYES SCH ×2 (04:45→08:00)
--- NOTE | 2017-06-16 07:52 | Palliative Progress Note ---
Addendum entered and electronically signed by Leonel Grimaldo DO 09:25: Spoke with this morning. Has wished not to speak to Dr. Diop with Palliative Care. Have spoken with on end regarding any questions at this point. Has expressed that they are Jew and understand that he would move to a better place. Understands that most of the motion we have seen is not purposeful and likely reflexive requiring no significant brain function. Understands what sort of quality of life he may have. Understands that there is no certainty that he will or will not pass on. Has consistently expressed not wanting to go as far as peg/trach. Understands meaningful recovery is very unlikely. Would like the patient to make their choice whether to stay or go to a better place. Understands that with current interventions that what we are providing may be hindering his decision. Family aware I will be available should they want to discuss things again. Original Note: Date of Encounter: 06/16/17 Time of Encounter: 07:50 - Assessment and plan (1) Goals of care, counseling/discussion Current Visit: Yes Status: Acute Assessment and plan: Code status: DNR-CCA. Family and (POA) not at bedside or waiting area this morning during visit. Consistent with anoxic brain injury, EEG with diffuse slowing, neurologic progress is extremely poor, appears to be no meaningful recovery. Will continue with dialysis and plan per editor managing newspaper including feeds at this time. Plan per editor managing newspaper to likely make definitive decision of withdrawal of care today. (2) Acute metabolic encephalopathy Current Visit: Yes Status: Acute Assessment and plan: Secondary to cardiac arrest, anoxic brain injury, CVA with extremely poor neurologic prognosis, but brainstem reflexes continue to be intact. Questionable purposeful movement. (3) ESRD needing dialysis Current Visit: Yes Status: Chronic Assessment and plan: Nephrology on board for dialysis needs, continue per Director Cpg plan. (4) Cardiac arrest due to other underlying condition Current Visit: Yes Status: Acute Assessment and plan: Continue per Director Cpg plan. - Time Spent With Patient Total time spent is greater than 50% in coordination of care (as documented) at patient's floor/unit and/or counseling patient: - Subjective Interval history: Vitals stable, patient had some increased motion on Monday, appears to have diminished since then and patient in restraints. Movements do not appear to be purposeful, will not respond to name, will not squeeze hands on prompting, some movement to sternal rub but slightly less so than Monday. Sister and ( POA) not at bedside or waiting room this morning. Continues to be intubated and nephrology on board for dialysis. Code status DNR-CCA. According to Director Cpg, they've been talking with family about withdrawal of care today ( monday), no plans to trach/peg. Continue per plan on editor managing newspaper. Continues to be a very low likelihood of meaningful recovery. - Constitutional Vitals: Abnormal lab results RBC 3.02 M/mcL (4.19-5.50) L 06/15/17 05:05 Hgb 8.6 g/dL (12.9-16.9) L 06/15/17 05:05 Hct 27.4 % (37.5-50.1) L 06/15/17 05:05 MCHC 31.4 g/dL (31.6-35.5) L 06/15/17 05:05 RDW 16.3 % (11.5-14.5) H 06/15/17 05:05 Nucleated RBCs/100 WBC 0.2 /100 WBC (0) H 06/12/17 03:33 Polychromasia 1+ (Not Present) A 06/14/17 04:53 Hypochromasia Present (Not Present) A 06/08/17 04:00 PT 14.1 Seconds (9.4-12.1) H 06/15/17 05:05 APTT 25.7 Seconds (26.0-36.0) L D 06/03/17 21:15 ABG pO2 58 mmHg (85-104) L 06/14/17 05:13 ABG O2 Saturation 88 % (95-98) L 06/14/17 05:13 VBG pH 7.22 pH Units (7.32-7.42) L 06/03/17 14:03 VBG pCO2 65 mmHg (41-51) H 06/03/17 14:03 VBG pO2 76 mmHg (25-50) H 06/03/17 14:03 Sodium 129 mEq/L (136-145) L 06/15/17 05:05 Chloride 91 mEq/L (98-107) L 06/15/17 05:05 BUN 55 mg/dL (8-23) H 06/15/17 05:05 Creatinine 6.75 mg/dL (0.70-1.30) H 06/15/17 05:05 Est GFR ( Amer) 10 (> 60) L 06/15/17 05:05 Est GFR (Non-Af Amer) 8 (> 60) L 06/15/17 05:05 Glucose 283 mg/dL (70-105) H 06/15/17 05:05 POC Glucose 272 (58-89) H 06/16/17 07:32 Venous Ioniz Calcium 0.97 mmol/L (1.15-1.35) L 06/05/17 04:34 Phosphorus 10.7 mg/dL (2.7-4.5) H 06/08/17 04:00 Magnesium 2.7 mg/dL (1.6-2.6) H 06/12/17 03:33 Iron 15 mcg/dL (65-175) L 05/29/17 07:40 % Saturation 6 % (20-55) L 05/29/17 07:40 Transferrin 169 mg/dL (174-364) L 05/29/17 07:40 Ferritin 517 ng/ml (22-275) H 05/29/17 07:40 Direct Bilirubin 0.5 mg/dL (0.0-0.2) H 06/12/17 03:33 AST 158 Units/L (13-39) H 06/15/17 05:05 Alkaline Phosphatase 557 Units/L (34-104) H 06/15/17 05:05 Albumin 2.4 g/dL (3.5-5.7) L 06/15/17 05:05 Globulin 5.1 g/dL (2.4-3.5) H 06/15/17 05:05 Albumin/Globulin Ratio 0.5 (1.1-2.2) L 06/15/17 05:05 Triglycerides 203 mg/dL (< 150) H 05/27/17 03:50 VLDL Cholesterol, Calc 41 mg/dL (< 31) H 05/27/17 03:50 HDL Cholesterol 16 mg/dL (40-59) L 05/27/17 03:50 Cholesterol/HDL Ratio 6.6 (0-4.9) H 05/27/17 03:50 PTH Intact 457.2 pg/ml (8.5-72.5) H 05/29/17 07:40 Urine Clarity Cloudy (Clear) A 05/27/17 13:15 Urine Protein >=300 mg/dL (Neg-Trace) H 05/27/17 13:15 Urine Glucose (UA) 100 mg/dL (Normal) H 05/27/17 13:15 Urine Blood Large (Negative) H 05/27/17 13:15 Urine Microscopic WBC 3-5 per hpf (0-3) H 05/27/17 13:15 Ur Squamous Epith Cells Moderate per lpf (None-Few) H 05/27/17 13:15 General appearance: Present: no acute distress, obese Exam: intubated, pupils responsive to light, minimal response to sternal rub, no consistent response to prompting with hand squeeze or name, right MR palsy noted. - Head Head exam: Present: atraumatic, normal inspection, normocephalic - ENT ENT exam: Present: mucous membranes moist - Respiratory Additional comments: intubated on vent, harsh breath sounds. - Cardiovascular Cardiovascular exam: Present: RRR, +S1, +S2 - GI/Abdominal GI/Abdominal exam: Present: hypoactive bowel sounds, soft. Absent: distended - Extremities Exam Additional comments: 2+ pitting edema bilateral lower ext, 1+ pitting edema upper extremities. - Skin Skin exam: Present: dry, intact, normal color, warm. Absent: rash Palliative Quality Palliative Quality: Screen for Code Status: Yes, Screen for Goals of Care: Yes, Screen for Pain: Yes, If Pain Regimen Started, Initiate Bowel Regimen: Yes, Screen for Nausea/Vomitting: Yes Code Status: 05/26/17 21:21 Resuscitation Status: Active [RES] Routine Comment: Resuscitation Status: Full Code Resuscitation Status: Active [RES] Routine Comment: Resuscitation Status: DNR-Comfort Care-Arrest - Labs CBC & Chem 7: 06/15/17 05:05 06/15/17 05:05 Labs: Laboratory Results - last 24 hr 06/15/17 06/15/17 06/15/17 08:10 11:39 15:15 POC Glucose 255 H 276 H 259 H 06/15/17 06/15/17 06/16/17 19:34 23:52 04:33 POC Glucose 199 H 207 H 258 H 06/16/17 07:32 POC Glucose 272 H - Impressions Impressions Brain MRI 06/15/17 08:55 IMPRESSION: 1. No acute intracranial abnormality pre 2. Mild chronic white matter microvascular ischemic changes and multifocal remote lacunar infarcts as above. 3. Bilateral mastoid effusions. D/ / Hu Fisher / Hu Fisher Interpreting Provider: Hu Fisher - ABG Interpretation ABG results: ABG ABG pH 7.36 pH Units (7.32-7.45) 06/14/17 05:13 ABG pCO2 41 mmHg (35-45) 06/14/17 05:13 ABG pO2 58 mmHg (85-104) L 06/14/17 05:13 ABG O2 Saturation 88 % (95-98) L 06/14/17 05:13 PT/INR, D-dimer PT 14.1 Seconds (9.4-12.1) H 06/15/17 05:05 Consult Discharge Plan - Plan Referrals: NONE,PCP [Primary Care Provider] - (Patient will follow up with renal doctors)
[2017-06-16] MEDS: Pantoprazole 40 MG VIAL IVP SCH (07:58)
[2017-06-16] MEDS: Chlorhexidine Rinse 15 ML MOUTHWASH MM SCH (07:58)
--- NOTE | 2017-06-16 08:49 | Neurology Progress Note ---
<Debbie Quintana - Last Filed: 06/16/17 08:47> Date of Encounter: 06/16/17 Time of Encounter: 08:47 Assessment and Plan (1) Coma Status: Acute anoxic brain injury secondary to cardiac arrest. prior EEG showed diffuse severe background slowing with minimal reactivity brain MRI from 06/15/17 showed no acute abnormality, mid chronic white matter microvascular ischemic changes and multifocal remote lacunar infarcts, bilateral mastoid effusions. Plan: Overall prognosis continues to be poor. continue goals of care discussions, appreciate palliative input. Qualifiers: Coma depth: Ruchi coma 3-8 Coma timin hours or more after hospital admission Qualified Code(s): R40.2434 - Sylvester coma scale score 3-8, 24 hours or more after hospital admission (2) Anoxic brain damage Status: Acute as above (3) Sepsis Status: Acute per primary Qualifiers: Sepsis type: sepsis due to unspecified organism Qualified Code(s): A41.9 - Sepsis, unspecified organism Subjective Principal diagnosis: CODIFIER failure s/p Cardiac arrest Interval history: 61M evaluated at bedside. He remains intubated and on ventilator. Objective - Constitutional Vitals: Temp Pulse Resp BP Pulse Ox 98.0 F 103 20 108/64 95 06/16/17 08:24 06/16/17 08:00 06/16/17 08:16 06/16/17 08:00 06/16/17 08:16 General appearance: Present: no acute distress. Absent: A&O X 3, answers questions appropriately - Head Head exam: Present: atraumatic, normocephalic - Eye Eye exam: Present: PERRL Pupils: Present: PERRL Additional comments: blink reflex present. - Extremities Exam Additional comments: trace bilateral lower extremity edema. - Neurological Exam Sensorimotor examination: Present: other (Unable to assess due to coma. ) Motor Examination: Present: other (Flaccid paralysed. No movements to painful or verbal stimuli. Does have occasional spontaneous movements of head and limbs without stimuli. bilateral brachioradialis reflex intact. all other reflexes absent. ) Sensation intact: Present: other (Unable to assess due to coma) Posture: Present: other (None) Reflex and gait examination: other (Not tested patient is in coma) Reflexes: Brachioradialis: 1+ Mental Status Examination: Present: does not follow commands, coma, no spontaneous eye opening to voice or tactile stimulation Cranial nerve examination: Present: PERRL, EOMI (positive oculocephalic reflex) , no facial asymmetry is present Results - Laboratory Findings CBC and BMP: 06/15/17 05:05 06/15/17 05:05 Abnormal lab findings: Abnormal lab results RBC 3.02 M/mcL (4.19-5.50) L 06/15/17 05:05 Hgb 8.6 g/dL (12.9-16.9) L 06/15/17 05:05 Hct 27.4 % (37.5-50.1) L 06/15/17 05:05 MCHC 31.4 g/dL (31.6-35.5) L 06/15/17 05:05 RDW 16.3 % (11.5-14.5) H 06/15/17 05:05 Nucleated RBCs/100 WBC 0.2 /100 WBC (0) H 06/12/17 03:33 Polychromasia 1+ (Not Present) A 06/14/17 04:53 Hypochromasia Present (Not Present) A 06/08/17 04:00 PT 14.1 Seconds (9.4-12.1) H 06/15/17 05:05 APTT 25.7 Seconds (26.0-36.0) L D 06/03/17 21:15 ABG pO2 58 mmHg (85-104) L 06/14/17 05:13 ABG O2 Saturation 88 % (95-98) L 06/14/17 05:13 VBG pH 7.22 pH Units (7.32-7.42) L 06/03/17 14:03 VBG pCO2 65 mmHg (41-51) H 06/03/17 14:03 VBG pO2 76 mmHg (25-50) H 06/03/17 14:03 Sodium 129 mEq/L (136-145) L 06/15/17 05:05 Chloride 91 mEq/L (98-107) L 06/15/17 05:05 BUN 55 mg/dL (8-23) H 06/15/17 05:05 Creatinine 6.75 mg/dL (0.70-1.30) H 06/15/17 05:05 Est GFR ( Amer) 10 (> 60) L 06/15/17 05:05 Est GFR (Non-Af Amer) 8 (> 60) L 06/15/17 05:05 Glucose 283 mg/dL (70-105) H 06/15/17 05:05 POC Glucose 272 (58-89) H 06/16/17 07:32 Venous Ioniz Calcium 0.97 mmol/L (1.15-1.35) L 06/05/17 04:34 Phosphorus 10.7 mg/dL (2.7-4.5) H 06/08/17 04:00 Magnesium 2.7 mg/dL (1.6-2.6) H 06/12/17 03:33 Iron 15 mcg/dL (65-175) L 05/29/17 07:40 % Saturation 6 % (20-55) L 05/29/17 07:40 Transferrin 169 mg/dL (174-364) L 05/29/17 07:40 Ferritin 517 ng/ml (22-275) H 05/29/17 07:40 Direct Bilirubin 0.5 mg/dL (0.0-0.2) H 06/12/17 03:33 AST 158 Units/L (13-39) H 06/15/17 05:05 Alkaline Phosphatase 557 Units/L (34-104) H 06/15/17 05:05 Albumin 2.4 g/dL (3.5-5.7) L 06/15/17 05:05 Globulin 5.1 g/dL (2.4-3.5) H 06/15/17 05:05 Albumin/Globulin Ratio 0.5 (1.1-2.2) L 06/15/17 05:05 Triglycerides 203 mg/dL (< 150) H 05/27/17 03:50 VLDL Cholesterol, Calc 41 mg/dL (< 31) H 05/27/17 03:50 HDL Cholesterol 16 mg/dL (40-59) L 05/27/17 03:50 Cholesterol/HDL Ratio 6.6 (0-4.9) H 05/27/17 03:50 PTH Intact 457.2 pg/ml (8.5-72.5) H 05/29/17 07:40 Urine Clarity Cloudy (Clear) A 05/27/17 13:15 Urine Protein >=300 mg/dL (Neg-Trace) H 05/27/17 13:15 Urine Glucose (UA) 100 mg/dL (Normal) H 05/27/17 13:15 Urine Blood Large (Negative) H 05/27/17 13:15 Urine Microscopic WBC 3-5 per hpf (0-3) H 05/27/17 13:15 Ur Squamous Epith Cells Moderate per lpf (None-Few) H 05/27/17 13:15 Consult Discharge Plan - Plan Referrals: NONE,PCP [Primary Care Provider] - (Patient will follow up with renal doctors) <Alexsandra Nichole I - Last Filed: 06/18/17 20:42> Date of Encounter: 06/16/17 Assessment and Plan (1) Persistent vegetative state Status: Acute NO significant change in overall neurolgical status after 2 weeks of cardiac arrest, so far no reversible cause found, MRI is negative labs are stable, in fact i did not see any change in my neuro exam in last 3 days same as previously documented by Dr Sanchez regardless pt seem to be in vegetative state, his prognosis for any reasonable neurological recovery is poor he may stay in this condition for long period of time or may not survive after withdrawal of care. Palliative care is on board and in discussion with pt , I met with her in person and all questions were answered, she planned to make decision shortly Alexsandra Nichole MD (2) Anoxic brain damage Status: Acute (3) Coma Status: Acute Qualifiers: Coma depth: other Coma timin hours or more after hospital admission Qualified Code(s): R40.2444 - Other coma, without documented Ruchi coma scale score, or with partial score reported, 24 hours or more after hospital admission Subjective Interval history: Pt seen and examined agree with Resident documentations, no change in overall neurological status had MRI of Brain that did not show any acute abnormality, pt not on any sedation continued to have preserve brain stem reflexes Objective - Constitutional Vitals: Temp Pulse Resp BP Pulse Ox 98.0 F 99 8 95/54 55 06/16/17 08:24 06/16/17 11:00 06/16/17 11:00 06/16/17 11:00 06/16/17 11:00 Results - Laboratory Findings CBC and BMP: 06/16/17 09:13 06/15/17 05:05 Abnormal lab findings: Abnormal lab results RBC 3.05 M/mcL (4.19-5.50) L 06/16/17 09:13 Hgb 8.7 g/dL (12.9-16.9) L 06/16/17 09:13 Hct 27.8 % (37.5-50.1) L 06/16/17 09:13 MCHC 31.3 g/dL (31.6-35.5) L 06/16/17 09:13 RDW 16.1 % (11.5-14.5) H 06/16/17 09:13 Nucleated RBCs/100 WBC 0.2 /100 WBC (0) H 06/12/17 03:33 Polychromasia 1+ (Not Present) A 06/14/17 04:53 Hypochromasia Present (Not Present) A 06/08/17 04:00 PT 14.1 Seconds (9.4-12.1) H 06/15/17 05:05 APTT 25.7 Seconds (26.0-36.0) L D 06/03/17 21:15 ABG pO2 58 mmHg (85-104) L 06/14/17 05:13 ABG O2 Saturation 88 % (95-98) L 06/14/17 05:13 VBG pH 7.22 pH Units (7.32-7.42) L 06/03/17 14:03 VBG pCO2 65 mmHg (41-51) H 06/03/17 14:03 VBG pO2 76 mmHg (25-50) H 06/03/17 14:03 Sodium 129 mEq/L (136-145) L 06/15/17 05:05 Chloride 91 mEq/L (98-107) L 06/15/17 05:05 BUN 55 mg/dL (8-23) H 06/15/17 05:05 Creatinine 6.75 mg/dL (0.70-1.30) H 06/15/17 05:05 Est GFR ( Amer) 10 (> 60) L 06/15/17 05:05 Est GFR (Non-Af Amer) 8 (> 60) L 06/15/17 05:05 Glucose 283 mg/dL (70-105) H 06/15/17 05:05 POC Glucose 272 (58-89) H 06/16/17 07:32 Venous Ioniz Calcium 0.97 mmol/L (1.15-1.35) L 06/05/17 04:34 Phosphorus 10.7 mg/dL (2.7-4.5) H 06/08/17 04:00 Magnesium 2.7 mg/dL (1.6-2.6) H 06/12/17 03:33 Iron 15 mcg/dL (65-175) L 05/29/17 07:40 % Saturation 6 % (20-55) L 05/29/17 07:40 Transferrin 169 mg/dL (174-364) L 05/29/17 07:40 Ferritin 517 ng/ml (22-275) H 05/29/17 07:40 Direct Bilirubin 0.5 mg/dL (0.0-0.2) H 06/12/17 03:33 AST 158 Units/L (13-39) H 06/15/17 05:05 Alkaline Phosphatase 557 Units/L (34-104) H 06/15/17 05:05 Albumin 2.4 g/dL (3.5-5.7) L 06/15/17 05:05 Globulin 5.1 g/dL (2.4-3.5) H 06/15/17 05:05 Albumin/Globulin Ratio 0.5 (1.1-2.2) L 06/15/17 05:05 Triglycerides 203 mg/dL (< 150) H 05/27/17 03:50 VLDL Cholesterol, Calc 41 mg/dL (< 31) H 05/27/17 03:50 HDL Cholesterol 16 mg/dL (40-59) L 05/27/17 03:50 Cholesterol/HDL Ratio 6.6 (0-4.9) H 05/27/17 03:50 PTH Intact 457.2 pg/ml (8.5-72.5) H 05/29/17 07:40 Urine Clarity Cloudy (Clear) A 05/27/17 13:15 Urine Protein >=300 mg/dL (Neg-Trace) H 05/27/17 13:15 Urine Glucose (UA) 100 mg/dL (Normal) H 05/27/17 13:15 Urine Blood Large (Negative) H 05/27/17 13:15 Urine Microscopic WBC 3-5 per hpf (0-3) H 05/27/17 13:15 Ur Squamous Epith Cells Moderate per lpf (None-Few) H 05/27/17 13:15
--- NOTE | 2017-06-16 09:01 | Pulmonology Progress Note ---
<Johnnie Bradford - Last Filed: 06/16/17 11:43> Date of Encounter: 06/16/17 Time of Encounter: 09:01 Assessment and Plan (1) Sepsis Status: Acute Resolved. Plan: - Patient hemodynamically stable - Continue ICU care. Qualifiers: Sepsis type: sepsis due to unspecified organism Qualified Code(s): A41.9 - Sepsis, unspecified organism (2) ESRD needing dialysis Status: Chronic Nephrology following. Dialysis per schedule. (3) DM2 (diabetes mellitus, type 2) Status: Chronic Patient is a known type II diabetic, currently receiving tube feedings. Patient has been hyperglycemic. Will adjust Levemir to 15 mg twice a day Plan: - Levemir 15 mg BID - High dose sliding scale every 4 hours - Every 4 hourly glucose checks. Qualifiers: Diabetes mellitus complication status: without complication Diabetes mellitus correction insulin use: with termite treater helper use Qualified Code(s): E11.9 - Type 2 diabetes mellitus without complications; Z79.4 - intermediate manager (current) use of insulin; Z79.4 - care home (current) use of insulin; Z79.4 - care home ( current) use of insulin; Z79.4 - intermediate manager (current) use of insulin (4) Acute respiratory failure with hypoxia and hypercapnia Status: Acute Patient still continues to require mechanical ventilation. Mental status is poor. Continue to wean FiO2 as tolerated. Continue dialysis for volume overload. - Family wishing to wait until Monday to make a decision on mechanical ventilation. (5) Cardiac arrest Status: Acute Patient remains unresponsive neurology following extremely poor prognosis neurologically EEG shows diffuse slowing which is consistent with this diagnosis neurology is following as is palliative care. Plan: - Discuss goals of care with family. (6) Anoxic brain damage Status: Acute Anoxic brain injury status post cardiac arrest. EEG and clinical prognosis is poor. The patient is DNR comfort care arrest. Continue to monitor for neurologic status improvement. 06/15: No purposeful neurologic function, neurology following, plan for brain MRI today. (7) Goals of care, counseling/discussion Status: Acute The patient's prognosis has been discussed with the patient's family. At this time he is DNR CCA, family wishes to discuss goals of care regarding trach and PEG versus comfort care. (8) On enteral nutrition Status: Acute Patient receiving enteral nutrition via OG tube. Hyperglycemia is monitored during this process. (9) DVT prophylaxis Status: Acute Heparin subcutaneously. 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 Benitez 61-year-old male is intubated, not on sedation and poorly responsive to neurologic stimuli. No purposeful movements, family at bedside QUESTIONS answered. Objective PUL Vital signs: Last Vital Signs Temp 98.0 F 06/16/17 08:24 Pulse 103 06/16/17 08:00 Resp 20 06/16/17 08:16 BP 108/64 06/16/17 08:00 Pulse Ox 95 06/16/17 08:16 General appearance: comatose Eyes: nonicteric ENT: oropharynx moist Neck: supple Effort: other (Correlating with mechanical ventilation) Auscultation: bilateral: clear Cardiovascular: irregular rhythm Gastrointestinal: normoactive bowel sounds Integumentary: normal Extremities: no cyanosis, no edema, no clubbing Musculoskeletal: no deformities Ventilator Settings Ventilator Settings: Ventilator Settings, Last 8 Hours Ventilator Mode CPAP Ventilator Mode CPAP Ventilator Mode CPAP Ventilator Mode CPAP Ventilator Mode A/C Ventilator Mode A/C Ventilator Mode A/C Ventilator Mode A/C Ventilator Mode A/C Ventilator Mode A/C Ventilator Mode A/C Ventilator Tidal Volume 600 Setting Ventilator Tidal Volume 600 Setting Ventilator Tidal Volume 600 Setting Ventilator Tidal Volume 600 Setting Ventilator Tidal Volume 600 Setting Ventilator Tidal Volume 600 Setting Ventilator Tidal Volume 600 Setting Ventilator Respiratory Rate 14 Setting Ventilator Respiratory Rate 14 Setting Ventilator Respiratory Rate 14 Setting Ventilator Respiratory Rate 14 Setting Ventilator Respiratory Rate 14 Setting Ventilator Respiratory Rate 14 Setting Ventilator Respiratory Rate 14 Setting Actual Respiratory Rate 19 Actual Respiratory Rate 19 Actual Respiratory Rate 16 Actual Respiratory Rate 17 Actual Respiratory Rate 16 Actual Respiratory Rate 16 Actual Respiratory Rate 15 Actual Respiratory Rate 16 Actual Respiratory Rate 14 Actual Respiratory Rate 16 Actual Respiratory Rate 17 Positive End Expiratory 5 Pressure Positive End Expiratory 5 Pressure Positive End Expiratory 5 Pressure Positive End Expiratory 5 Pressure Positive End Expiratory 5 Pressure Positive End Expiratory 5 Pressure Positive End Expiratory 5 Pressure Positive End Expiratory 5 Pressure Positive End Expiratory 5 Pressure Positive End Expiratory 5 Pressure Positive End Expiratory 5 Pressure Peak Inspiratory Airway 11 Pressure Peak Inspiratory Airway 11 Pressure Peak Inspiratory Airway 11 Pressure Peak Inspiratory Airway 11 Pressure Peak Inspiratory Airway 26 Pressure Peak Inspiratory Airway 24 Pressure Peak Inspiratory Airway 26 Pressure Peak Inspiratory Airway 26 Pressure Peak Inspiratory Airway 27 Pressure Peak Inspiratory Airway 26 Pressure Peak Inspiratory Airway 25 Pressure Results - Laboratory Findings CBC and BMP: 06/15/17 05:05 06/15/17 05:05 ABG ABG pH 7.36 pH Units (7.32-7.45) 06/14/17 05:13 ABG pCO2 41 mmHg (35-45) 06/14/17 05:13 ABG pO2 58 mmHg (85-104) L 06/14/17 05:13 ABG O2 Saturation 88 % (95-98) L 06/14/17 05:13 PT/INR, D-dimer PT 14.1 Seconds (9.4-12.1) H 06/15/17 05:05 Abnormal lab findings: Abnormal lab results RBC 3.02 M/mcL (4.19-5.50) L 06/15/17 05:05 Hgb 8.6 g/dL (12.9-16.9) L 06/15/17 05:05 Hct 27.4 % (37.5-50.1) L 06/15/17 05:05 MCHC 31.4 g/dL (31.6-35.5) L 06/15/17 05:05 RDW 16.3 % (11.5-14.5) H 06/15/17 05:05 Nucleated RBCs/100 WBC 0.2 /100 WBC (0) H 06/12/17 03:33 Polychromasia 1+ (Not Present) A 06/14/17 04:53 Hypochromasia Present (Not Present) A 06/08/17 04:00 PT 14.1 Seconds (9.4-12.1) H 06/15/17 05:05 APTT 25.7 Seconds (26.0-36.0) L D 06/03/17 21:15 ABG pO2 58 mmHg (85-104) L 06/14/17 05:13 ABG O2 Saturation 88 % (95-98) L 06/14/17 05:13 VBG pH 7.22 pH Units (7.32-7.42) L 06/03/17 14:03 VBG pCO2 65 mmHg (41-51) H 06/03/17 14:03 VBG pO2 76 mmHg (25-50) H 06/03/17 14:03 Sodium 129 mEq/L (136-145) L 06/15/17 05:05 Chloride 91 mEq/L (98-107) L 06/15/17 05:05 BUN 55 mg/dL (8-23) H 06/15/17 05:05 Creatinine 6.75 mg/dL (0.70-1.30) H 06/15/17 05:05 Est GFR ( Amer) 10 (> 60) L 06/15/17 05:05 Est GFR (Non-Af Amer) 8 (> 60) L 06/15/17 05:05 Glucose 283 mg/dL (70-105) H 06/15/17 05:05 POC Glucose 272 (58-89) H 06/16/17 07:32 Venous Ioniz Calcium 0.97 mmol/L (1.15-1.35) L 06/05/17 04:34 Phosphorus 10.7 mg/dL (2.7-4.5) H 06/08/17 04:00 Magnesium 2.7 mg/dL (1.6-2.6) H 06/12/17 03:33 Iron 15 mcg/dL (65-175) L 05/29/17 07:40 % Saturation 6 % (20-55) L 05/29/17 07:40 Transferrin 169 mg/dL (174-364) L 05/29/17 07:40 Ferritin 517 ng/ml (22-275) H 05/29/17 07:40 Direct Bilirubin 0.5 mg/dL (0.0-0.2) H 06/12/17 03:33 AST 158 Units/L (13-39) H 06/15/17 05:05 Alkaline Phosphatase 557 Units/L (34-104) H 06/15/17 05:05 Albumin 2.4 g/dL (3.5-5.7) L 06/15/17 05:05 Globulin 5.1 g/dL (2.4-3.5) H 06/15/17 05:05 Albumin/Globulin Ratio 0.5 (1.1-2.2) L 06/15/17 05:05 Triglycerides 203 mg/dL (< 150) H 05/27/17 03:50 VLDL Cholesterol, Calc 41 mg/dL (< 31) H 05/27/17 03:50 HDL Cholesterol 16 mg/dL (40-59) L 05/27/17 03:50 Cholesterol/HDL Ratio 6.6 (0-4.9) H 05/27/17 03:50 PTH Intact 457.2 pg/ml (8.5-72.5) H 05/29/17 07:40 Urine Clarity Cloudy (Clear) A 05/27/17 13:15 Urine Protein >=300 mg/dL (Neg-Trace) H 05/27/17 13:15 Urine Glucose (UA) 100 mg/dL (Normal) H 05/27/17 13:15 Urine Blood Large (Negative) H 05/27/17 13:15 Urine Microscopic WBC 3-5 per hpf (0-3) H 05/27/17 13:15 Ur Squamous Epith Cells Moderate per lpf (None-Few) H 05/27/17 13:15 - Microbiology Findings Microbiology Findings: Microbiology, Last 48 Hours 06/09/17 11:33 Blood Culture - Final Peripheral Venipuncture No growth. 06/09/17 11:28 Blood Culture - Final Peripheral Venipuncture No growth. - Clinical Findings Intake & Output: Intake & Output 06/15/17 06/16/17 06/16/17 23:59 07:59 15:59 Intake Total 273 / 273 570 / 570 0 / 0 Output Total 100 / 100 150 / 150 Balance 173 / 173 420 / 420 0 / 0 Weight 102 kg Consult Discharge Plan - Plan Referrals: NONE,PCP [Primary Care Provider] - (Patient will follow up with renal doctors) <Francheska Haile - Last Filed: 06/16/17 17:33> Date of Encounter: 06/16/17 Assessment and Plan (1) Coma Status: Acute Qualifiers: Coma depth: Ruchi coma 3-8 Coma timin hours or more after hospital admission Qualified Code(s): R40.2434 - Ruchi coma scale score 3-8, 24 hours or more after hospital admission (2) Acute respiratory failure with hypoxia and hypercapnia Status: Acute (3) Cardiac arrest due to other underlying condition Status: Acute (4) ESRD needing dialysis Status: Chronic Objective PUL Vital signs: Last Vital Signs Temp 98.0 F 06/16/17 08:24 Pulse 99 06/16/17 11:00 Resp 8 06/16/17 11:00 BP 95/54 06/16/17 11:00 Pulse Ox 55 06/16/17 11:00 Ventilator Settings Ventilator Settings: Ventilator Settings, Last 8 Hours Ventilator Mode CPAP Ventilator Mode CPAP Ventilator Respiratory Rate 18 Setting Ventilator Respiratory Rate 18 Setting Actual Respiratory Rate 18 Actual Respiratory Rate 18 Positive End Expiratory 5 Pressure Positive End Expiratory 5 Pressure Peak Inspiratory Airway 11 Pressure Peak Inspiratory Airway 11 Pressure Results - Laboratory Findings CBC and BMP: 06/16/17 09:13 06/15/17 05:05 ABG ABG pH 7.36 pH Units (7.32-7.45) 06/14/17 05:13 ABG pCO2 41 mmHg (35-45) 06/14/17 05:13 ABG pO2 58 mmHg (85-104) L 06/14/17 05:13 ABG O2 Saturation 88 % (95-98) L 06/14/17 05:13 PT/INR, D-dimer PT 14.1 Seconds (9.4-12.1) H 06/15/17 05:05 Abnormal lab findings: Abnormal lab results RBC 3.05 M/mcL (4.19-5.50) L 06/16/17 09:13 Hgb 8.7 g/dL (12.9-16.9) L 06/16/17 09:13 Hct 27.8 % (37.5-50.1) L 06/16/17 09:13 MCHC 31.3 g/dL (31.6-35.5) L 06/16/17 09:13 RDW 16.1 % (11.5-14.5) H 06/16/17 09:13 Nucleated RBCs/100 WBC 0.2 /100 WBC (0) H 06/12/17 03:33 Polychromasia 1+ (Not Present) A 06/14/17 04:53 Hypochromasia Present (Not Present) A 06/08/17 04:00 PT 14.1 Seconds (9.4-12.1) H 06/15/17 05:05 APTT 25.7 Seconds (26.0-36.0) L D 06/03/17 21:15 ABG pO2 58 mmHg (85-104) L 06/14/17 05:13 ABG O2 Saturation 88 % (95-98) L 06/14/17 05:13 VBG pH 7.22 pH Units (7.32-7.42) L 06/03/17 14:03 VBG pCO2 65 mmHg (41-51) H 06/03/17 14:03 VBG pO2 76 mmHg (25-50) H 06/03/17 14:03 Sodium 129 mEq/L (136-145) L 06/15/17 05:05 Chloride 91 mEq/L (98-107) L 06/15/17 05:05 BUN 55 mg/dL (8-23) H 06/15/17 05:05 Creatinine 6.75 mg/dL (0.70-1.30) H 06/15/17 05:05 Est GFR ( Amer) 10 (> 60) L 06/15/17 05:05 Est GFR (Non-Af Amer) 8 (> 60) L 06/15/17 05:05 Glucose 283 mg/dL (70-105) H 06/15/17 05:05 POC Glucose 272 (58-89) H 06/16/17 07:32 Venous Ioniz Calcium 0.97 mmol/L (1.15-1.35) L 06/05/17 04:34 Phosphorus 10.7 mg/dL (2.7-4.5) H 06/08/17 04:00 Magnesium 2.7 mg/dL (1.6-2.6) H 06/12/17 03:33 Iron 15 mcg/dL (65-175) L 05/29/17 07:40 % Saturation 6 % (20-55) L 05/29/17 07:40 Transferrin 169 mg/dL (174-364) L 05/29/17 07:40 Ferritin 517 ng/ml (22-275) H 05/29/17 07:40 Direct Bilirubin 0.5 mg/dL (0.0-0.2) H 06/12/17 03:33 AST 158 Units/L (13-39) H 06/15/17 05:05 Alkaline Phosphatase 557 Units/L (34-104) H 06/15/17 05:05 Albumin 2.4 g/dL (3.5-5.7) L 06/15/17 05:05 Globulin 5.1 g/dL (2.4-3.5) H 06/15/17 05:05 Albumin/Globulin Ratio 0.5 (1.1-2.2) L 06/15/17 05:05 Triglycerides 203 mg/dL (< 150) H 05/27/17 03:50 VLDL Cholesterol, Calc 41 mg/dL (< 31) H 05/27/17 03:50 HDL Cholesterol 16 mg/dL (40-59) L 05/27/17 03:50 Cholesterol/HDL Ratio 6.6 (0-4.9) H 05/27/17 03:50 PTH Intact 457.2 pg/ml (8.5-72.5) H 05/29/17 07:40 Urine Clarity Cloudy (Clear) A 05/27/17 13:15 Urine Protein >=300 mg/dL (Neg-Trace) H 05/27/17 13:15 Urine Glucose (UA) 100 mg/dL (Normal) H 05/27/17 13:15 Urine Blood Large (Negative) H 05/27/17 13:15 Urine Microscopic WBC 3-5 per hpf (0-3) H 05/27/17 13:15 Ur Squamous Epith Cells Moderate per lpf (None-Few) H 05/27/17 13:15 - Microbiology Findings Microbiology Findings: Microbiology, Last 48 Hours 06/09/17 11:33 Blood Culture - Final Peripheral Venipuncture No growth. 06/09/17 11:28 Blood Culture - Final Peripheral Venipuncture No growth. - Clinical Findings Intake & Output: Intake & Output 06/16/17 06/16/17 06/16/17 07:59 15:59 23:59 Intake Total 570 / 570 110 / 110 Output Total 150 / 150 0 / 0 Balance 420 / 420 110 / 110 Weight 102 kg - Attending Attestation I examined this patient and my medical decision-making was reviewed with the Resident Physician. I agree with the documented findings, disposition and treatment plan as described except to the extent set forth below. Patient seen and examined. Labs, radiology, chart personally reviewed. Agree with resident's history and physical, assessment, plan with following comments: LEHR OPERATOR: Patient does not follows commands, poor prognosis Pulmonary: Acceptable oxygenation and ventilation. Patient tolerated spontaneous breathing trial and then a family meeting with the palliative care and plan to extubate patient to comfort which was done and subsequently patient . Cardiovascular: stable before extubation GI: Nutrition per dietary and GI prophylaxis per routine discussed with the regarding the nutrition if patient does not after extubation.
[2017-06-16] MEDS: Insulin DETEMIR 100 UNIT/ML X5UNITS SQ SCH (09:05)
[2017-06-16] MEDS: FentaNYL (PF) 1,000 MCG in 0.9 % Sodium Chloride 80 ML IVC SCH (09:12)
--- NOTE | 2017-06-16 09:12 | Nephrology Progress Note ---
Date of Encounter: 06/16/17 Time of Encounter: 08:50 - Assessment and Plan (1) ESRD needing dialysis Current Visit: Yes Status: Chronic HD today, keeping MWF schedule. Orders given. (2) Acute metabolic encephalopathy Current Visit: Yes Status: Acute Subjective Principal diagnosis: [employer] failure s/p Cardiac arrest Interval history: Intubated. No pressors. Nursing states some spontaneous extremity movement and opening of eyes without focus. Objective - Vital Signs Vital signs: Vital Signs Temp Pulse Resp BP Pulse Ox 06/16/17 09:00 91 18 108/65 96 06/16/17 08:24 98.0 F 06/16/17 08:16 20 95 06/16/17 08:00 103 19 108/64 95 06/16/17 07:30 93 06/16/17 07:00 93 16 111/66 94 06/16/17 06:30 17 106/69 94 06/16/17 06:02 88 16 95/53 97 06/16/17 05:05 84 16 93/56 96 06/16/17 04:00 97.6 F 84 15 86/55 100 06/16/17 03:47 81 06/16/17 03:29 16 94/58 96 06/16/17 03:00 89 14 94/58 98 06/16/17 02:00 92 16 106/60 96 06/16/17 01:45 17 89/54 98 06/16/17 01:00 93 17 93/50 97 06/16/17 00:08 95 06/16/17 00:05 98.1 F 95 17 101/64 95 06/15/17 23:50 17 101/49 95 06/15/17 23:00 94 16 101/49 96 06/15/17 22:00 98 20 106/84 92 06/15/17 21:35 15 93/61 94 06/15/17 21:00 90 15 89/54 94 06/15/17 20:10 93 06/15/17 20:00 100 18 101/63 95 06/15/17 19:55 18 78/48 94 06/15/17 19:30 99.2 F 91 16 95/68 95 06/15/17 18:17 15 95 06/15/17 18:00 99 14 100/49 94 06/15/17 17:00 104 17 87/72 94 06/15/17 16:00 88 18 104/60 98 06/15/17 15:45 99.1 F 06/15/17 15:39 25 96 06/15/17 15:00 89 26 99/63 95 06/15/17 14:00 80 25 106/66 97 06/15/17 13:47 25 97 06/15/17 13:00 79 24 92/55 97 06/15/17 12:18 26 92 06/15/17 12:00 98.0 F 93 24 101/72 96 06/15/17 11:57 98.0 F 06/15/17 11:00 98 24 108/74 92 06/15/17 10:00 93 30 99/61 95 06/15/17 09:30 23 93 Intake and Output 06/15/17 06/16/17 06/16/17 23:59 07:59 15:59 Intake Total 273 / 273 570 / 570 0 / 0 Output Total 100 / 100 150 / 150 0 / 0 Balance 173 / 173 420 / 420 0 / 0 Intake: IV Fluids 100 / 100 0 / 0 FentaNYL (PF) 1,000 MCG In 0.9 100 / 100 0 / 0 % Sodium Chloride 80 ML @ 50 MCG/HR 5 mls/hr IVC CONT PEPE Rx #:[id number] Oral 173 / 173 0 / 0 Tube Feeding 173 / 173 397 / 397 Free Water 0 / 0 Output: Urine 0 / 0 Stool 100 / 100 150 / 150 Urine/Stool Mix 0 / 0 Other: Weight 102 kg Blood Glucose* 199 258 272 Patient Weight 06/16/17 23:59 Weight 102 kg - General Appearance General appearance: Present: well-developed, well-nourished, appears started age EENT: Present: mucous membranes moist Neck: Present: no JVD Respiratory: Present: clear Cardiology: Present: edema, regular rate, regular rhythm Additional Comments: trace ankle Gastrointestinal: Present: normoactive bowel sounds Integumentary: Present: warm and dry - Lab 06/15/17 05:05 06/15/17 05:05 Most recent lab results ABG pH 7.36 pH Units (7.32-7.45) 06/14/17 05:13 ABG pCO2 41 mmHg (35-45) 06/14/17 05:13 ABG pO2 58 mmHg (85-104) L 06/14/17 05:13 ABG HCO3 24 mEq/L (21-27) 06/14/17 05:13 ABG O2 Saturation 88 % (95-98) L 06/14/17 05:13 Calcium 8.6 mg/dL (8.6-10.3) 06/15/17 05:05 Phosphorus 10.7 mg/dL (2.7-4.5) H 06/08/17 04:00 Magnesium 2.7 mg/dL (1.6-2.6) H 06/12/17 03:33 Consult Discharge Plan - Plan Referrals: NONE,PCP [Primary Care Provider] - (Patient will follow up with renal doctors)
[2017-06-16 09:40] LABS: Basophils # 0.1 K/mcL (0.0-0.2); Basophils % 0.6 %; Eosinophils # 0.4 K/mcL (0.0-0.6); Hematocrit 27.8 % (37.5-50.1); Hemoglobin 8.7 g/dL (12.9-16.9); Immature Granulocytes % 1.1 % (0-4); Lymphocytes # 2.2 K/mcL (0.6-4.6); Lymphocytes % 20.8 %; Mean Corpuscular HGB Conc 31.3 g/dL (31.6-35.5); Mean Corpuscular Hemoglobin 28.5 pg (28.0-33.3); Mean Corpuscular Volume 91.1 fL (83.0-100.0); Mean Platelet Volume 11.7 fL (9.4-12.4); Monocytes # 1.3 K/mcL (0.0-1.3); Monocytes % 12.2 %; Neutrophils # 6.5 K/mcL (1.6-8.9); Platelet Count 214 K/mcL (140-400); Red Blood Count 3.05 M/mcL (4.19-5.50); Red Cell Distribution Width 16.1 % (11.5-14.5); Segmented Neutrophils % 61.3 %
--- NOTE | 2017-06-16 09:40 | Event Note ---
Date of Encounter: 06/16/17 Time of Encounter: 09:37 i have been infrroemed by my resident that pts would like for me to not be involved in any further d/w her regarding his care, and not be involved in his care. therefore I will sign off, I did not examine pt this am and have only reviewed the case with the resident. As I am signing off I will only reinvolve in case if this is ok with the patient .
[2017-06-16 11:04] VITALS: BP 95/54
--- NOTE | 2017-06-16 11:33 | Death Note ---
<Coy Leyva - Last Filed: 06/16/17 11:25> Pronouncement Note - Date and Time of Date of : 06/16/17 Time of : 11:12 - PCOD Preliminary cause of : Respiratory arrest - Additional Data Confirmation of : no pulse, no respirations, no heart sounds, pupils fixed and dilated Family: at bedside Attending/PCP notified?: Yes Attending physician: Timo Weaver MD Was code activated?: No Autopsy requested?: No currency examiner notified?: No Organ bank notified?: No <Francheska Haile - Last Filed: 06/16/17 17:13> Pronouncement Note - Additional Data Attending physician: Timo Weaver MD
--- NOTE | 2017-06-16 17:17 | Death Note ---
<Johnnie Bradford Arias - Last Filed: 06/16/17 17:15> Discharge Sum: Summary - Date and Time Date of admission: 05/26/17 18:14 Date of : 06/16/17 Time of : 11:12 - Summary Details: Mr. Benitez 61-year-old male admitted with acute metabolic encephalopathy in the setting of end-stage renal disease, pneumonia on 05/26/2017. Mr. Benitez suffered a cardiac arrest on 06/03/2017 while in hemodialysis after undergoing CPR patient regained return of spontaneous circulation and was transferred to the ICU and placed on mechanical ventilation. Through his ICU stay he was seen and evaluated daily without neurologic improvement. Patient was seen by nephrology, palliative care and pulmonary critical care and assessed on a daily basis. On 06/16/2017 the patient continued to show no improvement in his neurologic status, and the patient family opted to withdraw care. At 1048 the patient was extubated and time of was 1112. Supportive family was at bedside. - Additional Data Confirmation of as documented by pronouncing clinician: no pulse, no respirations, no heart sounds, pupils fixed and dilated Family: at bedside Attending/PCP notified?: Yes Attending physician: Timo Weaver MD Was code activated?: No Autopsy requested?: No litigation examiner notified?: No Organ bank notified?: Yes Advance directives: Yes Hospice patient?: No Discharge Sum: Diag - PCOD Probable Cause of : Respiratory arrest Discharge Sum: Prov - Provider Primary care physician: PCP NONE Admitting clinician: Sharona Swenson Attending physician on admission: Sharona Swenson Consults: 06/12/17 08:00 Consult to Dialysis [CONS] ONCE 06/14/17 08:30 Consult to Dialysis [CONS] ONCE 06/14/17 15:16 Consult to Neurology [CONS] Routine Consulting Provider: [facility] Reason for Consult: at family's request Call Completed: Yes 05/26/17 21:25 Consult to Nephrology [CONS] Routine Consulting Provider: [facility] Reason for Consult: Worsening Kidney failure - ESRD..Need HD.. AMS Call Completed: Yes 05/27/17 10:15 Consult to Dialysis [CONS] ONCE 05/28/17 08:15 Consult to Dialysis [CONS] ONCE 05/29/17 09:45 Consult to Dialysis [CONS] ONCE 05/31/17 10:30 Consult to Dialysis [CONS] ONCE 06/01/17 10:13 Consult to Interventional Radiology [CONS] Routine Consulting Provider: Radiology [facility] Reason for Consult: tunneled HD catheter on Monday Time Notified: 10:14 Call Completed: Yes 06/01/17 10:30 Consult to Dialysis [CONS] ONCE Consult to Occupational Therapy [CONS] Routine Comment: Evaluate, develop and implement POC Reason for Consult: eval for ecf Consult to Physical Therapy [CONS] Routine Comment: Evaluate, develop and implement POC Reason for Consult: eval for ecf 06/02/17 09:15 Consult to Dialysis [CONS] ONCE 06/03/17 08:45 Consult to Dialysis [CONS] ONCE 06/03/17 11:22 Consult to Pulmonology [CONS] Stat Consulting Provider: [facility] Reason for Consult: critical care management Call Completed: Yes 06/04/17 11:00 Consult to Dialysis [CONS] ONCE 06/04/17 22:44 Consult to Neurology [CONS] Routine Consulting Provider: [facility] Reason for Consult: Patient had witnessed cardiac arrest s/p hypothermic protocol Time Notified: 11:30 Call Completed: Yes 06/06/17 07:19 Consult to Palliative Care [CONS] Routine Comment: Consulting Provider: [facility] Reason for Consult: anoxic brain injury Call Completed: Yes 06/06/17 09:48 Consult to Interpret Exam [CONS] Routine Consulting Provider: Troy Sanchez Consult to Interpret Exam: Interpret EEG 06/06/17 10:00 Consult to Dialysis [CONS] ONCE 06/09/17 09:45 Consult to Dialysis [CONS] ONCE 06/09/17 14:21 Consult to Interventional Radiology [CONS] Routine Consulting Provider: Radiology [facility] Reason for Consult: Exchange HD catheter Time Notified: 14:23 Call Completed: Yes Pronouncing clinician: Coy Leyva <Francheska Haile - Last Filed: 06/17/17 08:33> Discharge Sum: Summary - Date and Time Date of admission: 05/26/17 18:14 - Additional Data Attending physician: Timo Weaver MD Discharge Sum: Prov - Provider Primary care physician: PCP NONE Consults: 06/12/17 08:00 Consult to Dialysis [CONS] ONCE 06/14/17 08:30 Consult to Dialysis [CONS] ONCE 06/14/17 15:16 Consult to Neurology [CONS] Routine Consulting Provider: [facility] Reason for Consult: at family's request Call Completed: Yes 05/26/17 21:25 Consult to Nephrology [CONS] Routine Consulting Provider: [facility] Reason for Consult: Worsening Kidney failure - ESRD..Need HD.. AMS Call Completed: Yes 05/27/17 10:15 Consult to Dialysis [CONS] ONCE 05/28/17 08:15 Consult to Dialysis [CONS] ONCE 05/29/17 09:45 Consult to Dialysis [CONS] ONCE 05/31/17 10:30 Consult to Dialysis [CONS] ONCE 06/01/17 10:13 Consult to Interventional Radiology [CONS] Routine Consulting Provider: Radiology [facility] Reason for Consult: tunneled HD catheter on Monday Time Notified: 10:14 Call Completed: Yes 06/01/17 10:30 Consult to Dialysis [CONS] ONCE Consult to Occupational Therapy [CONS] Routine Comment: Evaluate, develop and implement POC Reason for Consult: eval for ecf Consult to Physical Therapy [CONS] Routine Comment: Evaluate, develop and implement POC Reason for Consult: eval for ecf 06/02/17 09:15 Consult to Dialysis [CONS] ONCE 06/03/17 08:45 Consult to Dialysis [CONS] ONCE 06/03/17 11:22 Consult to Pulmonology [CONS] Stat Consulting Provider: [facility]m Crit [facility] Reason for Consult: critical care management Call Completed: Yes 06/04/17 11:00 Consult to Dialysis [CONS] ONCE 06/04/17 22:44 Consult to Neurology [CONS] Routine Consulting Provider: [facility] Reason for Consult: Patient had witnessed cardiac arrest s/p hypothermic protocol Time Notified: 11:30 Call Completed: Yes 06/06/17 07:19 Consult to Palliative Care [CONS] Routine Comment: Consulting Provider: [facility] Reason for Consult: anoxic brain injury Call Completed: Yes 06/06/17 09:48 Consult to Interpret Exam [CONS] Routine Consulting Provider: Troy Sanchez Consult to Interpret Exam: Interpret EEG 06/06/17 10:00 Consult to Dialysis [CONS] ONCE 06/09/17 09:45 Consult to Dialysis [CONS] ONCE 06/09/17 14:21 Consult to Interventional Radiology [CONS] Routine Consulting Provider: Radiology [facility] Reason for Consult: Exchange HD catheter Time Notified: 14:23 Call Completed: Yes - Attending Attestation This was discussed with the resident on 06/16/2017, but co-signed on 06/17/2017 I examined this patient and my medical decision-making was reviewed with the Resident Physician. I agree with the documented findings, disposition and treatment plan as described except to the extent set forth below. Patient with poor prognosis and multiple medical problems and he had cardiac arrest. Discussed with with palliative care and patient was extubated and shortly after that he .
== END 2017-06-16 14:10 | disposition expired | DRG 130 ==
LOC: 2ANU 18:14 → SUATTDRO 18:14 → 2ANU 18:22 → ICNU 06-03 11:31
PROVIDERS: ADMIT Internal Medicine; ATTEND Internal Medicine Hospice and Palliative Medicine